=== PATIENT | female | born 1950 | race Caucasian/White ===

== ENCOUNTER 2023-05-22 13:42 | Outpatient (OUT) | payer MEDICARE, SELFPAY ==
--- NOTE | 2023-05-22 13:45 | MM_ITS ---
Patient: KERRI CHAMPAGNE Exam Date: 05/22/2023 : 1950 Gender:F Ordering : CY STORY [facility] Admission #: [id number] Family : Order #: [id number] CLICK HERE TO VIEW EXAM RADIOLOGY REPORT PROCEDURE: MM TOMOSYNTHESIS SCREENING BI COMPARISON: MG MAMM SCREEN 3D LISANDRO CAD, 03/07/2021. MG MAMM SCREEN 3D LISANDRO CAD, 03/31/2019. MG MAMM SCREEN LISANDRO W CAD, 03/12/2017. MG MAMM LISANDRO SCRN W CAD DIG, 02/23/2014. INDICATIONS: Screening Calculator Name NCI Breast Cancer Risk Assessment Tool 5 Year Breast Cancer Risk 2.00% Lifetime Breast Cancer Risk 5.60% Personal Breast Cancer No Personal Ovarian Cancer No Treatments Cryotherapy, chemotherapy cream Family Cancers Mother with colon cancer at age 65; Father with unknown cancer at age 80. LOCATION: [facility] BREAST COMPOSITION: Heterogeneously dense,which may obscure small masses. FINDINGS: DIAGNOSTIC CATEGORY 2--BENIGN FINDING: RIGHT BREAST: No significant suspicious finding. No significant change has occurred. LEFT BREAST: No significant suspicious finding. This exam includes additional mammographic views for implant evaluation and shows no visible implant abnormality. No significant change has occurred. RECOMMENDATIONS: ROUTINE MAMMOGRAM AND CLINICAL EVALUATION IN 12 MONTHS. PLEASE NOTE: A NORMAL MAMMOGRAM DOES NOT EXCLUDE THE POSSIBILITY OF BREAST CANCER. A CLINICALLY SUSPICIOUS PALPABLE LUMP SHOULD BE BIOPSIED. Dictated by: Kali Grove M.D. on 05/23/2023 at 13:45 Approved by: Kali Grove M.D. on 05/23/2023 at 13:48
== END 2023-05-22 13:43 | disposition home or self-care (01) ==
LOC: MAMMO 13:42
PROVIDERS: PCP Nurse Practitioner Family; Visit Provider Nurse Practitioner Family
DX: Z12.31 Encounter for screening mammogram for malignant neoplasm of breast (principal); Z80.0 Family history of malignant neoplasm of digestive organs; Z80.9 Family history of malignant neoplasm, unspecified
CPT/HCPCS: 77063; 77067

== ENCOUNTER 2023-12-30 08:40 | Outpatient (OUT) | payer MEDICARE, SELFPAY ==
--- NOTE | 2023-12-30 08:44 | MM_ITS ---
Patient Name: KERRI CHAMPAGNE MR#: [id number] : 1950 Exam Date: 12/30/2023 Ordering Doctor: CY STORY CNP RADIOLOGY REPORT PROCEDURE: MM TOMOSYNTHESIS DIAGNOSTIC BI, 12/30/2023, 08:46 US BREAST LT LIMITED, 12/30/2023, 10:09 COMPARISON: MM TOMOSYNTHESIS SCREENING BI, 05/22/2023. MG MAMM SCREEN 3D LISANDRO CAD, 03/07/2021. MG MAMM SCREEN 3D LISANDRO CAD, 03/31/2019. MG MAMM LISANDRO SCRN W CAD DIG, 02/23/2014. INDICATIONS: Breast Pain Calculator Name NCI Breast Cancer Risk Assessment Tool 5 Year Breast Cancer Risk 2.00% Lifetime Breast Cancer Risk 5.60% Personal Breast Cancer No Personal Ovarian Cancer No Treatments Cryotherapy, chemotherapy cream Family Cancers Mother with colon cancer at age 65; Father with unknown cancer at age 80. LOCATION: [facility] BREAST COMPOSITION: Heterogeneously dense,which may obscure small masses. FINDINGS: DIAGNOSTIC CATEGORY 1--NEGATIVE. RIGHT BREAST: No significant suspicious finding. This exam includes additional mammographic views for implant evaluation and shows no visible implant abnormality. No significant change has occurred. LEFT BREAST: No significant suspicious finding. This exam includes additional mammographic views for implant evaluation and shows no visible implant abnormality. No significant change has occurred. Ultrasound evaluation of the upper outer quadrant where patient describes pain demonstrates normal appearing fibroglandular tissue. RECOMMENDATIONS: ROUTINE MAMMOGRAM AND CLINICAL EVALUATION IN 12 MONTHS. PLEASE NOTE: A NORMAL MAMMOGRAM DOES NOT EXCLUDE THE POSSIBILITY OF BREAST CANCER. A CLINICALLY SUSPICIOUS PALPABLE LUMP SHOULD BE BIOPSIED. Dictated by: Kali Grove M.D. on 12/31/2023 at 16:09 Approved by: Kali Grove M.D. on 12/31/2023 at 16:13
--- NOTE | 2023-12-30 10:08 | US_ITS ---
Patient Name: KERRI CHAMPAGNE MR#: [id number] : 1950 Exam Date: 12/30/2023 Ordering Doctor: CY STORY CNP RADIOLOGY REPORT PROCEDURE: MM TOMOSYNTHESIS DIAGNOSTIC BI, 12/30/2023, 08:46 US BREAST LT LIMITED, 12/30/2023, 10:09 COMPARISON: MM TOMOSYNTHESIS SCREENING BI, 05/22/2023. MG MAMM SCREEN 3D LISANDRO CAD, 03/07/2021. MG MAMM SCREEN 3D LISANDRO CAD, 03/31/2019. MG MAMM LISANDRO SCRN W CAD DIG, 02/23/2014. INDICATIONS: Breast Pain Calculator Name NCI Breast Cancer Risk Assessment Tool 5 Year Breast Cancer Risk 2.00% Lifetime Breast Cancer Risk 5.60% Personal Breast Cancer No Personal Ovarian Cancer No Treatments Cryotherapy, chemotherapy cream Family Cancers Mother with colon cancer at age 65; Father with unknown cancer at age 80. LOCATION: [facility] BREAST COMPOSITION: Heterogeneously dense,which may obscure small masses. FINDINGS: DIAGNOSTIC CATEGORY 1--NEGATIVE. RIGHT BREAST: No significant suspicious finding. This exam includes additional mammographic views for implant evaluation and shows no visible implant abnormality. No significant change has occurred. LEFT BREAST: No significant suspicious finding. This exam includes additional mammographic views for implant evaluation and shows no visible implant abnormality. No significant change has occurred. Ultrasound evaluation of the upper outer quadrant where patient describes pain demonstrates normal appearing fibroglandular tissue. RECOMMENDATIONS: ROUTINE MAMMOGRAM AND CLINICAL EVALUATION IN 12 MONTHS. PLEASE NOTE: A NORMAL MAMMOGRAM DOES NOT EXCLUDE THE POSSIBILITY OF BREAST CANCER. A CLINICALLY SUSPICIOUS PALPABLE LUMP SHOULD BE BIOPSIED. Dictated by: Kali Grove M.D. on 12/31/2023 at 16:09 Approved by: Kali Grove M.D. on 12/31/2023 at 16:13
== END 2023-12-30 08:41 | disposition home or self-care (01) ==
LOC: MAMMO 08:40
PROVIDERS: PCP Nurse Practitioner Family; Visit Provider Nurse Practitioner Family
DX: N64.4 Mastodynia (principal); Z80.0 Family history of malignant neoplasm of digestive organs; Z80.8 Family history of malignant neoplasm of other organs or systems
CPT/HCPCS: 76642; 77066; G0279

== ENCOUNTER 2024-04-06 09:43 | Outpatient (OUT) | payer MEDICARE, SELFPAY ==
--- NOTE | 2024-04-06 | XR_ITS ---
The [address] [address] Patient Name: KERRI CHAMPAGNE MRN: [id number] date: 1950 Sex: F Assigned Patient Location: Current Patient Location: Accession/Order Number: [id number] Exam Date: 04/06/2024 10:00 Report Date: 04/07/2024 06:14 At the request of: ANDERS CYR Procedure: XR foot LT min 3V PROCEDURE: XR foot LT min 3V HISTORY: LEFT FOOT PAIN ; pain to second toe and base of 5th toe COMPARISON: None. FINDINGS: BONES:Nondisplaced transverse fracture through base of 5th proximal phalanx with suspected intra-articular extension. Unremarkable second toe. SOFT TISSUES:Soft tissue swelling of 5th toe. EFFUSION:None visible. OTHER: Negative. XR/XR foot LT min 3V IMPRESSION: 1. Acute versus subacute fracture involving base of 5th proximal phalanx. Electronically authenticated by: BHAVYA VELA Date: 04/07/2024 06:14
--- OUTSIDE RECORDS SUMMARY | 2024-04-06 09:49 | XMS_ITS ---
Patient Summarization (C-CDA 2.1 CCD) Created on: April 06, 2024 KERRI CHAMPAGNE : 1950 Sex: Female Author Organization Sample organization Care Team Providers Care Hand Tube Bender Name Role Phone Gregoria Hamlin Unavailable Luis Enrique Wood DO Primary Care Provider [phone] Luis Enrique Wood DO Primary Care Provider Luis Enrique Wood DO Primary Care Provider [phone] None, No PCP Unavailable Unavailable Unavailable Unavailable WISDOM, AMOS Attending Unavailable WISDOM, AMOS Referring Unavailable LUIS ENRIQUE WOOD G Primary Care Unavailable WISDOM, AMOS Attending Unavailable LUIS ENRIQUE WOOD G Primary Care Unavailable YONATHAN CAZARES Referring Unavailable LUIS ENRIQUE WOOD G Primary Care Unavailable Visci, DO Deleon Attending Provider [phone] MD Albino Reilly Primary Care Provider Pancho Estrada Admitting Unavailable Albino Reilly Primary Care Unavailable Adryan, Pancho Attending Unavailable Albino Reilly Primary Care Unavailable ViscPancho baugh Attending Unavailable Pancho Estrada Admitting Unavailable HANNA WOODONY G Primary Care Unavailable KERRI MORENO Attending Unavailable HANNA WOODONY G Primary Care Unavailable AVANI RODRÍGUEZ Attending Unavailable WISDOM, AMOS Referring Unavailable LUIS ENRIQUE WOOD G Primary Care Unavailable YONATHAN CAZARES Attending Unavailable YONATHAN CAZARES Referring Unavailable ISRAEL, LUIS ENRIQUE G Primary Care Unavailable YONATHAN CAZARES Referring Unavailable DONTA DO A Referring Unavailable ISRAEL, LUIS ENRIQUE G Primary Care Unavailable DONTA DO Referring Unavailable HANNA WOODONY G Primary Care Unavailable EILEEN DOHOSH A Referring Unavailable HANNA WOODONY G Primary Care Unavailable ISRAEL, LUIS ENRIQUE G Primary Care Unavailable EILEEN DOHOSH A Referring Unavailable TESMOND, LUIS ENRIQUE G Primary Care Unavailable YONATHAN CAZARES Attending Unavailable JEZ, CY Primary Care Unavailable JEZ, CY Consulting Unavailable JEZ, CY Attending Unavailable JEZ, CY Admitting Unavailable JEZ, CY Primary Care Unavailable JEZ, CY Consulting Unavailable JEZ, CY Attending Unavailable JEZ, CY Admitting Unavailable JEZ, CY Primary Care Unavailable DR ANGEL WOODS V Consulting Unavailable JEZ, CY Attending Unavailable JEZ, CY Admitting Unavailable JEZ, CY Consulting Unavailable Unavailable Primary Care Provider Unavailabl e EISSTEVE TU A Referring Unavailable TU JOHNS Primary Care Unavailable Generic Provider MD, No Assigned Pcp Primary Car e Provider Unavailable CARLOTA COTTON E Admitting Unavailable LULACARLOTA AGUDELO Attending Unavailable LULACARLOTA AGUDELO E Referring Unavailable SALLY WYNNE Attending Unavailable Generic Provider MD, No Assigned Pcp Primary Car e Provider Unavailable LAURA OWENS Attending Unavailab LAURA Spencer Referring Unavailab LAURA Spencer Attending Unavailab le LAURA OWENS Attending Unavailab ARGENTINA Costello Attending Unavailabl e LULACARLOTA AGUDELO E Attending Unavailable LULACARLOTA AGUDELO E Attending Unavailable GENERIC PROVIDER, NO ASSIGNED PCP Primary Care Unavailable CARLOTA COTTON Attending Unavailable GENERIC PROVIDER, NO ASSIGNED PCP Primary Care Unavailable Allergies Allergy Classification Reported Allergen(s) Allergy Type Date of Onset Reaction(s) Facility (20 sources) Prochlorperazine; Translations: [Compazine] Drug Allergy 5 Other: See Comments, Unknown, Seizure [facility] (1 source) Prochlorperazine Drug Allergy 3 [facility] Repository (7 sources) atorvastatin; Translations: [ATORVASTATIN] Drug Allergy 4 [facility] Encounters Encounter Date Encounter Type Care Provider Facility Start: 03-09-2024 End: 03-09-2024 ambulatory CARLOTA COTTON [facility] Ambulatory Start: 03-09-2024 End: 03-09-2024 Postop follow up visit related to original px Carlota Cotton MD Work Phone: [facility] Comment on above: Postoperative visit (Primary Dx); Multiple perforations of left tympanic membrane; Mixed conductive and sensorineural hearing loss of left ear with restricted hearing of right ear; Bilateral chronic serous otitis media; Mixed conductive and sensorineural hearing loss, bilateral Start: 02-24-2024 End: 02-24-2024 ambulatory LAURA OWENS Not Available Start: 02-17-2024 End: 02-17-2024 ambulatory LAURA OWENS Not Available Start: 02-10-2024 End: 02-10-2024 ambulatory [facility] Amb[facility] Start: 02-10-2024 End: 02-10-2024 Postop follow up visit related to original px Carlota Cotton MD Work Phone: [facility] Comment on above: Postoperative visit (Primary Dx); Multiple perforations of left tympanic membrane; Mixed conductive and sensorineural hearing loss of left ear with restricted hearing of right ear Start: 01-19-2024 End: 01-19-2024 Subsequent hospital visit by physician Carlota Cotton MD Work Phone: [facility] [place] Comment on above: Perforation of left tympanic membrane (Primary Dx); 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 Start: 01-12-2024 End: 01-13-2024 ambulatory [facility] Start: 01-12-2024 End: 01-13-2024 Encounter for other preprocedural examination [facility] Start: 01-05-2024 End: 01-06-2024 ambulatory [facility] Start: 11-18-2023 End: 11-18-2023 ambulatory LAURA OWENS Not Available Start: 11-12-2023 ambulatory [facility] Start: 11-11-2023 End: 11-11-2023 ambulatory [facility] Start: 11-11-2023 End: 11-11-2023 Office outpatient new 45 minutes Carlota Cotton MD Work Phone: [facility] Comment on above: Mixed conductive and sensorineural hearing loss of left ear with restricted hearing of right ear (Primary Dx); Perforation of left tympanic membrane Start: 10-07-2023 End: 10-07-2023 ambulatory TU JOHNS [facility] Start: 09-09-2023 End: 09-09-2023 ambulatory ARGENTINA LORD [facility] Ambulatory Start: 09-09-2023 End: 09-09-2023 Office outpatient visit 25 minutes [place] Sree [facility] PROFESSOR/NURSE ANESTHETIST-FREIGHT REPRESENTATIVE Work Phone: [facility] Comment on above: Perforation of left tympanic membrane (Primary Dx); Left chronic serous otitis media; Bilateral impacted cerumen; Sensation of plugged ear, bilateral; Hearing difficulty of left ear; Otalgia of left ear Start: 01-08-2023 End: 01-09-2023 ambulatory CY STORY Facility: Start: 12-24-2022 End: 12-24-2022 ambulatory Pancho Estrada Facility:[facility] Start: 12-24-2022 End: 12-24-2022 Admission to same day surgery center MD Albino Reilly Work Phone: [facility] [place] Start: 12-24-2022 End: 12-24-2022 ambulatory MD Albino Reilly Work Phone: [facility] Work Phone: Start: 12-19-2022 End: 12-19-2022 ambulatory Albino Reilly Facility:[facility] Start: 12-19-2022 End: 12-19-2022 ambulatory MD Albino Reilly Work Phone: [facility] Work Phone: Start: 12-19-2022 End: 12-19-2022 Patient encounter procedure MD Albino Reilly Work Phone: [facility] [employer] Work Phone: Start: 11-25-2022 End: 11-25-2022 ambulatory AMOS VELAZQUEZQUI Facility:[facility] Start: 11-25-2022 End: 11-25-2022 Patient encounter procedure Amos Wisdom MD Work Phone: Neurology Comment on above: Cervical dystonia (P rimary Dx) Start: 11-18-2022 Office outpatient ne w 30 minutes No PCP None [facility] Work Phone: Start: 11-14-2022 End: 11-14-2022 ambulatory CY STORY Facility: Start: 11-13-2022 End: 11-13-2022 ambulatory LUIS ENRIQUE WOOD Facility:[facility] Start: 11-13-2022 End: 11-13-2022 Patient encounter procedure Kerri Moreno PA-C Work Phone: Pain Management Comment on above: Cervical dystonia (P rimary Dx); Cervicalgia Start: 10-14-2022 End: 10-14-2022 ambulatory LUIS ENRIQUE WOOD Facility:[facility] Start: 10-08-2022 Refill Yonathan crawford PA-C Work Phone: Spine Medicine Comment on above: Refill Request Start: 09-18-2022 End: 09-18-2022 ambulatory AMOS WISDOM Facility:[facility] Start: 08-14-2022 End: 08-14-2022 ambulatory Remi Escamilla PT [facility] Comment on above: Neck pain (Primary D x) Start: 08-07-2022 End: 08-07-2022 ambulatory DONTA DO Facility:[facility] Start: 08-07-2022 End: 08-07-2022 ambulatory Meredith Hollis [employer] SOFTWARE ENGINEER Work Phone: [facility] Comment on above: Spasmodic torticolli s (Primary Dx); Neck pain Start: 08-05-2022 ambulatory YONATHAN Reza ity:[facility] Start: 07-31-2022 End: 07-31-2022 ambulatory DONTA OD Facility:[facility] Start: 07-31-2022 End: 07-31-2022 ambulatory Meredith Hollis ORACLE SOFTWARE ENGINEER Work Phone: [facility] Comment on above: Spasmodic torticolli s (Primary Dx); Neck pain Start: 07-17-2022 End: 07-17-2022 ambulatory LUIS ENRIQUE WOOD Facility:[facility] Start: 07-17-2022 End: 07-17-2022 ambulatory Remi [facility]illa [facility] Comment on above: Neck pain (Primary D x); Spasmodic torticollis; Bilateral carotid artery stenosis; Low back pain, non-specific; History of tremor; Myalgia; Pain of left sacroiliac joint; Spinal stenosis of cervical region; Chronic tension-type headache, not intractable; Imbalance Start: 07-09-2022 End: 07-09-2022 ambulatory LUIS ENRIQUE WOOD Facility:[facility] Start: 07-09-2022 End: 07-09-2022 ambulatory Yonathan Cazares PA-C Work Phone: Spine Medicine Comment on above: Radiculopathy, cervi car region (Primary Dx); Spasmodic torticollis; Bilateral carotid artery stenosis; History of tremor; Myalgia; Spinal stenosis of cervical region; Chronic tension-type headache, not intractable; Imbalance; Cervical spondylosis without myelopathy; Lumbar facet arthropathy; Degeneration of lumbar intervertebral disc; Lumbar spondylosis Start: 07-09-2022 End: 07-09-2022 Telemedicine consultation with patient Yonathan Cazares PA-C Work Phone: [facility] Start: 07-03-2022 End: 07-03-2022 ambulatory LUIS ENRIQUE WOOD Facility:[facility] Start: 07-03-2022 End: 07-03-2022 ambulatory LUIS ENRIQUE WOOD Facility:[facility] Start: 07-03-2022 End: 07-03-2022 Patient encounter procedure Yonathan Cazares PA-C Work Phone: Spine Medicine Comment on above: Spasmodic torticolli s (Primary Dx); Bilateral carotid artery stenosis; Neck pain; Low back pain, non-specific; History of tremor; Myalgia; Pain of left sacroiliac joint; Spinal stenosis of cervical region; Chronic tension-type headache, not intractable; Imbalance Start: 05-06-2022 End: 05-07-2022 ambulatory CY STORY Facility:[facility] Start: 11-05-2021 End: 11-05-2021 ambulatory Gregoria Hamlin Other [facility] Other Start: 11-05-2021 Office outpatient vi sit 15 minutes Gregoria Hamlin [facility] Goals Date Patient Goal Desired Activity /State Immunizations Immunization Date Immunization Notes Care Provider [place] 06-18-2022 COVID-19 mRNA-1273 (Moderna) MD Albino Reilly Work Phone: [facility] 10-25-2021 COVID-19 mRNA-1273 (Moderna) MD Albino Reilly Work Phone: [facility] 02-03-2021 COVID-19 mRNA-1273 (Moderna) MD Albino Reilly Work Phone: [facility] 01-06-2021 COVID-19 mRNA-1273 (Moderna) MD Albino Reilly Work Phone: [facility] 10-15-2019 pneumococcal conjuga te vaccine, 13 valent Argentina Lord PROFESSOR/NURSE ANESTHETIST-FREIGHT REPRESENTATIVE Work Phone: [facility] Work Phone: 09-21-2016 zoster vaccine, live Bakari Lord PROFESSOR/NURSE ANESTHETIST-FREIGHT REPRESENTATIVE Work Phone: [facility] Work Phone: 10-06-2001 pneumococcal polysaccharide vaccine, 23 valent [place] Lord PROFESSOR/NURSE ANESTHETIST-FREIGHT REPRESENTATIVE Work Phone: [facility] Work Phone: Medications Current Medications Medication Drug Class(es) Dates Sig (Normalized) Sig (Original) acetaminophen 325 mg oral tablet (4 sources) Start: 01-19-2024 take 2 tablets by mouth every six hours for pain acetaminophen (Tylenol) 325 mg tablet Indications: Perforation of left tympanic membrane , 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 20 tablet 01/19/2024 Active Start: 01-19-2024 End: 01-19-2024 acetaminophen (Tylenol) tabl et 975 mg acetaminophen 325 mg / HYDROcodone bitartrate 5 mg oral tablet (5 sources) Opioid Agonist Start: 12-24-2022 take 1 tablet by mouth every six hours Hydrocodone-Acetaminophen Active 1 TAB PO Q6H 12 3 December 24, 2022 Start: 10-22-2017 End: 12-19-2022 take 1 tablet by mouth every four to six hours Hydrocodone-Acetaminophen (Henderson) 5-325 mg tablet Discontinued 1 TAB PO EVERY 4-6 HOURS January 15, 2018 December 19, 2022 4:39pm albuterol 0.83 mg/ml inhalation solution (1 source) beta2-Adrenergic Agonist Start: 01-19-2024 albuterol 2.5 mg /3 mL (0.083 %) nebulizer solution 2.5 mg onabotulinumtoxina 100 unt injection (12 sources) Acetylcholine Release Inhibitor Start: 12-19-2022 inject 100 [IU] by subcutaneous injection every three months Onabotulinumtoxina (Botox) 100 unit Recon Soln Active 1 UNIT SUBCUT Q3M December 19, 2022 12:00am botox treatments q 3 months Start: 11-25-2022 End: 12-25-2022 onabotulinum toxin type A 10 0 Units injection (BOTOX) Start: 04-29-2018 onabotulinum t oxin type A 200 Units injection (BOTOX) calcium carbonate 750 mg chewable tablet (3 sources) calcium carbonat e EX (Tums Extra Strength) 300 mg (750 mg) chewable tablet Chew 300 mg once daily. Active calcium carbonate 1250 mg / cholecalciferol 200 unt oral tablet (2 sources) Vitamin D take 1 tablet by mouth once daily calcium carbonate-vitamin D3 500 mg-5 mcg (200 unit) tablet Take 1 tablet by mouth once daily. 0 Active calcium chloride 0.0014 meq/ml / potassium chloride 0.004 meq/ml / sodium chloride 0.103 meq/ml / sodium lactate 0.028 meq/ml injectable solution (2 sources) Start: 01-19-20 24 lactated Ringer's infusion cephalexin 500 mg oral capsule (3 sources) Cephalosporin Antibacterial Start: 12-24-19 take 500 mg by mouth twice daily Cephalexin Active 500 MG PO Twice daily 23 05December 24, 2022 12:00am Start: 01-15-2018 End: 01-22-2018 take 500 mg by mouth twice daily Cephalexin Discontinued 500 MG PO Twice daily 23 05January 15, 2018 12:00am January 21, 2018 11:03pm cetirizine hydrochloride 10 mg oral tablet (3 sources) Histamine-1 Receptor Antagonist take 1 tablet by mouth once daily cetirizine (ZyrTEC) 10 mg tablet Take 1 tablet (10 mg) by mouth once daily. Active cholecalciferol 0.05 mg oral tablet (3 sources) Vitamin D take 1 tablet by mouth once daily cholecalciferol (Vitamin D3) 50 MCG (2000 UT) tablet Take 1 tablet (50 mcg) by mouth once daily. Active ciprofloxacin 3 mg/ml / dexamethasone 1 mg/ml otic suspension (1 source) Corticosteroid, Quinolone Antimicrobial Start: End: ciprofloxacin-dexameth asone (CiproDEX) otic suspension Indications: Perforation of left tympanic membrane , Left chronic serous otitis media Administer 4 drops into the left ear 2 times a day for 7 days. 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 Take while using narcotics for pain control 01/19/2024 Active Finasteride (5 sources) 5-alpha Reductase Inhibitor End: FINASTERIDE ORAL Finasteride TABS Quantity: 0 Refills: 0 Ordered: 18-Nov-2022 DO Active 1 ml hydrALAZINE hydrochloride 20 mg/ml injection (1 source) Arteriolar Vasodilator Start: 01-19-2024 hydrALAZINE (Apresoline) injection 5 mg 0.5 ml HYDROmorphone hydrochloride 1 mg/ml prefilled syringe (2 sources) Opioid Agonist Start: 01-19-2024 HYDROmorphone (Dilaudid) injection 0.5 mg Start: 01-19-2024 HYDROmorphone (Dilaudid) injection 0.2 mg ibuprofen 600 mg oral tablet (4 sources) Nonsteroidal Anti-inflammatory Drug Start: 01-19-2024 take 1 tablet by mouth every six hours for pain ibuprofen 600 mg tablet Indications: Perforation of left tympanic membrane , 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 20 tablet 01/19/2024 Active Start: 12-24-2022 Ibuprofen Acti ve 600 MG PO Every 6 hours December 24, 2022 12:00am do not exceed 4 doses in a 24 hour period methocarbamol 500 mg oral tablet (8 sources) Muscle Relaxant Start: 11-13-2022 End: 05-12-2023 take 1 tablet by mouth three times daily methocarbamol (ROBAXIN) 500 mg tablet Take 1 tablet by mouth three times daily. 270 tablet 1 11/13/2022 05/12/2023 Active Start: 10-14-2022 End: 11-13-2022 take 1-2 tablets by mouth twice daily methocarbamol (ROBAXIN) 500 mg tablet Take 1-2 tablets by mouth twice daily. 60 tablet 1 10/14/2022 11/13/2022 Discontinued End: 09-09-2023 METHOCARBAMOL ORAL Methocarbamol TA BS Quantity: 0 Refills: 0 Ordered: 18-Nov-2022 DO Active Comment on above: Take 1 tablet by ana three times daily. Take 1-2 tablets by mouth twice daily. 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 Do not start before February 09, 2024. 0.9 mL 02/09/2024 03/10/2024 Active Start: 10-21-2017 End: 01-14-2018 Ofloxacin Discontinued 1 ANNAMARIA PS EAR-BOTH Twice daily October 21, 2017 12:00am January 14, 2018 3:13pm End: 07-03-2022 ofloxacin (FLOXIN) 0.3 % charles c solution Use 5 Drops in both ears once daily. 0 07/03/2022 Discontinued Comment on above: Use 5 Drops in both ears once daily. 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 20 tablet 01/19/2024 Active Start: 01-19-2024 ondansetron (Z ofran) injection 4 mg oxyCODONE hydrochloride 5 mg oral tablet (1 source) Opioid Agonist Start: 01-19-2024 take 1 tablet by mouth every four hours as needed oxyCODONE (Roxicodone) immediate release tablet 5 mg oxygen (O2) therapy (1 source) Start: 01-19-2024 oxygen (O2) th erapy promethazine (Phenergan) 6.25 mg in sodium chloride 0.9% 50 mL IV (1 source) Start: 01-19-2024 promethazine (Phenergan) 6.25 mg in sodium chloride 0.9% 50 mL IV propranolol hydrochloride 10 mg oral tablet (1 source) beta-Adrenergic Zuleima take 1 tablet by mouth three times daily propranolol (Inderal) 10 mg tablet Take 1 tablet (10 mg) by mouth 3 times a day. 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 12 tablet 01/19/2024 Active Completed/Discontinued Medications Medication Drug Class(es) Dates Sig (Normalized) Sig (Original) Amoxicillin (4 sources) Penicillin-class Antibacterial Amoxicillin CAPS Quantity: 0 Refills: 0 Ordered: 18-Nov-2022 DO Active amoxicillin 875 mg / clavulanate 125 mg oral tablet (4 sources) Penicillin-class Antibacterial Start: 11-14-2022 Amoxicillin-Pot Clavulanate 875-125 MG Oral Tablet Quantity: 20 Refills: 0 Ordered: 14-Nov-2022 DO Start : 14-Nov-2022 Active ciprofloxacin 3 mg/ml ophthalmic solution (4 sources) Quinolone Antimicrobial Start: 11-18-2022 take 2-3 drop(s) into the eye(s) twice daily Ciprofloxacin HCl - 0.3 % Ophthalmic Solution Instill 2-3 drops in left ear twice daily for 5 days. Quantity: 1 Refills: 0 Ordered: 18-Nov-2022 Lauren Sharma Start : 18-Nov-2022 Active clobetasol propionate 0.0005 mg/mg topical ointment (5 sources) Corticosteroid Start: 07-08-2022 Clobetasol Propionate 0.05 % External Ointment Quantity: 30 Refills: 0 Ordered: 08-Jul-2022 DO Start : 08-Jul-2022 Active End: 09-09-2023 clobetasol (Temovate) 0.05 % ointment cyclobenzaprine hydrochloride 10 mg oral tablet (10 sources) Muscle Relaxant Start: 05-14-2022 End: 09-09-2023 take 1 tablet by mouth three times daily as needed for muscle spasms cyclobenzaprine (FLEXERIL) 10 mg tablet Take 1 (ONE) tablet by mouth three times a day as needed for muscle spasm 0 05/14/2022 08/13/2022 Discontinued Start: 05-14-2022 Cyclobenzaprin e HCl - 10 MG Oral Tablet Quantity: 30 Refills: 0 Ordered: 14-May-2022 DO Start : 14-May-2022 Active Comment on above: Take 1 (ONE) tablet by mouth three times a day as needed for muscle spasm dexamethasone phosphate 1 mg/ml ophthalmic solution (4 sources) Corticosteroid Start: 11-18-19 take 2-3 drop(s) into the eye(s) twice daily Dexamethasone Sodium Phosphate 0.1 % Ophthalmic Solution Instill 2-3 drops in left ear twice daily for 5 days. Quantity: 1 Refills: 0 Ordered: 18-Nov-2022 Lauren Sharma Start : 18-Nov-2022 Active diazePAM 5 mg oral tablet (10 sources) Benzodiazepine Start: 07-03-20 End: 09-09-20 diazePAM (VALIUM) 5 mg tablet Indications: Spasmodic torticollis take one tablet 30 min prior to MRI, may take additional tablet 5 min prior to procedure (MRI) 2 tablet 0 07/03/2022 08/13/2022 Discontinued Start: 07-03-2022 diazePAM 5 MG Oral Tablet Quantity: 2 Refills: 0 Ordered: 03-Jul-2022 DO Start : 03-Jul-2022 Active Comment on above: take one tablet 30 m in prior to MRI, may take additional tablet 5 min prior to procedure (MRI) fenofibrate 160 mg oral tablet (20 sources) Peroxisome Proliferator Receptor alpha Agonist Start: 10-15-2022 Fenofibrate 160 MG Oral Tablet Quantity: 30 Refills: 0 Ordered: 15-Oct-2022 DO Start : 15-Oct-2022 Active Start: 10-21-2017 take 160 mg by mouth once daily at bedtime Fenofibrate Active 160 MG PO Daily at bedtime October 21, 2017 12:00am Comment on above: Take 160 mg by mouth once daily. fluconazole 150 mg oral tablet (5 sources) Azole Antifungal Start: 02-01-2022 Fluconazole 150 MG Oral Tablet Quantity: 2 Refills: 0 Ordered: 01-Feb-2022 DO Start : 01-Feb-2022 Active End: 09-09-2023 fluconazole (Diflucan) 150 m g tablet FLUoxetine 10 mg oral capsule (20 sources) Serotonin Reuptake Inhibitor Start: 10-21-2017 End: 12-19-2022 take 1 capsule by mouth once daily Fluoxetine (Prozac) 10 mg Capsule Discontinued 10 MG PO Daily October 21, 2017 12:00am December 19, 2022 4:39pm PROzac 10 MG Ora l Capsule Quantity: 0 Refills: 0 Ordered: 18-Nov-2022 DO Active Comment on above: Take 10 mg by mouth once daily. fluticasone propionate 0.05 mg/actuat metered dose nasal spray (3 sources) Corticosteroid Start: 10-21-2017 End: 12-19-2022 Fluticasone Propionate Discontinued 1 PUFF INTRANASAL Twice daily October 21, 2017 12:00am December 19, 2022 4:39pm End: 07-03-2022 take 1 spray(s) nasal route once daily fluticasone (FLONASE) 50 mcg/actuation nasal spray Use 1 [place] in each nostril once daily. 0 07/03/2022 Discontinued Comment on above: Use 1 [place] in each nostril once daily. gabapentin 300 mg oral capsule (12 sources) Anti-epileptic Agent Start: 10-09-2022 Gabapentin 300 MG Oral Capsule Quantity: 90 Refills: 0 Ordered: 09-Oct-2022 DO Start : 09-Oct-2022 Active Start: 10-09-2022 End: 12-09-2022 gabapentin (NEURONTIN) 300 m g capsule Indications: neuropathic pain 3 CAPSULES EVERY NIGHT 90 capsule 1 10/09/2022 11/13/2022 Discontinued Start: 07-09-2022 End: 09-09-2023 gabapentin (NEURONTIN) 300 m g capsule Indications: Radiculopathy, cervical region 1 Capsule FOR 3 NIGHTS, THEN 2 CAPSULES FOR 3 NIGHTS THEN 3 CAPSULES EVERY NIGHT 90 capsule 1 07/09/2022 09/07/2022 Active Comment on above: 1 Capsule FOR 3 NIGH TS, THEN 2 CAPSULES FOR 3 NIGHTS THEN 3 CAPSULES EVERY NIGHT 3 CAPSULES EVERY NIG HT hydrocortisone 10 mg/ml / neomycin 3.5 mg/ml / polymyxin b 42896 unt/ml otic solution (4 sources) Aminoglycoside Antibacterial, Polymyxin-class Antibacterial, Corticosteroid Start: 11-22-19 22 Neomycin-Polymyxin -HC 1 % Otic Solution Quantity: 10 Refills: 0 Ordered: 22-Nov-2021 DO Start : 22-Nov-2021 Active 24 hr metoprolol succinate 25 mg extended release oral tablet (6 sources) beta-Adrenergic Zuleima Start: 08-07-20 21 End: 09-09-20 23 take 1 tablet by mouth once daily in the morning Metoprolol Succinate ER 25 MG Oral Tablet Extended Release 24 Hour TAKE 1 TABLET BY MOUTH ONCE DAILY IN THE MORNING Quantity: 90 Refills: 0 Ordered: 06-Dec-2021 DO Start : 07-Aug-2021 Active bxqbybkv-ksnl-kjdw-FA-K-hb#2 44 18-400-80 mg-mcg-mcg tab (1 source) End: 07-03-2022 enutoxul-iasr-rhah-FA-K-hb#2 44 18-400-80 mg-mcg-mcg tab Take by mouth once daily. 0 07/03/2022 Discontinued Comment on above: Take by mouth once d aily. progesterone 200 mg oral capsule (10 sources) Progesteron e Start: 06-03-2022 End: 09-09-2023 Progesterone 200 MG Oral Capsule Quantity: 30 Refills: 0 Ordered: 06-Aug-2022 DO Start : 06-Aug-2022 Active Comment on above: TAKE 1 CAPSULE BY [facility] EVERY EVENING rosuvastatin calcium 20 mg o ral tablet (2 sources) HMG-CoA Reductase Inhibitor Start: 10-21-2017 End: 10-22-2017 Rosuvastatin (Crestor) 20 mg Tablet Discontinued TABLET October 21, 2017 12:00am October 22, 2017 6:30pm Payers Date Payer Category Payer Private Health Insurance [employer] SUPPLEMENTAL AETNA SENIOR SUPPLEMENT [id number] 2023-Present [id number] [place] [address] [id number] 2023 Private Health Insurance [id number] 2022 Self-pay [id number] 2022 Unknown [id number] 2022 Unknown 2021 Unknown [id number] 2017 Medicare [id number] 1959 Medicare [id number] 1959 Unknown [id number] 2.16.840.1.745695.19 1952 Unknown [id number] 2.16.840.1.620580.3.579.2 .593 1952 Unknown [id number] 2.16.840.1.774199.3.579.2 .593 1952 Unknown [id number] 2.16.840.1.109431.3.579.2 .593 1952 Unknown [id number] 2.16.840.1.791957.3.579.2 .1245 1952 Unknown [id number] 2.16.840.1.619617.3.579.2 .1245 1952 Unknown [id number] 2.16.840.1.523636.3.579.2 .1242 1952 Unknown [id number] 2.16.840.1.163579.3.579.2 .1242 1952 Unknown [id number] 2.16.840.1.736457.3.579.2 .1242 1952 Unknown [id number] 2.16.840.1.678099.3.579.2 .1259 1952 Unknown [id number] 2.16.840.1.676376.3.579.2 .1259 1952 Unknown [id number] 2.16.840.1.319570.3.579.2 .1259 1952 Unknown [id number] 2.16.840.1.752651.3.579.2 .1244 1952 Unknown [id number] 2.16.840.1.782817.3.579.2 .1244 1952 Unknown [id number] 2.16.840.1.326174.3.579.2 .1244 1952 Unknown [id number] 2.16.840.1.271097.3.579.2 .1244 Unknown [id number] 2.16.840.1.840047.3.579.2 .531 Unknown [id number] 2.16.840.1.662914.3.579.2 .531 Plan of Treatment Date Care Activity Detail Author Start: 01-22-2026 Screening for malign ant neoplasm of colon [facility] Start: 10-15-2024 Pneumococcal Vaccine : 65+ Years (3 of 3 - PPSV23 or PCV20) Pneumococcal Vaccine: 65+ Years (3 of 3 - PPSV23 or PCV20) [facility] Start: 07-11-2024 Influenza vaccination Influenz a Vaccine (Season Ended) [facility] Start: 03-09-2024 End: 03-09-2025 Hearing examination Comprehensive hearing test Audiology Routine 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, bilateral Expected: 03/09/2024 (Approximate), Expires: 03/09/2025 [facility] Service Area Work Phone: Comment on above: Expected: 03/09/2024 (Approximate), Expires: 03/09/2025 Start: 03-09-2024 End: 03-09-2024 Patient encounter procedure 03/09/2024 8:30 AM EDT Office Visit [facility] [address] [place] [address] [place] [address] [place], [place] [id number] [facility] Start: 02-10-2024 End: 02-10-2024 Patient encounter procedure 02/10/2024 11:00 AM EDT Office Visit [facility] [address] [place] [id number] [place] [address] [place] [id number] [facility] Start: 01-15-2024 COVID-19 Vaccine ( season) COVID-19 Vaccine ( season) [facility] Start: 11-11-2023 COVID-19 Vaccine (5 - Moderna series) COVID-19 Vaccine (5 - Moderna series) [facility] Start: 11-11-2023 End: 11-11-2024 Request for Pre-Admission Testing Visit Request for Pre-Admission Testing Visit Procedures Routine Perforation of left tympanic membrane Expected: 11/11/2023 (Approximate), Expires: 11/11/2024 [facility] Service Area Work Phone: Comment on above: Expected: 11/11/2023 (Approximate), Expires: 11/11/2024 Start: 11-11-2023 Zoster Vaccines (3 of 3) Zoster Vacc francoise (3 of 3) [facility] Start: 07-11-2023 Influenza vaccination Influenza Vacc ine (#1) [facility] Start: 07-02-2023 Adult depression screening assessment DEPRESSION SCREENING [facility] Start: 02-15-2023 Screening for malign ant neoplasm of breast Mammogram [facility] Start: 12-24-2022 Radiography of sacrococcygeal spine XR sacrum coccyx min 2V [facility] Start: 12-24-2022 XR Sacrum and Coccyx GE 2 Views [facility] Start: 12-24-2022 End: 12-24-2022 [facility] Start: 11-10-2022 ADVANCE DIRECTIVE DISCUSSION ADVANCE DIRECTIVE DISCUSSION [facility] Start: 11-10-2022 DEPRESSION ASSESSMENT DEPRESSION ASS ESSMENT [facility] Start: 08-13-2022 COVID-19 VACCINE (5 - Booster for Moderna series) COVID-19 VACCINE (5 - Booster for Moderna series) [facility] Start: 08-13-2022 COVID-19 Vaccine (5 - Moderna series) COVID-19 Vaccine (5 - Moderna series) [facility] Start: 07-11-2022 Influenza vaccination INFLUENZA (#1) [facility] Start: 11-10-2021 ADVANCE DIRECTIVE DISCUSSION ADVANCE DIRECTIVE DISCUSSION [facility] Start: 11-10-2021 DEPRESSION ASSESSMENT DEPRESSION ASS ESSMENT [facility] Start: 10-15-2020 Pneumococcal Vaccine : 65+ Years (3 - PPSV23 or PCV20) Pneumococcal Vaccine: 65+ Years (3 - PPSV23 or PCV20) [facility] Start: 02-07-2017 BONE DENSITY BONE DENSITY [facility] Start: 02-07-2017 PNEUMOCOCCAL: 65+ (1 - PCV) PNEUMOCOCCAL: 65+ (1 - PCV) [facility] Start: 11-16-2016 Zoster Vaccines (2 of 3) Zoster Vacc francoise (2 of 3) [facility] Start: 02-07-2002 Screening for malign ant neoplasm of lung Lung Cancer Screening [facility] Start: 02-07-2002 SHINGRIX VACCINE (1 of 2) SHINGRIX VACCINE (1 of 2) [facility] Start: 02-07-1997 COLOGUARD (FIT-DNA) COLOGUARD (FIT-D NA) [facility] Start: 02-07-1997 Colonoscopy COLONOSCOPY [facility] Start: 02-07-1997 COLORECTAL CANCER SCREENING COLORECTAL CANCER SCREENING [facility] Start: 02-07-[address] COLONOGRAPHY [facility] Start: 02-07-1997 DIABETES SCREEN DIABETES SCREEN [facility] Start: 02-07-1997 FECAL OCCULT BLOOD FECAL OCCULT BLOO D [facility] Start: 02-07-1997 LIPID SCREEN LIPID SCREEN [facility] Start: 02-07-1997 SIGMOIDOSCOPY SIGMOIDOSCOPY [facility] Start: 1992 Mammography MAMMOGRAM [facility] Start: 02-07-1974 DTaP/Tdap/Td Vaccine s (1 - Tdap) DTaP/Tdap/Td Vaccines (1 - Tdap) [facility] Start: 02-07-1971 Urine microalbumin profile DTAP,TDAP,TD (1 - Tdap) [facility] Start: 02-07-1970 Diabetes mellitus screening Diabetes Screening [facility] Start: 02-07-1970 HEPATITIS C SCREENING HEPATITIS C [facility] Start: 02-07-1970 Hepatitis C screening Hepatitis C [facility] Start: 1952 Lipid panel Lipid Panel [facility] Start: 1950 Medicare Annual Well ness Visit Medicare Annual Wellness Visit (AWV) [facility] Start: 1950 Screening for malign ant neoplasm of colon [facility] End: 08-02-2023 Mri brain brain stem w/o contrast material MRI BRAIN WO IVCON Radiology Routine Spasmodic torticollis Bilateral carotid artery stenosis Neck pain Low back pain, non-specific History of tremor Myalgia Pain of left sacroiliac joint Spinal stenosis of cervical region Chronic tension-type headache, not intractable Imbalance 1 Occurrences starting 07/03/2022 until 08/02/2023 [facility] Work Phone: Comment on above: 1 Occurrences starti ng 07/03/2022 until 08/02/2023 End: 08-02-2023 Mri spinal canal cervical w/o contrast matrl MRI CERVICAL SPINE WO IVCON Radiology Routine Spasmodic torticollis Bilateral carotid artery stenosis Neck pain Low back pain, non-specific History of tremor Myalgia Pain of left sacroiliac joint Spinal stenosis of cervical region Chronic tension-type headache, not intractable Imbalance 1 Occurrences starting 07/03/2022 until 08/02/2023 [facility] Work Phone: Comment on above: 1 Occurrences starti ng 07/03/2022 until 08/02/2023 Patient Education Surgical Wound (DC) [facility] Work Phone: Patient referral [facility] Work Phone: PT PLAN OF CARE CERTIFICATION PT PLAN OF CARE CERTIFICATION Procedures Routine Neck pain Ordered: 07/17/2022 [facility] Comment on above: Ordered: 07/17/2022 End: 08-02-2023 Radex spine cervical 6 or more views XR CERV OTHER 7V AP/LAT/FLX/EXT/ODON/OBL Radiology Routine Spasmodic torticollis Bilateral carotid artery stenosis Neck pain Low back pain, non-specific History of tremor Myalgia Pain of left sacroiliac joint Spinal stenosis of cervical region Chronic tension-type headache, not intractable Imbalance 1 Occurrences starting 07/03/2022 until 08/02/2023 [facility] Work Phone: Comment on above: 1 Occurrences starti ng 07/03/2022 until 08/02/2023 Radex spine cervical 6 or more views XR CERV OTHER 7V AP/LAT/FLX/EXT/ODON/OBL Radiology Routine Spasmodic torticollis Bilateral carotid artery stenosis Neck pain Low back pain, non-specific History of tremor Myalgia Pain of left sacroiliac joint Spinal stenosis of cervical region Chronic tension-type headache, not intractable Imbalance 07/03/2022 12:05 PM EDT [facility] Work Phone: Tympanoplasty w/o mastoidec 1st/revj prosth torp Ossiculoplasty Perforation of left tympanic membrane [facility] Work Phone: Tympanoplasty w/o mastoidect w/o ossicle recnstj Tympanoplasty Perforation of left tympanic membrane [facility] Work Phone: [facility] Problems Active Problems Problem Classification Problem Date Documented Date Episodic/Chronic Complications of surgical procedures or medical care (2 sources) Postoperative hemorrhage; Translations: [Postoperative hemorrhage] 01-15-2018 Episodic Deficiency and other anemia (1 source) Anemia, unspecified; Translations: [ANEMIA UNSPECIFIED] Onset: 01-12-2023 Episodic Diabetes mellitus without complication (1 source) Other abnormal glucose; Translations: [OTHER ABNORMAL GLUCOSE] Onset: 01-12-2023 Episodic Disorders of lipid metabolism (4 sources) Hyperlipidemia, unspecified; Translations: [HYPERLIPIDEMIA UNSPECIFIED] Onset: 01-08-2023 Chronic Esophageal disorders (4 sources) Gastroesophageal reflux disease; Translations: [Gastro-esophageal reflux disease without esophagitis] Onset: 01-19-2024 01-19-2024 Chronic Headache; including migraine (5 sources) Chronic tension-type headache; Translations: [Chronic tension-type headache, not intractable] Onset: 07-09-2022 Chronic Menopausal disorders (1 source) Postmenopausal bleeding; Translations: [Postmenopausal bleeding] Onset: 12-24-2022 Chronic Nutritional deficiencies (1 source) Vitamin D deficiency, unspecified; Translations: [VITAMIN D DEFICIENCY UNSPECIFIED] Onset: 01-12-2023 Chronic Occlusion or stenosis of precerebral arteries (9 sources) Bilateral stenosis of carotid arteries; Translations: [Occlusion and stenosis of bilateral carotid arteries] Onset: 05-06-2022 Chronic Other aftercare (4 sources) Postoperative visit; Translations: [Encounter for other specified surgical aftercare] Onset: 02-10-2024 02-10-2024 Episodic Other aftercare (2 sources) Encounter for other specified surgical aftercare; Translations: [Encounter for other specified surgical aftercare] Onset: 02-10-2024 Episodic Other connective tissue disease (3 sources) Muscle pain; Translations: [Myalgia, unspecified site] Episodic Other ear and sense organ disorders (1 source) Hearing difficulty; Translations: [Unspecified hearing loss, left ear] 09-09-2023 Chronic Other ear and sense organ disorders (7 sources) Mixed conductive AND sensorineural hearing loss; Translations: [Mixed conductive and sensorineural hearing loss, unilateral, left ear with restricted hearing on the contralateral side] Onset: 11-11-2023 11-11-2023 Chronic Other ear and sense organ disorders (2 sources) Conductive hearing loss, unilateral, left ear with restricted hearing on the contralateral side; Translations: [Conductive hearing loss, unilateral, left ear with restricted hearing on the contralateral side] Onset: 10-07-2023 Chronic Other ear and sense organ disorders (2 sources) Sensorineural hearing loss, unilateral, right ear, with restricted hearing on the contralateral side; Translations: [Sensorineural hearing loss, unilateral, right ear, with restricted hearing on the contralateral side] Onset: 10-07-2023 Chronic Other ear and sense organ disorders (2 sources) Mixed conductive and sensorineural hearing loss, bilateral; Translations: [Mixed conductive and sensorineural hearing loss, bilateral] Onset: 03-09-2024 03-09-2024 Chronic Other ear and sense organ disorders (1 source) Mixed conductive and sensorineural hearing loss, bilateral; Translations: [Mixed conductive and sensorineural hearing loss, bilateral] Onset: 03-09-2024 Chronic Other ear and sense organ disorders (2 sources) Mixed conductive and sensorineural hearing loss, unilateral, left ear with restricted hearing on the contralateral side; Translations: [Mixed conductive and sensorineural hearing loss, unilateral, left ear with restricted hearing on the contralateral side] Onset: 11-11-2023 Chronic Other ear and sense organ disorders (2 sources) Unspecified hearing loss, left ear; Translations: [Unspecified hearing loss, left ear] Onset: 09-09-2023 Chronic Other ear and sense organ disorders (4 sources) Impacted cerumen; Translations: [Impacted cerumen] Episodic Other ear and sense organ disorders (1 source) Impacted cerumen of bilateral ears; Translations: [Impacted cerumen, bilateral] 09-09-2023 Episodic Other ear and sense organ disorders (1 source) Bilateral sensation of blocked ears; Translations: [Other specified disorders of ear, bilateral] 09-09-2023 Episodic Other hereditary and degenerative nervous system conditions (15 sources) Spasmodic torticollis; Translations: [Spasmodic torticollis] Onset: 06-08-2015 Chronic Other hereditary and degenerative nervous system conditions (2 sources) Isolated cervical dystonia; Translations: [Spasmodic torticollis] Chronic Other hereditary and degenerative nervous system conditions (4 sources) Spasmodic torticollis; 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] Onset: 06-08-2015 Chronic Other nervous system disorders (3 sources) History of clinical finding in subject; Translations: [Personal history of other diseases of the nervous system and sense organs] Episodic Other nervous system disorders (4 sources) Impairment of balance; Translations: [Other abnormalities of gait and mobility] Episodic Other nervous system disorders (1 source) Acute postoperative pain; Translations: [Other acute postprocedural pain] 12-24-2022 Episodic Other nutritional; endocrine; and metabolic disorders (4 sources) Body mass index 30+ - obesity; Translations: [Body Mass Index 30.0-30.9, adult] Chronic Other upper respiratory disease (2 sources) Paralysis of vocal cords and larynx, unspecified; Translations: [Paralysis of vocal cords and larynx, unspecified] Onset: 11-11-2023 Chronic Other upper respiratory infections (1 source) Acute sinusitis, unspecified; Translations: [ACUTE SINUSITIS UNSPECIFIED] Onset: 11-17-2022 Episodic Otitis media and related conditions (7 sources) Chronic serous otitis media of left ear; Translations: [Chronic serous otitis media, left ear] Onset: 08-29-2023 09-09-2023 Chronic Otitis media and related conditions (20 sources) Multiple perforations of tympanic membrane; Translations: [Multiple perforations of tympanic membrane] Onset: 08-29-2023 09-09-2023 Episodic Spondylosis; intervertebral disc disorders; other back problems (9 sources) Cervical spondylosis without myelopathy; Translations: [Spondylosis without myelopathy or radiculopathy, cervical region] Onset: 07-09-2022 Chronic Spondylosis; intervertebral disc disorders; other back problems (20 sources) Neck pain; Translations: [Cervicalgia] Onset: 07-03-2022 Episodic Unclassified (2 sources) Low back pain, non-specific; Translations: [Low back pain, non-specific] Onset: 07-03-2022 Unclassified (1 source) Encounter for adjustment and management of neurostimulator; Translations: [Encounter for adjustment and management of neurostimulator] Onset: 12-24-2022 Unclassified (1 source) Encounter for preprocedural laboratory examination; Translations: [Encounter for preprocedural laboratory examination] Onset: 12-19-2022 Unclassified (3 sources) CONTACT W/AND (SUSP) EXPOS COVID-19; Translations: [CONTACT W/AND (SUSP) EXPOS COVID-19] Onset: 11-17-2022 Past or Other Problems Problem Classification Problem Date Documented Date Episodic/Chronic Immunizations and screening for infectious disease (1 source) Contact with and (suspected) exposure to other viral communicable diseases Onset: 11-05-2021 Resolved: 11-05-2021 Episodic Other connective tissue disease (2 sources) Myalgia, unspecified site; Translations: [Myalgia] Onset: 07-09-2022 Episodic Other ear and sense organ disorders (3 sources) Otalgia, left ear; Translations: [Otalgia, unspecified] Onset: 09-09-2023 09-09-2023 Episodic Other ear and sense organ disorders (2 sources) Impacted cerumen, bilateral; Translations: [Impacted cerumen, bilateral] Onset: 09-09-2023 Episodic Other ear and sense organ disorders (2 sources) Other specified disorders of ear, bilateral; Translations: [Other specified disorders of ear, bilateral] Onset: 09-09-2023 Episodic Other nervous system disorders (2 sources) Personal history of other diseases of the nervous system and sense organs; Translations: [History of tremor] Onset: 07-09-2022 Episodic Other nervous system disorders (2 sources) Other abnormalities of gait and mobility; Translations: [Imbalance] Onset: 07-09-2022 Episodic Other upper respiratory disease (4 sources) Weakness of vocal cord ; Translations: [Paralysis of vocal cords and larynx, unspecified] Onset: 11-11-2023 Resolved: 11-11-2023 11-11-2023 Chronic Other upper respiratory disease (4 sources) Change in voice; Translations: [Unspecified voice and resonance disorder] Onset: 11-11-2023 11-11-2023 Episodic Unclassified (1 source) CONTACT W/AND (SUSP) EXPOS COVID-19; Translations: [CONTACT W/AND (SUSP) EXPOS COVID-19] Onset: 11-14-2022 Unclassified (5 sources) Onset: 09-09-2023 Resolved: 03-09-2024 09-09-2023 Procedures Date Procedure Procedure Detail Performing Clinician Start: 01-19-2024 PULSE OXIMETRY, CONTINUOUS Angel abbasi MD Work Phone: Start: 01-12-2024 Basic metabolic 2000 panel - Serum or Plasma [facility]U [facility]OHNS Start: 01-12-2024 CBC W Auto Differential panel - Blood [facility] Start: 01-05-2024 REQUEST FOR PRE-ADMISSION TESTING VISIT CARLOTA LULA Start: 10-07-2023 COMPREHENSIVE HEARING TEST [facility] JOHNS Start: 12-24-2022 Hysteroscopy MD Albino Reilly Work Phone: Start: 12-24-2022 Implantation of sacral nerve stimulator MD Albino Reilly Work Phone: Start: 11-18-2022 Follow-up visit Start: 07-02-2022 Adult depression screening assessment Yonathan AZARC Work Phone: Start: 02-15-2022 Mammography [place] Lord PROFESSOR/NURSE ANESTHETIST-FREIGHT REPRESENTATIVE Work Phone: H/O: surgery S/P tympanoplasty MD Albino Reilly Work Phone: Tympanomastoidectomy No PCP None Results Test Name Value Interpretation Reference Range Facility Basic metabolic 2000 panelon 01-12-2024 Anion gap [Moles/Vol] 13 mmol/L Normal 10-20 [facility] Comment on above: Performed By: #### 2 4321-2 #### OMAR JAKE ([id number]) [facility] ([facility]) [address] [place] [address] Calcium [Mass/Vol] 9.8 mg/dL Normal 8.6-10.3 [facility] Comment on above: Performed By: #### 2 4321-2 #### OMAR JOSEPH ([id number]) [facility] ([facility]) [address] [place] [address] Chloride [Moles/Vol] 104 mmol/L Normal 98-107 [facility] Comment on above: Performed By: #### 2 4321-2 #### OMAR JOSEPH ([id number]) [facility] ([facility]) [address] [place] [address] CO2 [Moles/Vol] 27 mmol/L Normal 21-[address] [facility] Comment on above: Performed By: #### 2 4321-2 #### OMAR JOSEPH ([id number]) [facility] ([facility]) [address] [place] [address] Creatinine [Mass/Vol] 0.81 mg/dL Normal 0.50-1.05 [facility] Comment on above: Performed By: #### 2 4321-2 #### OMAR JOSEPH ([id number]) [facility] ([facility]) [address] [place] [address] Glomerular filtration rate/1.73 sq M.predicted 78 mL/min/1.73m*2 Normal >60 [facility] Comment on above: Result Comment: Calc ulations of estimated GFR are performed using the 2020 CKD-EPI Study Refit equation without the race variable for the IDMS-Traceable creatinine methods. https://jasn.asnjournals.org/content/early/ASN.13354 36221 Performed By: #### 2 4321-2 #### OMAR JOSEPH ([id number]) [facility] ([facility]) [address] [place] [address] Glucose [Mass/Vol] 95 mg/dL Normal 74-99 [facility] Comment on above: Performed By: #### 2 4321-2 #### OMAR JOSEPH ([id number]) [facility] ([facility]) [address] [place] [address] Potassium [Moles/Vol] 5.0 mmol/L Normal 3.5-5.3 [facility] Comment on above: Performed By: #### 2 4321-2 #### OMAR JOSEPH ([id number]) [facility] ([facility]) [address] [place] [address] Sodium [Moles/Vol] 139 mmol/L Normal 136-145 [facility] Comment on above: Performed By: #### 2 4321-2 #### OMAR JOSEPH ([id number]) [facility] ([facility]) [address] [place] [address] Urea nitrogen [Mass/Vol] 14 mg/dL Normal 6-23 [facility] Comment on above: Performed By: #### 2 4321-2 #### OMAR JOSEPH ([id number]) [facility] ([facility]) [address] [place] [address] CBC W Auto Differential pane l (Bld)on 01-12-2024 Basophils (Bld) [#/Vol] 0.05 x10*3/uL Normal 0.00-0.10 [facility] Comment on above: Performed By: #### 5 7021-8 #### OMAR JOSEPH ([id number]) [facility] ([facility]) [address] [place] [address] Basophils/100 WBC (Bld) 0.9 % Normal 0.0-2.0 [facility] Comment on above: Performed By: #### 5 7021-8 #### OMAR JOSEPH ([id number]) [facility] ([facility]) [address] [place] [address] Eosinophils (Bld) [#/Vol] 0.33 x10*3/uL Normal 0.00-0.40 [facility] Comment on above: Performed By: #### 5 7021-8 #### OMAR JOSEPH ([id number]) [facility] ([facility]) [address] [place] [address] Eosinophils/100 WBC (Bld) 6.1 % Normal 0.0-6.0 [facility] Comment on above: Performed By: #### 5 7021-8 #### OMAR JOSEPH ([id number]) [facility] ([facility]) [address] [place] [address] Erythrocyte distribution width (RBC) [Ratio] 13.6 % Normal 11.5-14.5 [facility] Comment on above: Performed By: #### 5 7021-8 #### OMAR JOSEPH ([id number]) [facility] ([facility]) [address] [place] [address] Hematocrit (Bld) [Volume fraction] 40.4 % Normal 36.0-46.0 [facility] Comment on above: Performed By: #### 5 7021-8 #### OMAR JOSEPH ([id number]) [facility] ([facility]) [address] [place] [address] Hemoglobin (Bld) [Mass/Vol] 13.0 g/dL Normal 12.0-16.0 [facility] Comment on above: Performed By: #### 5 7021-8 #### OMAR JOSEPH ([id number]) [facility] ([facility]) [address] [place] [address] Immature granulocytes (Bld) [#/Vol] 0.02 x10*3/uL Normal 0.00-0.50 [facility] Comment on above: Performed By: #### 5 7021-8 #### OMAR JOSEPH ([id number]) [facility] ([facility]) [address] [place] [id number] Immature granulocytes/100 WBC (Bld) 0.4 % Normal 0.0-0.9 [facility] Comment on above: Result Comment: Lolis ture Granulocyte Count (IG) includes promyelocytes, myelocytes and metamyelocytes but does not include bands. Percent differential counts (%) should be interpreted in the context of the absolute cell counts (cells/UL). Performed By: #### 5 7021-8 #### OMAR JOSEPH ([id number]) [facility] ([facility]) [address] [place] [address] Lymphocytes (Bld) [#/Vol] 1.39 x10*3/uL Normal 0.80-3.00 [facility] Comment on above: Performed By: #### 5 7021-8 #### OMAR JOSEPH ([id number]) [facility] ([facility]) [address] [place] [address] Lymphocytes/100 WBC (Bld) 25.9 % Normal 13.0-44.0 [facility] Comment on above: Performed By: #### 5 7021-8 #### OMAR JOSEPH ([id number]) [facility] ([facility]) [address] [place] [address] MCH (RBC) [Entitic mass] 27.7 pg Normal 26.0-34.0 [facility] Comment on above: Performed By: #### 5 7021-8 #### OMAR JOSEPH ([id number]) [facility] ([facility]) [address] [place] [address] MCHC (RBC) [Mass/Vol] 32.2 g/dL Normal 32.0-36.0 [facility] Comment on above: Performed By: #### 5 7021-8 #### OMAR JOSEPH ([id number]) [facility] ([facility]) [address] [place] [id number] MCV (RBC) [Entitic vol] 86 fL Normal 80-100 [facility] Comment on above: Performed By: #### 5 7021-8 #### OMAR JOSEPH ([id number]) [facility] ([facility]) [address] [place] [address] Monocytes (Bld) [#/Vol] 0.42 x10*3/uL Normal 0.05-0.80 [facility] Comment on above: Performed By: #### 5 7021-8 #### OMAR JOSEPH ([id number]) [facility] ([facility]) [address] [place] [address] Monocytes/100 WBC (Bld) 7.8 % Normal 2.0-10.0 [facility] Comment on above: Performed By: #### 5 7021-8 #### OMAR JOSEPH ([id number]) [facility] ([facility]) [address] [place] [address] Neutrophils (Bld) [#/Vol] 3.16 x10*3/uL Normal 1.60-5.50 [facility] Comment on above: Result Comment: Perc ent differential counts (%) should be interpreted in the context of the absolute cell counts (cells/uL). Performed By: #### 5 7021-8 #### OMAR JOSEPH ([id number]) [facility] ([facility]) [address] [place] [address] Neutrophils/100 WBC (Bld) 58.9 % Normal 40.0-80.0 [facility] Comment on above: Performed By: #### 5 7021-8 #### OMAR JOSEPH ([id number]) [facility] ([facility]) [address] [place] [id number] Nucleated RBC/100 WBC (Bld) [Ratio] 0.0 /100 WBCs Normal 0.0-0.0 [facility] Comment on above: Performed By: #### 5 7021-8 #### OMAR JOSEPH ([id number]) [facility] ([facility]) [address] [place] [address] Platelets (Bld) [#/Vol] 294 x10*3/uL Normal 150-450 [facility] Comment on above: Performed By: #### 5 7021-8 #### OMAR JOSEPH ([id number]) [facility] ([facility]) [address] [place] [address] RBC (Bld) [#/Vol] 4.70 x10*6/uL Normal 4.00-5.20 [facility] Comment on above: Performed By: #### 5 7021-8 #### OMAR JOSEPH ([id number]) [facility] ([facility]) [address] [place] [address] WBC (Bld) [#/Vol] 5.4 x10*3/uL Normal 4.4-11.3 [facility] Comment on above: Performed By: #### 5 7021-8 #### OMAR JOSEPH ([id number]) [facility] ([facility]) [address] [place] [address] Alen 01-09-2023 CNPN Telephone (NREUS2) IHSANKERRI S ([id number]) 1950 F Date Time Provider Department 01/09/23 AMOS WISDOM NREUS2 During your visit today, we recorded the following information about you: [place] [facility] [place]09[place]2023 10:09 AM Signed Kerri phoned - she is interested in having Cool Sculpting done through [facility]. 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 Please email to: [email or web address] Rosaura Galicia 01/09/2023 2:13 PM Addendum Discussed with provider and letter made. Would you be able to help draft this< She has cervical dystonia and has not contraindications from getting this procedure done. Thanks Amos [facility] [place] [place] for patient to call back. Email address did not work. Received a message from [employer] that user was not found. Will request fax number. Amos Wisdom MD 01/09/2023 2:42 PM Signed This looks perfect, can we send it to her please? Thanks [facility] [place] [facility] [place]/09/2023 2:50 PM Signed Their fax does not work - try [email or web address] I think the s was left off of lesa in my message - I had a hard time hearing her. Rosaura Galicia 01/09/2023 3:56 PM Signed Thank you. Just resent it. Seems to have gone through. Allergies As of Date: 01/09/2023 Noted Allergy Reaction COMPAZINE (PROCHLORPERAZINE) 04/11/2015 14 - Other: See Comments Comments: Eyes rolled back into her head, and her head rolled back Date Reviewed: 11/25/2022 Reviewed by: Keysha Thuma Mucurio - Fully Assessed Reason for Visit: Letter [264] Cmt: Jessie Image Prescriptions as of 01/09/2023 - methocarbamol (ROBAXIN) 500 mg tablet Take 1 tablet by mouth three times daily. - Fenofibrate (LOFIBRA) 160 mg tablet Take 160 mg by mouth once daily. - FLUoxetine (PROZAC) 10 mg capsule Take 10 mg by mouth once daily. 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 Jalyn Tomlinson CBC AUTO DIFFon 01-08-2023 BASO # 0.0 103/ul Normal 0.0-0.1 [facility] Comment on above: Performed By: #### C BC #### [facility] [address] [place] [address] Dr. Jalyn Tomlinson Basophils/100 WBC (Bld) 0.4 % Normal 0.2-2.0 [facility] Comment on above: Performed By: #### C BC #### [facility] [address] [place] [address] Dr. Jalyn Tomlinson EO # 0.3 103/ul Normal 0.0-0.7 [facility] Comment on above: Performed By: #### C BC #### [facility] [address] [place] [address] Dr. Jalyn Tomlinson Eosinophils/100 WBC (Bld) 7.2 % Critically high 0.9-7.0 [facility] Comment on above: Performed By: #### C BC #### [facility] [address] [place] [address] Dr. Jalyn Tomlinson Erythrocyte distribution width (RBC) [Ratio] 13.4 % Normal 11.0-15.0 [facility] Comment on above: Performed By: #### C BC #### [facility] [address] [place] [address] Dr. Jalyn Tomlinson Hematocrit (Bld) [Volume fraction] 40.3 % Normal 36.0-48.0 [facility] Comment on above: Performed By: #### C BC #### [facility] [address] [place] [address] Dr. Jalyn Tomlinson Hemoglobin (Bld) [Mass/Vol] 13.0 g/dL Normal 12.0-16.0 [facility] Comment on above: Performed By: #### C BC #### [facility] [address] [place] [address] Dr. Jalyn Tomlinson IG # 0.02 10e3/ul Normal 0.00-0.03 [facility] Comment on above: Performed By: #### C BC #### [facility] [address] [place] [address] Dr. Jalyn Tomlinson IG % 0.4 % Normal 0.0-0.5 [facility] Comment on above: Performed By: #### C BC #### [facility] [address] [place] [address] Dr. Jalyn Tomlinson LYMPH # 1.2 103/ul Normal 1.2-3.8 [facility] Comment on above: Performed By: #### C BC #### [facility] [address] [place] [address] Dr. Jalyn Tomlinson Lymphocytes/100 WBC (Bld) 25.7 % Normal 20.5-60.0 [facility] Comment on above: Performed By: #### C BC #### [facility] [address] [place] [address] Dr. Jalyn Tomlinson MANUAL DIFF REQ NO Normal [facility] Comment on above: Performed By: #### C BC #### [facility] [address] [place] [address] Dr. Jalyn Tomlinson MCH (RBC) [Entitic mass] 27.3 pg Normal 26.7-34.0 [facility] Comment on above: Performed By: #### C BC #### [facility] [address] [place] [address] Dr. Jalyn Tomlinson MCHC (RBC) [Mass/Vol] 32.3 g/dL Normal 29.9-35.2 [facility] Comment on above: Performed By: #### C BC #### [facility] [address] [place] [address] Dr. Jalyn Tomlinson MCV (RBC) [Entitic vol] 84.7 fL Normal 81.0-99.0 [facility] Comment on above: Performed By: #### C BC #### [facility] [address] [place] [address] Dr. Jalyn Tomlinson MONO # 0.4 103/ul Normal 0.3-0.8 [facility] Comment on above: Performed By: #### C BC #### [facility] [address] [place] [address] Dr. aJlyn Tomlinson Monocytes/100 WBC (Bld) 7.8 % Normal 1.7-12.0 [facility] Comment on above: Performed By: #### C BC #### [facility] [address] [place] [address] Dr. Jalyn Tomlinson NEUT # 2.7 103/ul Normal 1.4-6.5 [facility] Comment on above: Performed By: #### C BC #### [facility] [address] [place] [address] Dr. Jalyn Tomlinson Neutrophils/100 WBC (Bld) 58.5 % Normal 43.0-75.0 [facility] Comment on above: Performed By: #### C BC #### [facility] [address] [place] [address] Dr. Jalyn Tomlinson Platelet mean volume (Bld) [Entitic vol] 10.0 fL Normal 9.5-13.5 [facility] Comment on above: Performed By: #### C BC #### [facility] [address] [place] [address] Dr. Jalyn Tomlinson PLT 306 103/ul Normal 150-450 [facility] Comment on above: Performed By: #### C BC #### [facility] [address] [place] [address] Dr. Jalyn Tomlinson RBC 4.76 106/ul Normal 4.20-5.40 [facility] Comment on above: Performed By: #### C BC #### [facility] [address] [place] [address] Dr. Jalyn Tomlinson WBC 4.6 103/ul Normal 4.0-11.0 [facility] Comment on above: Performed By: #### C BC #### [facility] [address] [place] [address] Dr. Jalyn Tomlinson FREE THYROXINE INDEX T7on FTI 2.24 Normal 1.30-4.50 [facility] Comment on above: Performed By: #### L IPID, T7, TSH, CMP #### [facility] [address] [place] [address] Dr. Jalyn Tomlinson T3U 34.0 % Normal 30.0-39.0 [facility] Comment on above: Performed By: #### L IPID, T7, TSH, CMP #### [facility] [address] [place] [address] Dr. Jalyn Tomlinson T4 [Mass/Vol] 6.60 ug/dL Normal 4.80-13.90 [facility] Comment on above: Performed By: #### L IPID, T7, TSH, CMP #### [facility] [address] [place] [address] Dr. Jalyn Tomlinson GLYCOHEMOGLOBIN A1Con 2022 ADA RECOMMENDATION SEE BELOW Normal [facility] Comment on above: Result Comment: ADA RECOMMENDED LIMIT 4.0 - 6.0 ADA THERAPEUTIC TARGET < 7.0 ACTION SUGGESTED > 7.0 Performed By: #### A 1C #### [facility] [address] [place] [address] Dr. Jalyn Tomlinson Glucose [Mass/Vol] 108 mg/dL Normal [facility] Comment on above: Performed By: #### A 1C #### [facility] [address] [place] [address] Dr. Jalyn Tomlinson HbA1c (Bld) [Mass fraction] 5.4 % Normal 4.5-6.2 [facility] Comment on above: Performed By: #### A 1C #### [facility] [address] [place] [address] [address] Jalyn Tomlinson IRONon 01-08-2023 Iron [Mass/Vol] 57.0 ug/dL Normal 50.0-170.0 [facility] Comment on above: Performed By: #### V ITAD, IRON ####[facility] [id number] [place] [address]Dr. Jalyn Tomlinson LIPID PROFILEon 01-08-2023 CHOL-HDL RATIO NORM SEE BELOW Normal [facility] Comment on above: Result Comment: 3.3 - 4.4 LOW RISK 4.4 - 7.1 AVERAGE RISK 7.1 - 11.0 MODERATE RISK >11.0 HIGH RISK Performed By: #### L IPID, T7, TSH, CMP #### [facility] [address] [address] [address] Jalyn Tomlinson Cholesterol [Mass/Vol] 215 mg/dL Critically high <=200 [facility] Comment on above: Performed By: #### L IPID, T7, TSH, CMP #### [facility] [address] [address] [address] Jalyn Tomlinson Cholesterol in HDL [Mass/Vol] 74 mg/dL Critically high 40-60 [facility] Comment on above: Performed By: #### L IPID, T7, TSH, CMP #### [facility] [address] [address] [address] Jalyn oTmlinson Cholesterol in LDL [Mass/Vol] 127.4 mg/dL Normal [facility] Comment on above: Performed By: #### L IPID, T7, TSH, CMP #### [facility] [address] [address] [address] Jalyn Tomlinson Cholesterol.total/Chol esterol in HDL [Mass ratio] 2.9 {ratio} Normal [facility] Comment on above: Performed By: #### L IPID, T7, TSH, CMP #### [facility] [address] [address] [address] Jalyn Tomlinson HDL NORMAL > or = 60 mg/dl - LO W CARDIOVASCULAR RISK <40 mg/dl - HIGH CARDIOVASCULAR RISK Normal [facility] Comment on above: Performed By: #### L IPID, T7, TSH, CMP #### [facility] [address] [address] [address] Jalyn Tomlinson LDL CALC NORMAL SEE BELOW Normal [facility] Comment on above: Result Comment: <100 mg/dl OPTIMAL 100 - 129 mg/dl NEAR OR ABOVE OPTIMAL 130 - 159 mg/dl BORDERLINE HIGH 160 - 189 mg/dl HIGH >190 mg/dl VERY HIGH Performed By: #### L IPID, T7, TSH, CMP #### [facility] [address] [address] [address] Jalyn Tomlinson Triglyceride [Mass/Vol] 68 mg/dL Normal <=150 [facility] Comment on above: Performed By: #### L IPID, T7, TSH, CMP #### [facility] [address] [address] [address] Jalyn Tomlinson VLDL CALC 13.6 mg/dL Normal [facility] Comment on above: Performed By: #### L IPID, T7, TSH, CMP #### [facility] [address] [address] [address] Jalyn Tomlinson PROF 14(COMP METB)on 023 Albumin [Mass/Vol] 4.3 g/dL Normal 3.4-5.0 [facility] Comment on above: Performed By: #### L IPID, T7, TSH, CMP #### [facility] [address] [place] [address] Dr. Jalyn Tomlinson Albumin/Globulin [Mass ratio] 1.4 {ratio} Normal [facility] Comment on above: Performed By: #### L IPID, T7, TSH, CMP #### [facility] [address] [place] [address] Dr. Jalyn Tomlinson ALP [Catalytic activity/Vol] 64 U/L Normal 46-116 [facility] Comment on above: Performed By: #### L IPID, T7, TSH, CMP #### [facility] [address] [place] [address] Dr. Jalyn Tomlinson ALT [Catalytic activity/Vol] 24 U/L Normal 14-59 [facility] Comment on above: Performed By: #### L IPID, T7, TSH, CMP #### [facility] [address] [place] [address] Dr. Jalyn Tomlinson Anion gap [Moles/Vol] 11.1 mmol/L Normal [facility] Comment on above: Performed By: #### L IPID, T7, TSH, CMP #### [facility] [address] [place] [address] Dr. Jalyn Tomlinson AST [Catalytic activity/Vol] 20 U/L Normal 15-37 [facility] Comment on above: Performed By: #### L IPID, T7, TSH, CMP #### [facility] [address] [place] [address] Dr. Jalyn Tomlinson Bilirubin [Mass/Vol] 0.3 mg/dL Normal 0.2-1.0 [facility] Comment on above: Performed By: #### L IPID, T7, TSH, CMP #### [facility] [address] [address] [address] Jalyn Tomlinson Calcium [Mass/Vol] 9.6 mg/dL Normal 8.5-10.1 [facility] Comment on above: Performed By: #### L IPID, T7, TSH, CMP #### [facility] [address] [place] [address] Dr. Jalyn Tomlinson Chloride [Moles/Vol] 107 mmol/L Normal 98-107 [facility] Comment on above: Performed By: #### L IPID, T7, TSH, CMP #### [facility] [address] [place] [address] Dr. Jalyn Tomlinson CO2 [Moles/Vol] 27.8 mmol/L Normal 21.0-32.0 [facility] Comment on above: Performed By: #### L IPID, T7, TSH, CMP #### [facility] [address] [place] [address] Dr. Jalyn Tomlinson Creatinine [Mass/Vol] 0.82 mg/dL Normal 0.55-1.02 [facility] Comment on above: Performed By: #### L IPID, T7, TSH, CMP #### [facility] [address] [address] [address] Jalyn Tomlinson EGFR-AF MONTENEGRIN >60 Normal >=60 [facility] Comment on above: Performed By: #### L IPID, T7, TSH, CMP #### [facility] [address] [address] [address] Jalyn Tomlinson EGFR-NON AF MONTENEGRIN >60 Normal >=60 [facility] Comment on above: Performed By: #### L IPID, T7, TSH, CMP #### [facility] [address] [place] [address] Dr. Jalyn Tomlinson Globulin (S) [Mass/Vol] 3.1 g/dL Normal [facility] Comment on above: Performed By: #### L IPID, T7, TSH, CMP #### [facility] [address] [place] [address] Dr. Jalyn Tomlinson Glucose [Mass/Vol] 105 mg/dL Normal 74-106 [facility] Comment on above: Performed By: #### L IPID, T7, TSH, CMP #### [facility] [address] [place] [address] Dr. Jalyn Tomlinson Potassium [Moles/Vol] 4.9 mmol/L Normal 3.5-5.1 [facility] Comment on above: Performed By: #### L IPID, T7, TSH, CMP #### [facility] [address] [place] [address] Dr. Jalyn Tomlinson Protein [Mass/Vol] 7.4 g/dL Normal 6.4-8.2 [facility] Comment on above: Performed By: #### L IPID, T7, TSH, CMP #### [facility] [address] [place] [address] Dr. Jalyn Tomlinson Sodium [Moles/Vol] 141 mmol/L Normal 136-145 [facility] Comment on above: Performed By: #### L IPID, T7, TSH, CMP #### [facility] [address] [address] [address] Jalyn Tomlinson Urea nitrogen [Mass/Vol] 18.0 mg/dL Normal 7.0-18.0 [facility] Comment on above: Performed By: #### L IPID, T7, TSH, CMP #### [facility] [address] [address] [address] Jalyn Tomlinson Urea nitrogen/Creatinine [Mass ratio] 22.0 mg/mg Normal [facility] Comment on above: Performed By: #### L IPID, T7, TSH, CMP #### [facility] [address] [address] [address] Jalyn Tomlinson TSHon 01-08-2023 TSH 2.471 uIU/mL Normal 0.358-3.740 [facility] Comment on above: Performed By: #### L IPID, T7, TSH, CMP #### [facility] [address] [address] [address] Jalyn Tomlinson VITAMIN D 25 OHon 01-08-2023 VIT D 25-OH 25.7 ng/mL Normal [facility] Comment on above: Performed By: #### DELL GUILLAUME ####[facility] [id number] [place] [address]Dr. Jalyn Tomlinson VIT D RANGES SEE BELOW Normal [facility] Comment on above: Result Comment: <20 ng/mL Vit D deficient 20 - <30 ng/mL Vit D insufficient 30 - 100 ng/mL Vit D sufficient >100 ng/mL Potential Toxicity Performed By: #### Sonya ARTIS IRON ####[facility] [id number] [address]Dr. Jalyn Elias 12-24-2022 L -- ---- Specimen: [id number] Received: 12/24/22 Status: MAN [place] Num: [id number] Spec Type: Surgical Subm Dr: Pancho Estrada DO Tissues: A Endometrium - Curettings (ENDOM CURETTINGS) B Gross Only (GENERATOR) Procedures: HE/2, Gross/Micro L4, Level 1 Gross ---- Age/ Patient Sex Location Account Attending Physician ---- Kerri Champagne 72/F [place] [id number] Pancho Estrada DO ---- SPEC NUM: [id number] RECD: 12/24/22 STATUS: MAN XOCHITL NUM: [id number] TIAN: 12/24/22 [facility] DR: Pancho Estrada DO ENTERED: 12/24/22 [facility] : MARIANO TYPE: Surgical DEPT: S ENTERED BY: [id number] RECV BY: [id number] ORDERED: HE/2, Gross/Micro L4, Level 1 Gross ORDERED: HE/2, Gross/Micro L4, Level 1 Gross Pathological Diagnosis A. Endometrium, dilatation and curettage: - FRAGMENTED ENDOMETRIUM WITH PSEUDOSTRATIFIED GLANDS WITH APOPTOTIC CELLS AND INFILTRATING NEUTROPHILS. - BALLS OF CONDENSED ENDOMETRIAL STROMA. - NEGATIVE FOR HYPERPLASIA. B. Explanted generator and lead: - SEE GROSS DESCRIPTION. Clinical Information Postmenopausal bleeding, need for change of generator, no exam needed Gross Description A. Received in formalin labeled with the patient's name, number and endometrial curettings is a 3.5 x 2.8 x 0.4 cm aggregate of red brown tissue. Entirely submitted in one cassette labeled A1. B. Received fresh labeled with the patient's name, number and lead and generator interstim is a 5.0 x 4.4 x 0.6 cm silver metal and clear plastic device with a serial number [id number] . Additionally received is a 21.0 x 0.2 cm silver metal and clear plastic device consistent with lead. A gross photo is taken. Gross examination only. ---- Specimen: [id number] Received: 12/24/22 Status: MAN [place] Num: [id number] Spec Type: Surgical Subm Dr: Pancho Estrada DO Tissues: A Endometrium - Curettings (ENDOM CURETTINGS) B Gross Only (GENERATOR) Procedures: HE/2, Gross/Micro L4, Level 1 Gross ---- Patient: IhsanKerri Savannah [id number] (Continued) ---- Specimen: Received: 12/24/22 (Continued) Signed (signature on file) Fadumo Wisdom MD 12/25/22 1400 ---- Specimen: Received: 12/24/22 Status: MAN [place] Num: [id number] Spec Type: Surgical Subm Dr: Pancho Estrada DO Tissues: A Endometrium - Curettings (ENDOM CURETTINGS) B Gross Only (GENERATOR) Procedures: HE/2, Gross/Micro L4, Level 1 Gross ---- Patient: Kerri Champagne [id number] (Continued) ---- Specimen: Received: 12/24/22 (Continued) Microscopic Description Two glass slides with H E stained material have been examined. The microscopic findings support the above pathologic diagnosis. CPT Codes 97891, 37703 Gross Photo B ---- ---- Specimen: [id number] Received: 12/24/22 Status: MAN [place] Num: [id number] Spec Type: Surgical Subm Dr: Pancho Estrada, Tissues: A Endometrium - Curettings (ENDOM CURETTINGS) B Gross Only (GENERATOR) Procedures: HE/2, Gross/Micro L4, Level 1 Gross ---- Patient: Kerri Champagne [id number] (Continued) ---- Signed (signature on file) Fadumo Wisdom MD 12/25/22 1400 Normal [facility] XR sacrum coccyx min 2Von XR sacrum coccyx min 2V [facility] Main [place] [address] [place] [address] XRay Report Signed Patient: Kerri Champagne MR#: [id number] [id number] : 1950 Acct:[id number] Age/Sex: 72 / F ADM Date: 12/24/22 Loc: [place] Room: Type: [facility] Attending Dr: Pancho Estrada DO Copies to: Pancho Estrada DO Ordering Provider: Pancho Estrada DO Date of Service: 12/24/22 XR/XR sacrum coccyx min 2V: INTERSTIM REPLACEMENT Intraoperative study. Reason for exam: InterStim replacement. Findings: 2 images were obtained intraoperatively. Cumulative Air Kerma in mGy: 18.7 mGy XR/XR sacrum coccyx min 2V Impression: Intraoperative study. Impression dictated by: Agapito Holder Jr., ChanelleOUmesh12/24/2022 3:12 PM Dictation Location: [place] [address] Transcribed By: [facility] 12/24/221511 Dictated By: Agapito Holder Jr, DO 12/24/22 151 Signed By: 12/24/[address] [facility] Automated basophil %Ordered By: Pancho Estrada on 12-19-2022 Basophils/100 WBC (Bld) 0.4 % Normal . [facility] Comment on above: Performed By: #### C BC, [facility] #### [address] Automated basophil countOrde red By: Pancho Estrada on 12-19-2022 Basophils (Bld) [#/Vol] 0.0 10*3/uL Normal 0.0-0.2 [facility] Comment on above: Result Comment: PERF ORMED BY: [place] [address] PATHOLOGIST SHIRT LINE OPERATOR DEANDRE ARZOLA M.D. Performed By: #### C BC, BMP #### [address] Automated blood monocyte cou ntOrdered By: Pancho Estrada on 12-19-2022 Monocytes (Bld) [#/Vol] 0.5 10*3/uL Normal 0.0-0.8 [facility] Comment on above: Performed By: #### C BC, BMP #### [address] Automated eosinophil %Ordere d By: Pancho Estrada on 12-19-2022 Eosinophils/100 WBC (Bld) 3.9 % Normal . [facility] Comment on above: Performed By: #### C BC, BMP #### [address] Automated eosinophil countOr dered By: Pancho Etsrada on 12-19-2022 Eosinophils (Bld) [#/Vol] 0.3 10*3/uL Normal 0.0-0.45 [facility] Comment on above: Performed By: #### C BC, BMP #### [address] Automated monocyte %Ordered By: Pancho Estrada on 12-19-2022 Monocytes/100 WBC (Bld) 7.8 % Normal . [facility] Comment on above: Performed By: #### C BC, BMP #### [address] Automated neutrophil %Ordere d By: Pancho Estrada on 12-19-2022 Neutrophils/100 WBC (Bld) 64.1 % Normal . [facility] Comment on above: Performed By: #### C BC, BMP #### [address] Basic Metabolic Panelon Estimated GFR ( Emma > 60 Normal [facility] Comment on above: Result Comment: GFR estimated reference range: According to KDOQI guidelines, <60 ml/min/1.73m2 is sufficient to diagnose a patient with chronic kidney disease. Performed By: #### C BC, BMP #### [address] Estimated GFR (Non- Am > 60 Normal [facility] Comment on above: Performed By: #### C BC, BMP #### [facility] [address] Complete Blood Count Auto Di ffon 12-19-2022 Mean Corpuscular HGB Conc 33.4 g/dL Normal 32.0-35.0 [facility] Comment on above: Performed By: #### C BC, BMP #### [address] NRBC% 0.1 /100{WBC} Normal 0-0.5 [facility] Comment on above: Performed By: #### C BC, BMP #### [address] ECG 12 lead ECGon 12-19-2022 ECG 12 lead ECG [facility] Main [place] [address] [place] [address] Electrocardiograph Report Signed Patient: Kerri Champagne MR#: [id number] [id number] : 1950 Acct:[id number] Age/Sex: 72 / F ADM Date: 12/19/22 Loc: Room: Type: [facility] Attending Dr: Pancho Estrada DO Ordering Provider: Pancho Estrada DO Date of Service: 12/19/2208/02/1559 ECG/ECG 12 lead ECG: pst Copies to: Test Reason : Blood Pressure : / mmHG Vent. Rate : 063 BPM Atrial Rate : 063 BPM P-R Int : 156 ms QRS Dur : 086 ms QT Int : 420 ms P-R-T Axes : 038 -24 027 degrees QTc Int : 429 ms Normal sinus rhythm Minimal voltage criteria for LVH, may be normal variant Anterior infarct , age undetermined Abnormal ECG When compared with ECG of 22-FEB-2016 08:47, No significant change was found Confirmed by VONDA ADAN [facility] ([id number] on 12/20/2022 11:26:09 AM Referred By: ADRYAN Electronically Signed By:MATEUSZ ARAIZA MD [facility] Transcribed By: MUS Signed By Charles Araiza MD 12/20/22 1126 Normal [facility] Erythrocyte distribution wid th [Ratio] by Automated countOrdered By: Pancho Estrada on 12-19-2022 Erythrocyte distribution width (RBC) [Ratio] 13.9 % Normal 11.9-15.3 [facility] Comment on above: Performed By: #### C SHIRIN, BMP #### [address] Erythrocytes [#/volume] in B lood by Automated countOrdered By: Pancho Estrada on 12-19-2022 RBC (Bld) [#/Vol] 4.56 10*6/uL Normal 3.60-5.00 [facility] Comment on above: Performed By: #### C SHIRIN, BMP #### [address] Estimated glomerular filtrat ion rate (GFR) non- AmericanOrdered By: Pancho Estrada on 12-19-2022 GFR/1.73 sq M.predicted among non-blacks MDRD (S/P/Bld) [Vol rate/Area] > 60 mL/Min [facility] Hematocrit [Volume Fraction] of Blood by Automated countOrdered By: Pancho Estrada on 12-19-2022 Hematocrit (Bld) [Volume fraction] 37.7 % Normal 34.0-46.4 [facility] Comment on above: Performed By: #### C SHIRIN, BMP #### [address] Hemoglobin [Mass/volume] in BloodOrdered By: Pancho Estrada on 12-19-2022 Hemoglobin (Bld) [Mass/Vol] 12.6 g/dL Normal 11.8-15.4 [facility] Comment on above: Performed By: #### C SHIRIN, BMP #### [address] Leukocytes [#/volume] correc mitzy for nucleated erythrocytes in Blood by Automated counOrdered By: Pancho Estrada on 12-19-2022 WBC corrected for nucl RBC Auto (Bld) [#/Vol] 6.5 10*3/uL 3.8-11.6 [facility] Leukocytes [#/volume] in Blo od by Automated countOrdered By: Pancho Estrada on 12-19-2022 WBC (Bld) [#/Vol] 6.5 10*3/uL Normal 3.8-11.6 [facility] Comment on above: Performed By: #### C BC, BMP #### [address] Lymphocytes [#/volume] in Bl ood by Automated countOrdered By: Pancho Estrada on 12-19-2022 Lymphocytes (Bld) [#/Vol] 1.5 10*3/uL Normal 1.00-4.8 [facility] Comment on above: Performed By: #### C BC, BMP #### [address] Lymphocytes/100 leukocytes i n Blood by Automated countOrdered By: Pancho Estrada on 12-19-2022 Lymphocytes/100 WBC (Bld) 23.8 % Normal . [facility] Comment on above: Performed By: #### C BC, BMP #### [address] MCH [Entitic mass] by Automa mitzy countOrdered By: Pancho Estrada on 12-19-2022 MCH (RBC) [Entitic mass] 27.6 pg Normal 24.7-34.3 [facility] Comment on above: Performed By: #### C BC, BMP #### [address] MCHC Auto (RBC) [Mass/Vol]Or dered By: Pancho Estrada on 12-19-2022 MCHC (RBC) [Mass/Vol] 33.4 g/dL 32.0-35.0 [facility] MCV [Entitic volume] by Auto mated countOrdered By: Pancho Estrada on 12-19-2022 MCV (RBC) [Entitic vol] 82.7 fL Normal 80-100 [facility] Comment on above: Performed By: #### C BC, BMP #### [facility] [address] [place] [address] Neutrophils [#/volume] in Bl ood by Automated countOrdered By: Pancho Estrada on 12-19-2022 Neutrophils (Bld) [#/Vol] 4.1 10*3/uL Normal 1.8-7.7 [facility] Comment on above: Performed By: #### C BC, BMP #### [address] No Panel InformationOrdered By: Pancho Estrada on 12-19-2022 Estimated GFR () > 60 mL/Min [facility] Comment on above: GFR estimated refere nce range: According to KDOQI guidelines, <60 ml/min/1.73m2 is sufficient to diagnose a patient with chronic kidney disease. Pharmacy Creatinine Clearance (Chem N/A [facility] Nucleated erythrocytes [Pres ence] in Blood by Automated countOrdered By: Pancho Estrada on 12-19-2022 Nucleated RBC Auto Ql (Bld) 0.1 /100{WBC} 0-0.5 [facility] Platelet mean volume [Entiti c volume] in Blood by Automated countOrdered By: Pancho Estrada on 12-19-2022 Platelet mean volume (Bld) [Entitic vol] 8.5 fL Normal 6.3-10.7 [facility] Comment on above: Performed By: #### C BC, BMP #### [address] Platelets [#/volume] in Bloo d by Automated countOrdered By: Pancho Estrada on 12-19-2022 Platelets (Bld) [#/Vol] 284 10*3/uL Normal 150-450 [facility] Comment on above: Performed By: #### C BC, BMP #### [address] Serum or plasma anion gap de terminationOrdered By: Pancho Estrada on 12-19-2022 Anion gap [Moles/Vol] 11.9 mmol/L Normal 6.0-15.0 [place] Comment on above: Performed By: #### C BC, BMP #### [facility] [address] Serum or plasma calcium wilfrido urement (mass/volume)Ordered By: Pancho Estrada on 12-19-2022 Calcium [Mass/Vol] 9.5 mg/dL Normal 8.2-10.2 [facility] Comment on above: Result Comment: PERF ORMED BY: [place] [address] PATHOLOGIST SHIRT LINE OPERATOR DEANDRE ARZOLA M.D. Performed By: #### C BC, BMP #### [address] Serum or plasma chloride ally surement (moles/volume)Ordered By: Pancho Estrada on 12-19-2022 Chloride [Moles/Vol] 106 mmol/L Normal 95-114 [facility] Comment on above: Performed By: #### C BC, BMP #### [address] Serum or plasma creatinine m easurement with calculation of estimated glomerular filtrOrdered By: Pancho Estrada on 12-19-2022 Creatinine [Mass/Vol] 0.83 mg/dL Normal 0.44-1.03 [facility] Comment on above: Performed By: #### C BC, BMP #### [address] Serum or plasma glucose wilfrido urement (mass/volume)Ordered By: Pancho Estrada on 12-19-2022 Glucose [Mass/Vol] 88 mg/dL Normal 70-100 [facility] Comment on above: ADA recommended refe rence rangeRandom Glucose Reference Range is dependent on time and content of last meal. Glucose of more than 200 mg/dL in a nonstressed, ambulatory subject supports the diagnosis of Diabetes Mellitus. Result Comment: [place] om Glucose Reference Range is dependent on time and content of last meal. Glucose of more than 200 mg/dL in a nonstressed, ambulatory subject supports the diagnosis of Diabetes Mellitus. ADA recommended reference range Performed By: #### C BC, BMP #### [address] Serum or plasma potassium me asurement (moles/volume)Ordered By: Pancho Adryan on 12-19-2022 Potassium [Moles/Vol] 4.5 mmol/L Normal 3.5-5.1 [facility] Comment on above: Performed By: #### C BC, BMP #### [address] Serum or plasma sodium measu rement (moles/volume)Ordered By: Pancho Adryan on 12-19-2022 Sodium [Moles/Vol] 137 mmol/L Normal 136-146 [facility] Comment on above: Performed By: #### C SHIRIN, BMP #### [address] Serum or plasma total carbon dioxide measurement (moles/volume)Ordered By: Pancho Estrada on 12-19-2022 CO2 [Moles/Vol] 23.6 mmol/L Normal 22.0-30.0 [facility] Comment on above: Performed By: #### C SHIRIN, BMP #### [address] Serum or plasma urea nitroge n measurement (mass/volume)Ordered By: Pancho Estrada on 12-19-2022 Urea nitrogen [Mass/Vol] 12 mg/dL Normal 9-23 [facility] Comment on above: Performed By: #### C SHIRIN, BMP #### [address] CNOVon 11-25-2022 CNOV Office Visit (NRESFV ) KERRI CHAMPAGNE ([id number]) 1950 F Date Time Provider Department 11/25/22 1:30 PM AMOS WISDOM NRESFV During your visit today, we recorded the following information about you: Temperature Pulse Blood pressure Weight 96.4 degrees 78/minute 158/88 78 kg Height 1.6 m Amos Wisdom MD 11/25/2022 3:23 PM Signed [facility] Neurotoxin Visit Date: November 25, 2022 Name: Kerri Champagne SUBJECTIVE: Historical/ Initial Dose Diagnosis: Cervical dystonia (G24.3) Date of diagnosis:04/11/2015 Other treatments hthat ave been tried and failed: Physical Therapy Date of first neurotoxin treatment: 06/08/2015 Type of neurotoxin given: Botox: J0585 Frequency of current neurotoxin treatment: 90days Estimated frequency and duration of treatment: continue with current injection interval; will reassess after 1 year Last Injection Notes Date of last Injection:02/19/2016 Type of neurotoxin: Botox: J0585 Total amount injected: 190 units Dilution: NS 1:1 Administered with EMG guidance: Yes Degree of effectiveness of last injection:70% Latency period of last injection: unclear Wearing off period of last injection: 8 week(s) Side effects related to last injection: None Current pain symptoms: Yes (location)neck Current functional limitations: 1(mild) In addition, the following symptoms were reported by the patient during today's visit: In addition, the following areas that may be affected by cervical dystonia were evaluated: Work: Affected (mildly) Activities of daily living: Affected (mildly) Driving: Not affected Reading: Not affected Watching TV: Affected (slightly) Recreational activities: Affected (slightly) The following table shows the patient's overall global physical and mental health using the PROMIS scale: PROMIS-10 Flowsheet Row Office Visit from 10/14/2022 in [facility] OT/PT/Speech Visit from 07/31/2022 in [place] [facility] Physical Therapy Global Physical Health T Score 47.7 42.3 Global Mental Health T Score 62.5 56 0-10 Standard Pain Scale 3 3 *PROMIS-10 scoring scale: mean = 50, over 50 is above average, under 50 is below average Allergies: ALLERGIES Allergen Reactions Compazine [Prochlor* Other: See Comments Eyes rolled back into her head, and her head rolled back Current Medications: Current Outpatient Medications Medication Sig methocarbamol (ROBAXIN) 500 mg tablet Take 1 tablet by mouth three times daily. Fenofibrate (LOFIBRA) 160 mg tablet Take 160 mg by mouth once daily. FLUoxetine (PROZAC) 10 mg capsule Take 10 mg by mouth once daily. Current Facility-Administered Medications Medication Dose Route Frequency onabotulinum toxin type A 200 Units injection (BOTOX) 200 Units INTRAMUSCULAR q 3 MONTHS OBJECTIVE: BP 158/88 Pulse 78 Temp (!) 35.8 ?C (96.4 ?F) Ht 160 cm (5' 3 ) Wt 78 kg (172 lb) SpO2 98% BMI 30.47 kg/m? Special features on today's visit: Head Tilt to the right, chin pull to the left and Clonic head shaking in a 'no-no' direction. ASSESSMENT AND PLAN: Ms. Champagne is a right-handed 72 year old female with Cervical dystonia (G24.3). After obtaining informed consent, neurotoxin injections were carried out as outlined below. Current Injection Note Type of neurotoxin: Botox: J0585 Total amount drawn: 100 units Total amount injected: 100 units Total amount wasted: 0 units Dilution: NS 1:1 Administered with EMG guidance: Yes Injection Site: Cervical dystonia: CPT 30075 Left Right Sternocleidomastoid 25 Splenius capitus 25 50 Scalene Levator Scapulae Trapezius Semispinalis (Other) Lot#: [id number] Exp Date Future plan of care: Follow up: 3 months Neurotoxin change: No Dose change: Yes New Dose: 200 Reason(s) for changing neurotoxin type of dose: if this does not work Sent staff message to nursing related to any changes: Yes Amos Wisdom MD November 25, 2022 3:13 PM Dept of NEUROLOGY TIME OUT/ PROCEDURE NOTE: Informed consent Kerri Champagne Medical Record: [id number] Procedure: neurotoxin intramuscular injection The risks, benefits and anticipated outcomes of the procedure, the risks and benefits of the alternatives to the procedure and the roles and tasks of the personnel to be involved were discussed with the patient and the patient consents to the procedure and agrees to proceed. I verify that I personally obtained Kerri Champagne's consent. Amos Wisdom MD November 25, 2022 3:13 PM [place] protocol/ safety checklist Sign in communication: Completed Time out:Team confirms the correct Patient, correct procedure, correct site and site marking, correct neurotoxin type, correct dose and correct dilution. Affirmation of time out: N/A Sign out discussion: Completed J (more content not included)... 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 Surgery was at [facility] 5 years ago per patient. Status: Hold For - Scheduling,Retrospecti ve Authorization Requested for: 18Nov2022 Provider Impressions ASSESSMENT: KERRI CHAMPAGNE is a 72 year-old female presents for evaluation of cerumen impaction. Wax was removed from [bilateral] EAC(s) today. The patients clinical exam today showed no evidence of acute infection or inflammation or obstruction of bilateral ears. Middle ear is normal on the right, postsurgical ear on the left with obscured landmarks. I recommend 5-day course of Ciprodex twice daily to the left EAC. I recommend that the patient follows up with ENT closer to home for repeat wax removal she may also return to this office if it is convenient for her. Patient also provided with referral to otology for further evaluation and management of left ear which is status post otologic surgery x2. I discussed with the patient the complexity of my medical decision making including the treatment plan and testing rational. All questions were answered to the patient?s satisfaction and she verbalized understanding and agreement with the plan of care. The patient was encouraged to call my office should any additional ENT related questions or concerns arise. This electronic medical record note was created with the use of voice recognition software. Despite proofreading, typographical or grammatical errors may be present that could affect the meaning of content. Please call with any questions. Chief Complaint Patient here today for wax removal. History of Present IllnessKERRI CHAMPAGNE is a 72 year-old female presents to clinic today referred by Dr. 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 Surgery was done initially by Dr. Lopez years ago and ended up with postop complications for initial tympanoplasty and subsequent presumptive mastoidectomy was completed several years ago. She is here today for cleaning of bilateral EACs. She denies pain, drainage, autophony, dizziness or vertigo, previous ear surgeries, family history of hearing loss or other ENT disorders, exposure to ototoxic drugs or agents, or exposure to loud noise. The patient does not wear a hearing aid. She endorses the use of q-tips or other foreign objects in the EAC. The patient's family and social history was reviewed in detail along with a complete review of systems was performed. Please see the scanned patient intake form that I personally reviewed with the patient. Review of Systems A comprehensive 10-point review of systems including constitutional, neurological, HEENT, pulmonary, cardiovascular, genito-urinary, and other pertinent systems was negative except as noted in the HPI and PMHx. This was obtained via patient-completed intake form reviewed by me at today?s visit and scanned into the patients EMR. 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 Over the last 2 weeks have you felt down, depressed or hopeless? (If yes, answer PHQ-9 below)No PHQ-2 #2. Over the last 2 weeks have you felt little interest or pleasure in doing things? (If yes, answer PHQ-9 below)No Pain Scale0 Physical Exam General Appearance: Normal appearance and development with age appropriate communication. Cooperative and oriented to place, time and location. Eyes: Symmetric, sclera white, pupils are equal, round and reactive. Head and Face: Skin over the face is normal with no scars, lesions, or rashes. Neck: Symmetrical, trachea midline, no lymphadenopathy, Thyroid is symmetrical. Airway: No stridor, no stutter. Voice (more content not included)... Normal [employer] Tobacco Screening.on 023 Adult depression screening assessment No MP-Otolaryn gol ogy-Ubaldo [facility] [address] Work Phone: Tobacco use status [facility] b) No MP-Otolaryngol ogy-Cossayuna [facility] [address] Work Phone: Covid-19 PCR ([facility])on SARS-CoV-2 (COVID-19) RNA ELSA+probe Ql (Unsp spec) Not detected Normal NOT DETECTED [facility] Comment on above: Result Comment: When diagnostic testing is negative, the possibility of a false negative should be considered in the context of a patient's recent exposures and the presence of clinical signs and symptoms consistent with SARS-CoV-2. This test is not yet approved or cleared by the [place] FDA. When there are no FDA-approved or cleared tests available, and other criteria are met, FDA can make tests available under an emergency access mechanism called an Emergency Use Authorization (EUA). The EUA for this test is supported by the [employer] Chair of Health and Human Service's declaration that circumstances exist to justify the emergency use of in vitro diagnostics for the detection and/or diagnosis of the virus that causes COVID-19. This EUA will remain in effect for the duration of the COVID-19 declaration justifying emergency of IVDs, unless it is terminated or revoked by the FDA (after which the test may no longer be used). Performed By: #### [facility] #### [facility] [address] [place] [address] Dr. Jalyn Tomlinson INFLUENZA A AND B AGon 11-14 [facility] SEE BELOW Normal [facility] Comment on above: Result Comment: Nega tive for Flu A protein angiten. Infection due to Flu A cannot be ruled out. Flu A angiten in the sample may be below the detection limit of the test. Performed By: #### I NFLUAB #### [facility] [address] [place] [address] Dr. Jalyn Tomlinson [facility] SEE BELOW Normal [facility] Comment on above: Result Comment: Nega tive for Flu B protein antigen. Infection due to Flu B cannot be ruled out. Flu B antigen in the sample may be below the detection limit of the test. Performed By: #### I NFLUAB #### [facility] [address] [place] [address] Dr. Jalyn Tomlinson INFLUENZA A AG Negative Normal NEGATIVE SEE COMMENT [facility] Comment on above: Performed By: #### I NFLUAB #### [facility] [address] [place] [address] Dr. Jalyn Tomlinson INFLUENZA B AG Negative Normal NEGATIVE SEE COMMENT [facility] Comment on above: Performed By: #### I NFLUAB #### [facility] [address] [place] [address] Dr. Jalyn Tomlinson CNOVon 11-13-2022 CNOV Office Visit (CLINT ) KERRI CHAMPAGNE ([id number]) 1950 F Date Time Provider Department 11/13/22 10:00 AM KERRI MORENO During your visit today, we recorded the following information about you: Pulse Blood pressure Weight Height 54/minute 134/82 76.7 kg 1.6 m Kerri Moreno PA-C 11/13/2022 11:24 AM Signed Pain Management Follow Up Visit Date: November 13, 2022 Kerri Champagne is a 72 year old female returns today for follow up of neck, she states that symptoms have improved. Current pain intensity is 0 on a scale of 0 -10. Location of pain: neck Duration: 5 years ago, was not directly related to trauma, and symptoms have been improving. Description of pain: unable to describe pain Pain scores - current: 0/10 - worst: 7/10 - best: 0/10 Aggravating factors: standing, forward flexion, lifting, and walking. Alleviating Factors: sitting, lying down, medications, and ice . Review of Symptoms: GENERAL:No weight loss, malaise or fevers., SEE HPI GASTROINTESTINAL: Negative for abdominal discomfort, blood in stools or black stools or change in bowel habits GENITOURINARY: No history of dysuria, frequency or incontinence MUSCULOSKELETAL: see HPI NEUROLOGIC:Negative for focal numbness or weakness, headaches and dizziness or syncope. PREVIOUS TREATMENTS LASTING SIX WEEKS IN THE LAST SIX MONTHS Active conservative therapy lasting 6 weeks in the last six months (see below) 1. Physical therapy: Yes: Where: [facility] , Date Started: 07/17/22, Date Ended: 08/14/22 2. Home exercise program after PT: yes 3. Occupational therapy: No 4. A physician supervised home exercise program (HEP): No 5. Director Post: No Passive conservative therapy lasting 6 weeks in the last six months (see below) 1. Medical devises: No 2. Acupuncture: No 3. Tens unit: No 4. Prescription pain medication: No 5. NSAIDS: Rena Lara: Gregoria Villalta MA Date: November 13, 2022 The subjective information: including chief complaint, and past medical history, was explored in detail with the patient and edited as needed and is complete. Kerri Moreno PA-C November 13, 2022 Initial Office Visit: 10/14/22 - Dr. Avani Rodríguez PLAN: - Start methocarbamol 500 mg QHS PRN and can increase to 500-1000 mg BID PRN. The patient was counseled on maximum daily dose of 1500 mg TID PRN. She was also counseled on side effects - Red flag symptoms and signs (e.g. new bowel and bladder dysfunction, saddle anesthesia, weakness, sensory loss, fevers/chills, unintentional weight loss) were reviewed with the patient. - Return to clinic in: 4 weeks to assess response to medications Current Pain Medication Regimen: - Muscle relaxants: methocarbamol 500 mg three times a day Physical Examination: BP 134/82 Pulse 54 Ht 5' 3 (1.60m) Wt 169 lb (76.7kg) BMI 29.94 kg/(m2). General:well appearing, alert, and in no acute distress Skin: skin color, texture, turgor normal, no rashes or lesions HEENT: normocephalic, atraumatic, sclera non-icteric Cardiovascular:Regular rate and rhythm Lungs: Respirations even and non-labored. Musculoskeletal: Neck: No cervical spine tenderness with palpation. Mild tenderness over the cervical paraspinal muscles. Mild restriction in cervical extension and right lateral rotation. Neurological: Mental Status: alert and oriented x 3 Cranial Nerves: Not examined Reflexes: Deep tendon reflexes are 2+ all throughout the Bilateral upper extremities. Motor Strength: Motor strength and tone are 5/5 all throughout the Bilateral upper extremities. Sensory: Sensation was intact to light touch all throughout the Bilateral upper extremities. Gait: Normal. OARRS: PDMP website checked and validated. All prescriptions have been APPROPRIATELY filled. No suspicious activity was identified. - on November 13, 2022 by Kerri Moreno PA-C - Medical marijuana. Current Anticoagulant Therapy: No DM: No Imagin08/05/2022 - MRI CERVICAL SPINE WO IVCON RESULT: MRI CERVICAL SPINE: Acute abnormality: None. Inferior most cervical spine is not clearly evaluated related to suppression artifact. Decreased disc signal indicating disc desiccation. Facet and uncovertebral joint degeneration indicating cervical spondylosis. Normal alignment, vertebral height, marrow signal, central canal, thecal sac and spinal cord signal/caliber. No fracture/dislocation. Normal tissues. C2 -- 3: Joint degeneration. Patent central canal. Patent bilateral neural foramina. C3 -- 4: Joint degeneration with mild/moderate left foramina narrowing. Patent canal AND right foramina. C4 -- 5: Joint degeneration with moderate bilateral foramina narrowing. Patent canal. C5 -- 6: Joint degeneration with severe left and moderate right foramina narrowing. Patent canal. C6 -- 7: Joint degeneration. Patent central canal. Patent (more content not included)... Normal [facility] CNOVon 10-14-2022 CNOV Office Visit (PAMAVN ) KERRI CHAMPAGNE ([id number]) 1950 F Date Time Provider Department 10/14/22 9:30 AM AVANI RODRÍGUEZ During your visit today, we recorded the following information about you: Pulse Blood pressure Weight Height 56/minute 133/72 77.2 kg 1.575 m Avani Rodríguez MD 10/17/2022 11:10 AM Signed [facility] Pain Management Department Office Visit Date: October 14, 2022 Kerri Champagne is seen in consultation requested by Dr. Amos Wisdom for an opinion regarding chronic neck pain. My final recommendations will be communicated back to the requesting physician by way of shared medical record or via US mail. Chief Complaint: Patient presents with: Pain Neck pain NURSING ASSESSMENT: AMB ROOMING INTAKE FLOWSHEET DATA Risk Screening Do you have concerns about personal safety or safety in the home?: No Pain Pain Level: 4 Pain Location: Neck Description: Spasm, Aching Duration Amount of Time: 7 Duration Units: Years Frequency: Continuous Intervention/Comfort measure: Medication Previous/Current Treatment Pain medications (efficacy, side effects): Gabapentin 600 mg QHS - no benefit, sedating Prior: Flexeril 10 mg QHS - sedating, helpful Metoprolol - helpful Injections: 02/19/2016 Botox (Dr. Nish Palacios) Surgeries: None Active conservative therapy: Physical therapy: ongoing Passive conservative therapy: Massage therapy - 2x per month Current anticoagulation: None Occupation: Retired [employer], [place] October 14, 2022 Attestation: The above information was explored in detail with the patient and edited as needed and is complete. Avani Rodríguez MD October 14, 2022 HISTORY OF PRESENT ILLNESS Kerri Champagne presents to [facility] for the evaluation of neck pain. She presents to discuss alternatives to gabapentin. She would like to discontinue her gabapentin because she has not found any improvement in her tremors or pain. It only helps her fall asleep at night. Previously she was on a combination of metoprolol in the AM and flexeril in the PM - she self-discontinued metoprolol because she does not have hypertension. She did have botox injections in the past but it lasted only for 2 months and insurance would only pay for every 3 months. If returning to medications is not helpful, she will go back to botox injections. Onset: 7 years Precipitating event: with no precipitating event. Location: neck Radiation: radiates to the right upper extremity , left upper extremity to the level of the shoulders right and left Quality: aching, mild, severe, and spasm Progression: worsening Severity: 4 on a scale of 0-10. Frequency: constant Alleviating factors: medications Exacerbating factors: forward flexion, lifting, and looking up or down Symptoms interfere with: daily activity. At nighttime, she can feel muscle spasms. She does feel that it is generally muscles that tighten and affect mobility. She describes one instance when she was shopping and had a moment when she could not turn her head side to side. This lasted for a few minutes. Red flags: Denies numbness/tingling/weak ness in her arms/legs.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 For the purposes of this report, L4-5 is considered the level of the iliac crest and assume there are 5 lumbar-type vertebrae. Anatomic variant: None. Preserved lumbar lordosis with mild lumbar levocurvature. No spondylolisthesis. Maintained vertebral body heights. Apparent increased sclerosis of the L4 vertebral body on the lateral view is less apparent on the L5-S1 view and is likely due to overlapping tissues. Disc space narrowing that is severe at L5-S1, small osteophytes, and lower lumbar facet arthropathy. Preserved pedicles. No acute fracture. Unremarkable sacroiliac joints. Preserved hip joint spaces. Right pelvic stimulator with a generator in the right buttock. IMPRESSION: Lumbar spondylosis No acute osseous abnormality in the pelvis. Crown Perforator Operator: DAHLIA Transcribe Date/Time: Jul 03 2022 12:47P Dictated by : FABIAN PRADHAN MD This examination was interpreted and the report reviewed and electronically signed by: ZAK MARSH MD on Jul 03 2022 1:47PM EST [id number] Normal [facility] XR PELVIS 1V APon 07-03-2022 XR PELVIS 1V AP * * *Final Report* * * DATE OF EXAM: Jul 03 2022 12:05PM [id number] - XR PELVIS 1V AP / PROCEDURE REASON: multiple diagnoses * * * * Physician Interpretation * * * * EXAMINATION: XR PELVIS 1V AP, XR LUMBAR 3V AP/LAT/L5-S1 HISTORY: LEFT LOW BACK PAIN Spasmodic torticollis Bilateral carotid artery stenosis Neck pain Low back pain, non-specific. TECHNIQUE: XR PELVIS 1V AP, XR LUMBAR 3V AP/LAT/L5-S1 Number of different views (projections): 1 (accession [id number]), 3 (accession [id number]) M: XB_1 COMPARISON: None RESULT: Counting reference: Lumbosacral junction. For the purposes of this report, L4-5 is considered the level of the iliac crest and assume there are 5 lumbar-type vertebrae. Anatomic variant: None. Preserved lumbar lordosis with mild lumbar levocurvature. No spondylolisthesis. Maintained vertebral body heights. Apparent increased sclerosis of the L4 vertebral body on the lateral view is less apparent on the L5-S1 view and is likely due to overlapping tissues. Disc space narrowing that is severe at L5-S1, small osteophytes, and lower lumbar facet arthropathy. Preserved pedicles. No acute fracture. Unremarkable sacroiliac joints. Preserved hip joint spaces. Right pelvic stimulator with a generator in the right buttock. IMPRESSION: Lumbar spondylosis No acute osseous abnormality in the pelvis. Crown Perforator Operator: PSCB Transcribe Date/Time: Jul 03 2022 12:47P Dictated by : FABIAN PRADHAN MD This examination was interpreted and the report reviewed and electronically signed by: ZAK MARSH MD on Jul 03 2022 1:47PM EST [id number] Normal [facility] CAROTID ART BILon 06-27-2 022 US CAROTID ART LISANDRO EXAMINATION: US CAROTID ART LISANDRO HISTORY: Bilateral carotid artery occlusion COMPARISON: No relevant comparison available. TECHNIQUE: Duplex Doppler ultrasound analysis of carotid and vertebral arteries. . Bilateral carotid arterial duplex examination was performed using B-mode, color flow and spectral analysis. Carotid stenosis is reported according to validated velocity parameters, similar to NASCET criteria. FINDINGS: RIGHT CAROTID ARTERY Mild atherosclerotic plaque. Subclavian: PSV: 160.9 cm/s cm/s EDV: 15.0 cm/s cm/s CCA: Prox: PSV: 57.5 cm/s cm/s EDV: 16.5 cm/s cm/s Mid: PSV: 74.7 cm/s cm/s EDV: 16.2 cm/s cm/s Distal: PSV: 59.8 cm/s cm/s EDV: 19.7 cm/s cm/s BULB: PSV: 60.7 cm/s cm/s EDV: 18.8 cm/s cm/s ICA: Prox: PSV: 76.8 cm/s cm/s EDV: 14.2 cm/s cm/s Mid: PSV: 68.8 cm/s cm/s EDV: 18.2 cm/s cm/s Distal: PSV: 64.4 cm/s cm/s EDV: 17.1 cm/s cm/s ECA: PSV: 73.8 cm/s cm/s EDV: 12.7 cm/s cm/s VERTEBRAL: PSV: 34.3 cm/s cm/s EDV: 7.5 cm/s cm/s ICA/CCA ratio: PSV: 1.0 EDV: 0.9 LEFT CAROTID ARTERY Mild atherosclerotic plaque Subclavian: PSV: 122.1 cm/s cm/s EDV: 0.0 cm/s CCA: Prox: PSV: 99.5 cm/s cm/s EDV: 18.7 cm/s Mid: PSV: 83.6 cm/s cm/s EDV: 18.9 cm/s Distal: PSV: 66.6 cm/s cm/s EDV: 19.3 cm/s BULB: PSV: 46.7 cm/s cm/s EDV: 13.2 cm/s ICA: Prox: PSV: 54.6 cm/s cm/s EDV: 20.6 cm/s Mid: PSV: 64.4 cm/s cm/s EDV: 22.6 cm/s Distal: PSV: 67.7 cm/s cm/s EDV: 22.6 cm/s ECA: PSV: 78.7 cm/s cm/s EDV: 10.5 cm/s VERTEBRAL: PSV: 43.1 cm/s cm/s EDV: 14.7 cm/s ICA/CCA ratio: PSV: 0.8 EDV: 1.2 IMPRESSION: 0-49% flow stenosis in the internal carotid arteries Spectral Doppler US Thresholds (Reference: Jimmy EG, et al. Radiology 2000; 214:247-252) Stenosis (%) PSV (cm/sec) VICA/VCCA 0-49 <150 <2.5 50-69 150-225 2.5-4.0 >70 >225 >4.0 Electronically authenticated by: ANGEL WOODS Date: 2022-05-06 16:19 Normal [facility] [employer] Quick Testingon 2020 Result Negative [employer] Other Social History Date Type Detail Facility Start: 11-11-2023 Tobacco smoking status NHIS Occasional tobacco smoker [facility] Work Phone: Start: 11-11-2023 Tobacco Comment [facility] Start: 09-09-2023 Tobacco smoking status NHIS Never smoked tobacco [facility] Start: 09-09-2023 End: 02-10-2024 History of Social function [facility] Work Phone: Start: 09-09-2023 End: 02-10-2024 Tobacco use panel [facility] Work Phone: Start: 07-03-2022 End: 03-09-2024 Tobacco smoking status NHIS Ex-smoker [facility] Start: 07-03-2022 Tobacco use and exposure Smokeless tobacco non-user [facility] Start: 07-03-2022 End: 03-09-2024 Alcohol intake Current drinker of alcohol (finding) [facility] Start: 06-04-2022 End: 03-09-2024 Exposure to SARS-CoV-2 (event) Not sure [facility] Start: 11-10-1993 End: 11-10-2013 History of tobacco use Current smoker [facility] Start: 11-10-1993 End: 11-10-2013 History of tobacco use Cigarette Smoker [facility] Work Phone: Start: 1950 Sex Assigned At Not on file C [facility] Start: 1950 Sex Assigned At Female F [facility] Sex Assigned At [facility] [employer] [place] Other Vital Signs Date Time Vital Sign Value Performing Clinician Facility 02-10-2024 10:37-0400 Body height 162.6 cm Carlota Cotton MD Work Phone: [facility] 02-10-2024 10:37-0400 Body mass index (BMI) [Ratio] 28.67 kg/m2 Carlota Cotton MD Work Phone: [facility] 02-10-2024 10:37-0400 Body weight 75.75 kg Carlota Cotton MD Work Phone: [facility] 01-19-2024 11:45-0400 Diastolic blood pressure 79 mm[Hg] Carlota Cotton MD Work Phone: 0(316)[phone] [place] [address] 01-19-2024 11:45-0400 Heart rate 95 /min Carlota Cotton MD Work Phone: [facility] 01-19-2024 11:45-0400 Respiratory rate 13 /min Carlota Cotton MD Work Phone: [facility] 01-19-2024 11:45-0400 SaO2% (BldA) [Mass fraction] 92 % Carlota Cotton MD Work Phone: 1(350)415-816698 [place] [address] 01-19-2024 11:45-0400 Systolic blood pressure 143 mm[Hg] Carlota Cotton MD Work Phone: 3(645)[phone] [place] [address] 01-19-2024 11:30-0400 Body temperature 98.1 [degF] Carlota Cotton MD Work Phone: 3(008)878-635398 [place] [address] 01-19-2024 06:23-0400 Body height 162.6 cm Carlota Cotton MD Work Phone: 8(262)[phone] [place] [address] 01-19-2024 06:23-0400 Body mass index (BMI) [Ratio] 29.93 kg/m2 Carlota Cotton MD Work Phone: 1(494)489-146498 [place] [address] 01-19-2024 06:23-0400 Body weight 79.1 kg Carlota Cotton MD Work Phone: 7(363)[phone] [place] [address] 11-11-2023 10:56-0500 Body height 160 cm Carlota Cotton MD Work Phone: [facility] 11-11-2023 10:56-0500 Body mass index (BMI) [Ratio] 30.65 kg/m2 Carlota Cotton MD Work Phone: 0(621)[phone] [place] [address] 11-11-2023 10:56-0500 Body weight 78.47 kg Carlota Cotton MD Work Phone: 1(112)[phone] [place] [address] 09-09-2023 11:12-0400 Body height 160 cm Argentina QUIJANO Work Phone: [facility] 09-09-2023 11:12-0400 Body mass index (BMI) [Ratio] 30.29 kg/m2 Argentina Lord APRN-FREIGHT REPRESENTATIVE Work Phone: [facility] 09-09-2023 11:12-0400 Body temperature 97.39 [degF] Argentina Lord PROFESSOR/NURSE ANESTHETIST-FREIGHT REPRESENTATIVE Work Phone: [facility] 09-09-2023 11:12-0400 Body weight 77.56 kg Argentina Lord PROFESSOR/NURSE ANESTHETIST-FREIGHT REPRESENTATIVE Work Phone: [facility] 09-09-2023 11:12-0400 Diastolic blood pressure 84 mm[Hg] Argentina Lord PROFESSOR/NURSE ANESTHETIST-FREIGHT REPRESENTATIVE Work Phone: [facility] 09-09-2023 11:12-0400 Heart rate 54 /min Argentina Lord APRN-FREIGHT REPRESENTATIVE Work Phone: [facility] 09-09-2023 11:12-0400 Systolic blood pressure 156 mm[Hg] Argentina Lord PROFESSOR/NURSE ANESTHETIST-FREIGHT REPRESENTATIVE Work Phone: [facility] 12-24-2022 11:20-0500 Diastolic blood pressure 71 mm[Hg] MD Albino Reilly Work Phone: [facility] 12-24-2022 11:20-0500 Heart rate 55 /min MD Albino Rielly Work Phone: [facility] 12-24-2022 11:20-0500 Respiratory rate 16 /min MD Albino Reilly Work Phone: [facility] 12-24-2022 11:20-0500 SaO2% (BldA) [Mass fraction] 99 % MD Albino Reilly Work Phone: [facility] 12-24-2022 11:20-0500 Systolic blood pressure 123 mm[Hg] MD Albino Reilly Work Phone: [facility] 12-24-2022 10:19-0500 Body temperature 98.1 [degF] MD Albino Reilly Work Phone: [facility] 12-24-2022 10:19-0500 Inhaled oxygen flow rate 6 L/min MD Albino Reilly Work Phone: [facility] 12-24-2022 08:00-0500 Body height 160.02 cm MD Albino Reilly Work Phone: [facility] 12-24-2022 08:00-0500 Body mass index (BMI) [Ratio] 30.3 kg/m2 MD Albino Reilly Work Phone: [facility] 12-24-2022 08:00-0500 Body weight 77.7 kg MD Albino Reilly Work Phone: [facility] 11-25-2022 13:09-0500 Body height 160 cm Amos Wisdom MD Work Phone: [facility] 11-25-2022 13:09-0500 Body temperature 96.4 [degF] Amos Wisdom MD Work Phone: [facility] 11-25-2022 13:09-0500 Body weight 78.02 kg Amos Wisdom MD Work Phone: [facility] 11-25-2022 13:09-0500 Diastolic blood pressure 88 mm[Hg] Amos Wisdom MD Work Phone: [facility] 11-25-2022 13:09-0500 Heart rate 78 /min Amos Wisdom MD Work Phone: [facility] 11-25-2022 13:09-0500 SaO2% (BldA) [Mass fraction] 98 % Amos Wisdom MD Work Phone: [facility] 11-25-2022 13:09-0500 Systolic blood pressure 158 mm[Hg] Amos Wisdom MD Work Phone: [facility] 11-18-2022 11:57-0500 Body height 160.02 cm No PCP None MP-Otolaryngolog y-We [facility] Work Phone: 11-18-2022 11:57-0500 Body mass index (BMI) [Ratio] 30.47 kg/m2 No PCP None OR-Ssyplhlffdivtv-Dz [facility] Work Phone: 11-18-2022 11:57-0500 Body surface area Derived from formula 1.81 m2 No PCP None KH-Swpirddhuvavkg-Hb [facility] Work Phone: 11-18-2022 11:57-0500 Body temperature 97.8 [degF] No PCP None MP-Otolaryngolo gy-We [facility] Work Phone: 11-18-2022 11:57-0500 Body weight 78.02 kg No PCP None MP-Otolaryngolog y-We [facility] Work Phone: 11-18-2022 11:57-0500 Diastolic blood pressure 82 mm[Hg] No PCP None XL-Wjxdltoskjolrr-Qs [facility] Work Phone: 11-18-2022 11:57-0500 Systolic blood pressure 144 mm[Hg] No PCP None IO-Fbesblybklzxfm-Tl [facility] [facility] Work Phone: 11-18-2022 11:57-0500 0 1 No PCP None MP-Otolaryngolog y-We [facility] Work Phone: Comment on above: [employer] 11-13-2022 10:00-0500 Body height 160 cm Kerri Moreno PA-C Work Phone: [facility] 11-13-2022 10:00-0500 Body weight 76.66 kg Kerri Moreno PA-C Work Phone: [facility] 11-13-2022 10:00-0500 Diastolic blood pressure 82 mm[Hg] Kerri Moreno PA-C Work Phone: [facility] 11-13-2022 10:00-0500 Heart rate 54 /min Kerri Maline PA-C Work Phone: [facility] 11-13-2022 10:00-0500 Systolic blood pressure 134 mm[Hg] Kerri Duranine PA-C Work Phone: [facility] 07-03-2022 10:29-0400 Diastolic blood pressure 99 mm[Hg] Yonathan Evanchick PA-C Work Phone: [facility] 07-03-2022 10:29-0400 Heart rate 60 /min Yonathan Evanchick PA-C Work Phone: [facility] 07-03-2022 10:29-0400 SaO2% (BldA) [Mass fraction] 97 % Yonathan Evanchick PA-C Work Phone: [facility] 07-03-2022 10:29-0400 Systolic blood pressure 165 mm[Hg] Yonathan Evanchick PA-C Work Phone: [facility] 11-05-2021 15:45-0500 Body height 160.02 cm Gregoria Ginty Other [employer] Other 11-05-2021 15:45-0500 Body mass index (BMI) [Ratio] 29.58 kg/m2 Gregoria Ginty Other [employer] Other 11-05-2021 15:45-0500 Body temperature 96.7 [degF] Gregoria Ginty Other [employer] Other 11-05-2021 15:45-0500 Body weight 75.75 kg Gregoria Ginty Other [employer] Other 11-05-2021 15:45-0500 SaO2% (BldA) [Mass fraction] 97 % Gregoria Ginty Other [facility] [employer] Other Clinical Notes 07-03-2022 to 03-09-2024 Carlota Cotton MD - 03/09/2024 8:30 AM EDTPatient InstructionsCarlota Cotton MD - 02/10/2024 11:00 AM EDTPatient Renzo Welch RN - 01/19/2024 11:45 AM EDTDischarge Instructions Note Date & Type Note Facility 03-09-2024 History of Present illness Narrative History Of Present Illness: Kerri Champagne is a 74 y.o. 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 She's doing well from an ear perspective, her hearing has mildly improved. She's completed her ear drops. She has noticed her nose is frequently running and she's sneezing more regularly, attributes this to allergies. Recall 02/10/24: Kerri Champagne is a 74 y.o. 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 She has noticed a swooshing in her ear that affiliated with her heart beat since surgery. She has known dystonic tremors, having an almost snare drum like noise in her ear with these. She is having ear itching since the procedure. She did start ear drops. Surgical History: She has a past surgical history that includes pr breast augmentation with implant; Inner ear surgery; and Bladder suspension. Allergies: Compazine [prochlorperazine] and Atorvastatin Medications: Current Outpatient Medications Medication Instructions acetaminophen (TYLENOL) 650 mg, oral, Every 6 hours PRN calcium carbonate EX (TUMS EXTRA STRENGTH) 300 mg, oral, Daily cetirizine (ZYRTEC) 10 mg, oral, Daily cholecalciferol (VITAMIN D3) 50 mcg, oral, Daily docusate sodium (COLACE) 100 mg, oral, 2 times daily, Take while using narcotics for pain control fenofibrate (TRIGLIDE) 160 mg, oral, Daily FLUoxetine (PROZAC) 10 mg, oral, Daily ibuprofen 600 mg, oral, Every 6 hours PRN ofloxacin (Floxin) 0.3 % otic solution 3 drops, otic (ear), 2 times daily ondansetron (ZOFRAN) 4 mg, oral, Every 8 hours PRN traMADol (ULTRAM) 50 mg, oral, Every 4 hours PRN Review of Systems: A comprehensive 10-point review of systems was obtained including constitutional, neurological, HEENT, pulmonary, cardiovascular, genito-urinary, and other pertinent systems and was negative except as noted in the HPI. Physical Exam: Constitutional General appearance: Healthy-appearing, well-nourished, well groomed, in no acute distress. Ability to communicate: Normal communication without aids, normal voice quality. Head and face: Atraumatic with no masses, lesions, or scarring. Facial strength: Normal strength and symmetry, no synkinesis or facial tic. Ears Otoscopic examination: Left: Some wet debris in ear canal that was suctioned out, 100% take of graft, no retraction or effusion, landmarks are difficult to appreciate Nose: Dorsum symmetric with no visible or palpable deformities. Oral Cavity/Mouth Lips, teeth, and gums: Normal lips, gums, and dentition. Oropharynx: Mucosa moist, no lesions. Neck: Symmetrical, trachea midline. No masses visible. Neurological/Psychiatric Cranial Nerve Examination: II - XII grossly intact. Orientation to person, place, and time: Normal. Mood and affect: Normal. Skin: Normal without rashes or lesions. Pulmonary Respiratory effort: Chest expands symmetrically. Cardiovascular: Good peripheral pulses Peripheral vascular system: No varicosities, carotid pulse normal, no edema. No jugular venous distension. Extremities: Appearance of extremities: Normal. Gait normal. Last Recorded Vitals: There were no vitals taken for this visit. Assessment/Plan 74 y.o. 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 She's doing well from an ear perspective, her hearing has mildly improved. Advised her that her hearing should continue to improve over the next 6 months as the tympanic membrane thins out postoperatively. - Audiogram in 2-3 months in [place], advised to have results faxed over to us - RTC in 1 year Scribe Attestation: By signing my name below, I, Uzma Dionte , Denice attest that this documentation has been prepared under the direction and in the presence of Carlota Cotton MD. I have reviewed the documentation as scribed by Uzma Rapp and agree with the notes. Carlota Cotton MD documented in this encounter [facility] Work Phone: 03-09-2024 Instructions Uzma Elaine Dionte - 03/09/2024 8:30 AM EDT Welcome to Dr. Cotton's clinic. We are here to assist you through your ENT care at [facility]. Dr. Cotton is an Ear surgeon. This means that she specializes in taking care of patients with complex ear problems. Dr. Cotton's office number is [phone]. While you may see her at a satellite office, she has a team committed to help meet your healthcare needs at [facility]. This number is the most direct way to communicate with the office. Gianna is Dr. Cotton's sales secretary and she answers the office phone from 8am-4pm Fri-Fri. She can help you with many general questions and information. Questions that she cannot answer will be directed to the appropriate staff. You may need to leave a message. In this case, someone from the team will call you back. Nirav Neal RN, is Dr. Cotton's primary nurse and can be reached by calling the office. Nirav is in clinic with Dr. Cotton's on Mondays and Tuesdays. Non-urgent calls will be returned on non-clinic days typically . Sometimes, other team members will also be involved in your care. These people may include dieticians, social workers, speech therapists, acoustical logging engineer, neurologist, and physical therapist. Dr. Cotton will provide these referrals as needed. Please let her know if you would like to request a specific referral. For your convenience, Dr. Cotton sees patients at several [facility] locations including [facility] and [facility] at the main [facility]. While we try to make your appointments as convenient as possible, occasionally a visit to another location may be necessary to provide the best care for you. We look forward to working with you to meet your healthcare goals. Dr. Cotton makes every effort to run on time for your appointments. Therefore, if you are more than 30 minutes late unrelated to a scan or another appointment such therapy or audio you will have to reschedule. documented in this encounter [facility] Work Phone: 02-10-2024 History of Present illness Narrative History Of Present Illness: Kerri Champagne is a 74 y.o. 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 She has noticed a swooshing in her ear that affiliated with her heart beat since surgery. She has known dystonic tremors, having an almost snare drum like noise in her ear with these. She is having ear itching since the procedure. She did start ear drops. Recall 11/11/23: Kerri Champagne is a 73 y.o. female whom presents to me as a new patient for left-sided TM perforation and COM, referred here today by Argentina Lord CNP. She's had a left-sided TM perforation for many years. She had 2 procedures in 2014 through an ENT in [place], one operation through her ear canal the other behind her ear. After her first procedure, she had significant bleeding from her ear canal, she presented to the ED and they pulled out her packing, she feels this may have damaged her graft. She feels her hearing has been consistently bad since the perforation. She does have some left-sided ear pain but denies drainage. She was given ear drops through [place], she's unsure if the infection resolved. She does have some vocal weakness. She has a history of chronic sinusitis, she had a sinus surgery in the past without benefit. She did try voice therapy in the past but discontinued after a few appointments. She's noticed when trying to talk loudly, she has pain in her throat. Surgical History: She has a past surgical history that includes pr breast augmentation with implant; Inner ear surgery; and Bladder suspension. Allergies: Compazine [prochlorperazine] and Atorvastatin Medications: Current Outpatient Medications Medication Instructions acetaminophen (TYLENOL) 650 mg, oral, Every 6 hours PRN calcium carbonate EX (TUMS EXTRA STRENGTH) 300 mg, oral, Daily cetirizine (ZYRTEC) 10 mg, oral, Daily cholecalciferol (VITAMIN D3) 50 mcg, oral, Daily docusate sodium (COLACE) 100 mg, oral, 2 times daily, Take while using narcotics for pain control fenofibrate (TRIGLIDE) 160 mg, oral, Daily FLUoxetine (PROZAC) 10 mg, oral, Daily ibuprofen 600 mg, oral, Every 6 hours PRN ofloxacin (Floxin) 0.3 % otic solution 3 drops, otic (ear), 2 times daily ondansetron (ZOFRAN) 4 mg, oral, Every 8 hours PRN traMADol (ULTRAM) 50 mg, oral, Every 4 hours PRN Review of Systems: A comprehensive 10-point review of systems was obtained including constitutional, neurological, HEENT, pulmonary, cardiovascular, genito-urinary, and other pertinent systems and was negative except as noted in the HPI. Physical Exam: Constitutional General appearance: Healthy-appearing, well-nourished, well groomed, in no acute distress. Ability to communicate: Normal communication without aids, normal voice quality. Head and face: Atraumatic with no masses, lesions, or scarring. Facial strength: Normal strength and symmetry, no synkinesis or facial tic. Facial nerve 1/6. Ears Otoscopic examination: Left: Postauricular incision hearing well, no drainage or erythema, moist gelfoam in ear canal removed, lateral part of canal well epithelialized Nose: Dorsum symmetric with no visible or palpable deformities. Oral Cavity/Mouth Lips, teeth, and gums: Normal lips, gums, and dentition. Oropharynx: Mucosa moist, no lesions. Neck: Symmetrical, trachea midline. No masses visible. Neurological/Psychiatric Cranial Nerve Examination: II - XII grossly intact. Orientation to person, place, and time: Normal. Mood and affect: Normal. Skin: Normal without rashes or lesions. Pulmonary Respiratory effort: Chest expands symmetrically. Cardiovascular: Good peripheral pulses Peripheral vascular system: No varicosities, carotid pulse normal, no edema. No jugular venous distension. Extremities: Appearance of extremities: Normal. Gait normal. Last Recorded Vitals: Height 1.626 m (5' 4 ), weight 75.8 kg (167 lb). Assessment/Plan 74 y.o. 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 She has noticed a swooshing in her left ear affiliated with her heart beat. She has had some ear itching since the procedure. She did start ear drops. - Continue ear drops - RTC in 3 weeks Scribe Attestation: By signing my name below, I, Uzma Rapp , Scribe attest that this documentation has been prepared under the direction and in the presence of Carlota Cotton MD. I have reviewed the documentation as scribed by Uzma Rapp and agree with the notes. Carlota Cotton MD documented in this encounter [facility] Work Phone: 02-10-2024 Instructions Uzma Rapp - 02/10/2024 11:00 AM EDT Welcome to Dr. Cotton's clinic. We are here to assist you through your ENT care at [facility]. Dr. Cotton is an Ear surgeon. This means that she specializes in taking care of patients with complex ear problems. Dr. Cotton's office number is [phone]. While you may see her at a satellite office, she has a team committed to help meet your healthcare needs at [facility]'s main campus. This number is the most direct way to communicate with the office. Gianna is Dr. Cotton's sales secretary and she answers the office phone from 8am-4pm Mon-Fri. She can help you with many general questions and information. Questions that she cannot answer will be directed to the appropriate staff. You may need to leave a message. In this case, someone from the team will call you back. Nirav is Dr. Cotton's primary nurse and can be reached by calling the office. Nirav is in clinic with Dr. Cotton's on Mondays and Tuesdays. Non-urgent calls will be returned on non-clinic days typically . Sometimes, other team members will also be involved in your care. These people may include dieticians, social workers, speech therapists, acoustical logging engineer, neurologist, and physical therapist. Dr. Cotton will provide these referrals as needed. Please let her know if you would like to request a specific referral. For your convenience, Dr. Cotton sees patients at several [facility] locations including [facility] and [facility] at the main [facility]. While we try to make your appointments as convenient as possible, occasionally a visit to another location may be necessary to provide the best care for you. We look forward to working with you to meet your healthcare goals. Dr. Cotton makes every effort to run on time for your appointments. Therefore, if you are more than 30 minutes late unrelated to a scan or another appointment such therapy or audio you will have to reschedule. documented in this encounter [facility] Work Phone: 01-19-2024 Nurse Note 1145: Handoff received from Rosemarie POWERS, assumed care for patient at this time 1200: Family at bedside 1205: Discharge instructions reviewed with patient and family, no further questions at this time. 1215: Patient dressed with family assistance. 1225: Peripheral IV removed with no complications. 1248: Patient to main lobby via transport with all belongings in stable condition. Phase 2 complete. [facility] 01-19-2024 Nurse Note 1145: Handoff received from Rosemarie POWERS, assumed care for patient at this time 1200: Family at bedside 1205: Discharge instructions reviewed with patient and family, no further questions at this time. 1215: Patient dressed with family assistance. 1225: Peripheral IV removed with no complications. 1248: Patient to main lobby via transport with all belongings in stable condition. Phase 2 complete. documented in this encounter [facility] Work Phone: 01-19-2024 Hospital Discharge instructions Carlota Cotton MD - 01/19/2024 10:30 AM EDT Images from the original note were not included. Most ear surgeries should have a 2-4 week postoperative appointment. Please be sure to call the doctor's office and make a follow-up appointment, if you don't already have it. Do not start drops for 3 weeks after surgery. You should start them on February 09, 2024 Dressing or Band-Aid can be removed the day after surgery. Once removed, replace the cotton ball in the ear as needed. Once the dressing is off, and if you have an incision behind your ear with stitches, clean the incision twice daily with soap and water and apply Vaseline or antibiotic ointment after cleaning. If you have paper strips or surgical glue over the incision, Do not apply anything behind the ear. Bloody drainage from the ear is common. Call the office if discharge from the ear last longer than 21 days or develops an odor or color. Water should be kept out of the ear until it is healed. You may shower the day after surgery, if you keep your head dry. The hair may be shampooed 2 days following surgery, providing water is not allowed into the ear canal. A cotton ball covered with Vaseline should be used in the ear whenever you are around water. Bloody discharge from incision area may occur during the first 10 days following surgery. If this persists or increases, please call the office. A full sensation with popping sounds may be noticed during the healing process. DO NOT BLOW YOUR NOSE FOR THREE WEEKS FOLLOWING SURGERY. If you sneeze, do so with your mouth open for three weeks following surgery. Do not use a straw to drink beverages for 3 weeks following surgery. Do not use Q-Tips or put anything in the canal, until approved by your doctor. Do not be concerned regarding your hearing for a period of six to eight weeks following surgery. Your hearing will be evaluated at this time; until then, your hearing may sound muffled and your voice may echo in your ear during speech. Minor swelling of the face on the same side of the surgery is not uncommon. Small bruising near the eye or mouth is not uncommon from the facial nerve monitor. Dizziness, ringing in the ear, and taste disturbance after surgery are common. Call if severe. You might notice pain when chewing, please use soft diet for 2 weeks if you experience this. No lifting (more than 10 lbs) or straining until follow up. You will be discharged on pain medications and usually antibiotics. You may resume your routine medications as directed, unless you have been instructed otherwise by the prescribing healthcare provider. Should you experience any difficulty upon returning home, or if you simply have questions, please contact us. As your surgeons, we are most familiar with your operation and postoperative procedures. We are accessible by telephone 24 hours a day, 7 days a week. Once we have assessed your situation, we will be prepared to make specific suggestions for your care. 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] Procedures Left Sided Lateral Graft Tympanoplasty; Ossiculoplasty 62786 - NE TYMPANOPLASTY W/O MASTOIDECT W/O OSSICLE RECNSTJ Left Sided Lateral Graft Tympanoplasty; Ossiculoplasty 56544 - NE TYMPANOPLASTY W/O MASTOIDEC 1ST/REVJ PROSTH TORP NE SPLIT AGRFT F/S/N/H/F/G/M/D GT 1ST 100 CM/</1 % [69209] Surgeons * Carlota Cotton - Primary Resident/Fellow/Other Office Machines Sales Representative: Surgeon(s) and Role: Procedure Summary Anesthesia: General ASA: II Anesthesia Staff: Anesthesiologist: Angel Larios MD C-AA: CHEYENNE Mattson; CHEYENNE Strickland CHUCK: Argentina Trujillo Estimated Blood Loss: 5mL Intra-op Medications: Administrations occurring from 0730 to 1030 on 01/19/24: Medication Name Total Dose ciprofloxacin-dexamethasone (CiproDEX) otic suspension 4 drop balanced salts (BSS) intraocular solution 15 mL bacitracin ointment 1 Application gelatin absorbable (Gelfoam) 100 sponge 1 each sodium chloride 0.9 % irrigation solution 1,000 mL EPINEPHrine HCl (PF) (Adrenalin) injection 1 mg sodium chloride bacteriostatic 0.9 % injection 19 mL lactated Ringer's infusion 293.33 mL Anesthesia Record Intraprocedure I/O Totals Intake Remifentanil Drip 0.00 mL The total shown is the total volume documented since Anesthesia Start was filed. Total Intake 0 mL Specimen: No specimens collected Staff: Flower Cutter: Elaina Marie RN Relief Flower Cutter: Lin Stroud RN Relief Scrub: Kisha Jauregui Scrub Person: Jer Mathews RN Drains and/or Catheters: * None in log * Tourniquet Times: Implants: Findings: Mobile ossicular chain after release of the malleus from the promontory. Indications: Kerri Champagne is an 73 y.o. 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 She had a failed post auricular approach in the past with conductive hearing loss, otorrhea and bleeding intermittantly. The patient was seen in the preoperative area. The risks, benefits, complications, treatment options, non-operative alternatives, expected recovery and outcomes were discussed with the patient. The possibilities of reaction to medication, pulmonary aspiration, injury to surrounding structures, bleeding, recurrent infection, the need for additional procedures, failure to diagnose a condition, and creating a complication requiring transfusion or operation were discussed with the patient. The patient concurred with the proposed plan, giving informed consent. The site of surgery was properly noted/marked if necessary per policy. The patient has been actively warmed in preoperative area. Preoperative antibiotics have been ordered and given within 1 hours of incision. Venous thrombosis prophylaxis have been ordered including bilateral sequential compression devices Procedure Details: : Patient was seen and evaluated in the pre-operative area. Informed consent was obtained as described above. The patient was taken back to the operating room by the anesthesia team. Pre-operative huddle was performed by Dr. Cotton. General anesthesia was induced and patient was orotracheally intubated without issue. Patient was turned 180 degrees towards the ENT team. Patient was then secured to the table at 3 points. Test roll was performed. Facial nerve electrodes were placed over the orbicularis marimar and orbicularis oculi muscles, and we confirmed appropriate functioning of the monitor. This was used throughout the case to ensure protection of the facial nerve. The ear was then prepped and draped in the usual sterile fashion. Pre-incision timeout was performed by Dr. Cotton. The surgical microscope was then brought in. The ear canal was cleared of Betadine. A four-quadrant injection of 1:20,000 epinephrine was performed. A vascular strip incision was made. The medial portion was just lateral to the annulus with the radial incisions being along the superior and inferior suture lines. Once the radial incisions were made we turned attention to the postauricular area. This area had been injected with 1% lidocaine with 1:100,000 epinephrine. The skin was incised and carried down to the periosteum. Periosteum was incised in a C shape fashion. The ear canal was exposed. The ear was then placed into retraction with the self-retaining retractor. The ear canal skin was elevated off the posterior wall to identify the ear canal incisions. Once this was done, the vascular strip was placed into a Crooks retractor. Next the anterior ear canal skin was incised lateral to the glenoid hump. This was then dissected down to the annulus and the short process of the malleus was exposed. The skin of the tympanic membrane was then decorticated. The ear canal skin was passed off and set aside for later use in a moist towel. The ear canal was examined to make sure the skin was completely removed. The glenoid hump was drilled down with a high-speed drill under continuous irrigation. Once the ear canal was widened the anterior sulcus was examined. This was widened further to create a more obtuse angle and prevent blunting. A large piece of temporalis fascia was harvested, pressed and set aside to dry. The middle ear was examined. The ossicular chain was intact and mobile. A slit was cut in the superior aspect of the graft to slide underneath the malleus handle. The middle ear was filled with Gelfoam impregnated with Ciprodex. The graft was brought in and placed underneath the malleus handle and slit slid up to cover the the pars flaccida. The graft was positioned just to the edge of the tympanic annulus. Once the graft was in good position the previously harvested anterior ear canal skin was replaced with care being taken to make sure that the epithelial surface faced the ear canal and was appropriately positioned. The tympanic membrane graft in the medial portion of the ear canal was packed with Gelfoam impregnated with Ciprodex. The vascular strip was taken out of retraction and repositioned in its anatomic position. Once vascular strip was repositioned the ear canal was packed laterally with Gelfoam as well. The periosteum was then closed with interrupted 3-0 Vicryl. The skin was closed with interrupted 3-0 Vicryl and a 5-0fast gut in the skin. The facial nerve electrodes were removed and a standard mastoid dressing was applied. The patient was returned to the care of anesthesia extubated without incident and transferred to the recovery room in stable condition. Dr. Cotton was presented and participated in all critical portions of the procedure. Complications: None; patient tolerated the procedure well. Disposition: PACU - hemodynamically stable. Condition: stable Additional Details: Attending Attestation: I was present and scrubbed for the entire procedure. Carlota Cotton documented in this encounter [facility] Work Phone: 01-19-2024 Note Formatting of this n ote is different from the original. 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] Procedures Left Sided Lateral Graft Tympanoplasty; Ossiculoplasty 63546 - NE TYMPANOPLASTY W/O MASTOIDECT W/O OSSICLE RECNSTJ Left Sided Lateral Graft Tympanoplasty; Ossiculoplasty 58614 - NE TYMPANOPLASTY W/O MASTOIDEC /REVJ PROSTH TORP NE SPLIT AGRFT F/S/N/H/F/G/M/D GT 1ST 100 CM/Surgeons * Carlota Cotton - Primary Resident/Fellow/Other Office Machines Sales Representative: Surgeon(s) and Role: Procedure Summary Anesthesia: General ASA: II Anesthesia Staff: Anesthesiologist: Angel Larios MD C-AA: CHEYENNE Mattson; CHEYENNE Strickland CHUCK: [place] Estimated Blood Loss: 5mL Intra-op Medications: Administrations occurring from 0730 to 1030 on 01/19/24: Medication Name Total Dose ciprofloxacin-dexamethasone (CiproDEX) otic suspension 4 drop balanced salts (BSS) intraocular solution 15 mL bacitracin ointment 1 Application gelatin absorbable (Gelfoam) 100 sponge 1 each sodium chloride 0.9 % irrigation solution 1,000 mL EPINEPHrine HCl (PF) (Adrenalin) injection 1 mg sodium chloride bacteriostatic 0.9 % injection 19 mL lactated Ringer's infusion 293.33 mL Anesthesia Record Intraprocedure I/O Totals Intake Remifentanil Drip 0.00 mL The total shown is the total volume documented since Anesthesia Start was filed. Total Intake 0 mL Specimen: No specimens collected Staff: Flower Cutter: Elaina Marie RN Relief Flower Cutter: Lin Stroud RN Relief Scrub: Kisha Jauregui Scrub Person: Jer Mathews RN Drains and/or Catheters: * None in log * Tourniquet Times: Implants: Findings: Mobile ossicular chain after release of the malleus from the promontory. Indications: Kerri Champagne is an 73 y.o. 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 She had a failed post auricular approach in the past with conductive hearing loss, otorrhea and bleeding intermittantly. The patient was seen in the preoperative area. The risks, benefits, complications, treatment options, non-operative alternatives, expected recovery and outcomes were discussed with the patient. The possibilities of reaction to medication, pulmonary aspiration, injury to surrounding structures, bleeding, recurrent infection, the need for additional procedures, failure to diagnose a condition, and creating a complication requiring transfusion or operation were discussed with the patient. The patient concurred with the proposed plan, giving informed consent. The site of surgery was properly noted/marked if necessary per policy. The patient has been actively warmed in preoperative area. Preoperative antibiotics have been ordered and given within 1 hours of incision. Venous thrombosis prophylaxis have been ordered including bilateral sequential compression devices Procedure Details: : Patient was seen and evaluated in the pre-operative area. Informed consent was obtained as described above. The patient was taken back to the operating room by the anesthesia team. Pre-operative huddle was performed by Dr. Cotton. General anesthesia was induced and patient was orotracheally intubated without issue. Patient was turned 180 degrees towards the ENT team. Patient was then secured to the table at 3 points. Test roll was performed. Facial nerve electrodes were placed over the orbicularis marimar and orbicularis oculi muscles, and we confirmed appropriate functioning of the monitor. This was used throughout the case to ensure protection of the facial nerve. The ear was then prepped and draped in the usual sterile fashion. Pre-incision timeout was performed by Dr. Cotton. The surgical microscope was then brought in. The ear canal was cleared of Betadine. A four-quadrant injection of 1:20,000 epinephrine was performed. A vascular strip incision was made. The medial portion was just lateral to the annulus with the radial incisions being along the superior and inferior suture lines. Once the radial incisions were made we turned attention to the postauricular area. This area had been injected with 1% lidocaine with 1:100,000 epinephrine. The skin was incised and carried down to the periosteum. Periosteum was incised in a C shape fashion. The ear canal was exposed. The ear was then placed into retraction with the self-retaining retractor. The ear canal skin was elevated off the posterior wall to identify the ear canal incisions. Once this was done, the vascular strip was placed into a Crooks retractor. Next the anterior ear canal skin was incised lateral to the glenoid hump. This was then dissected down to the annulus and the short process of the malleus was exposed. The skin of the tympanic membrane was then decorticated. The ear canal skin was passed off and set aside for later use in a moist towel. The ear canal was examined to make sure the skin was completely removed. The glenoid hump was drilled down with a high-speed drill under continuous irrigation. Once the ear canal was widened the anterior sulcus was examined. This was widened further to create a more obtuse angle and prevent blunting. A large piece of temporalis fascia was harvested, pressed and set aside to dry. The middle ear was examined. The ossicular chain was intact and mobile. A slit was cut in the superior aspect of the graft to slide underneath the malleus handle. The middle ear was filled with Gelfoam impregnated with Ciprodex. The graft was brought in and placed underneath the malleus handle and slit slid up to cover the the pars flaccida. The graft was positioned just to the edge of the tympanic annulus. Once the graft was in good position the previously harvested anterior ear canal skin was replaced with care being taken to make sure that the epithelial surface faced the ear canal and was appropriately positioned. The tympanic membrane graft in the medial portion of the ear canal was packed with Gelfoam impregnated with Ciprodex. The vascular strip was taken out of retraction and repositioned in its anatomic position. Once vascular strip was repositioned the ear canal was packed laterally with Gelfoam as well. The periosteum was then closed with interrupted 3-0 Vicryl. The skin was closed with interrupted 3-0 Vicryl and a 5-0fast gut in the skin. The facial nerve electrodes were removed and a standard mastoid dressing was applied. The patient was returned to the care of anesthesia extubated without incident and transferred to the recovery room in stable condition. Dr. Cotton was presented and participated in all critical portions of the procedure. Complications: None; patient tolerated the procedure well. Disposition: PACU - hemodynamically stable. Condition: stable Additional Details: Attending Attestation: I was present and scrubbed for the entire procedure. Carlota Cotton [facility] Work Phone: 01-19-2024 Attending History and physical note H&P reviewed. The patient was examined and there are no changes to the H&P. Source Note - Sally Wynne PA-C - 01/12/2024 10:30 AM EST [facility] Evaluation Name: Kerri Champagne (Kerri Champagne) /Age: 302/08/1950/73 y.o. Date of Consult: 01/12/24 Referring Provider: Dr. Cotton Surgery, Date, and Length: Left Sided Lateral Graft Tympanoplasty; Possible Ossiculoplasty; Postauricualr Skin Graft - Left Ossiculoplasty(psb) - Right , 01/19/24, 180MIN Kerri Champagne is a 73 year-old female who presents to the [facility] for perioperative risk assessment prior to surgery. Patient presents with a primary diagnosis of left TM perforation for many years. She had 2 procedures in 2014 through an ENT in [place], one operation through her ear canal the other behind her ear. After her first procedure, she had significant bleeding from her ear canal, she presented to the ED and they pulled out her packing, she feels this may have damaged her graft. She feels her hearing has been consistently bad since the perforation. She does have some left-sided ear pain but denies drainage. This note was created in part upon personal review of patient's medical records. Patient is scheduled to have Left Sided Lateral Graft Tympanoplasty; Possible Ossiculoplasty; Postauricualr Skin Graft - Left Ossiculoplasty(psb) - Right Pt denies any past history of anesthetic complications such as PONV, awareness, prolonged sedation, dental damage, aspiration, cardiac arrest, difficult intubation, difficult I.V. access or unexpected hospital admissions. NO malignant hyperthermia and or pseudocholinesterase deficiency. No history of blood transfusions The patient is not a Voodoo and will accept blood and blood products if medically indicated. Type and screen NOT sent. 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 Family History Problem Relation Name Age of Onset Colon cancer Mother 65 Skin cancer Father Diabetes Sister No Known Problems Maternal Grandmother lived to [facility] Social History Socioeconomic History Marital status: Single Spouse name: Not on file Number of children: Not on file Years of education: Not on file Highest education level: Not on file Occupational History Not on file Tobacco Use Smoking status: Former Packs/day: 1.00 Years: 20.00 Additional pack years: 0.00 Total pack years: 20.00 Types: Cigarettes Quit date: 2013 Years since quittin.1 Smokeless tobacco: Not on file Tobacco comments: Medical Cannabis. Vaping Use Vaping Use: Never used Substance and Sexual Activity Alcohol use: Yes Alcohol/week: 3.0 standard drinks of alcohol Types: 3 Glasses of wine per week Drug use: Yes Types: Marijuana Comment: PRN for pain and sleep- gummy Sexual activity: Defer Other Topics Concern Not on file Social History Narrative Not on file Social Determinants of Health Financial Resource Strain: Not on file Food Insecurity: Not on file Transportation Needs: Not on file Physical Activity: Not on file Stress: Not on file Social Connections: Not on file Intimate Partner Violence: Not on file Housing Stability: Not on file Allergies Allergen Reactions Compazine [Prochlorperazine] Seizure Atorvastatin GI Upset Prior to Admission medications Medication Sig Start Date End Date Taking? Authorizing Provider calcium carbonate EX (Tums Extra Strength) 300 mg (750 mg) chewable tablet Chew 300 mg once daily. Historical Provider, cetirizine (ZyrTEC) 10 mg tablet Take 1 tablet (10 mg) by mouth once daily. Historical Provider, cholecalciferol (Vitamin D3) 50 MCG (2000 UT) tablet Take 1 tablet (50 mcg) by mouth once daily. Historical Provider, fenofibrate (Triglide) 160 mg tablet Take 1 tablet (160 mg) by mouth once daily. Historical Provider, FLUoxetine (PROzac) 10 mg capsule Take 1 capsule (10 mg) by mouth once daily. Historical Provider, PAT ROS: Constitutional: no fever no chills no unexpected weight change Neuro/Psych: no numbness no weakness no light-headedness no confusion Eyes: no discharge no pain no vision loss no diplopia no visual disturbance use of corrective lenses Ears: no ear pain hearing loss no tinnitus Nose: no nasal discharge no sinus congestion no epistaxis Mouth: no dental issues no mouth pain no oral bleeding no mouth lesions Throat: no throat pain no dysphagia Neck: no neck pain no neck stiffness Cardio: Functional 4 Mets. Patient denies SOB walking up 1 flights of stairs Shopping is no issue; cooking, cleaning no chest pain no palpitations no peripheral edema no dyspnea no CORNEJO Respiratory: no cough no wheezing no hemoptysis no shortness of breath Endocrine: no cold intolerance no heat intolerance GI: no abdominal distention no abdominal pain no constipation no diarrhea no nausea no vomiting no blood in stool : Urgency; bladder stimulator in place no difficulty urinating no dysuria no oliguria polyuria Musculoskeletal: no arthralgias no myalgias no decreased ROM Hematologic: does not bruise/bleed easily no excessive bleeding no history of blood transfusion no blood clots Skin: no skin changes no sores/wound no rash Physical Exam Constitutional: General: She is not in acute distress. Appearance: Normal appearance. She is not ill-appearing, toxic-appearing or diaphoretic. HENT: Head: Normocephalic and atraumatic. Ears: Comments: Perforated L TM Nose: Nose normal. No rhinorrhea. Mouth/Throat: Pharynx: No oropharyngeal exudate. Eyes: Extraocular Movements: Extraocular movements intact. Conjunctiva/sclera: Conjunctivae normal. Cardiovascular: Rate and Rhythm: Normal rate and regular rhythm. Heart sounds: No murmur heard. No friction rub. No gallop. Comments: Functional 4 Mets. Patient denies SOB walking up 2 flights of stairs Pulmonary: Effort: Pulmonary effort is normal. No respiratory distress. Breath sounds: Normal breath sounds. No stridor. No wheezing or rhonchi. Abdominal: General: Bowel sounds are normal. There is no distension. Palpations: Abdomen is soft. There is no mass. Tenderness: There is no abdominal tenderness. There is no guarding or rebound. Hernia: No hernia is present. Genitourinary: Comments: Bladder stimulator battery in place right buttock; no s/sx of infection Musculoskeletal: General: No swelling, tenderness, deformity or signs of injury. Normal range of motion. Cervical back: Normal range of motion and neck supple. No rigidity or tenderness. Skin: General: Skin is warm and dry. Coloration: Skin is not jaundiced or pale. Findings: No bruising, erythema, lesion or rash. Neurological: General: No focal deficit present. Mental Status: She is alert and oriented to person, place, and time. Cranial Nerves: No cranial nerve deficit. Sensory: No sensory deficit. Motor: No weakness. Coordination: Coordination normal. Psychiatric: Mood and Affect: Mood normal. Behavior: Behavior normal. PAT AIRWAY: Airway: Mallampati:: I Neck ROM:: Full No broken teeth, no dentures and no missing teeth Visit Vitals BP 120/82 Pulse 63 Temp 36.4 C (97.5 F) Resp 18 Ht 1.625 m (5' 3.98 ) Wt 77 kg (169 lb 12.1 oz) SpO2 98% BMI 29.16 kg/m Smoking Status Former BSA 1.86 m DASI Risk Score No data to display Caprini DVT Assessment No data to display Modified Frailty Index No data to display CHADS2 Stroke Risk N/A 3 - 100%: High Risk 2 - 3%: Medium Risk 0 - 2%: Low Risk Last Change: N/A This score determines the patient's risk of having a stroke if the patient has atrial fibrillation. This score is not applicable to this patient. Components are not calculated. Revised Cardiac Risk Index No data to display Apfel Simplified Score No data to display Risk Analysis Index Results This Encounter No data found in the last 1 encounters. LABS: Lab Results Component Value Date WBC 5.4 01/12/2024 HGB 13.0 01/12/2024 HCT 40.4 01/12/2024 MCV 86 01/12/2024 PLT 294 01/12/2024 Lab Results Component Value Date GLUCOSE 95 01/12/2024 CALCIUM 9.8 01/12/2024 NA 139 01/12/2024 K 5.0 01/12/2024 CO2 27 01/12/2024 CL 104 01/12/2024 BUN 14 01/12/2024 CREATININE 0.81 01/12/2024 Assessment and Plan: Patient is a 73-year-old female scheduled for a Left Sided Lateral Graft Tympanoplasty; Possible Ossiculoplasty; Postauricualr Skin Graft - Left Ossiculoplasty(psb) - Right with Dr. Cotton on 01/19/24. Patient has no active cardiac symptoms. Patient denies any chest pain, tightness, heaviness, pressure, radiating pain, palpitations, irregular heartbeats, lightheadedness, cough, congestion, shortness of breath, CORNEJO, PND, near syncope, weight loss or gain. RCRI 0 , 3.9 % Risk of MACE Cardiac: HLD - hold fenofibrate dos : Bladder stimulator (Medtronix) - pt aware to bring device remote on dos Hematology: Patient instructed to ambulate as soon as possible postoperatively to decrease thromboembolic risk. Initiate mechanical DVT prophylaxis as soon as possible and initiate chemical prophylaxis when deemed safe from a bleeding standpoint post surgery. LABS: CBC, BMP ordered Lab results reviewed and unremarkable. No additional testing required. STOP BANG: obese, >50 = 2 Caprini: 5 Risk assessment complete. Patient is scheduled for a low surgical risk procedure. Preoperative medication instructions were provided and reviewed with the patient. Any additional testing or evaluation was explained to the patient. Nothing by mouth instructions were discussed and patient's questions were answered prior to conclusion to this encounter. Patient verbalized understanding of preoperative instructions given in preadmission testing; discharge instructions available in EMR. This note was dictated by a speech recognition. Minor errors may have been detected in a speech recognition. [facility] Work Phone: 01-19-2024 History and physical note H&P reviewed. The patient was examined and there are no changes to the H&P. Source Note - Sally Wynne PA-C - 01/12/2024 10:30 AM EST CPM/PAT Evaluation Name: Kerri Champagne (Kerri Champagne) /Age: 302/08/1950/73 y.o. Date of Consult: 01/12/24 Referring Provider: Dr. Cotton Surgery, Date, and Length: Left Sided Lateral Graft Tympanoplasty; Possible Ossiculoplasty; Postauricualr Skin Graft - Left Ossiculoplasty(psb) - Right , 01/19/24, 180MIN Kerri Champagne is a 73 year-old female who presents to the [facility] for perioperative risk assessment prior to surgery. Patient presents with a primary diagnosis of left TM perforation for many years. She had 2 procedures in 2014 through an ENT in [place], one operation through her ear canal the other behind her ear. After her first procedure, she had significant bleeding from her ear canal, she presented to the ED and they pulled out her packing, she feels this may have damaged her graft. She feels her hearing has been consistently bad since the perforation. She does have some left-sided ear pain but denies drainage. This note was created in part upon personal review of patient's medical records. Patient is scheduled to have Left Sided Lateral Graft Tympanoplasty; Possible Ossiculoplasty; Postauricualr Skin Graft - Left Ossiculoplasty(psb) - Right Pt denies any past history of anesthetic complications such as PONV, awareness, prolonged sedation, dental damage, aspiration, cardiac arrest, difficult intubation, difficult I.V. access or unexpected hospital admissions. NO malignant hyperthermia and or pseudocholinesterase deficiency. No history of blood transfusions The patient is not a Voodoo and will accept blood and blood products if medically indicated. Type and screen NOT sent. 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 Family History Problem Relation Name Age of Onset Colon cancer Mother 65 Skin cancer Father Diabetes Sister No Known Problems Maternal Grandmother lived to [facility] Social History Socioeconomic History Marital status: Single Spouse name: Not on file Number of children: Not on file Years of education: Not on file Highest education level: Not on file Occupational History Not on file Tobacco Use Smoking status: Former Packs/day: 1.00 Years: 20.00 Additional pack years: 0.00 Total pack years: 20.00 Types: Cigarettes Quit date: 2013 Years since quittin.1 Smokeless tobacco: Not on file Tobacco comments: Medical Cannabis. Vaping Use Vaping Use: Never used Substance and Sexual Activity Alcohol use: Yes Alcohol/week: 3.0 standard drinks of alcohol Types: 3 Glasses of wine per week Drug use: Yes Types: Marijuana Comment: PRN for pain and sleep- gummy Sexual activity: Defer Other Topics Concern Not on file Social History Narrative Not on file Social Determinants of Health Financial Resource Strain: Not on file Food Insecurity: Not on file Transportation Needs: Not on file Physical Activity: Not on file Stress: Not on file Social Connections: Not on file Intimate Partner Violence: Not on file Housing Stability: Not on file Allergies Allergen Reactions Compazine [Prochlorperazine] Seizure Atorvastatin GI Upset Prior to Admission medications Medication Sig Start Date End Date Taking? Authorizing Provider calcium carbonate EX (Tums Extra Strength) 300 mg (750 mg) chewable tablet Chew 300 mg once daily. Historical Provider, cetirizine (ZyrTEC) 10 mg tablet Take 1 tablet (10 mg) by mouth once daily. Historical Provider, cholecalciferol (Vitamin D3) 50 MCG (2000 UT) tablet Take 1 tablet (50 mcg) by mouth once daily. Historical Provider, fenofibrate (Triglide) 160 mg tablet Take 1 tablet (160 mg) by mouth once daily. Historical Provider, FLUoxetine (PROzac) 10 mg capsule Take 1 capsule (10 mg) by mouth once daily. Historical Provider, PAT ROS: Constitutional: no fever no chills no unexpected weight change Neuro/Psych: no numbness no weakness no light-headedness no confusion Eyes: no discharge no pain no vision loss no diplopia no visual disturbance use of corrective lenses Ears: no ear pain hearing loss no tinnitus Nose: no nasal discharge no sinus congestion no epistaxis Mouth: no dental issues no mouth pain no oral bleeding no mouth lesions Throat: no throat pain no dysphagia Neck: no neck pain no neck stiffness Cardio: Functional 4 Mets. Patient denies SOB walking up 1 flights of stairs Shopping is no issue; cooking, cleaning no chest pain no palpitations no peripheral edema no dyspnea no CORNEJO Respiratory: no cough no wheezing no hemoptysis no shortness of breath Endocrine: no cold intolerance no heat intolerance GI: no abdominal distention no abdominal pain no constipation no diarrhea no nausea no vomiting no blood in stool : Urgency; bladder stimulator in place no difficulty urinating no dysuria no oliguria polyuria Musculoskeletal: no arthralgias no myalgias no decreased ROM Hematologic: does not bruise/bleed easily no excessive bleeding no history of blood transfusion no blood clots Skin: no skin changes no sores/wound no rash Physical Exam Constitutional: General: She is not in acute distress. Appearance: Normal appearance. She is not ill-appearing, toxic-appearing or diaphoretic. HENT: Head: Normocephalic and atraumatic. Ears: Comments: Perforated L TM Nose: Nose normal. No rhinorrhea. Mouth/Throat: Pharynx: No oropharyngeal exudate. Eyes: Extraocular Movements: Extraocular movements intact. Conjunctiva/sclera: Conjunctivae normal. Cardiovascular: Rate and Rhythm: Normal rate and regular rhythm. Heart sounds: No murmur heard. No friction rub. No gallop. Comments: Functional 4 Mets. Patient denies SOB walking up 2 flights of stairs Pulmonary: Effort: Pulmonary effort is normal. No respiratory distress. Breath sounds: Normal breath sounds. No stridor. No wheezing or rhonchi. Abdominal: General: Bowel sounds are normal. There is no distension. Palpations: Abdomen is soft. There is no mass. Tenderness: There is no abdominal tenderness. There is no guarding or rebound. Hernia: No hernia is present. Genitourinary: Comments: Bladder stimulator battery in place right buttock; no s/sx of infection Musculoskeletal: General: No swelling, tenderness, deformity or signs of injury. Normal range of motion. Cervical back: Normal range of motion and neck supple. No rigidity or tenderness. Skin: General: Skin is warm and dry. Coloration: Skin is not jaundiced or pale. Findings: No bruising, erythema, lesion or rash. Neurological: General: No focal deficit present. Mental Status: She is alert and oriented to person, place, and time. Cranial Nerves: No cranial nerve deficit. Sensory: No sensory deficit. Motor: No weakness. Coordination: Coordination normal. Psychiatric: Mood and Affect: Mood normal. Behavior: Behavior normal. PAT AIRWAY: Airway: Mallampati:: I Neck ROM:: Full No broken teeth, no dentures and no missing teeth Visit Vitals BP 120/82 Pulse 63 Temp 36.4 C (97.5 F) Resp 18 Ht 1.625 m (5' 3.98 ) Wt 77 kg (169 lb 12.1 oz) SpO2 98% BMI 29.16 kg/m Smoking Status Former BSA 1.86 m DASI Risk Score No data to display Caprini DVT Assessment No data to display Modified Frailty Index No data to display CHADS2 Stroke Risk N/A 3 - 100%: High Risk 2 - 3%: Medium Risk 0 - 2%: Low Risk Last Change: N/A This score determines the patient's risk of having a stroke if the patient has atrial fibrillation. This score is not applicable to this patient. Components are not calculated. Revised Cardiac Risk Index No data to display Apfel Simplified Score No data to display Risk Analysis Index Results This Encounter No data found in the last 1 encounters. LABS: Lab Results Component Value Date WBC 5.4 01/12/2024 HGB 13.0 01/12/2024 HCT 40.4 01/12/2024 MCV 86 01/12/2024 PLT 294 01/12/2024 Lab Results Component Value Date GLUCOSE 95 01/12/2024 CALCIUM 9.8 01/12/2024 NA 139 01/12/2024 K 5.0 01/12/2024 CO2 27 01/12/2024 CL 104 01/12/2024 BUN 14 01/12/2024 CREATININE 0.81 01/12/2024 Assessment and Plan: Patient is a 73-year-old female scheduled for a Left Sided Lateral Graft Tympanoplasty; Possible Ossiculoplasty; Postauricualr Skin Graft - Left Ossiculoplasty(psb) - Right with Dr. Cotton on 01/19/24. Patient has no active cardiac symptoms. Patient denies any chest pain, tightness, heaviness, pressure, radiating pain, palpitations, irregular heartbeats, lightheadedness, cough, congestion, shortness of breath, CORNEJO, PND, near syncope, weight loss or gain. RCRI 0 , 3.9 % Risk of MACE Cardiac: HLD - hold fenofibrate dos : Bladder stimulator (Medtron[employer]) - pt aware to bring device remote on dos Hematology: Patient instructed to ambulate as soon as possible postoperatively to decrease thromboembolic risk. Initiate mechanical DVT prophylaxis as soon as possible and initiate chemical prophylaxis when deemed safe from a bleeding standpoint post surgery. LABS: CBC, BMP ordered Lab results reviewed and unremarkable. No additional testing required. STOP BANG: obese, >50 = 2 Caprini: 5 Risk assessment complete. Patient is scheduled for a low surgical risk procedure. Preoperative medication instructions were provided and reviewed with the patient. Any additional testing or evaluation was explained to the patient. Nothing by mouth instructions were discussed and patient's questions were answered prior to conclusion to this encounter. Patient verbalized understanding of preoperative instructions given in preadmission testing; discharge instructions available in EMR. This note was dictated by a speech recognition. Minor errors may have been detected in a speech recognition. documented in this encounter [facility] Work Phone: 11-11-2023 History of Present illness Narrative History Of Present Illness: Kerri Champagne is a 73 y.o. female whom presents to me as a new patient for left-sided TM perforation and COM, referred here today by Argentina Lord CNP. She's had a left-sided TM perforation for many years. She had 2 procedures in 2015 through an ENT in [place], one operation through her ear canal the other behind her ear. After her first procedure, she had significant bleeding from her ear canal, she presented to the ED and they pulled out her packing, she feels this may have damaged her graft. She feels her hearing has been consistently bad since the perforation. She does have some left-sided ear pain but denies drainage. She was given ear drops through [facility], she's unsure if the infection resolved. She does have some vocal weakness. She has a history of chronic sinusitis, she had a sinus surgery in the past without benefit. She did try voice therapy in the past but discontinued after a few appointments. She's noticed when trying to talk loudly, she has pain in her throat. PMHx: dystonic tremors Past Medical History: She has no past medical history on file. Surgical History: She has no past surgical history on file. Social History: She reports that she has never smoked. She does not have any smokeless tobacco history on file. No history on file for alcohol use and drug use. Family History: No family history on file. Medications: Current Outpatient Medications Medication Instructions calcium carbonate-vitamin D3 500 mg-5 mcg (200 unit) tablet 1 tablet, oral, Daily fenofibrate (Triglide) 160 mg tablet No dose, route, or frequency recorded. FLUoxetine (PROzac) 10 mg capsule No dose, route, or frequency recorded. Allergies: Compazine [prochlorperazine] Review of Systems: A comprehensive 10-point review of systems was obtained including constitutional, neurological, HEENT, pulmonary, cardiovascular, genito-urinary, and other pertinent systems and was negative except as noted in the HPI. Physical Exam: Constitutional General appearance: Healthy-appearing, well-nourished, well groomed, in no acute distress. Ability to communicate: Normal communication without aids, normal voice quality. Head and face: Atraumatic with no masses, lesions, or scarring. Facial strength: Normal strength and symmetry, no synkinesis or facial tic. Facial nerve 1/6. Ears Otoscopic examination: Right: TM intact, ear canal clear Left: Postauricular incision well healed, TM lateralized with anterior sulcus to be relatively blunted, 40% perforation involving central portion of TM, cannot visualize ossicular chain, cannot appreciate malleus handle, middle ear mucosa healthy, no evidence of inflammation or edema Nose: Dorsum symmetric with no visible or palpable deformities. Oral Cavity/Mouth Lips, teeth, and gums: Normal lips, gums, and dentition. Oropharynx: Mucosa moist, no lesions. Neck: Symmetrical, trachea midline. No masses visible. Neurological/Psychiatric Cranial Nerve Examination: II - XII grossly intact. Orientation to person, place, and time: Normal. Mood and affect: Normal. Skin: Normal without rashes or lesions. Pulmonary Respiratory effort: Chest expands symmetrically. Cardiovascular: Good peripheral pulses Peripheral vascular system: No varicosities, carotid pulse normal, no edema. No jugular venous distension. Extremities: Appearance of extremities: Normal. Gait normal. Last Recorded Vitals: There were no vitals taken for this visit. Results: I personally reviewed her audiogram from 10/07/23 which demonstrated right-sided mild low frequency sensorineural hearing loss rising to normal in the mid frequencies dropping to severe in the high frequencies with a type A tympanogram, left-sided severe rising to mild dropping to severe mixed loss with type B tympanogram with large volume, and good word understanding bilaterally. Assessment/Plan 73 y.o. female whom presents to me as a new patient for left-sided TM perforation and COM, referred here today by Argentina Lord CNP. She's had a left-sided TM perforation for many years, she's had 2 surgical procedures to repair this, one through her ear canal, the other behind her ear. After her first procedure, she has significant ear canal bleeding, she presented to the ED and they pulled out her packing, she feels this may have damaged her graft. Her hearing has been consistently down since the perforation. She does have some vocal weakness, she tried vocal therapy in the past but discontinued. We discussed her vocal weakness, it could be that her vocal cords don't come together properly, she'd like to wait on this work-up. 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 We discussed the risks and benefits of left-sided lateral graft tympanoplasty, possible ossiculoplasty, and postauricular skin graft. These risks include damage to the ear bone, damage to the inner ear, hearing loss, dizziness, facial nerve injury, and taste disturbance. The patient opted to undergo this procedure and will be scheduled at their earliest convenience. Scribe Attestation: By signing my name below, I, Denice Rader attest that this documentation has been prepared under the direction and in the presence of Carlota Cotton MD. I have reviewed the documentation as scribed by Uzma Rapp and agree with the notes. Carlota Cotton MD documented in this encounter [facility] Work Phone: 11-11-2023 Instructions Uzma Rapp - 11/11/2023 11:30 AM EST Welcome to Dr. Cotton's clinic. We are here to assist you through your ENT care at [facility]. Dr. Cotton is an Ear surgeon. This means that she specializes in taking care of patients with complex ear problems. Dr. Cotton's office number is [phone]. While you may see her at a satellite office, she has a team committed to help meet your healthcare needs at [facility]'s main campus. This number is the most direct way to communicate with the office. Gianna is Dr. Cotton's sales secretary and she answers the office phone from 8am-4pm Mon-Fri. She can help you with many general questions and information. Questions that she cannot answer will be directed to the appropriate staff. You may need to leave a message. In this case, someone from the team will call you back. Nirav is Dr. Cotton's primary nurse and can be reached by calling the office. Nirav is in clinic with Dr. Cotton's on Mondays and Tuesdays. Non-urgent calls will be returned on non-clinic days typically . Sometimes, other team members will also be involved in your care. These people may include dieticians, social workers, speech therapists, acoustical logging engineer, neurologist, and physical therapist. Dr. Cotton will provide these referrals as needed. Please let her know if you would like to request a specific referral. For your convenience, Dr. Cotton sees patients at several [facility] locations including [facility] and [facility] at the main campus of [facility]. While we try to make your appointments as convenient as possible, occasionally a visit to another location may be necessary to provide the best care for you. We look forward to working with you to meet your healthcare goals. Dr. Cotton makes every effort to run on time for your appointments. Therefore, if you are more than 30 minutes late unrelated to a scan or another appointment such therapy or audio you will have to reschedule. documented in this encounter [facility] Work Phone: 09-09-2023 History of Present illness Narrative Images from the original note were not included. Subjective Patient ID: Kerri Champagne is a 73 y.o. female who presents for left ear pain and clogged sensation in both ears. HPI Kerri Champagne is a 73 y.o. female here for complaints of clogged sensation in both ears and left ear pain. She is here today for cleaning of bilateral EACs. She describes the left ear pain as an aching sensation. When asked about ear itching, ear drainage, aural fullness, hearing loss, autophony, tinnitus, dizziness or vertigo, she admits to bilateral ear itching. When asked about previous family history of hearing loss, or exposure to loud noise, the patient admits to hearing difficulty in the left ear. Patient states she has no eardrum on the left side and tries to keep the ear canal dry but has difficulty keeping shower water out of the ears and has intermittently experiences left ear infections over the last few years. Surgery was done initially by Dr. Lopez in [place], [place] approximately 7-8 years ago and ended up with postop complications for initial tympanoplasty and subsequent presumptive mastoidectomy was completed several years ago. She has been hesitant to consider surgical repair of the left eardrum ever since, due to fear of future complications and transportation barriers to receiving care. When asked about past or current use of hearing aids, the patient admits to none. When asked about past or current use of Q-tips or foreign objects in the ear canal, the patient admits to none. Review of Systems All other systems reviewed and are negative. Objective Right Ear: External inspection of ear with no deformity, scars, or masses. EAC is impacted with cerumen. Unable to visualize tympanic membrane. Left Ear: External inspection of ear with postauricular scan but no deformity or masses. EAC is impacted with cerumen. Unable to visualize tympanic membrane. Neurologic: Cranial nerves II-XII grossly intact and symmetric bilaterally. Head and Face: Head: Atraumatic with no masses, lesions or scarring. Face: Normal symmetry. No scars or deformities. Eyes: Conjunctiva not edematous or erythematous. Nose: External inspection of nose: No nasal lesions, lacerations or scars. Neck: Normal appearing, symmetric, trachea midline. Cardiovascular: Examination of peripheral vascular system shows no clubbing or cyanosis. Respiratory: No respiratory distress increased work of breathing. Inspection of the chest with symmetric chest expansion and normal respiratory effort. Skin: No head and neck rashes. Lymph nodes: No adenopathy. EAR CLEANING PROCEDURE NOTE: Indication: Cerumen impaction Location: bilateral ear canals Procedure Note: The procedure was performed by the provider. Visualization Instrument: A microscope with a #5 speculum was placed in the ear canals to visualize the ear canal debris. Ear Cleaning Instrument and Outcome: Using the 7 suction and alligator forceps, a moderate amount of soft, yellow cerumen was removed from the impacted EAC(s). Patient Status: The patient experienced transient dizziness with suctioning in the left EAC, which resolved in 10-15 seconds. Patient wished to continue procedure to completion and otherwise tolerated the procedure well. Complications: There were no complications. Ears: Comments: Post-Procedure/Microscopic Otologic Exam: Right Ear-TM is intact with no sign of infection, effusion, bleeding, or retraction. No perforation seen. EAC is clear. Left Ear- Non-intact TM with 40% perforation on the anterior aspect of the canal (red outline). Serous drainage and erythematous appearance of middle ear structures and EAC. No effusion, retraction, bleeding or masses evident. Assessment/Plan ASSESSMENT: -Cerumen impaction, bilateral -Perforation of the left tympanic membrane -Left chronic serous otitis media Kerri is a pleasant 73 year old female who presents for clogged sensation in both ears, left otalgia and hearing difficulty in the left ear. Using appropriate instrumentation, cerumen successfully removed from bilateral EACs. Post-procedure otologic exam revealed left TM perforation with evidence of serous otitis media. After extensive discussion with the patient regarding her quality of life with hearing difficulty, recurrent infections in the left ear and difficulty with effective dry ear precautions, she was agreeable to discussion with my surgical colleagues in otology regarding repair of the left TM to further evaluate her treatment options. PLAN: -I prescribed Ciprodex otic drops: 4 drops into left EAC twice daily for 7 days for left serous OM. I recommended that the patient warms the bottle to her body temperature to avoid adverse dizziness effects. -Referral to otology was placed. I recommend audiogram prior to appointment with otology to evaluate hearing function. Patient preference with Dr. Carlota Cotton due to driving/transportation accommodations but is willing to drive to rn ante partum that is available. -Follow-up: Patient will follow-up with otology physician. She may follow up with me as needed. All questions answered to patient's satisfaction. documented in this encounter [facility] Work Phone: 09-09-2023 Instructions SAMM Cho - 09/09/2023 11:30 AM EDT PATIENT EDUCATION: Dry Ear Precautions Avoid swimming or hot tubs until ear infection is resolved. If you must swim, please use silicone ear plugs or rubber swim caps and make sure no water gets in the ears. Use cotton ball covered with Vaseline before showering. Apply Vaseline on cotton ball and place it just at the opening of ear canal to create a water seal. Do not push the cotton ball all the way in the canal. After shower, remove the cotton ball and wipe off excess Vaseline using dry clean cloth. Then, use chairman and ceo on warm or cool air and hold it out 12 inches away from the affected ear and air dry ears for 30 seconds. documented in this encounter [facility] Work Phone: 11-25-2022 Note HNO ID: [id number] Author: Amos Wisdom MD Service: ? Author Type: Physician Type: Progress Notes Filed: 11/25/2022 3:23 PM Note Text: Summary: BTX for cervical dystonia [facility] Neurotoxin Visit Date: November 25, 2022 Name: Kerri Champagne SUBJECTIVE: Historical/ Initial Dose Diagnosis: Cervical dystonia (G24.3) Date of diagnosis:04/11/2015 Other treatments hthat ave been tried and failed: Physical Therapy Date of first neurotoxin treatment: 06/08/2015 Type of neurotoxin given: Botox: J0585 Frequency of current neurotoxin treatment: 90days Estimated frequency and duration of treatment: continue with current injection interval; will reassess after 1 year Last Injection Notes Date of last Injection:02/19/2016 Type of neurotoxin: Botox: J0585 Total amount injected: 190 units Dilution: NS 1:1 Administered with EMG guidance: Yes Degree of effectiveness of last injection:70% Latency period of last injection: unclear Wearing off period of last injection: 8 week(s) Side effects related to last injection: None Current pain symptoms: Yes (location)neck Current functional limitations: 1(mild) In addition, the following symptoms were reported by the patient during today's visit: In addition, the following areas that may be affected by cervical dystonia were evaluated: Work: Affected (mildly) Activities of daily living: Affected (mildly) Driving: Not affected Reading: Not affected Watching TV: Affected (slightly) Recreational activities: Affected (slightly) The following table shows the patient's overall global physical and mental health using the PROMIS scale: PROMIS-10 Flowsheet Row Office Visit from 10/14/2022 in Pain Management OT/PT/Speech Visit from 07/31/2022 in [place] [facility] Physical Therapy Global Physical Health T Score 47.7 42.3 Global Mental Health T Score 62.5 56 0-10 Standard Pain Scale 3 3 *PROMIS-10 scoring scale: mean = 50, over 50 is above average, under 50 is below average Allergies: ALLERGIES Allergen Reactions Compazine [Prochlor* Other: See Comments Eyes rolled back into her head, and her head rolled back Current Medications: Current Outpatient Medications Medication Sig methocarbamol (ROBAXIN) 500 mg tablet Take 1 tablet by mouth three times daily. Fenofibrate (LOFIBRA) 160 mg tablet Take 160 mg by mouth once daily. FLUoxetine (PROZAC) 10 mg capsule Take 10 mg by mouth once daily. Current Facility-Administered Medications Medication Dose Route Frequency onabotulinum toxin type A 200 Units injection (BOTOX) 200 Units INTRAMUSCULAR q 3 MONTHS OBJECTIVE: BP 158/88 Pulse 78 Temp (!) 35.8 ?C (96.4 ?F) Ht 160 cm (5' 3 ) Wt 78 kg (172 lb) SpO2 98% BMI 30.47 kg/m? Special features on today's visit: Head Tilt to the right, chin pull to the left and Clonic head shaking in a 'no-no' direction. ASSESSMENT AND PLAN: Ms. Champagne is a right-handed 72 year old female with Cervical dystonia (G24.3). After obtaining informed consent, neurotoxin injections were carried out as outlined below. Current Injection Note Type of neurotoxin: Botox: J0585 Total amount drawn: 100 units Total amount injected: 100 units Total amount wasted: 0 units Dilution: NS 1:1 Administered with EMG guidance: Yes Injection Site: Cervical dystonia: CPT 70390 Left Right Sternocleidomastoid 25 Splenius capitus 25 50 Scalene Levator Scapulae Trapezius Semispinalis (Other) Lot#: [id number] Exp Date Future plan of care: Follow up: 3 months Neurotoxin change: No Dose change: Yes New Dose: 200 Reason(s) for changing neurotoxin type of dose: if this does not work Sent staff message to nursing related to any changes: Yes Amos Wisdom MD November 25, 2022 3:13 PM Dept of NEUROLOGY TIME OUT/ PROCEDURE NOTE: Informed consent Kerri Champagne Medical Record: [id number] Procedure: neurotoxin intramuscular injection The risks, benefits and anticipated outcomes of the procedure, the risks and benefits of the alternatives to the procedure and the roles and tasks of the personnel to be involved were discussed with the patient and the patient consents to the procedure and agrees to proceed. I verify that I personally obtained Kerri Champagne's consent. Amos Wisdom MD November 25, 2022 3:13 PM [place] protocol/ safety checklist Sign in communication: Completed Time out:Team confirms the correct Patient, correct procedure, correct site and site marking, correct neurotoxin type, correct dose and correct dilution. Affirmation of time out: N/A Sign out discussion: Completed Amos Wisdom MD [facility] 11-25-2022 History of Present illness Narrative Summary: BTX for cervical dystonia Images from the original note were not included. [facility] Neurotoxin Visit Date: November 25, 2022 Name: Kerri Champagne SUBJECTIVE: Historical/ Initial Dose Diagnosis: Cervical dystonia (G24.3) Date of diagnosis:04/11/2015 Other treatments hthat ave been tried and failed: Physical Therapy Date of first neurotoxin treatment: 06/08/2015 Type of neurotoxin given: Botox: J0585 Frequency of current neurotoxin treatment: 90days Estimated frequency and duration of treatment: continue with current injection interval; will reassess after 1 year Last Injection Notes Date of last Injection:02/19/2016 Type of neurotoxin: Botox: J0585 Total amount injected: 190 units Dilution: NS 1:1 Administered with EMG guidance: Yes Degree of effectiveness of last injection:70% Latency period of last injection: unclear Wearing off period of last injection: 8 week(s) Side effects related to last injection: None Current pain symptoms: Yes (location)neck Current functional limitations: 1(mild) In addition, the following symptoms were reported by the patient during today's visit: In addition, the following areas that may be affected by cervical dystonia were evaluated: Work: Affected (mildly) Activities of daily living: Affected (mildly) Driving: Not affected Reading: Not affected Watching TV: Affected (slightly) Recreational activities: Affected (slightly) The following table shows the patient's overall global physical and mental health using the PROMIS scale: PROMIS-10 Flowsheet Row Office Visit from 10/14/2022 in Pain Management OT/PT/Speech Visit from 07/31/2022 in [place] [facility] Physical Therapy Global Physical Health T Score 47.7 42.3 Global Mental Health T Score 62.5 56 0-10 Standard Pain Scale 3 3 *PROMIS-10 scoring scale: mean = 50, over 50 is above average, under 50 is below average Allergies: ALLERGIES Allergen Reactions Compazine [Prochlor* Other: See Comments Eyes rolled back into her head, and her head rolled back Current Medications: Current Outpatient Medications Medication Sig methocarbamol (ROBAXIN) 500 mg tablet Take 1 tablet by mouth three times daily. Fenofibrate (LOFIBRA) 160 mg tablet Take 160 mg by mouth once daily. FLUoxetine (PROZAC) 10 mg capsule Take 10 mg by mouth once daily. Current Facility-Administered Medications Medication Dose Route Frequency onabotulinum toxin type A 200 Units injection (BOTOX) 200 Units INTRAMUSCULAR q 3 MONTHS OBJECTIVE: BP 158/88 Pulse 78 Temp (!) 35.8 C (96.4 F) Ht 160 cm (5' 3 ) Wt 78 kg (172 lb) SpO2 98% BMI 30.47 kg/m Special features on today's visit: Head Tilt to the right, chin pull to the left and Clonic head shaking in a 'no-no' direction. ASSESSMENT AND PLAN: Ms. Champagne is a right-handed 72 year old female with Cervical dystonia (G24.3). After obtaining informed consent, neurotoxin injections were carried out as outlined below. Current Injection Note Type of neurotoxin: Botox: J0585 Total amount drawn: 100 units Total amount injected: 100 units Total amount wasted: 0 units Dilution: NS 1:1 Administered with EMG guidance: Yes Injection Site: Cervical dystonia: CPT 68916 Left Right Sternocleidomastoid 25 Splenius capitus 25 50 Scalene Levator Scapulae Trapezius Semispinalis (Other) Lot#: [id number] Exp Date Future plan of care: Follow up: 3 months Neurotoxin change: No Dose change: Yes New Dose: 200 Reason(s) for changing neurotoxin type of dose: if this does not work Sent staff message to nursing related to any changes: Yes Amos Wisdom MD November 25, 2022 3:13 PM Dept of NEUROLOGY TIME OUT/ PROCEDURE NOTE: Informed consent Kerri Champagne Medical Record: [id number] Procedure: neurotoxin intramuscular injection The risks, benefits and anticipated outcomes of the procedure, the risks and benefits of the alternatives to the procedure and the roles and tasks of the personnel to be involved were discussed with the patient and the patient consents to the procedure and agrees to proceed. I verify that I personally obtained Kerri Champagne's consent. Amos Wisdom MD November 25, 2022 3:13 PM [place] protocol/ safety checklist Sign in communication: Completed Time out:Team confirms the correct Patient, correct procedure, correct site and site marking, correct neurotoxin type, correct dose and correct dilution. Affirmation of time out: N/A Sign out discussion: Completed Amos Wisdom MD documented in this encounter [facility] 11-13-2022 Note HNO ID: [id number] Author: Kerri Moreno PA-C Service: ? Author Type: Physician Office Machines Sales Representative Type: Progress Notes Filed: 11/13/2022 11:24 AM Note Text: Pain Management Follow Up Visit Date: November 13, 2022 Kerri Champagne is a 72 year old female returns today for follow up of neck, she states that symptoms have improved. Current pain intensity is 0 on a scale of 0 -10. Location of pain: neck Duration: 5 years ago, was not directly related to trauma, and symptoms have been improving. Description of pain: unable to describe pain Pain scores - current: 0/10 - worst: 7/10 - best: 0/10 Aggravating factors: standing, forward flexion, lifting, and walking. Alleviating Factors: sitting, lying down, medications, and ice . Review of Symptoms: GENERAL:No weight loss, malaise or fevers., SEE HPI GASTROINTESTINAL: Negative for abdominal discomfort, blood in stools or black stools or change in bowel habits GENITOURINARY: No history of dysuria, frequency or incontinence MUSCULOSKELETAL: see HPI NEUROLOGIC:Negative for focal numbness or weakness, headaches and dizziness or syncope. PREVIOUS TREATMENTS LASTING SIX WEEKS IN THE LAST SIX MONTHS Active conservative therapy lasting 6 weeks in the last six months (see below) 1. Physical therapy: Yes: Where: [facility] , Date Started: 07/17/22, Date Ended: 08/14/22 2. Home exercise program after PT: yes 3. Occupational therapy: No 4. A physician supervised home exercise program (HEP): No 5. Director Post: No Passive conservative therapy lasting 6 weeks in the last six months (see below) 1. Medical devises: No 2. Acupuncture: No 3. Tens unit: No 4. Prescription pain medication: No 5. NSAIDS: Rena Lara: Gregoria Villalta MA Date: November 13, 2022 The subjective information: including chief complaint, and past medical history, was explored in detail with the patient and edited as needed and is complete. Kerri Moreno PA-C November 13, 2022 Initial Office Visit: 10/14/22 - Dr. Avani Rodríguez PLAN: - Start methocarbamol 500 mg QHS PRN and can increase to 500-1000 mg BID PRN. The patient was counseled on maximum daily dose of 1500 mg TID PRN. She was also counseled on side effects - Red flag symptoms and signs (e.g. new bowel and bladder dysfunction, saddle anesthesia, weakness, sensory loss, fevers/chills, unintentional weight loss) were reviewed with the patient. - Return to clinic in: 4 weeks to assess response to medications Current Pain Medication Regimen: - Muscle relaxants: methocarbamol 500 mg three times a day Physical Examination: BP 134/82 Pulse 54 Ht 5' 3 (1.60m) Wt 169 lb (76.7kg) BMI 29.94 kg/(m2). General:well appearing, alert, and in no acute distress Skin: skin color, texture, turgor normal, no rashes or lesions HEENT: normocephalic, atraumatic, sclera non-icteric Cardiovascular:Regular rate and rhythm Lungs: Respirations even and non-labored. Musculoskeletal: Neck: No cervical spine tenderness with palpation. Mild tenderness over the cervical paraspinal muscles. Mild restriction in cervical extension and right lateral rotation. Neurological: Mental Status: alert and oriented x 3 Cranial Nerves: Not examined Reflexes: Deep tendon reflexes are 2+ all throughout the Bilateral upper extremities. Motor Strength: Motor strength and tone are 5/5 all throughout the Bilateral upper extremities. Sensory: Sensation was intact to light touch all throughout the Bilateral upper extremities. Gait: Normal. OARRS: PDMP website checked and validated. All prescriptions have been APPROPRIATELY filled. No suspicious activity was identified. - on November 13, 2022 by Kerri Moreno PA-C - Medical marijuana. Current Anticoagulant Therapy: No DM: No Imagin08/05/2022 - MRI CERVICAL SPINE WO IVCON RESULT: MRI CERVICAL SPINE: Acute abnormality: None. Inferior most cervical spine is not clearly evaluated related to suppression artifact. Decreased disc signal indicating disc desiccation. Facet and uncovertebral joint degeneration indicating cervical spondylosis. Normal alignment, vertebral height, marrow signal, central canal, thecal sac and spinal cord signal/caliber. No fracture/dislocation. Normal tissues. C2 -- 3: Joint degeneration. Patent central canal. Patent bilateral neural foramina. C3 -- 4: Joint degeneration with mild/moderate left foramina narrowing. Patent canal AND right foramina. C4 -- 5: Joint degeneration with moderate bilateral foramina narrowing. Patent canal. C5 -- 6: Joint degeneration with severe left and moderate right foramina narrowing. Patent canal. C6 -- 7: Joint degeneration. Patent central canal. Patent bilateral neural foramina. C7 -- T1: Patent central canal. Patent bilateral neural foramina. HPI AND ASSESSMENT: Parts of this note were copied from Dr. Avani Rodríguez's office visit note dated 10/14/22, changes were made as appropriate. Monserrat (more content not included)... [facility] 11-13-2022 Instructions Kerri Moreno PA-C - 11/13/2022 10:16 AM EST PLAN: 1) Continue Methocarbamol 500 mg three times a day #90 - refill x 5 2) RTC 6 months or sooner if needed. documented in this encounter [facility] 11-13-2022 History of Present illness Narrative Pain Management Follow Up Visit Date: November 13, 2022 Kerri Champagne is a 72 year old female returns today for follow up of neck, she states that symptoms have improved. Current pain intensity is 0 on a scale of 0 -10. Location of pain: neck Duration: 5 years ago, was not directly related to trauma, and symptoms have been improving. Description of pain: unable to describe pain Pain scores - current: 0/10 - worst: 7/10 - best: 0/10 Aggravating factors: standing, forward flexion, lifting, and walking. Alleviating Factors: sitting, lying down, medications, and ice . Review of Symptoms: GENERAL:No weight loss, malaise or fevers., SEE HPI GASTROINTESTINAL: Negative for abdominal discomfort, blood in stools or black stools or change in bowel habits GENITOURINARY: No history of dysuria, frequency or incontinence MUSCULOSKELETAL: see HPI NEUROLOGIC:Negative for focal numbness or weakness, headaches and dizziness or syncope. PREVIOUS TREATMENTS LASTING SIX WEEKS IN THE LAST SIX MONTHS Active conservative therapy lasting 6 weeks in the last six months (see below) 1. Physical therapy: Yes: Where: [facility] , Date Started: 07/17/22, Date Ended: 08/14/22 2. Home exercise program after PT: yes 3. Occupational therapy: No 4. A physician supervised home exercise program (HEP): No 5. Director Post: No Passive conservative therapy lasting 6 weeks in the last six months (see below) 1. Medical devises: No 2. Acupuncture: No 3. Tens unit: No 4. Prescription pain medication: No 5. NSAIDS: Rena Lara: Gregoria Villalta MA Date: November 13, 2022 The subjective information: including chief complaint, and past medical history, was explored in detail with the patient and edited as needed and is complete. Kerri Moreno PA-C November 13, 2022 Initial Office Visit: 10/14/22 - Dr. Avani Rodríguez PLAN: - Start methocarbamol 500 mg QHS PRN and can increase to 500-1000 mg BID PRN. The patient was counseled on maximum daily dose of 1500 mg TID PRN. She was also counseled on side effects - Red flag symptoms and signs (e.g. new bowel and bladder dysfunction, saddle anesthesia, weakness, sensory loss, fevers/chills, unintentional weight loss) were reviewed with the patient. - Return to clinic in: 4 weeks to assess response to medications Current Pain Medication Regimen: - Muscle relaxants: methocarbamol 500 mg three times a day Physical Examination: BP 134/82 Pulse 54 Ht 5' 3 (1.60m) Wt 169 lb (76.7kg) BMI 29.94 kg/(m^2). General:well appearing, alert, and in no acute distress Skin: skin color, texture, turgor normal, no rashes or lesions HEENT: normocephalic, atraumatic, sclera non-icteric Cardiovascular:Regular rate and rhythm Lungs: Respirations even and non-labored. Musculoskeletal: Neck: No cervical spine tenderness with palpation. Mild tenderness over the cervical paraspinal muscles. Mild restriction in cervical extension and right lateral rotation. Neurological: Mental Status: alert and oriented x 3 Cranial Nerves: Not examined Reflexes: Deep tendon reflexes are 2+ all throughout the Bilateral upper extremities. Motor Strength: Motor strength and tone are 5/5 all throughout the Bilateral upper extremities. Sensory: Sensation was intact to light touch all throughout the Bilateral upper extremities. Gait: Normal. OARRS: PDMP website checked and validated. All prescriptions have been APPROPRIATELY filled. No suspicious activity was identified. - on November 13, 2022 by Kerri Moreno PA-C - Medical marijuana. Current Anticoagulant Therapy: No DM: No Imagin08/05/2022 - MRI CERVICAL SPINE WO IVCON RESULT: MRI CERVICAL SPINE: Acute abnormality: None. Inferior most cervical spine is not clearly evaluated related to suppression artifact. Decreased disc signal indicating disc desiccation. Facet and uncovertebral joint degeneration indicating cervical spondylosis. Normal alignment, vertebral height, marrow signal, central canal, thecal sac and spinal cord signal/caliber. No fracture/dislocation. Normal tissues. C2 -- 3: Joint degeneration. Patent central canal. Patent bilateral neural foramina. C3 -- 4: Joint degeneration with mild/moderate left foramina narrowing. Patent canal & right foramina. C4 -- 5: Joint degeneration with moderate bilateral foramina narrowing. Patent canal. C5 -- 6: Joint degeneration with severe left and moderate right foramina narrowing. Patent canal. C6 -- 7: Joint degeneration. Patent central canal. Patent bilateral neural foramina. C7 -- T1: Patent central canal. Patent bilateral neural foramina. HPI & ASSESSMENT: Parts of this note were copied from Dr. Avani Rodríguez's office visit note dated 10/14/22, changes were made as appropriate. Kerri Champagne is a 72 year old female with a past medical history of hyperlipidemia, cervical dystonia, depression, bladder simulator; presents to the pain management clinic for follow-up visit. Kerri saw Dr. Avani Rodríguez on 10/14/22 for an initial consultation for chronic neck pain - in the setting of cervical dystonia. At that visit Dr. Avani Rodríguez recommend starting methocarbamol 500 mg titrated to effective dose at max - 1,500 mg three times a day. Today, Kerri Champagne reports significant improvement in her neck pain and and spasms since starting methocarbamol 500 mg three times a day. She reports she continues to have tremors in the neck for which she reports she will seek Botox injections again as this improved the tremors in the past. She reports no pain at this time. She states since staring methocarbamol her pain at the worst was a 4/10, as compared to a 7/10 prior to starting this medication. She denies any side effects from methocarbamol. She reports she continues to use medical marijuana at bedtime which she reports helps her sleep. She states she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 TherapyTreatment Minutes: 15 Total Treatment Time Minutes (timed/untimed): 40 Meredith Hollis PTA documented in this encounter [facility] 07-31-2022 Note HNO ID: [id number] Author: Meredith Hollis PTA Service: ? Author Type: Customer Account Manager Type: Progress Notes Filed: 07/31/2022 10:24 AM Note Text: Episode Visit Count: 2 Therapist That Will Accept/Oversee The Plan Of Care: Remi Escamilla Start of Care Date: 07/17/22 Onset Date: 07/25/21 Plan of Care Certification Date: 07/17/22 Next Certification Due Date: 10/15/22 REHABILITATION AND SPORTS THERAPY PHYSICAL THERAPY TREATMENT NOTE ASSESSMENT: Kerri Champagne tolerated the session with expected muscle soreness. She demonstrated good tolerance for treatment today. She has bilateral neck musculature tightness that could be contributing to her pain. The patient will continue to benefit from ongoing skilled physical therapy to progress toward set goals. PLAN FOR NEXT VISIT: cervical isometrics SUBJECTIVE: Pt states that her neck is not too bad. She had one horrible day that started in her neck and went into back. She has not been good at doing her HEP at home. She does thing they help when she has been able to do them. Pain: Pain Pain Level: 3 Pain Location: Neck Description: Aching Frequency: Continuous Post Treatment Pain Post Treatment Pain Level: No Change OBJECTIVE MEASURES WITH LEVEL OF FUNCTION: Spine Observations R Cervical Spine Palpation Tenderness: Upper trapezius;Levator scapulae L Cervical Spine Palpation Tenderness: Upper trapezius;Levator scapulae UE Flexibility Flexibility: Upper Trapezius R Upper Trapezius Flexibilty Comments: moderate tightness L Upper Trapezius Flexibility Comments: moderate tightness Functional Strength Functional Strength: improving, limited at times by pain TREATMENT: Therapeutic Exercise: 1: seated cervical retractions x10 2: seated upper trap stretch [id number] 3: seated levator stretch [id number] (no overpressure) 4: *scapular retraction x20 5: *side lying thoracic rotation open books 2 x 10 each Skilled Intervention: Patient was educated in proper exercise technique and purpose for exercises. Reviewed and educated patient on additions/changes for home exercise program as above (*). Skilled judgment was provided in selection of appropriate interventions. Correct performance of therapeutic exercises was facilitated with verbal and visual cuing. Manual Therapy: 1: STM to B upper trap, levator, scalenes 2: upper trap stretch 3: manual traction Skilled Intervention: Manual skills to improve joint mobility, ROM, and decrease pain. Utilized anatomy knowledge of the therapist, and assessment of patient's response to intervention. Billing Therapeutic Exercise Treatment Minutes: 26 Manual TherapyTreatment Minutes: 15 Total Treatment Time Minutes (timed/untimed): 41 Meredith Hollis PTA [facility] 07-31-2022 History of Present illness Narrative Episode Visit Count: 2 Therapist That Will Accept/Oversee The Plan Of Care: Remi Escamilla Start of Care Date: 07/17/22 Onset Date: 07/25/21 Plan of Care Certification Date: 07/17/22 Next Certification Due Date: 10/15/22 REHABILITATION AND SPORTS THERAPY PHYSICAL THERAPY TREATMENT NOTE ASSESSMENT: Kerri Champagne tolerated the session with expected muscle soreness. She demonstrated good tolerance for treatment today. She has bilateral neck musculature tightness that could be contributing to her pain. The patient will continue to benefit from ongoing skilled physical therapy to progress toward set goals. PLAN FOR NEXT VISIT: cervical isometrics SUBJECTIVE: Pt states that her neck is not too bad. She had one horrible day that started in her neck and went into back. She has not been good at doing her HEP at home. She does thing they help when she has been able to do them. Pain: Pain Pain Level: 3 Pain Location: Neck Description: Aching Frequency: Continuous Post Treatment Pain Post Treatment Pain Level: No Change OBJECTIVE MEASURES WITH LEVEL OF FUNCTION: Spine Observations R Cervical Spine Palpation Tenderness: Upper trapezius;Levator scapulae L Cervical Spine Palpation Tenderness: Upper trapezius;Levator scapulae UE Flexibility Flexibility: Upper Trapezius R Upper Trapezius Flexibilty Comments: moderate tightness L Upper Trapezius Flexibility Comments: moderate tightness Functional Strength Functional Strength: improving, limited at times by pain TREATMENT: Therapeutic Exercise: 1: seated cervical retractions x10 2: seated upper trap stretch [id number] 3: seated levator stretch [id number] (no overpressure) 4: *scapular retraction x20 5: *side lying thoracic rotation open books 2 x 10 each Skilled Intervention: Patient was educated in proper exercise technique and purpose for exercises. Reviewed and educated patient on additions/changes for home exercise program as above (*). Skilled judgment was provided in selection of appropriate interventions. Correct performance of therapeutic exercises was facilitated with verbal and visual cuing. Manual Therapy: 1: STM to B upper trap, levator, scalenes 2: upper trap stretch 3: manual traction Skilled Intervention: Manual skills to improve joint mobility, ROM, and decrease pain. Utilized anatomy knowledge of the therapist, and assessment of patient's response to intervention. Billing Therapeutic Exercise Treatment Minutes: 26 Manual TherapyTreatment Minutes: 15 Total Treatment Time Minutes (timed/untimed): 41 Meredith Hollis PTA documented in this encounter [facility] 07-17-2022 Note HNO ID: [id number] Author: Remi Escamilla PT Service: ? Author Type: Physical Therapist Type: Progress Notes Filed: 07/17/2022 11:55 AM Note Text: Episode Visit Count: 1 Therapist That Will Oversee The Plan Of Care: Remi Escamilla Start of Care Date: 07/17/22 Onset Date: 07/25/21 Plan of Care Certification Date: 07/17/22 Next Certification Due Date: 10/15/22 Patient Identified by Name and Date of : Yes REHABILITATION AND SPORTS THERAPY PHYSICAL THERAPY EVALUATION PLAN OF CARE: Assessment: Kerri Champagne presents with chief complaint of chronic neck pain that interferes with driving;sleeping (moving neck) . She presents with impairments in ADL's, flexibility, independence in exercise, joint mobility, overall function, posture, range of motion, and tissue tenderness. PROMIS? (Patient-Reported Outcomes Measurement Information System) scores were reviewed and physical function domain, social roles domain , and fatigue domain identified as a rehabilitation concern. Prognosis for therapy is Good due to: current objective clinical presentation;good overall health status . Patient's signs and symptoms seem muscular in nature. The root of the muscle tightness and pain may be trying to control her tremors by tensing up. She will benefit from skilled therapy services to meet the goals established for this plan of care as noted below. Goals for Episode of Care: created on 07/17/22 through 09/11/22 [place] in home exercise program. Patient will decrease pain rating by 2 points to meet minimal clinical important difference for numeric pain rating scale. Restore pain-free range of motion of cervical extension to normal in order to improve performance of ADLs. Restore pain-free range of motion of cervical side-bending to minimal limitation in order to improve performance of ADLs. Perform ADLs throughout day without pain. Improve postural awareness. Patient Goals: learn neck exercises Planned Interventions, Frequency, and Duration: Current Frequency: 1x/week Duration: 8 weeks Total Number of Visits Planned: 48 Planned Treatment Interventions: Therapeutic exercise (15681);Neuromuscular re-education (65414);Manual therapy (40313);Therapeutic activities (27256);Self-long term management (97997);Patient/Family/Caregiver Education;Body Mechanics Training PLAN FOR NEXT VISIT: cervical isometrics, postural exercises Patient demonstrates good understanding of plan of care and treatment. The above goals and plan of care were discussed and agreed upon by patient/family. SUBJECTIVE: Kerri Champagne is a 72 year old female seen today for Neck pain. Patient reports that she started to notice about a year ago there neck starting to lock on her and muscle spasms occurring. States that she hasnt had locking in about a week and a half. States that turning her head and looking up are both painful. States that she will get occassional numbness and tingling in hands if she is driving for a prolonged period of time or on the phone. States that she went to PT about 2 years ago and they gave her supine chin tucks and light cervical AROM exercises Patient Goals: learn neck exercises Functional Limitations: driving;sleeping (moving neck) Prior Level of Function: Independent without limitations Relevant History Past Relevant Medical Conditions: (cervical dystonia, tremors) Right or Left Handed: Right Employment: Retired Recreation / Current Exercise: none Intake Information: Prescription present Previous Treatment: Physical Therapy ;Ice ;Chiropractor Falls Interview: No positive findings with falls interview Red Flags Vertebral Fracture Red Flags: Female;Age >70 Vertebral Fracture Clinical Reasoning: Proceed with caution due to the above (1-2) risk factors Cancer Red Flags: History of Cancer;Age >50 or <20 Cancer Clinical Reasoning: Proceed with caution Infection Clinical Reasoning: No identified risk factors. Cervical Arterial Dysfunction Clinical Reasoning: No identified risk factors Cervical Myelopathy Diagnostic Rule: No identified risk factors. Red Flags - Cervical Cancer Red Flags: History of Cancer;Age >50 or <20 Cancer Clinical Reasoning: Proceed with caution Infection Clinical Reasoning: No identified risk factors. Cervical Arterial Dysfunction Clinical Reasoning: No identified risk factors Cervical Myelopathy Diagnostic Rule: No identified risk factors. Spine History Pain is Worse Always: Turning (looking up) Pain is Better Always: Lying (lying flat) Sleeping Position: Supine;Side lying right;Side lying left Sleep Affected by Pain: Pain awakens;Pain keeps from falling asleep Pain: Pain Pain Level: 4 Pain Location: Neck Description: Aching;Dull Frequency: Intermittent Post Treatment Pain Post Treatment Pain Level: No Change Post Treatment Pain Location: Neck PROMIS Scales Higher is Better 06/26/2017 07/02/2022 07/16/2022 Phys (more content not included)... [facility] 07-17-2022 History of Present illness Narrative Episode Visit Count: 1 Therapist That Will Oversee The Plan Of Care: Remi Escamilla Start of Care Date: 07/17/22 Onset Date: 07/25/21 Plan of Care Certification Date: 07/17/22 Next Certification Due Date: 10/15/22 Patient Identified by Name and Date of : Yes REHABILITATION AND SPORTS THERAPY PHYSICAL THERAPY EVALUATION PLAN OF CARE: Assessment: Kerri Champagne presents with chief complaint of chronic neck pain that interferes with driving;sleeping (moving neck) . She presents with impairments in ADL's, flexibility, independence in exercise, joint mobility, overall function, posture, range of motion, and tissue tenderness. PROMIS (Patient-Reported Outcomes Measurement Information System) scores were reviewed and physical function domain, social roles domain , and fatigue domain identified as a rehabilitation concern. Prognosis for therapy is Good due to: current objective clinical presentation;good overall health status . Patient's signs and symptoms seem muscular in nature. The root of the muscle tightness and pain may be trying to control her tremors by tensing up. She will benefit from skilled therapy services to meet the goals established for this plan of care as noted below. Goals for Episode of Care: created on 07/17/22 through 09/11/22 [place] in home exercise program. Patient will decrease pain rating by 2 points to meet minimal clinical important difference for numeric pain rating scale. Restore pain-free range of motion of cervical extension to normal in order to improve performance of ADLs. Restore pain-free range of motion of cervical side-bending to minimal limitation in order to improve performance of ADLs. Perform ADLs throughout day without pain. Improve postural awareness. Patient Goals: learn neck exercises Planned Interventions, Frequency, and Duration: Current Frequency: 1x/week Duration: 8 weeks Total Number of Visits Planned: 48 Planned Treatment Interventions: Therapeutic exercise (33261);Neuromuscular re-education (79651);Manual therapy (88521);Therapeutic activities (44213);Self-long term management (17984);Patient/Family/Caregiver Education;Body Mechanics Training PLAN FOR NEXT VISIT: cervical isometrics, postural exercises Patient demonstrates good understanding of plan of care and treatment. The above goals and plan of care were discussed and agreed upon by patient/family. SUBJECTIVE: Kerri Champagne is a 72 year old female seen today for Neck pain. Patient reports that she started to notice about a year ago there neck starting to lock on her and muscle spasms occurring. States that she hasnt had locking in about a week and a half. States that turning her head and looking up are both painful. States that she will get occassional numbness and tingling in hands if she is driving for a prolonged period of time or on the phone. States that she went to PT about 2 years ago and they gave her supine chin tucks and light cervical AROM exercises Patient Goals: learn neck exercises Functional Limitations: driving;sleeping (moving neck) Prior Level of Function: Independent without limitations Relevant History Past Relevant Medical Conditions: (cervical dystonia, tremors) Right or Left Handed: Right Employment: Retired Recreation / Current Exercise: none Intake Information: Prescription present Previous Treatment: Physical Therapy ;Ice ;Chiropractor Falls Interview: No positive findings with falls interview Red Flags Vertebral Fracture Red Flags: Female;Age >70 Vertebral Fracture Clinical Reasoning: Proceed with caution due to the above (1-2) risk factors Cancer Red Flags: History of Cancer;Age >50 or <20 Cancer Clinical Reasoning: Proceed with caution Infection Clinical Reasoning: No identified risk factors. Cervical Arterial Dysfunction Clinical Reasoning: No identified risk factors Cervical Myelopathy Diagnostic Rule: No identified risk factors. Red Flags - Cervical Cancer Red Flags: History of Cancer;Age >50 or <20 Cancer Clinical Reasoning: Proceed with caution Infection Clinical Reasoning: No identified risk factors. Cervical Arterial Dysfunction Clinical Reasoning: No identified risk factors Cervical Myelopathy Diagnostic Rule: No identified risk factors. Spine History Pain is Worse Always: Turning (looking up) Pain is Better Always: Lying (lying flat) Sleeping Position: Supine;Side lying right;Side lying left Sleep Affected by Pain: Pain awakens;Pain keeps from falling asleep Pain: Pain Pain Level: 4 Pain Location: Neck Description: Aching;Dull Frequency: Intermittent Post Treatment Pain Post Treatment Pain Level: No Change Post Treatment Pain Location: Neck PROMIS Scales Higher is Better 06/26/2017 07/02/2022 07/16/2022 Phys Func - Score - 39 (moderate dysfunction) - Phys Func - Percentile - 14 % - Social Roles - Score - 40 (mild dysfunction) - Social Role - Percentile - 16 % - GH Physical - Score - 47.7 (Good) - GH Physical - Percentile 31 % 41 % - GH Mental - Score - 50.8 (Very Good) - GH Mental - Percentile 43 % 53 % - Self-Eff Symptom - Score - - 45 (Average) Self-Eff Symptom - Percentile - - 31 % T-scores: mean of general population = 50. 5 points is clinically meaningfully difference Percentiles provide an indication of how the patient's score ranks in relation to the general population. Higher percentile rankings indicate better function/quality of life. 50th percentile is the average of the general population and indicates half of respondents had a worse score. Lower is Better 07/02/2022 Fatigue - Score 60 (mild) Fatigue - Percentile 16 % T-scores: mean of general population = 50. 5 points is clinically meaningfully difference Percentiles provide an indication of how the patient's score ranks in relation to the general population. Higher percentile rankings indicate better function/quality of life. 50th percentile is the average of the general population and indicates half of respondents had a worse score. OBJECTIVE MEASURES WITH LEVEL OF FUNCTION: Posture / Alignment Posture: Forward head;Rounded shoulders Spine Observations R Cervical Spine Palpation Tenderness: Upper trapezius;Levator scapulae L Cervical Spine Palpation Tenderness: Upper trapezius;Levator scapulae Sensation - Cervical Spine Cervical Spine Sensation: Grossly Intact Cervical Spine ROM Cervical ROM : Limitation AROM Cervical Flexion AROM: Normal Cervical Extension AROM: Minimal limitation;Increased pain Cervical Side-Bend Right AROM: Minimal limitation Cervical Side-Bend Left AROM: Moderate limitation;Increased pain Cervical Rotation Right AROM: Normal Cervical Rotation Left AROM: Moderate limitation;Increased pain Thoracic Spine AROM Thoracic Rotation Right: Minimal limitation Thoracic Rotation Left: Minimal limitation Spine Joint Mobility Spine Joint Mobility : Cervical/Thoracic Joint Mobility - T4: Hypomobile Joint Mobility - T5: Hypomobile Joint Mobility - T6: Hypomobile Joint Mobility - T7: Hypomobile UE and Cervical Strength Strength Tested: Shoulder All;Distal UE R Shoulder Shrug (C4): 5/5 R Shoulder Flexion: 5/5 R Shoulder Abduction (C5): 5/5 R Shoulder Internal Rotation: 5/5 R Shoulder External Rotation: 5/5 R Elbow Extension (C7): 5/5 R Elbow Flexion (C6): 5/5 R Wrist Extension: 5/5 R Thumb Extension (C8): 5/5 R Finger Adduction/Interossei (T1): 5/5 L Shoulder Shrug (C4): 5/5 L Shoulder Flexion: 5/5 L Shoulder Abduction (C5): 5/5 L Shoulder Internal Rotation: 5/5 L Shoulder External Rotation: 5/5 L Elbow Extension (C7): 5/5 L Elbow Flexion (C6): 5/5 L Wrist Extension: 5/5 L Thumb Extension (C8): 5/5 Hand Strength R Check Writing Machine Operator Position 2 (lbs): 49 lbs L Check Writing Machine Operator Position 2 (lbs): 45 lbs Special Tests - Cervical Cervical Special Tests: Median Nerve;Ulnar Nerve;Radial Nerve Median Nerve: Right Negative;Left Negative Ulnar Nerve: Right Negative;Left Negative Radial Nerve: Right Negative;Left Negative Education: Education Learning Preferences: Demonstration;Performance;Printed Materials Barriers: None Learning/educational needs: Home exercise program;Plan of Care Education Provided: Yes, see treatment interventions for education provided Education Provided To: Patient Education Mode/Type: Demonstration;Literature/Printed Materials;Performance Response to Education/Teach Back: States/Identifies;Return Demonstration TREATMENT: PT Treatment Interventions: Therapeutic Exercise;Self-Chcf Management Evaluation Therapeutic Exercise: 1: seated cervical retractions 2x10 2: seated upper trap stretch [id number] 3: seated levator stretch [id number] 4: seated thoracic extension 2x10 Skilled Intervention: Patient was educated in proper exercise technique and purpose for exercises. Skilled judgment was provided in selection of appropriate interventions. Self-Chcf Management: 1: education on POC and HEP Skilled Intervention: Skilled judgment in the selection of proper modification for activity of daily living/home management based on clinical presentation, deficits, and needs. Billing * Evaluation Low Complexity: 1 Unit Therapeutic Exercise Treatment Minutes: 14 Self-Care/Home Management Treatment Minutes: 1 Total Treatment Time Minutes (timed/untimed): 41 Remi Escamilla PT documented in this encounter [facility] 07-09-2022 Note HNO ID: [id number] Author: Yonathan Cazares PA-C Service: ? Author Type: Physician Office Machines Sales Representative Type: Progress Notes Filed: 08/13/2022 1:58 PM Note Text: VIRTUAL VISIT PROGRESS NOTE This is a virtual visit using [employer] video visit. It required patient-provider interaction for the medical decision making as documented below. Kerri Champagne is a 72 year old female seen for follow up. Pt is scheduled for PT early July and her MRI's mid July. stopped Flexeril takes 1/2 gummy Med Marijuana. Chronic neck and lower back pain, radicular UE pain an dystonia. Pt has a bladder stimulator, but may be able to do MRI/CT if compatible. Chronic LBP, imbalance with generalized weakness. Will do PT. Denies other consittuitonal sx. HISTORY REVIEWED (electronic chart updated): PAST MEDICAL HISTORY Diagnosis Date Cervical dystonia HLD (hyperlipidemia) PAST SURGICAL HISTORY Procedure Laterality Date PAST SURGICAL HISTORY OF bladder stimulator History reviewed. No pertinent family history. Social History Tobacco Use Smoking status: Former Smokeless tobacco: Never Substance Use Topics Alcohol use: Yes Drug use: No Current Outpatient Medications Medication Sig cyclobenzaprine (FLEXERIL) 10 mg tablet Take 1 (ONE) tablet by mouth three times a day as needed for muscle spasm progesterone micronized (PROMETRIUM) 200 mg capsule TAKE 1 CAPSULE BY MOUTH EVERY EVENING diazePAM (VALIUM) 5 mg tablet take one tablet 30 min prior to MRI, may take additional tablet 5 min prior to procedure (MRI) Fenofibrate (LOFIBRA) 160 mg tablet Take 160 mg by mouth once daily. FLUoxetine (PROZAC) 10 mg capsule Take 10 mg by mouth once daily. Current Facility-Administered Medications Medication Dose Route Frequency onabotulinum toxin type A 200 Units injection (BOTOX) 200 Units INTRAMUSCULAR q 3 MONTHS ALLERGIES Allergen Reactions Compazine [Prochlor* Other: See Comments Eyes rolled back into her head, and her head rolled back REVIEW OF SYSTEMS: GENERAL: feeling well without fatigue, no recent change in weight, activity level is normal HEENT: denies ROSADO, change in hearing or vision, no other ENT complaints NECK: decreased ROM of neck with spasm, tenderness, and pain GI: normal appetite, tolerating PO well, and no abdominal pain MUSCULOSKELETAL: as above, no other joint pain/muscle ache, generalized muscle aches without joint pain/swelling PSYCH: symptoms under good control with current treatment NEURO: admits to paresthesia in the bilateral arm and hand All other ROS: negative As noted in HPI PHYSICAL EXAMINATION: VIDEO EXAM: (if completed, performed via video enabled technology) GENERAL: alert and appropriate, in no distress, well-hydrated, well nourished, and happy, smiling, interactive HEAD: normocephalic, no abnormality or lesion noted EYES: no injection and visual acuity is grossly normal EARS: hearing grossly normal NOSE: external nose normal without rhinorrhea OROPHARYNX: moist mucus membranes NECK: no obvious deficits NEUROLOGIC: no cerebral deficits noted 07/03/2022 cervical, lumbar and pelvis xrays Report available in computer. RESULT: Counting reference: Craniocervical junction. Anatomic Variants: None. Straightening of the cervical lordosis. No subluxation or evidence of instability. Maintained vertebral body heights. Preserved disc spaces with mild anterior disc mineralization. No facet arthropathy. Mild uncovertebral hypertrophy causing mild bilateral C5-C6 neural foraminal stenosis. Otherwise patent neural foramina. Intact dens with normal atlantodental interval. Lung apices are clear. IMPRESSION: Lumbar spondylosis No acute osseous abnormality in the pelvis. Preserved lumbar lordosis with mild lumbar levocurvature. No spondylolisthesis. Maintained vertebral body heights. Apparent increased sclerosis of the L4 vertebral body on the lateral view is less apparent on the L5-S1 view and is likely due to overlapping tissues. Disc space narrowing that is severe at L5-S1, small osteophytes, and lower lumbar facet arthropathy. Preserved pedicles. No acute fracture. Unremarkable sacroiliac joints. Preserved hip joint spaces. Right pelvic stimulator with a generator in the right buttock. ASSESSMENT: Radiculopathy, cervical region (primary encounter diagnosis) Spasmodic torticollis Bilateral carotid artery stenosis History of tremor Myalgia Spinal stenosis of cervical region Chronic tension-type headache, not intractable Imbalance Cervical spondylosis without myelopathy Lumbar facet arthropathy Degeneration of lumbar intervertebral disc Lumbar spondylosis PLAN: NEURONTIN 300MG CAPSULE 1 capsules po qhs titrate to 3 capsules qhs. Do not stop the medicine abruptly. Titrate down slowly. Call if any side effects noted and discontinue meds immediately. f/u after MRI for further rx plan I spent a total of 10+ minutes on the d (more content not included)... [facility] 07-09-2022 History of Present illness Narrative VIRTUAL VISIT PROGRESS NOTE This is a virtual visit using [employer] video visit. It required patient-provider interaction for the medical decision making as documented below. Kerri Champagne is a 72 year old female seen for follow up. Pt is scheduled for PT early July and her MRI's mid July. stopped Flexeril takes 1/2 gummy Med Marijuana. Chronic neck and lower back pain, radicular UE pain an dystonia. Pt has a bladder stimulator, but may be able to do MRI/CT if compatible. Chronic LBP, imbalance with generalized weakness. Will do PT. Denies other consittuitonal sx. HISTORY REVIEWED (electronic chart updated): PAST MEDICAL HISTORY Diagnosis Date Cervical dystonia HLD (hyperlipidemia) PAST SURGICAL HISTORY Procedure Laterality Date PAST SURGICAL HISTORY OF bladder stimulator History reviewed. No pertinent family history. Social History Tobacco Use Smoking status: Former Smokeless tobacco: Never Substance Use Topics Alcohol use: Yes Drug use: No Current Outpatient Medications Medication Sig cyclobenzaprine (FLEXERIL) 10 mg tablet Take 1 (ONE) tablet by mouth three times a day as needed for muscle spasm progesterone micronized (PROMETRIUM) 200 mg capsule TAKE 1 CAPSULE BY MOUTH EVERY EVENING diazePAM (VALIUM) 5 mg tablet take one tablet 30 min prior to MRI, may take additional tablet 5 min prior to procedure (MRI) Fenofibrate (LOFIBRA) 160 mg tablet Take 160 mg by mouth once daily. FLUoxetine (PROZAC) 10 mg capsule Take 10 mg by mouth once daily. Current Facility-Administered Medications Medication Dose Route Frequency onabotulinum toxin type A 200 Units injection (BOTOX) 200 Units INTRAMUSCULAR q 3 MONTHS ALLERGIES Allergen Reactions Compazine [Prochlor* Other: See Comments Eyes rolled back into her head, and her head rolled back REVIEW OF SYSTEMS: GENERAL: feeling well without fatigue, no recent change in weight, activity level is normal HEENT: denies ROSADO, change in hearing or vision, no other ENT complaints NECK: decreased ROM of neck with spasm, tenderness, and pain GI: normal appetite, tolerating PO well, and no abdominal pain MUSCULOSKELETAL: as above, no other joint pain/muscle ache, generalized muscle aches without joint pain/swelling PSYCH: symptoms under good control with current treatment NEURO: admits to paresthesia in the bilateral arm and hand All other ROS: negative As noted in HPI PHYSICAL EXAMINATION: VIDEO EXAM: (if completed, performed via video enabled technology) GENERAL: alert and appropriate, in no distress, well-hydrated, well nourished, and happy, smiling, interactive HEAD: normocephalic, no abnormality or lesion noted EYES: no injection and visual acuity is grossly normal EARS: hearing grossly normal NOSE: external nose normal without rhinorrhea OROPHARYNX: moist mucus membranes NECK: no obvious deficits NEUROLOGIC: no cerebral deficits noted 07/03/2022 cervical, lumbar and pelvis xrays Report available in computer. RESULT: Counting reference: Craniocervical junction. Anatomic Variants: None. Straightening of the cervical lordosis. No subluxation or evidence of instability. Maintained vertebral body heights. Preserved disc spaces with mild anterior disc mineralization. No facet arthropathy. Mild uncovertebral hypertrophy causing mild bilateral C5-C6 neural foraminal stenosis. Otherwise patent neural foramina. Intact dens with normal atlantodental interval. Lung apices are clear. IMPRESSION: Lumbar spondylosis No acute osseous abnormality in the pelvis. Preserved lumbar lordosis with mild lumbar levocurvature. No spondylolisthesis. Maintained vertebral body heights. Apparent increased sclerosis of the L4 vertebral body on the lateral view is less apparent on the L5-S1 view and is likely due to overlapping tissues. Disc space narrowing that is severe at L5-S1, small osteophytes, and lower lumbar facet arthropathy. Preserved pedicles. No acute fracture. Unremarkable sacroiliac joints. Preserved hip joint spaces. Right pelvic stimulator with a generator in the right buttock. ASSESSMENT: Radiculopathy, cervical region (primary encounter diagnosis) Spasmodic torticollis Bilateral carotid artery stenosis History of tremor Myalgia Spinal stenosis of cervical region Chronic tension-type headache, not intractable Imbalance Cervical spondylosis without myelopathy Lumbar facet arthropathy Degeneration of lumbar intervertebral disc Lumbar spondylosis PLAN: NEURONTIN 300MG CAPSULE 1 capsules po qhs titrate to 3 capsules qhs. Do not stop the medicine abruptly. Titrate down slowly. Call if any side effects noted and discontinue meds immediately. f/u after MRI for further rx plan I spent a total of 10+ minutes on the date of the service which included [id number] patient care, completing clinical documentation, obtaining and/or reviewing separately obtained history, performing a medically appropriate examination, counseling and educating the patient/family/caregiver, ordering medications, tests, or procedures, independently interpreting results (not separately reported), communicating results to the patient/family/caregiver, and care coordination (not separately reported). The current medical regimen is effective; continue present plan and medications. Consider advanced imaging and invasive options if pain persists, has new or progressive neurological issues. EMMANUEL Weiss PA-C [facility] [address] [place] [address], [address] [place] [address] Yonathan Cazares PA-C documented in this encounter [facility] 07-03-2022 Note HNO ID: [id number] Author: RT Jaleesa(R) Service: ? Author Type: Technologist Type: Progress Notes Filed: 07/03/2022 12:04 PM Note Text: Radiology Service Progress Note PATIENT NAME: Kerri Champagne DATE OF SERVICE: July 03, 2022 TIME: 12:04 PM PATIENT IDENTITY VERIFICATION COMPLETED USING TWO (2) IDENTIFIERS: Name and Date of confirmed by patient verbally. FALL SCREENING: Has the patient had 2 falls in the last year or 1 fall with injury or currently using an Ambulatory Assistive Device (Walker, Cane, Wheelchair, Crutches, etc.)? No PATIENT GENDER DATA: Female. status: : No status: NO. PATIENT RELEVANT IMPLANT DATA REVIEWED: Not Applicable RADIOLOGY DEPARTMENT: General X-ray: Exam(s) Completed: Spine X-Ray(s): Cervical AP / LAT / OBL / FLEX-EXT and Lumbar AP / LAT / L5-S1 Pelvis X-Ray: Pelvis General AP PERIPHERAL IV DATA: Not applicable SIGNED BY: RT Jaleesa(R) July 03, 2022 12:04 PM [facility] 07-03-2022 Note HNO ID: [id number] Author: Yonathan Cazares PA-C Service: ? Author Type: Physician Office Machines Sales Representative Type: Progress Notes Filed: 07/03/2022 11:43 AM Note Text: Spine Care Path Neck Pain - Chronic (> 12 weeks) Initial Exam SUBJECTIVE HISTORY OF PRESENT ILLNESS: Kerri Champagne is a 72 year old female who presents with a chief complaint of low back and neck pain and is seen in consultation requested by Self for an opinion regarding Neck and Lt sided LBP x 12 months. My final recommendations will be communicated back to the requesting physician by way of shared medical record or letter via US mail. Other Issues Addressed at the Visit Today: None. Precipitating Event: None PAIN EVALUATION 07/03/2022 1017 Pain Level: 4 Pain Location: Neck Lt sided lower back Description: Aching;Dull Duration Amount of Time: 12 Duration Units: Months Frequency: Intermittent Intervention/Comfort measure: Medication;Reposition;Relaxation; Cold Pain Radiation: Pain does not radiate Aggravating Factors: Turning neck, standing, bending Alleviating Factors: Lay flat, ice Pain Ratio: Pain in the back is greater than in the leg, N/A Prior Therapy: Physical Therapy, Acupuncture, Chirpractic Litigation: No Workers' Compensation: No YELLOW AND BLUE FLAGS YES-Neg Attitude; Back Pain is Disabling YES-Avoiding Activity (for Fear of Pain) YES-Depression or Anxiety Disorders No-Social Problems No-Substance Use Disorder No-Job Dissatisfaction No-Financial Disincentives Patient Entered Questionnaires Spine Questions 07/02/2022 Pain Location: Neck Pain Duration: 1 to 5 years Pain over last 6 months: Every day or nearly every day in the past 6 months Symptoms from neck/cervical spine: Yes Employment Status: Retired Involved in law suit/legal claim: No Spine Red Flags 07/02/2022 Any type of cancer: Yes Unexplained fever: No Bowel or bladder disfunction: No Unintentional weight loss: No Osteoporosis: No Neck Questionnaires 07/02/2022 Benzel Modified DAMIR Score 13 (A lower score indicates increased pain and issues.) PROMIS Score Percentiles Physical Health 07/02/2022 Physical Function Percentile 14 Sleep Percentile 38 Fatigue Percentile 16* Pain Interference Percentile 8 PROMIS SOCIAL ROLE SCORE 07/02/2022 Social Role Satisfaction Percentile 16* PROMIS Global Health Scale 02/19/2016 06/26/2017 07/02/2022 Physical Health Percentile 31 31 41 Mental Health Percentile 53 43 53 Percentiles provide an indication of how the patient's score ranks in relation to the general population. Higher percentile rankings indicate better function/quality of life. 50th percentile is the average of the general population and indicates half of respondents had a worse score. Depression Screening: PHQ-9 06/26/2017 10/17/2017 07/02/2022 Score 5 1 12 PHQ-9 Self Harm 07/02/2022 Question 9 Not at all PHQ-9 Self-Harm (Item 9) response options: 0 Not at all 1 Several days 2 More than half the days 3 Nearly every day PHQ-9 Levels: 0-4 No - mild depression 5-9 Mild depression 10-14 Moderate depression 15-19 Moderately severe depression 20-27 Severe depression ACTIVE PROBLEM LIST Spasmodic Torticollis PAST MEDICAL HISTORY Diagnosis Date Cervical dystonia HLD (hyperlipidemia) PAST SURGICAL HISTORY Procedure Laterality Date PAST SURGICAL HISTORY OF bladder stimulator Social History Tobacco Use Smoking status: Former Smokeless tobacco: Never Substance Use Topics Alcohol use: Yes Drug use: No No family history on file. ALLERGIES Allergen Reactions Compazine [Prochlor* Other: See Comments Eyes rolled back into her head, and her head rolled back CURRENT MEDICATIONS: Fenofibrate (LOFIBRA) 160 mg tabletTake 160 mg by mouth once daily.Disp: Rfl: fluticasone (FLONASE) 50 mcg/actuation nasal sprayUse 1 [place] in each nostril once daily.Disp: Rfl: ofloxacin (FLOXIN) 0.3 % otic solutionUse 5 Drops in both ears once daily.Disp: Rfl: FLUoxetine (PROZAC) 10 mg capsuleTake 10 mg by mouth once daily.Disp: Rfl: [id number] 18-400-80 mg-mcg-mcg tabTake by mouth once daily.Disp: Rfl: REVIEW OF SYSTEMS: PAIN ASSESSMENT: See HPI. GENERAL: Denies fever, chills malaise and weight loss. HEENT: Only has half of an eardrum in Lt ear. CARDIOVASCULAR: Denies chest pain, history of A-fib, valvular disease, or pacemaker/ICD. RESPIRATORY: Shortness of breath GI: Denies GI ulcers, inflammatory disease, or liver disease. : Denies change in frequency or urgency, kidney disease, and burning with urination. MUSCULOSKELETAL: Negative for joint pain or swelling, back pain or muscle pain. SKIN: Denies rash or itching. PSYCHOLOGICAL: Denies uncontrolled depression or anxiety. NEURO: Headaches ENDOCRINE: Denies diabetes, thyroid disease. HEMATOLOGY/LYMPHOLOGY: Skin cancer ALLERGIC/IMMUNOLOGICAL: Denies risks for infection, or recent MRSA infe (more content not included)... [facility] 07-03-2022 History of Present illness Narrative Images from the original note were not included. Spine Care Path Neck Pain - Chronic (> 12 weeks) Initial Exam SUBJECTIVE HISTORY OF PRESENT ILLNESS: Kerri Champagne is a 72 year old female who presents with a chief complaint of low back and neck pain and is seen in consultation requested by Self for an opinion regarding Neck and Lt sided LBP x 12 months. My final recommendations will be communicated back to the requesting physician by way of shared medical record or letter via US mail. Other Issues Addressed at the Visit Today: None. Precipitating Event: None PAIN EVALUATION 07/03/2022 1017 Pain Level: 4 Pain Location: Neck Lt sided lower back Description: Aching;Dull Duration Amount of Time: 12 Duration Units: Months Frequency: Intermittent Intervention/Comfort measure: Medication;Reposition;Relaxation; Cold Pain Radiation: Pain does not radiate Aggravating Factors: Turning neck, standing, bending Alleviating Factors: Lay flat, ice Pain Ratio: Pain in the back is greater than in the leg, N/A Prior Therapy: Physical Therapy, Acupuncture, Chirpractic Litigation: No Workers' Compensation: No YELLOW & BLUE FLAGS YES-Neg Attitude; Back Pain is Disabling YES-Avoiding Activity (for Fear of Pain) YES-Depression or Anxiety Disorders No-Social Problems No-Substance Use Disorder No-Job Dissatisfaction No-Financial Disincentives Patient Entered Questionnaires Spine Questions 07/02/2022 Pain Location: Neck Pain Duration: 1 to 5 years Pain over last 6 months: Every day or nearly every day in the past 6 months Symptoms from neck/cervical spine: Yes Employment Status: Retired Involved in law suit/legal claim: No Spine Red Flags 07/02/2022 Any type of cancer: Yes Unexplained fever: No Bowel or bladder disfunction: No Unintentional weight loss: No Osteoporosis: No Neck Questionnaires 07/02/2022 Benzel Modified DAMIR Score 13 (A lower score indicates increased pain and issues.) PROMIS Score Percentiles Physical Health 07/02/2022 Physical Function Percentile 14 Sleep Percentile 38 Fatigue Percentile 16* Pain Interference Percentile 8 PROMIS SOCIAL ROLE SCORE 07/02/2022 Social Role Satisfaction Percentile 16* PROMIS Global Health Scale 02/19/2016 06/26/2017 07/02/2022 Physical Health Percentile 31 31 41 Mental Health Percentile 53 43 53 Percentiles provide an indication of how the patient's score ranks in relation to the general population. Higher percentile rankings indicate better function/quality of life. 50th percentile is the average of the general population and indicates half of respondents had a worse score. Depression Screening: PHQ-9 06/26/2017 10/17/2017 07/02/2022 Score 5 1 12 PHQ-9 Self Harm 07/02/2022 Question 9 Not at all PHQ-9 Self-Harm (Item 9) response options: 0 Not at all 1 Several days 2 More than half the days 3 Nearly every day PHQ-9 Levels: 0-4 No - mild depression 5-9 Mild depression 10-14 Moderate depression 15-19 Moderately severe depression 20-27 Severe depression ACTIVE PROBLEM LIST Spasmodic Torticollis PAST MEDICAL HISTORY Diagnosis Date Cervical dystonia HLD (hyperlipidemia) PAST SURGICAL HISTORY Procedure Laterality Date PAST SURGICAL HISTORY OF bladder stimulator Social History Tobacco Use Smoking status: Former Smokeless tobacco: Never Substance Use Topics Alcohol use: Yes Drug use: No No family history on file. ALLERGIES Allergen Reactions Compazine [Prochlor* Other: See Comments Eyes rolled back into her head, and her head rolled back CURRENT MEDICATIONS: Fenofibrate (LOFIBRA) 160 mg tablet^Take 160 mg by mouth once daily.^Disp: ^Rfl: fluticasone (FLONASE) 50 mcg/actuation nasal spray^Use 1 [place] in each nostril once daily.^Disp: ^Rfl: ofloxacin (FLOXIN) 0.3 % otic solution^Use 5 Drops in both ears once daily.^Disp: ^Rfl: FLUoxetine (PROZAC) 10 mg capsule^Take 10 mg by mouth once daily.^Disp: ^Rfl: wszqpxor-aafr-zakx-FA-K-hb#244 18-400-80 mg-mcg-mcg tab^Take by mouth once daily.^Disp: ^Rfl: REVIEW OF SYSTEMS: PAIN ASSESSMENT: See HPI. GENERAL: Denies fever, chills malaise and weight loss. HEENT: Only has half of an eardrum in Lt ear. CARDIOVASCULAR: Denies chest pain, history of A-fib, valvular disease, or pacemaker/ICD. RESPIRATORY: Shortness of breath GI: Denies GI ulcers, inflammatory disease, or liver disease. : Denies change in frequency or urgency, kidney disease, and burning with urination. MUSCULOSKELETAL: Negative for joint pain or swelling, back pain or muscle pain. SKIN: Denies rash or itching. PSYCHOLOGICAL: Denies uncontrolled depression or anxiety. NEURO: Headaches ENDOCRINE: Denies diabetes, thyroid disease. HEMATOLOGY/LYMPHOLOGY: Skin cancer ALLERGIC/IMMUNOLOGICAL: Denies risks for infection, or recent MRSA infections. OBJECTIVE: see encounter Imaging Ordered: For possible Lumbar Spinal Stenosis due to interventional planning. cevical and brain MRI, xrays SIGNATURE: Yonathan Cazares PA-C PATIENT NAME: Kerri Champagne DATE: July 03, 2022 TIME: 10:20 AM HPI explored in detail with patient and edited as necessary. See notes for physical exam and treatment plan. CC - New patient. Neck and lower back pain, chronic. Hx of botox with spasmodic torticollis diagnosis (2014 start date), pt has tremor, symmetric. 4/10 pain today. Pt has had PT in [place] last year for her complaints. Pt seen in [place] at a wellness clinic with a chiropractor and had acupuncture. Pt has pain in the neck and had evaluation of her carotid arteries, had ultrasound and it was stated it's WNL. Pt stopped the botox treatment, even though it was effective, because of it's short term effectiveness. Pt had to wait 90 days between injections. Pt admits with standing in one position, back pain L>R begins, sits for relief. Unable to sit in recliner with back pain. No radicular leg pain or weakness. Neck pain in all positions, worse with lateral motion equally and with extension motion. Denies burning pain in BLE. If driving or holding phone, can develop numbness in left hand during event. R hand dominant. No new bowel/bladder incontinence, pt has often flactulence, therefore ended PT. Pt has inter stim (8+ years)for her bladder symptoms. Pt was told needs to replace this bladder device, not working, though pt not interested in another procedure. Pt states her neck motion and tremor is getting worse. Pt has known imbalance. PHYSICAL EXAM: GENERAL APPEARANCE - well nourished, well hydrated, no apparent distress SKIN - No skin breakdown noted over cervical and lumbar spine. HEAD - Normal cephalic, atraumatic EYES - Extra ocular movement intact, no conjunctivitis, no nystagmus. EARS - No drainage noted, pinna intact VASCULAR - No evidence of peripheral edema, No significant varicosity ABDOMEN - no guarding noted NEURO - Alert and oriented, cooperative, answers questions appropriately GAIT - No significant antalgic gait noted. Able to demonstrate heel and toe stand/walk SENSORY EXAM - Grossly intact to superficial light touch bilaterally to upper and lower limbs MOTOR STRENGTH DURING SEATED NEURO EXAM - No apparent weakness b/l biceps, triceps, anterior and lateral deltoids, bilaterally in Hip flexors, hip extensors, knee flexors, knee extensors, plantar flexors, dorsiflexors and extensor hallux longus. MUSCLE STRETCH REFLEXES - symmetric bilaterally in biceps, triceps, brachioradialis, patella and achilles. Negative Gabbie's b/l ROM - Cervical and lumbar flexion and extension is within functional limits. Rotation to rt and lt is within functional limits in cervical spine Lateral bending to rt and lt is within funtional limits in lumbar spine. Shoulder ROM was within functional limits in flexion, extension, abduction and adduction HIP ROM - no significant loss in internal and external rotation b/l. Elbow ROM was within functional limits in flexion and extension KNEE ROM - No significant loss in terminal extension b/l. ANKLE ROM - no significant loss in plantar flexion and dorsiflexion b/l. MUSCLE MASS - No gross muscle atrophy or asymmetry noted bilaterally in upper and lower limb. TENDERNESS - reproduction of pain with palpation of cervical paraspinous muscles, trapezius, lumbar paraspinous, sacroiliac joints and PSIS (L>R) and greater trochanter bilaterally (L>R) KRISTY SIGNS - Negative. NEURO/PHYSICAL SIGNS: No significant spurlings, babinski, seated straight leg raising test, or Patricks test B/L. OTHER NOTICEABLE FINDINGS: mild b/l tremor, slight spastic torticollis noted. closed eye tandem + RADIOGRAPHY: no imaging to review Neuro Botox inj hx: 2018 Historical/ Initial Dose Diagnosis: Cervical dystonia (G24.3) Date of Diagnosis:04/11/2015 Date of 1st Treatment: 06/08/2015 Type of Neurotoxin: Botox: J0585 Total amount injected: 200 units What other treatments have been tried and failed: Medications Klonopin Estimated Duration of treatment: Will reassess after 1year Frequency of treatment: 90days IMPRESSION: See diagnosis. Spasmodic torticollis (primary encounter diagnosis) Bilateral carotid artery stenosis Neck pain Low back pain, non-specific History of tremor Myalgia Pain of left sacroiliac joint Spinal stenosis of cervical region Chronic tension-type headache, not intractable Imbalance PLAN: Follow up with primary physician for routine care, blood pressure evaluation, labwork, physical exam as scheduled and for any medical concerns. xr cervical, pelvis, lumbar MRI - R/o HNP vs stenosis vs occult pathology f/u with me for review of study and additional recommendations. cervical and brain consult neurology - tremor, imbalance, headaches, torticollis - worsening with vision changes VV 07/09 to review studies, consider mem stab? Pt doesn't take Flexeril routinely, asking to wean off completely Interested in B[facility] again in future at [facility]. Lives in [facility] is an easier drive in future? one tablet 30 min prior to exam, make take additional tablet 5 min prior to exam Valium 5mg - #2, 0RF claustraphobia PT - Core stabilization exercises, stretching/ flexibility and strengthening exercises, soft-tissue/ joint mobilization, modalities, body mechanics, posture, and home exercise program. I spent a total of 60++ minutes on the date of the service which included [id number] patient care, completing clinical documentation, obtaining and/or reviewing separately obtained history, performing a medically appropriate examination, counseling and educating the patient/family/caregiver, ordering medications, tests, or procedures, communicating with other HCPs (not separately reported), independently interpreting results (not separately reported), communicating results to the patient/family/caregiver, and care coordination (not separately reported). I have answered all the questions regarding patients current diagnosis, care and treatment plan to patients satisfaction during today's visit. Patient verbalize understanding of current diagnosis and treatment plan. Follow up with me as scheduled Notes from todays visit will be forwarded to consulting/requesting physician. EMMANUEL Weiss PA-C [facility] [address] [place] [address], [address] [place] [address] documented in this encounter [facility] Evaluation note [facility] Other Evaluation note Diagnosis Spasmodic torticollis- Primary Bilateral carotid artery stenosis Occlusion and stenosis of carotid artery without mention of cerebral infarction Neck pain Cervicalgia Low back pain, non-specific Lumbago History of tremor Myalgia Mylagia and myositis, unspecified Pain of left sacroiliac joint Disorders of sacrum Spinal stenosis of cervical region Spinal stenosis in cervical region Chronic tension-type headache, not intractable Chronic tension type headache Imbalance Abnormality of gait [facility] Ne[facility]- Primary Cervicalgia Spasmodic torticollis Bilateral carotid artery stenosis Occlusion and stenosis of carotid artery without mention of cerebral infarction Low back pain, non-specific Lumbago History of tremor Myalgia Mylagia and myositis, unspecified Pain of left sacroiliac joint Disorders of sacrum Spinal stenosis of cervical region Spinal stenosis in cervical region Chronic tension-type headache, not intractable Chronic tension type headache Imbalance Abnormality of gait [facility] Spasmodic torticollis- Primary Neck pain Cervicalgia [facility] Diagnosis Spasmodic torticollis- Primary Neck pain Cervicalgia [facility] Diagnosis Radiculopathy, cervical region- Primary Brachial neuritis or radiculitis nos Spasmodic torticollis Bilateral carotid artery stenosis Occlusion and stenosis of carotid artery without mention of cerebral infarction History of tremor Myalgia Mylagia and myositis, unspecified Spinal stenosis of cervical region Spinal stenosis in cervical region Chronic tension-type headache, not intractable Chronic tension type headache Imbalance Abnormality of gait Cervical spondylosis without myelopathy Lumbar facet arthropathy Lumbosacral spondylosis without myelopathy Degeneration of lumbar intervertebral disc Degeneration of lumbar or lumbosacral intervertebral disc Lumbar spondylosis Lumbosacral spondylosis without myelopathy [facility] Neck [facility]- Primary [facility]ervicalgia [facility] Radiculopathy, cervical region- Primary Brachial neuritis or radiculitis nos Cervical spondylosis without myelopathy Spasmodic torticollis Imbalance Abnormality of gait Neck pain Cervicalgia Spinal stenosis of cervical region Spinal stenosis in cervical region [facility] Diagnosis Cervical dystonia- Primary Spasmodic torticollis Cervicalgia [facility] Diagnosis Cervical dystonia- Primary Spasmodic torticollis [facility] Work [facility]* Diagnosis Perforation of left tympanic membrane- Primary Left chronic serous otitis media Simple or unspecified chronic serous otitis media Bilateral impacted cerumen Impacted cerumen Sensation of plugged ear, bilateral Hearing difficulty of left ear Otalgia of left ear documented in this encounter [facility] Work Phone: Evaluation note* Diagnosis Mixed conductive and sensorineural hearing loss of left ear with restricted hearing of right ear- Primary Perforation of left tympanic membrane documented in this encounter [facility] Work Phone: Evaluation note* Diagnosis Perforation of left tympanic membrane- Primary Perforation of left tympanic membrane 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 Gastroesophageal reflux disease Esophageal reflux documented in this encounter [facility] Work Phone: Evaluation note* Diagnosis Postoperative visit- Primary 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 of left ear with restricted hearing of right ear documented in this encounter [facility] Work Phone: Evaluation note* Diagnosis Postoperative visit- Primary 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 of left ear with restricted hearing of right ear Bilateral chronic serous otitis media Simple or unspecified chronic serous otitis media Mixed conductive and sensorineural hearing loss, bilateral Mixed hearing loss, bilateral documented in this encounter [facility] Work Phone: History of Present illness Narrative* KERRI CHAMPAGNE is a 72 year-old female presents to clinic today referred by Dr. 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 Surgerywas done initially by Dr. Lopez years ago and ended up with postop complications for initial tympanoplasty and subsequent presumptive mastoidectomy was completed several years ago. She is here today for cleaning of bilateral EACs. * She denies pain, drainage, autophony, dizziness or vertigo, previous ear surgeries, family history of hearing loss or other ENT disorders, exposure to ototoxic drugs or agents, or exposure to loud noise. The patient does not wear a hearing aid. She endorses the use of q-tips or other foreign objects in the EAC. * The patient's family and social history was reviewed in detail along with a complete review of systems was performed. Please see the scanned patient intake form that I personally reviewed with the patient. [id number] Work Phone: History of Present illness Narrative* KERRI CHAMPAGNE is a 72 year-old female presents to clinic today referred by Dr. 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 Surgerywas done initially by Dr. Lopez years ago and ended up with postop complications for initial tympanoplasty and subsequent presumptive mastoidectomy was completed several years ago. She is here today for cleaning of bilateral EACs. * She denies pain, drainage, autophony, dizziness or vertigo, previous ear surgeries, family history of hearing loss or other ENT disorders, exposure to ototoxic drugs or agents, or exposure to loud noise. The patient does not wear a hearing aid. She endorses the use of q-tips or other foreign objects in the EAC. * The patient's family and social history was reviewed in detail along with a complete review of systems was performed. Please see the scanned patient intake form that I personally reviewed with the patient. [facility] Work Phone: Hospital Discharge instructions Additional Instructions DISCHARGE INSTRUCTIONS FOR DILATION & CURETTAGE (D & C) -Today, outpatient surgery has become a vital link in the health care program. Outpatient D&C is a safe and common practice and this paper is designed to help you know what to expect when you go home and under what circumstances you should give me a call. I will have all of your labs and surgery reports for you when you come in for your follow-up. -To reach me in an emergency, call the office at [[phone]]. TODAY -Take it easy the rest of the day. If you have received a general anesthetic or injections to help you relax for the local procedure you should not drive a car for at least 8 hours after surgery to make sure all of the medication has worn off. ACTIVITIES -There are no restrictions on your normal activities. Generally, you may expect to go back to work the next day unless I have given you other instructions. You should shower daily and practice good personal habits to offset the chance of infection. Avoid intercourse for one week after your surgery and you should not douche. Most women experience minimal disruption of their normal routines. BLEEDING -The amount of bleeding after a D&C varies somewhat. Some women have very little requiring onlya light pad for a few days. Other women may bleed similar to a heavy period for a week or so. [You may wear Tampax if you wish, but be sure to change often.] Do not be alarmed if you expel some clots. -If I have given you a prescription to control bleeding, get it filled on your way home, if possible, and take all the pills according to the directions on the bottle. These pills may increase the amount of your flow and give you cramping similar to first day menstrual cramps. Two Motrin every 6 hours or Anaprox every 12 hours and a heating pad should be sufficient to control any discomfort you may have. If your bleeding becomes bright red and becomes heavy enough that you have used one full pad an hour times 4 hours, I want you to give me a call. Also, if within the first week after surgery you experience chills, fever, and a change in the odor, color, or character of your drainage, you may be developing an infection and you should call me. You may expect your next period anywhere from 2 to 6 weeks after your D&C. CONTROL -Do not assume that you cannot get soon after a D&C. Practice your usual method of control beginning with the first time you have intercourse after you have surgery. If you are taking control pills, please continue them unless told otherwise. DIET -Any diet is permissible [facility] Work Phone: Reason for referral (narrative)* - Authorized Specialty Diagnoses / Procedures Referred By Don leon Referred To Contact Physical Therapy Diagnoses Spasmodic torticollis Bilateral carotid artery stenosis Neck pain Low back pain, non-specific History of tremor Myalgia Pain of left sacroiliac joint Spinal stenosis of cervical region Chronic tension-type headache, not intractable Imbalance Procedures CONS[place] [address] [place] [address] Referral ID Status Reason Start Date Expiration Date V isits Requested Visits Authorized [id number] Authorized 07/03/2022 10/01/2022 99 99 * Consult, Test, Treat (Routine) - Authorized Specialty Diagnoses / Procedures Referred By Contac t Referred To Contact Neurology Diagnoses Spasmodic torticollis Neck pain History of tremor Myalgia Pain of left sacroiliac joint Spinal stenosis of cervical region Chronic tension-type headache, not intractable Imbalance Procedures CONSULT TO [facility]OLOG[facility] OFFICE[facility] 60-74 MINUTES Yonathan Cazares PA-C [address] [facility] [address] [place] [address] Referral ID Status Reason Start Date Expiration Date Visits Requested Visits Authorized [id number] Authorized PCP Requested Referral 07/03/2022 07/03/2023 1 1 * MRI/CT (Routine) - Authorized Specialty Diagnoses / Procedures Referred By Paragac t Referred To Contact MR IMAGING Diagnoses Spasmodic torticollis Bilateral carotid artery stenosis Neck pain Low back pain, non-specific History of tremor Myalgia Pain of left sacroiliac joint Spinal stenosis of cervical region Chronic tension-type headache, not intractable Imbalance Procedures MRI BRAIN WO IVCON MRI BRAIN BRAIN STEM W/O CONTRAST MATERIAL Yonathan Cazares PA-C [address] [facility] [address] [place] [address] Mr Imaging Referral ID Status Reason Start Date Expiration Date Visits Requested Visits Authorized [id number] Authorized Auto-Generat ed Referral 07/03/2022 08/02/2023 1 1 * MRI/CT (Routine) - Authorized Specialty Diagnoses / Procedures Referred By Contac t Referred To Contact MR IMAGING Diagnoses Spasmodic torticollis Bilateral carotid artery stenosis Neck pain Low back pain, non-specific History of tremor Myalgia Pain of left sacroiliac joint Spinal stenosis of cervical region Chronic tension-type headache, not intractable Imbalance Procedures MRI CERVICAL SPINE WO IVCON MRI SPINAL CANAL CERVICAL W/O CONTRAST MATRL Yonathan Cazares PA-C [address] [address] Mr Imaging Referral ID Status Reason Start Date Expiration Date Visits Requested Visits Authorized [id number] Authorized Auto-Generat ed Referral 07/03/2022 08/02/2023 1 1 * Diagnostic Procedure Only (Routine) - Closed Specialty Diagnoses / Procedures Referred By [facility] Referred To Contact XR IMAGING Diagnoses Spasmodic torticollis Bilateral carotid artery stenosis Neck pain Low back pain, non-specific History of tremor Myalgia Pain of left sacroiliac joint Spinal stenosis of cervical region Chronic tension-type headache, not intractable Imbalance Procedures XR CERV OTHER 7V AP/LAT/FLX/EXT/ODON/OBL RADEX SPINE CERVICAL 6 OR MORE VIEWS Yonathan Cazares PA-C [address] [place] [address] Xr Imaging Referral ID Status Reason Start Date Expiration Date V isits Requested Visits Authorized [id number] Closed Auto-Generate d Referral 07/03/2022 08/02/2023 1 1 * Diagnostic Procedure Only (Routine) - Closed Specialty Diagnoses / Procedures Referred By [facility] Referred To Contact XR IMAGING Diagnoses Spasmodic torticollis Bilateral carotid artery stenosis Neck pain Low back pain, non-specific History of tremor Myalgia Pain of left sacroiliac joint Spinal stenosis of cervical region Chronic tension-type headache, not intractable Imbalance Procedures XR PELVIS 1V AP RADIOLOGIC EXAMINATION PELVIS 1/2 VIEWS Yonathan Cazares PA-C [address] [address] Xr Imaging Referral ID Status Reason Start Date Expiration Date V isits Requested Visits Authorized [id number] Closed Auto-Generate d Referral 07/03/2022 08/02/2023 1 1 * Diagnostic Procedure Only (Routine) - Closed Specialty Diagnoses / Procedures Referred By Contac t Referred To Contact XR IMAGING Diagnoses Spasmodic torticollis Bilateral carotid artery stenosis Neck pain Low back pain, non-specific History of tremor Myalgia Pain of left sacroiliac joint Spinal stenosis of cervical region Chronic tension-type headache, not intractable Imbalance Procedures XR LUMBAR GENERAL 3V AP/LAT/L5-S1 RADEX SPINE LUMBOSACRAL 2/3 VIEWS Yonathan Cazares PA-C [address] [facility] [address] [place] [address] Xr Imaging Referral ID Status Reason Start Date Expiration Date V isits Requested Visits Authorized [id number] Closed Auto-Generate d Referral 07/03/2022 08/02/2023 1 1 [facility] for referral (narrative)* Consultation (Routine) - Pending Review Specialty Diagnoses / Procedures Referred By Don t Referred To Contact Otolaryngology Diagnoses Perforation of left tympanic membrane Left chronic serous otitis media [place] Lord APRN-CNP [address] [facility] [place] [address] Carlota Cotton MD [address] [facility] [address] [place] [address] Referral ID Status Reason Start Date Expiration Date Visits Requested Visits Authorized [id number] Pending Review Specialty Services Required 09/08/2024 1 1 Scheduling Instructions Schedule audiogram prior to appointment. * Medications - Pending Review Specialty Diagnoses / Procedures [facility] To Contact Diagnoses Perforation of left tympanic membrane Left chronic serous otitis media [place] Lord, SAMM [address] [facility] [place] [address] Referral ID Status Reason Start Date Expiration Date V isits Requested Visits Authorized [id number] Pending Review 1 1 [facility] Work Phone: Summary Purpose Family History No Family History Records Found Relationship Condition Age at Onset Recorded Date/T julissa sister Type 2 diabetes mellitus Unknown Not Specified Malignant neoplasm of colon Unknown father Malignant neoplasm Unknown Advance Directives No Advanced Directives Records Found Advance Directive Response Recorded Date/ Time Advance Directives No July 10:56am Chief Complaint Patient here today for wax removal.Patient here today for wax removal. Chief Complaint and Reason for Visit Chief Complaint Postmenopausal Bleed ing, Presence of Interstim, St Chief Complaint Postmenopausal Bleed ing, Presence of Interstim, St Postmenopausal Bleeding, Presence of Interstim, St Reason for Referral Specialty Diagnoses / Procedures Referred By Contac t Referred To Contact Audiology Diagnoses 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, bilateral Procedures [place] [address] [place] [address] Referral ID Status Reason Start Date Expiration Date V isits Requested Visits Authorized [id number] Pending Review 03/09/2024 03/09/2025 1 1 Additional Source Comments Source Comments (unrecognize d section and content) In the event this informatio n is protected by the Federal Confidentiality of Alcohol and Drug Abuse Patient Records regulations: The Federal rules restrict any use of the information to criminally investigate or prosecute any alcohol or drug abuse patient.[facility] the event this information is protected by the Federal Confidentiality of Alcohol and Drug Abuse Patient Records regulations: The Federal rules restrict any use of the information to criminally investigate or prosecute any alcohol or drug abuse patient.[facility] Center[facility] the event this information is protected by the Federal Confidentiality of Alcohol and Drug Abuse Patient Records regulations: The Federal rules restrict any use of the information to criminally investigate or prosecute any alcohol or drug abuse patient.[facility] the event this information is protected by the Federal Confidentiality of Alcohol and Drug Abuse Patient Records regulations: The Federal rules restrict any use of the information to criminally investigate or prosecute any alcohol or drug abuse patient.[facility] Center[facility] the event this information is protected by the Federal Confidentiality of Alcohol and Drug Abuse Patient Records regulations: The Federal rules restrict any use of the information to criminally investigate or prosecute any alcohol or drug abuse patient.[facility] Center[facility] the event this information is protected by the Federal Confidentiality of Alcohol and Drug Abuse Patient Records regulations: The Federal rules restrict any use of the information to criminally investigate or prosecute any alcohol or drug abuse patient.[facility] Center[facility] the event this information is protected by the Federal Confidentiality of Alcohol and Drug Abuse Patient Records regulations: The Federal rules restrict any use of the information to criminally investigate or prosecute any alcohol or drug abuse patient.[facility] Center[facility] the event this information is protected by the Federal Confidentiality of Alcohol and Drug Abuse Patient Records regulations: The Federal rules restrict any use of the information to criminally investigate or prosecute any alcohol or drug abuse patient.[facility] Center[facility] the event this information is protected by the Federal Confidentiality of Alcohol and Drug Abuse Patient Records regulations: The Federal rules restrict any use of the information to criminally investigate or prosecute any alcohol or drug abuse patient.[facility] Reason for Visit (unrecogniz ed section and content) Reason Comments PT Discharge Specialty Diagnoses / Procedures Referred By Don leon Referred To Contact Physical Therapy / PHYSICAL THERAPY Diagnoses Spasmodic torticollis Bilateral carotid artery stenosis Neck pain Low back pain, non-specific History of tremor Myalgia Pain of left sacroiliac joint Spinal stenosis of cervical region Chronic tension-type headache, not intractable Imbalance Procedures [place] [address] [place] [address] [facility] [address] [place] [address] Referral ID Status Reason Start Date Expiration Date V isits Requested Visits Authorized [id number] Authorized 07/03/2022 10/01/2022 99 99 Reason Comments Physical Therapy Reason Comments New Patient Neck and Lower Back Pain x 1 year. Reason Comments PT Eval Reason Comments Follow Up Reason Comments Refill Request Reason Comments Established Patient pain Reason Comments Botox Injection Tremor Reason Comments New Patient Visit Perforated ear drum 40% of left ear drum is gone. Specialty Diagnoses / Procedures Referred By Don leon Referred To Contact Diagnoses Perforation of left tympanic membrane Perforation of left tympanic membrane [H72.92] Procedures NE TYMPANOPLASTY W/O MASTOIDECT W/O OSSICLE RECNSTJ NE TYMPANOPLASTY W/O MASTOIDEC 1ST/REVJ PROSTH TORP NE SPLIT AGRFT F/S/N/H/F/G/M/D GT 1ST 100 CM/</1 % Left Sided Lateral Graft Tympanoplasty; Possible Ossiculoplasty; Postauricualr Skin Graft Left Sided Lateral Graft Tympanoplasty; Possible Ossiculoplasty; [place]auricualr [place] [address] [place] [address] [facility] [place] [address] [place] [address] Referral ID Status Reason Start Date Expiration Date Visits Re quested Visits Authorized [id number] 1 1 Reason Comments Follow-up Packing removal and check left ear Reason Comments Follow-up Care Teams (unrecognized sec tion and content) Hand Tube Bender Relationship Specialty Start Date End Date Luis Enrique Wood, DO [address] [place] [address] PCP - General Family Practice 05/06/18 Hand Tube Bender Relationship Specialty Start Date End Date Luis Enrique Wood, DO [address] [place] [address] PCP - General Family Practice 05/06/18 Hand Tube Bender Relationship Specialty Start Date End Date Luis Enrique Wood, DO [address] [place] [address] PCP - General Family Medicine 05/06/18 Hand Tube Bender Relationship Specialty Start Date End Date Israel Luis Enrique Owens, DO [address] [place] [address] PCP - General Family Medicine 05/06/18 Hand Tube Bender Relationship Specialty Start Date End Date Luis Enrique Wood, DO [address] [place] [address] PCP - General Family Medicine 05/06/18 Hand Tube Bender Relationship Specialty Start Date End Date Nahedminoo Luis Enrique Owens, DO [address] [place] [address] PCP - General Family Medicine 05/06/18 Hand Tube Bender Relationship Specialty Start Date End Date Nahedminoo Luis Enrique Roman, DO [address] [place] [address] PCP - General Family Medicine 05/06/18 Hand Tube Bender Relationship Specialty Start Date End Date NahedLuis Enrique hennessy Roman, DO [address] [place] [address] PCP - General Family Medicine 05/06/18 Team Status: Inactive Member Role Status Dates Pancho Estrada DO Attending Provider Active Albino Reilly MD Primary Care Provider Active Team Status: Active Member Role Status Dates Albino Reilly MD Primary Care Provider Active Hand Tube Bender Relationship Specialty Start Date End Date Generic Provider, No Assigned [facility] [address] [place] [address] PCP - General 01/19/24 Hand Tube Bender Relationship Specialty Start Date End Date Generic Provider, No Assigned [place] [address] PCP - General 01/19/24 Hand Tube Bender Relationship Specialty Start Date End Date Generic Provider, No Assigned [place] [address] PCP - General 01/19/24 INFORMATION SOURCE (unrecogn ized section and content) DATE CREATED AUTHOR 11/18/2022 [facility] DATE CREATED AUTHOR AUTHOR'S ORGANIZ ATION 11/26/2022 [facility] DATE CREATED AUTHOR AUTHOR'S ORGANIZ ATION 12/30/2022 [facility] DATE CREATED AUTHOR AUTHOR'S ORGANIZ ATION 01/11/2023 [facility] DATE CREATED AUTHOR AUTHOR'S ORGANIZ ATION 01/14/2023 [facility] DATE CREATED AUTHOR AUTHOR'S ORGANIZ ATION 01/17/2024 [facility] DATE CREATED AUTHOR AUTHOR'S ORGANIZ ATION 01/19/2024 [facility] DATE CREATED AUTHOR AUTHOR'S ORGANIZ ATION 02/25/2024 [facility] DATE CREATED AUTHOR AUTHOR'S ORGANIZ ATION 03/16/[address] [facility] Ambulatory Goals (unrecognized section and content) Goals may be documented in a n alternate section Scheduled Active and Recently Administ ered Medications (unrecognized section and content) Medication Order 01/17/2024 01/18/2024 01/19/2024 acetaminophen (Tylenol) tablet 975 mg (COMPLETED) 975 mg, oral, Once, On 01/19/24 at 0715, For 1 dose, Preprocedure, Administer with small amount of water preoperatively., If ordered PRN for pain, nurse is permitted to administer this medication for higher pain scores based on patient preference? Yes 0651 (Given - Provid er: Heidy Campos RN) Continuous Medication Order 01/17/2024 01/18/2024 01/19/2024 lactated Ringer's infusion 100 mL/hr, intravenous, Continuous, Starting on Fri01/19/24 at 0715, Preprocedure 0650 (New Bag - Prov ider: Heidy Campos RN)0734 (Rate/Dose Change - Provider: CHEYENNE Strickland)0736 (Continued by Anesthesia - Provider: CHEYENNE Strickland) lactated Ringer's infusion 100 mL/hr, intravenous, Continuous, Starting on Fri01/19/24 at 1115, Recovery (only) 1115 (Due) PRN Medication Order 01/17/2024 01/18/2024 01/19/2024 albuterol 2.5 mg /3 mL (0.083 %) nebulizer solution 2.5 mg 2.5 mg, nebulization, Once as needed, wheezing, Starting on Fri01/19/24 at 1050, For 1 dose, Recovery (only) bacitracin ointment (CANCELED) As needed, Starting on Fri01/19/24 at 0836, Intraprocedure 0836 (Given - Provid er: Carlota Cotton MD) balanced salts (BSS) intraocular solution (CANCELED) As needed, Starting on Fri01/19/24 at 0836, Intraprocedure 0836 (Given - Provid er: Carlota Cotton MD) ciprofloxacin-dexamethasone (CiproDEX) otic suspension (CANCELED) As needed, Starting on Fri01/19/24 at 0844, Intraprocedure 0844 (Given - Provid er: Carlota Cotton MD - Comment: Soaked in gelfoam) diphenhydrAMINE (BENADryl) injection 12.5 mg 12.5 mg, intravenous, Once as needed, itching, allergic reaction, Starting on Fri01/19/24 at 1050, For 1 dose, Recovery (only) EPINEPHrine HCl (PF) (Adrenalin) injection (CANCELED) As needed, Starting on Fri01/19/24 at 0837, Intraprocedure 0837 (Given - Provid er: Carlota Cotton MD - Comment: Mixed w/ 19 ml NaCl: 1.5 ml injected) gelatin absorbable (Gelfoam) 100 sponge (CANCELED) As needed, Starting on Fri01/19/24 at 0845, Intraprocedure 0845 (Given - Provid er: Carlota Cotton MD) hydrALAZINE (Apresoline) injection 5 mg 5 mg, intravenous, Administer over 2 Minutes, Every 30 min PRN, high blood pressure, systolic blood pressure greater than 180 mmHg and heart rate less than 60 BPM, Starting on Fri01/19/24 at 1050, For 2 doses, Recovery (only) HYDROmorphone (Dilaudid) injection 0.2 mg 0.2 mg, intravenous, Every 5 min PRN, pain moderate (4-6), first line, Starting on Fri01/19/24 at 1050, Recovery (only), Max total of 4 mg regardless of dose. HYDROmorphone (Dilaudid) injection 0.5 mg 0.5 mg, intravenous, Every 5 min PRN, pain severe (7-10), first line, Starting on Fri01/19/24 at 1050, Recovery (only), Max total of 4 mg regardless of dose. 1055 (Given - Provid er: Marcy Capellan RN) lidocaine-epinephrine (Xylocaine W/EPI) 1 %-1:100,000 injection (CANCELED) As needed, Starting on Fri01/19/24 at 1020, Intraprocedure 1020 (Given - Provid er: Carlota Cotton MD) ondansetron (Zofran) injection 4 mg 4 mg, intravenous, Once as needed, nausea/vomiting, first line, Starting on Fri01/19/24 at 1050, For 1 dose, Recovery (only), When administering via IV Push, administer over 3-5 minutes. oxyCODONE (Roxicodone) immediate release tablet 5 mg 5 mg, oral, Every 4 hours PRN, pain mild (1-3), first line, Starting on Fri01/19/24 at 1050, Recovery (only), When able to take oral medications., If ordered PRN for pain, nurse is permitted to administer this medication for higher pain scores based on patient preference? Yes oxygen (O2) therapy inhalation, Continuous PRN - O2/gases, other, Starting on Fri01/19/24 at 1050, Recovery (only), Device: Nasal Cannula, Rate in liters per minute: Other, Custom Value: 1-6 LPM, Keep O2 Sat Above: 92% 1115 (Stopped - Prov ider: Rosemarie Deluca RN) promethazine (Phenergan) 6.25 mg in sodium chloride 0.9% 50 mL IV 6.25 mg, intravenous, Administer over 15 Minutes, Once as needed, Nausea/vomiting, second line, Starting on Fri01/19/24 at 1050, For 1 dose, Recovery (only) sodium chloride 0.9 % irrigation solution (CANCELED) As needed, Starting on Fri01/19/24 at 0846, Intraprocedure 0846 (Given - Provid er: Carlota Cotton MD - Comment: Warmed bottle) sodium chloride bacteriostatic 0.9 % injection (CANCELED) As needed, Starting on Fri01/19/24 at 0845, Intraprocedure 0845 (Given - Provid er: Carlota Cotton MD) FOR RECORDS PERTAINING TO PATIENTS WHO ARE OR HAVE BEEN ENROLLED IN A CHEMICAL DEPENDENCY/SUBSTANCEABUSE PROGRAM, SOME INFORMATION MAY BE OMITTED. This clinical summary was aggregated from multiple sources. Caution should be exercised in using it in the provision of clinical care. This summary normalizes information from multiple sources, and as a consequence, information in this document may materially change the coding, format and clinical context of patient data. In addition, data may be omitted in some cases. CLINICAL DECISIONS SHOULD BE BASED ON THE PRIMARY CLINICAL RECORDS. [employer] [facility]. provides no warranty or guarantee of the accuracy or completeness of information in this document.
== END 2024-04-06 09:44 | disposition home or self-care (01) ==
LOC: EC 09:43
PROVIDERS: PCP Nurse Practitioner Family; Visit Provider Podiatrist Foot & Ankle Surgery
DX: M79.672 Pain in left foot (principal); S92.592A Other fracture of left lesser toe(s), initial encounter for closed fracture
CPT/HCPCS: 73630

== ENCOUNTER 2024-04-29 09:44 | Outpatient (OUT) | payer MEDICARE, SELFPAY ==
--- NOTE | 2024-04-29 | XR_ITS ---
The [address] [address] Patient Name: KERRI CHAMPAGNE MRN: [id number] date: 1950 Sex: F Assigned Patient Location: Current Patient Location: Accession/Order Number: [id number] Exam Date: 04/29/2024 09:45 Report Date: 04/30/2024 06:01 At the request of: SALVADOR GODDARD Procedure: XR foot LT min 3V PROCEDURE: XR foot LT min 3V HISTORY: LEFT FOOT PAIN ; second and 5th toe pain COMPARISON: XR foot left 04/06/2024 FINDINGS: BONES:Stable nondisplaced subacute fracture involving base of 5th proximal phalanx, with suspected intra-articular extension. Tiny ossification along lateral margin of the second toe distal interphalangeal joint. SOFT TISSUES:No visible soft tissue swelling. EFFUSION:None visible. OTHER: Negative. XR/XR foot LT min 3V IMPRESSION: 1. Stable subacute 5th proximal phalanx fracture. No significant callus formation at this time. 2. Tiny ossification adjacent second toe distal interphalangeal joint, most suggestive of sequela of remote injury. Electronically authenticated by: BHAVYA VELA Date: 04/30/2024 06:01
--- OUTSIDE RECORDS SUMMARY | 2024-04-29 09:55 | XMS_ITS | CCD ---
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 Name Role Phone Gregoria Hamlin Unavailable Luis Enrique Wood DO Primary Care Provider [phone] Luis Enrique Wood DO Primary Care Provider [phone] Luis Enrique Wood DO Primary Care Provider [phone] None, No PCP Unavailable Unavailable Unavailable Unavailable WISDOM, AMOS Attending Unavailable WISDOM, AMOS Referring Unavailable LUIS ENRIQUE WOOD Primary Care Unavailable WISDOM, AMOS Attending Unavailable LUIS ENRIQUE WOOD Primary Care Unavailable YONATHAN CAZARES Referring Unavailable LUIS ENRIQUE WOOD Primary Care Unavailable Visci, DO Deleon Attending Provider [phone] MD Albino Reilly Primary Care Provider Adryan, Pancho Admitting Unavailable Albino Reilly Primary Care Unavailable Visclupis, Pancho Attending Unavailable Albino Reilly Primary Care Unavailable Adryan, Pancho Attending Unavailable Adryan, Pancho Admitting Unavailable LUIS ENRIQUE WOOD Primary Care Unavailable KERRI MORENO Attending Unavailable LUIS ENRIQUE WOOD Primary Care Unavailable AVANI RODRÍGUEZ Attending Unavailable WISDOM, AMOS Referring Unavailable LUIS ENRIQUE WOOD Primary Care Unavailable YONATHAN CAZARES Attending Unavailable YONATHAN CAZARES Referring Unavailable LUIS ENRIQUE WOOD Primary Care Unavailable YONATHAN CAZARES Referring Unavailable EILEEN DOHOSH A Referring Unavailable LUIS ENRIQUE WOOD Primary Care Unavailable EILEEN DOHOSH A Referring Unavailable LUIS ENRIQUE WOOD Primary Care Unavailable EILEEN DOHOSH A Referring Unavailable LUIS ENRIQUE WOOD Primary Care Unavailable LUIS ENRIQUE WOOD Primary Care Unavailable ERNESTINA DONTA A Referring Unavailable TESMOND, LUIS ENRIQUE G [...] CY Consulting Unavailable Unavailable Primary Care Provider UnavailTU Suarez Referring Unavailable TU JOHNS Primary Care Unavailable Generic Provider MD, No Assigned Pcp Primary Car e Provider Unavailable LULACARLOTA AGUDELO E Admitting Unavailable LULACARLOTA AGUDELO Attending Unavailable LULA, CARLOTA E Referring Unavailable SALLY WYNNE Attending Unavailable Generic Provider MD, No Assigned Pcp Primary Car e Provider Unavailable LAURA OWENS Attending Unavailab LAURA Spencer Referring Unavailab LAURA Spencer Attending Unavailab LAURA Spencer Attending Unavailab ARGENTINA Costello Attending Unavailabl e LULA, CARLOTA E Attending Unavailable LULA, CARLOTA E Attending Unavailable GENERIC PROVIDER, NO ASSIGNED PCP Primary Care Unavailable CARLOTA COTTON E Attending Unavailable GENERIC PROVIDER, NO ASSIGNED PCP Primary Care Unavailable Allergies Allergy Classification Reported Allergen(s) Allergy Type Date of Onset Reaction(s) Facility (20 sources) Prochlorperazine; Translations: [Compazine] Drug Allergy 5 Other: See Comments, Unknown, Seizure [facility] (1 source) Prochlorperazine Drug Allergy 3 [facility] Rep[facility] (7 sources) atorvastatin; Translations: [ATORVASTATIN] Drug Allergy 4 [facility] Medications Current Medications Medication Drug Class(es) Dates [...] Hydrocodone-Acetaminophen Active 1 TAB PO Q6H 12 December 24, 2022 Start: 10-22-2017 End: 12-19-2022 take 1 tablet by mouth every four to six hours Hydrocodone-Acetaminophen ([place]) 5-325 mg tablet Discontinued 1 TAB PO [...] tablets by mouth twice daily. neomycin/polymyxin B/hydrocort ([id number]-[id number]-QW OTIC) (1 source) End: 09-09-2023 neomycin/polymyxin B/hydrocort ([id number]-[id number]-MT OTIC) 1% 0 09/09/2023 Discontinued (Med List [...] days. Quantity: 1 Refills: 0 Ordered: 18-Nov-2022 Lorena SAMM Lauren Start : 18-Nov-2022 Active diazePAM 5 mg [...] (FLONASE) 50 mcg/actuation nasal spray Use 1 [place] in each nostril once daily. 0 07/03/2022 Discontinued Comment on above: Use 1 [place] in each nostril once daily. gabapentin 300 [...] / neomycin 3.5 mg/ml / polymyxin b 42132 unt/ml otic solution (4 sources) Aminoglycoside Antibacterial, Polymyxin-class Antibacterial, Corticosteroid Start: 11-22-19 Neomycin-Polymyxin -HC 1 % Otic Solution Quantity: 10 Refills: 0 Ordered: 22-Nov-2021 DO Start : 22-Nov-2021 Active 24 hr metoprolol succinate 25 mg extended release oral tablet (6 sources) beta-Adrenergic Zuleima Start: 08-07-20 End: 09-09-20 23 take 1 tablet by mouth once daily in the morning Metoprolol Succinate ER 25 MG Oral Tablet Extended Release 24 Hour TAKE 1 TABLET BY MOUTH ONCE DAILY IN THE MORNING Quantity: 90 Refills: 0 Ordered: 06-Dec-2021 DO Start : 07-Aug-2021 Active sjjqrlel-iztl-vbkm-FA-K-hb#2 44 18-400-80 mg-mcg-mcg tab (1 source) End: 07-03-2022 iedzwrny-bpyw-zaru-FA-K-hb#2 44 18-400-80 mg-mcg-mcg tab Take by mouth once daily. 0 07/03/2022 Discontinued Comment on above: Take by mouth once d aily. progesterone 200 mg oral capsule (10 sources) Progesteron e Start: 06-03-2022 End: 09-09-2023 Progesterone 200 MG Oral Capsule Quantity: 30 Refills: 0 Ordered: 06-Aug-2022 DO Start : 06-Aug-2022 Active Comment on above: TAKE 1 CAPSULE BY [facility] EVERY EVENING rosuvastatin calcium 20 mg o ral tablet (2 sources) HMG-CoA Reductase Inhibitor Start: 10-21-2017 End: 10-22-2017 Rosuvastatin (Crestor) 20 mg Tablet Discontinued TABLET October 21, 2017 12:00am October 22, 2017 6:30pm Problems Active Problems Problem Classification Problem Date [...] (5 sources) Onset: 09-09-2023 Resolved: 03-09-2024 09-09-2023 Results Test Name Value Interpretation Reference Range Facility Basic metabolic 2000 panelon 01-12-2024 Anion gap [Moles/Vol] 13 mmol/L Normal 10-20 [facility] Comment on above: Performed By: #### 2 4321-2 #### OMAR JOSEPH ([id number]) [facility] ([facility] [address] [place] [address] Calcium [Mass/Vol] 9.8 mg/dL Normal 8.6-10.3 [facility] Comment on above: Performed By: #### 2 4321-2 #### OMAR JOSEPH ([id number]) [facility] ([facility] [address] [place] [address] Chloride [Moles/Vol] 104 mmol/L Normal 98-107 [facility] Comment on above: Performed By: #### 2 4321-2 #### OMAR JOSEPH ([id number]) [facility] ([facility] [address] [place] [address] CO2 [Moles/Vol] 27 mmol/L Normal 21-32 [facility] Comment on above: Performed By: #### 2 4321-2 #### OMAR JOSEPH ([id number]) [facility] ([facility] [address] [place] [address] Creatinine [Mass/Vol] 0.81 mg/dL Normal 0.50-1.05 [facility] Comment on above: Performed By: #### 2 4321-2 #### OMAR JOSEPH ([id number]) [facility] ([facility] [address] [place] [address] Glomerular filtration rate/1.73 sq M.predicted 78 mL/min/1.73m*2 Normal >[address] [facility] Comment on above: Result Comment: Calc ulations of estimated GFR are performed using the 2020 CKD-EPI Study Refit equation without the race variable for the IDMS-Traceable creatinine methods. https://jasn.asnjournals.org/content/early//ASN.89588 06003 Performed By: #### 2 4321-2 #### OMAR JOSEPH ([id number]) [facility] ([facility] [address] [place] [address] Glucose [Mass/Vol] 95 mg/dL Normal 74-99 [facility] Comment on above: Performed By: #### 2 4321-2 #### OMAR JOSEPH ([id number]) [facility] ([facility] [address] [place] [address] Potassium [Moles/Vol] 5.0 mmol/L Normal 3.5-5.3 [facility] Comment on above: Performed By: #### 2 4321-2 #### OMAR JOSEPH ([id number]) [facility] ([facility] [address] [place] [address] Sodium [Moles/Vol] 139 mmol/L Normal 136-145 [facility] Comment on above: Performed By: #### 2 4321-2 #### OMAR JOSEPH ([id number]) [facility] ([facility] [address] [place] [address] Urea nitrogen [Mass/Vol] 14 mg/dL Normal 6-[address] [facility] Comment on above: Performed By: #### 2 4321-2 #### OMAR JOSEPH ([id number]) [facility] ([facility] [address] [place] [address] CBC W Auto Differential pane l (Bld)on 01-12-2024 Basophils (Bld) [#/Vol] 0.05 x10*3/uL Normal 0.00-0.[address] [facility] Comment on above: Performed By: #### 5 7021-8 #### OMAR JOSEPH ([id number]) [facility] ([facility] [address] [place] [id number] Basophils/100 WBC (Bld) 0.9 % Normal 0.0-2.[address] [facility] Comment on above: Performed By: #### 5 7021-8 #### OMAR JOSEPH ([id number]) [facility] ([facility]) [address] [place] [address] Eosinophils (Bld) [#/Vol] 0.33 x10*3/uL Normal 0.00-0.[address] [facility] Comment on above: Performed By: #### 7021-8 #### OMAR JOSEPH ([id number]) [facility] ([facility] [address] [place] [id number] Eosinophils/100 WBC (Bld) 6.1 % Normal 0.0-6.[address] [facility] Comment on above: Performed By: #### 5 7021-8 #### OMAR JOSEPH ([id number]) [facility] ([facility] [address] [place] [id number] Erythrocyte distribution width (RBC) [Ratio] 13.6 % Normal 11.5-14.[address] [facility] Comment on above: Performed By: #### 5 7021-8 #### OMAR JOSEPH ([id number]) [facility] ([facility] [address] [place] [id number] Hematocrit (Bld) [Volume fraction] 40.4 % Normal 36.0-46.[address] [facility] Comment on above: Performed By: #### 5 7021-8 #### OMAR JOSEPH ([id number]) [facility] ([facility] [address] [place] [address] Hemoglobin (Bld) [Mass/Vol] 13.0 g/dL Normal 12.0-16.[address] [facility] Comment on above: Performed By: #### 5 7021-8 #### OMAR JOSEPH ([id number]) [facility] ([facility] [address] [place] [address] Immature granulocytes (Bld) [#/Vol] 0.02 x10*3/uL Normal 0.00-0.[address] [facility] Comment on above: Performed By: #### 5 7021-8 #### OMAR JOSEPH ([id number]) [facility] ([facility] [address] [place] [place] [phone] Immature granulocytes/100 WBC (Bld) 0.4 % Normal 0.0-0.[address] [facility] Comment on above: Result Comment: Lolis ture Granulocyte Count (IG) includes promyelocytes, myelocytes and metamyelocytes but does not include bands. Percent differential counts (%) should be interpreted in the context of the absolute cell counts (cells/UL). Performed By: #### 5 7021-8 #### OMAR JOSEPH ([id number]) [facility] ([facility] [address] [place] [address] Lymphocytes (Bld) [#/Vol] 1.39 x10*3/uL Normal 0.80-3.[address] [facility] Comment on above: Performed By: #### 5 7021-8 #### OMAR JOSEPH ([id number]) [facility] ([facility] [address] [place] [address] Lymphocytes/100 WBC (Bld) 25.9 % Normal 13.0-44.[address] [facility] Comment on above: Performed By: #### 5 7021-8 #### OMAR JOSEPH ([id number]) [facility] ([facility] [address] [place] [address] MCH (RBC) [Entitic mass] 27.7 pg Normal 26.0-34.[address] [facility] Comment on above: Performed By: #### 5 7021-8 #### OMAR JOSEPH ([id number]) [facility] ([facility] [address] [place] [address] MCHC (RBC) [Mass/Vol] 32.2 g/dL Normal 32.0-36.0 [facility] Comment on above: Performed By: #### 5 7021-8 #### OMAR JOSEPH ([id number]) [facility] ([facility] [address] [place] [address] MCV (RBC) [Entitic vol] 86 fL Normal 80-[address] [facility] Comment on above: Performed By: #### 5 7021-8 #### OMAR JOSEPH ([id number]) [facility] ([facility] [address] [place] [address] Monocytes (Bld) [#/Vol] 0.42 x10*3/uL Normal 0.05-0.[address] [facility] Comment on above: Performed By: #### 5 7021-8 #### OMAR JOSEPH ([id number]) [facility] ([facility] [address] [place] [phone] Monocytes/100 WBC (Bld) 7.8 % Normal 2.0-10.[address] [facility] Comment on above: Performed By: #### 5 7021-8 #### OMAR JOSEPH ([id number]) [facility] ([facility] [address] [place] [phone] Neutrophils (Bld) [#/Vol] 3.16 x10*3/uL Normal 1.60-5.[address] [facility] Comment on above: Result Comment: Perc ent differential counts (%) should be interpreted in the context of the absolute cell counts (cells/uL). Performed By: #### 5 7021-8 #### OMAR JOSEPH ([id number]) [facility] ([facility] [address] [place] [address] Neutrophils/100 WBC (Bld) 58.9 % Normal 40.0-80.[address] [facility] Comment on above: Performed By: #### 5 7021-8 #### OMAR JOSEPH ([id number]) [facility] ([facility] [address] [place] [phone] Nucleated RBC/100 WBC (Bld) [Ratio] 0.0 /100 WBCs Normal 0.0-0.[address] [facility] Comment on above: Performed By: #### 5 7021-8 #### OMAR JOSEPH ([id number]) [facility] [address] [place] [address] Platelets (Bld) [#/Vol] 294 x10*3/uL Normal 150-[address] [facility] Comment on above: Performed By: #### 5 7021-8 #### OMAR JOSEPH ([id number]) [facility] [address] [place] [address] RBC (Bld) [#/Vol] 4.70 x10*6/uL Normal 4.00-5.20 [facility] Comment on above: Performed By: #### 5 7021-8 #### OMAR JOSEPH ([id number]) [facility] ([facility] [address] [place] [place] [id number] WBC (Bld) [#/Vol] 5.4 x10*3/uL Normal 4.4-11.3 [facility] Comment on above: Performed By: #### 5 7021-8 #### OMAR JOSEPH ([id number]) [facility] ([facility] [address] [place] [address] Alen 01-09-2023 CNPN Telephone (NREUS2) KERRI CHAMPAGNE ([id number]) 1950 F Date Time Provider Department 01/09/23 AMOS WISDOM NREUS2 During your visit today, we recorded the following information about you: Keiko Corado [facility] 01/09/2023 10:09 AM Signed Kerri phoned - she is interested in having Cool Sculpting done through [employer]. 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 Please email to: [email or web address] Rosaura Galicia 01/09/2023 2:13 PM Addendum Discussed with provider and letter made. Would you be able to help draft this< She has cervical dystonia and has not contraindications from getting this procedure done. Thanks Amos DARIANA for patient to call back. Email address did not work. Received a message from [employer] that user was not found. Will request fax number. Amos Wisdom MD 01/09/2023 2:42 PM Signed This looks perfect, can we send it to her please? Thanks [facility] Keiko Corado [facility] 01/09/2023 2:50 PM Signed Their fax does not work - try I think the s was left off [...] back Date Reviewed: 11/25/2022 Reviewed by: Keysha Trevizo - Fully Assessed Reason for Visit: Letter [264] Cmt: [employer] Prescriptions as of 01/09/2023 - methocarbamol [...] Status:Closed by AMOS WISDOM on 01/09/23 Normal [facility] INSULINon 01-09-2023 Insulin 6.5 uIU/mL Normal 2.6-24.9 [facility] Comment on above: Performed By: #### I NSULIN #### [facility] [address] [address] [address] Jalyn Tomlinson CBC AUTO DIFFon 01-08-2023 BASO # 0.0 103/ul Normal 0.0-0.1 [facility] Comment on above: Performed By: #### C BC #### [facility] [address] [address] [address] Jalyn Tomlinson Basophils/100 WBC (Bld) 0.4 % Normal 0.2-2.0 [facility] Comment on above: Performed By: #### C BC #### [facility] [address] [place] [address] Dr. Jalyn Tomlinson EO # 0.3 103/ul Normal 0.0-0.7 [facility] Comment on above: Performed By: #### C BC #### [facility] [address] [place] [address] Dr. Jalyn Tomlinson Eosinophils/100 WBC (Bld) 7.2 % Critically high 0.9-7.0 [facility] Comment on above: Performed By: #### C BC #### [facility] [address] [address] [address] Jalyn Tomlinson Erythrocyte distribution width (RBC) [Ratio] 13.4 % Normal 11.0-15.0 [facility] Comment on above: Performed By: #### C BC #### [facility] [address] [place] [address] Dr. Jalyn Tomlinson Hematocrit (Bld) [Volume fraction] 40.3 % Normal 36.0-48.0 [facility] Comment on above: Performed By: #### C BC #### [facility] [address] [address] [address] Jalyn Tomlinson Hemoglobin (Bld) [Mass/Vol] 13.0 g/dL Normal 12.0-16.0 [facility] Comment on above: Performed By: #### C BC #### [facility] [address] [place] [address] Dr. Jalyn Tomlinson IG # 0.02 10e3/ul Normal 0.00-0.03 [facility] Comment on above: Performed By: #### C BC #### [facility] [address] [place] [address] Dr. Jalyn Tomlinson IG % 0.4 % Normal 0.0-0.5 [facility] Comment on above: Performed By: #### C BC #### [facility] [address] [place] [address] Dr. Jalyn Tomlinson LYMPH # 1.2 103/ul Normal 1.2-3.8 [facility] Comment on above: Performed By: #### C BC #### [facility] [address] [place] [address] Dr. Jalyn Tomlinson Lymphocytes/100 WBC (Bld) 25.7 % Normal 20.5-60.0 [facility] Comment on above: Performed By: #### C BC #### [facility] [address] [place] [address] Dr. Jalyn Tomlinson MANUAL DIFF REQ NO Normal [facility] Comment on above: Performed By: #### C BC #### [facility] [address] [place] [address] Dr. Jalyn Tomlinson MCH (RBC) [Entitic mass] 27.3 pg Normal 26.7-34.0 [facility] Comment on above: Performed By: #### C BC #### [facility] [address] [place] [address] Dr. Jalyn Tomlinson MCHC (RBC) [Mass/Vol] 32.3 g/dL Normal 29.9-35.2 [facility] Comment on above: Performed By: #### C BC #### [facility] [address] [place] [address] Dr. Jalyn Tomlinson MCV (RBC) [Entitic vol] 84.7 fL Normal 81.0-99.0 [facility] Comment on above: Performed By: #### C BC #### [facility] [address] [place] [address] Dr. Jalyn Tomlinson MONO # 0.4 103/ul Normal 0.3-0.8 [facility] Comment on above: Performed By: #### C BC #### [facility] [address] [place] [address] Dr. Jalyn Tomlinson Monocytes/100 WBC (Bld) 7.8 % Normal 1.7-12.0 [facility] Comment on above: Performed By: #### C BC #### [facility] [address] [place] [address] Dr. Jalyn Tomlinson NEUT # 2.7 103/ul Normal 1.4-6.5 [facility] Comment on above: Performed By: #### C BC #### [facility] [address] [place] [address] Dr. Jalyn Tomlinson Neutrophils/100 WBC (Bld) 58.5 % Normal 43.0-75.0 [facility] Comment on above: Performed By: #### C BC #### [facility] [address] [place] [address] Dr. Jalyn Tomlinson Platelet mean volume (Bld) [Entitic vol] 10.0 fL Normal 9.5-13.5 [facility] Comment on above: Performed By: #### C BC #### [facility] [address] [place] [address] Dr. Jalyn Tomlinson PLT 306 103/ul Normal 150-450 [facility] Comment on above: Performed By: #### C BC #### [facility] [address] [place] [address] Dr. Jalyn Tomlinson RBC 4.76 106/ul Normal 4.20-5.40 [facility] Comment on above: Performed By: #### C BC #### [facility] [address] [place] [address] Dr. Jalyn Tomlinson WBC 4.6 103/ul Normal 4.0-11.0 [facility] Comment on above: Performed By: #### C BC #### [facility] [address] [place] [address] Dr. Jalyn Tomlinson FREE THYROXINE INDEX T7on FTI 2.24 Normal 1.30-4.50 [facility] Comment on above: Performed By: #### L IPID, T7, TSH, CMP #### [facility] [address] [address] [address] Jalyn Tomlinson T3U 34.0 % Normal 30.0-39.0 [facility] Comment on above: Performed By: #### L IPID, T7, TSH, CMP #### [facility] [address] [address] [address] Jalyn Tomlinson T4 [Mass/Vol] 6.60 ug/dL Normal 4.80-13.90 [facility] Comment on above: Performed By: #### L IPID, T7, TSH, CMP #### [facility] [address] [address] [address] Jalyn Tomlinson GLYCOHEMOGLOBIN A1Con 2022 ADA RECOMMENDATION SEE BELOW Normal [facility] Comment on above: Result Comment: ADA RECOMMENDED LIMIT 4.0 - 6.0 ADA THERAPEUTIC TARGET < 7.0 ACTION SUGGESTED > 7.0 Performed By: #### A 1C #### [facility] [address] [address] [address] Jalyn Tomlinson Glucose [Mass/Vol] 108 mg/dL Normal [facility] Comment on above: Performed By: #### A 1C #### [facility] [address] [address] [address] Jalyn Tomlinson HbA1c (Bld) [Mass fraction] 5.4 % Normal 4.5-6.2 [facility] Comment on above: Performed By: #### A 1C #### [facility] [address] [address] [address] Jalyn Tomlinson IRONon 01-08-2023 Iron [Mass/Vol] 57.0 ug/dL Normal 50.0-170.0 [facility] Comment on above: Performed By: #### V ITAD, IRON ####[facility] [id number] [address]Dr. Jalyn Tomlinson LIPID PROFILEon 01-08-2023 CHOL-HDL RATIO NORM SEE BELOW Normal [facility] Comment on above: Result Comment: 3.3 - 4.4 LOW RISK 4.4 - 7.1 AVERAGE RISK 7.1 - 11.0 MODERATE RISK >11.0 HIGH RISK Performed By: #### L IPID, T7, TSH, CMP #### [facility] [address] [address] [address] Jalyn Tomlinson Cholesterol [Mass/Vol] 215 mg/dL Critically high <=200 [facility] Comment on above: Performed By: #### L IPID, T7, TSH, CMP #### [facility] [address] [address] [address] Jalyn [place] Cholesterol in HDL [Mass/Vol] 74 mg/dL Critically high 40-60 [facility] Comment on above: Performed By: #### L IPID, T7, TSH, CMP #### [facility] [address] [address] [address] Jalyn [place] Cholesterol in LDL [Mass/Vol] 127.4 mg/dL Normal [facility] Comment on above: Performed By: #### L IPID, T7, TSH, CMP #### [facility] [address] [address] [address] Jalyn [place] Cholesterol.total/Chol esterol in HDL [Mass ratio] 2.9 {ratio} Normal [facility] Comment on above: Performed By: #### L IPID, T7, TSH, CMP #### [facility] [address] [address] [address] Jalyn [place] HDL NORMAL > or = 60 mg/dl - LO W CARDIOVASCULAR RISK <40 mg/dl - HIGH CARDIOVASCULAR RISK Normal [facility] Comment on above: Performed By: #### L IPID, T7, TSH, CMP #### [facility] [address] [address] [address] Jalyn [place]linson LDL CALC NORMAL SEE BELOW Normal [facility] Comment on above: Result Comment: <100 mg/dl OPTIMAL 100 - 129 mg/dl NEAR OR ABOVE OPTIMAL 130 - 159 mg/dl BORDERLINE HIGH 160 - 189 mg/dl HIGH >190 mg/dl VERY HIGH Performed By: #### L IPID, T7, TSH, CMP #### [facility] [address] [address] [address] Jalyn [place] Triglyceride [Mass/Vol] 68 mg/dL Normal <=150 [facility] Comment on above: Performed By: #### L IPID, T7, TSH, CMP #### [facility] [address] [address] [address] Jalyn Tomlinson VLDL CALC 13.6 mg/dL Normal [facility] Comment on above: Performed By: #### L IPID, T7, TSH, CMP #### [facility] [address] [place] [address] Dr. Jalyn Tomlinson PROF 14(COMP METB)on 023 Albumin [Mass/Vol] 4.3 g/dL Normal 3.4-5.0 [facility] Comment on above: Performed By: #### L IPID, T7, TSH, CMP #### [facility] [address] [place] [address] Dr. Jalyn [place] Albumin/Globulin [Mass ratio] 1.4 {ratio} Normal [facility] Comment on above: Performed By: #### L IPID, T7, TSH, CMP #### [facility] [address] [place] [address] Dr. Jalyn Tomlinson ALP [Catalytic activity/Vol] 64 U/L Normal 46-116 [facility] Comment on above: Performed By: #### L IPID, T7, TSH, CMP #### [facility] [address] [place] [address] Dr. Jalyn Tomlinson ALT [Catalytic activity/Vol] 24 U/L Normal 14-59 [facility] Comment on above: Performed By: #### L IPID, T7, TSH, CMP #### [facility] [address] [place] [address] Dr. Jalyn Tomlinson Anion gap [Moles/Vol] 11.1 mmol/L Normal [facility] Comment on above: Performed By: #### L IPID, T7, TSH, CMP #### [facility] [address] [place] [address] Dr. Jalyn Tomlinson AST [Catalytic activity/Vol] 20 U/L Normal 15-37 [facility] Comment on above: Performed By: #### L IPID, T7, TSH, CMP #### [facility] [address] [address] [address] Jalyn Tomlinson Bilirubin [Mass/Vol] 0.3 mg/dL Normal 0.2-1.0 [facility] Comment on above: Performed By: #### L IPID, T7, TSH, CMP #### [facility] [address] [place] [address] Dr. Jalyn Tomlinson Calcium [Mass/Vol] 9.6 mg/dL Normal 8.5-10.1 [facility] Comment on above: Performed By: #### L IPID, T7, TSH, CMP #### [facility] [address] [place] [address] Dr. Jalyn Tomlinson Chloride [Moles/Vol] 107 mmol/L Normal 98-107 [facility] Comment on above: Performed By: #### L IPID, T7, TSH, CMP #### [facility] [address] [place] [address] Dr. Jalyn Tomlinson CO2 [Moles/Vol] 27.8 mmol/L Normal 21.0-32.0 [facility] Comment on above: Performed By: #### L IPID, T7, TSH, CMP #### [facility] [address] [place] [address] Dr. Jalyn Tomlinson Creatinine [Mass/Vol] 0.82 mg/dL Normal 0.55-1.02 [facility] Comment on above: Performed By: #### L IPID, T7, TSH, CMP #### [facility] [address] [place] [address] Dr. Jalyn Tomlinson EGFR-AF TRISTANIAN >60 Normal >=60 [facility] Comment on above: Performed By: #### L IPID, T7, TSH, CMP #### [facility] [address] [place] [address] Dr. Jalyn Tomlinson EGFR-NON AF TRISTANIAN >60 Normal >=60 [facility] Comment on above: Performed By: #### L IPID, T7, TSH, CMP #### [facility] [address] [place] [address] Dr. Jalyn Tomlinson Globulin (S) [Mass/Vol] 3.1 g/dL Normal [facility] Comment on above: Performed By: #### L IPID, T7, TSH, CMP #### [facility] [address] [address] [address] Jalyn Tomlinson Glucose [Mass/Vol] 105 mg/dL Normal 74-106 [facility] Comment on above: Performed By: #### L IPID, T7, TSH, CMP #### [facility] [address] [address] [address] Jalyn Tomlinson Potassium [Moles/Vol] 4.9 mmol/L Normal 3.5-5.1 [facility] Comment on above: Performed By: #### L IPID, T7, TSH, CMP #### [facility] [address] [place] [address] Dr. Jalyn Tomlinson Protein [Mass/Vol] 7.4 g/dL Normal 6.4-8.2 [facility] Comment on above: Performed By: #### L IPID, T7, TSH, CMP #### [facility] [address] [place] [address] Dr. Jalyn Tomlinson Sodium [Moles/Vol] 141 mmol/L Normal 136-145 [facility] Comment on above: Performed By: #### L IPID, T7, TSH, CMP #### [facility] [address] [place] [address] Dr. Jalyn Tomlinson Urea nitrogen [Mass/Vol] 18.0 mg/dL Normal 7.0-18.0 [facility] Comment on above: Performed By: #### L IPID, T7, TSH, CMP #### [facility] [address] [place] [address] Dr. Jalyn Tomlinson Urea nitrogen/Creatinine [Mass ratio] 22.0 mg/mg Normal [facility] Comment on above: Performed By: #### L IPID, T7, TSH, CMP #### [facility] [address] [place] [address] Dr. Jalyn Tomlinson TSHon 01-08-2023 TSH 2.471 uIU/mL Normal 0.358-3.740 [facility] Comment on above: Performed By: #### L IPID, T7, TSH, CMP #### [facility] [address] [place], [place] [address] Dr. Jalyn Tomlinson VITAMIN D 25 OHon 01-08-2023 VIT D 25-OH 25.7 ng/mL Normal [facility] Comment on above: Performed By: #### DELL GUILLAUME ####[facility] [address] [place], [place] [address]BxUmesh [place] VIT D RANGES SEE BELOW Normal [facility] Comment on above: Result Comment: <20 ng/mL Vit D deficient 20 - <30 ng/mL Vit D insufficient 30 - 100 ng/mL Vit D sufficient >100 ng/mL Potential Toxicity Performed By: #### DELL GUILLAUME ####[facility] [address] [place], [place] [address]QvUmesh Elias 12-24-2022 L -- ---- Specimen: [id number] Received: 12/24/22 Status: MAN Leung Num: [id number] Spec Type: Surgical Subm Dr: Pancho Estrada DO Tissues: A Endometrium - Curettings (ENDOM CURETTINGS) B Gross Only (GENERATOR) Procedures: HE/2, Gross/Micro L4, Level 1 Gross ---- Age/ Patient Sex Location Account Attending Physician ---- Kerri Champagne 72/F [place] [id number] Pancho Estrada, DO ---- SPEC NUM: [id number] RECD: 12/24/22 STATUS: MAN LEUNG NUM: [id number] TIAN: 12/24/[address] [facility] [address]: Pancho Estrada DO ENTERED: 12/24/[address] [facility] [address]: MARIANO TYPE: Surgical DEPT: S ENTERED BY: [id number] RECV BY: [id number] ORDERED: HE/2, Gross/Micro L4, Level 1 Gross [...] clear plastic device with a serial number [id number] . Additionally received is a 21.0 x 0.2 cm silver metal and clear plastic device consistent with lead. A gross photo is taken. Gross examination only. ---- Specimen: [id number] Received: 12/24/22 Status: MAN Estradadona Num: [id number] Spec Type: Surgical Subm Dr: Pancho Estrada DO Tissues: A Endometrium - Curettings (ENDOM CURETTINGS) B Gross Only (GENERATOR) Procedures: HE/2, Gross/Micro L4, Level 1 Gross ---- Patient: CurtisKerri S [id number] (Continued) ---- Specimen: [id number] Received: 12/24/22 (Continued) Signed (signature on file) Fadumo Wisdom MD 12/25/22 1400 ---- Specimen: [id number] Received: 12/24/22 Status: MAN Leung Num: [id number] Spec Type: Surgical Subm Dr: Pancho Estrada DO Tissues: A Endometrium - Curettings (ENDOM CURETTINGS) B Gross Only (GENERATOR) Procedures: HE/2, Gross/Micro L4, Level 1 Gross ---- Patient: Kerri Champagne [id number] (Continued) ---- Specimen: [id number] Received: 12/24/22 (Continued) Microscopic Description Two glass slides with H E stained material have been examined. The microscopic findings support the above pathologic diagnosis. CPT Codes 78604, 22018 Gross Photo B ---- ---- Specimen: [id number] Received: 12/24/22 Status: MAN Leung Num: [id number] Spec Type: Surgical Subm Dr: Pancho Estrada DO Tissues: A Endometrium - Curettings (ENDOM CURETTINGS) B Gross Only (GENERATOR) Procedures: HE/2, Gross/Micro L4, Level 1 Gross ---- Patient: Kerri Champagne [id number] (Continued) ---- Signed (signature on file) Fadumo Wisdom MD 12/25/22 1400 Normal [facility] XR sacrum coccyx min 2Von XR sacrum coccyx min 2[place] [address] XRay Report Signed Patient: Kerri Champagne MR#: [id number] 634 : 1950 Acct:[id number] Age/Sex: 72 / F ADM Date: 12/24/22 Loc: [place] Room: Type: [facility] Attending Dr: Pancho Estrada DO Copies to: Pancho Estrada DO Ordering Provider: Pancho Estrada DO Date of Service: 12/24/22 XR/XR sacrum coccyx min 2V: INTERSTIM REPLACEMENT Intraoperative study. Reason for exam: InterStim replacement. Findings: 2 images were obtained intraoperatively. Cumulative Air Kerma in mGy: 18.7 mGy XR/XR sacrum coccyx min 2V Impression: Intraoperative study. Impression dictated by: Agapito Holder Jr., D.O.12/24/2022 3:12 PM Dictation Location: [address] [place] [address] Transcribed By: [facility] 12/24/22 151 Dictated By: Agapito Holder Jr, DO 12/24/22 151 Signed By: 12/24/22 151 Normal [facility] Automated basophil %Ordered By: Pancho Estrada on 12-19-2022 Basophils/100 WBC (Bld) 0.4 % Normal . [facility] Comment on above: Performed By: #### C BC, BMP #### [address] Automated basophil countOrde red By: Pancho Estrada on 12-19-2022 Basophils (Bld) [#/Vol] 0.0 10*3/uL Normal 0.0-0.2 [facility] Comment on above: Result Comment: PERF ORMED BY: [place] [address] PATHOLOGIST [employer]TRATION PLANT OPERATOR DEANDRE ARZOLA M.D. Performed By: #### C BC, BMP #### [address] Automated blood monocyte cou ntOrdered By: Pancho Estrada on 12-19-2022 Monocytes (Bld) [#/Vol] 0.5 10*3/uL Normal 0.0-0.8 [facility] Comment on above: Performed By: #### C BC, BMP #### [facility] [address] [place] [address] Automated eosinophil %Ordere d By: Pancho Estrada on 12-19-2022 Eosinophils/100 WBC (Bld) 3.9 % Normal . [facility] Comment on above: Performed By: #### C BC, BMP #### [facility] [address] [place] [address] Automated eosinophil countOr dered By: Pancho Adryan on 12-19-2022 Eosinophils (Bld) [#/Vol] 0.3 10*3/uL Normal 0.0-0.45 [facility] Comment on above: Performed By: #### C BC, BMP #### [address] Automated monocyte %Ordered By: Pancho Adryan on 12-19-2022 Monocytes/100 WBC (Bld) 7.8 % Normal . [facility] Comment on above: Performed By: #### C BC, BMP #### [address] Automated neutrophil %Ordere d By: Pancho Adryan on 12-19-2022 Neutrophils/100 WBC (Bld) 64.1 % Normal . [facility] Comment on above: Performed By: #### C BC, BMP #### [address] Basic Metabolic Panelon Estimated GFR ( Emma > 60 Normal [facility] Comment on above: Result Comment: GFR estimated reference range: According to KDOQI guidelines, <60 ml/min/1.73m2 is sufficient to diagnose a patient with chronic kidney disease. Performed By: #### C BC, BMP #### [address] Estimated GFR (Non- Am > 60 Normal [facility] Comment on above: Performed By: #### C BC, BMP #### [address] Complete Blood Count Auto Di ffon 12-19-2022 Mean Corpuscular HGB Conc 33.4 g/dL Normal 32.0-35.0 [facility] Comment on above: Performed By: #### C BC, BMP #### [address] NRBC% 0.1 /100{WBC} Normal 0-0.5 [facility] Comment on above: Performed By: #### C BC, BMP #### [place] [address] [place] ECG 12 lead ECGon 12-19-2022 ECG 12 lead ECG [facility] [place] [address] [place] [address] Electrocardiograph Report Signed Patient: Kerri Champagne MR#: [id number] 634 : 1950 Acct:[id number] Age/Sex: 72 / F ADM Date: 12/19/22 Loc: Room: Type: [facility] Attending Dr: Pancho Estrada DO Ordering [...] change was found Confirmed by VONDA ADAN [facility], MATEUSZ ([id number]) on 12/20/2022 11:26:09 AM Referred By: ADRYAN Electronically Signed By:MATEUSZ ARAIZA MD [facility] Transcribed By: NIKI Signed By Charles Araiza MD 12/20/22 1126 Normal [facility] Erythrocyte distribution wid th [Ratio] by Automated countOrdered By: Pancho Estrada on 12-19-2022 Erythrocyte distribution width (RBC) [Ratio] 13.9 % Normal 11.9-15.3 [facility] Comment on above: Performed By: #### C BC, BMP #### [facility] [address] [place] [address] [place] Erythrocytes [#/volume] in B lood by Automated countOrdered By: Pancho Estrada on 12-19-2022 RBC (Bld) [#/Vol] 4.56 10*6/uL Normal 3.60-5.00 [facility] Comment on above: Performed By: #### C BC, BMP #### [facility] [address] Estimated glomerular filtrat ion rate (GFR) non- AmericanOrdered By: Pancho Estrada on 12-19-2022 GFR/1.73 sq M.predicted among non-blacks MDRD (S/P/Bld) [Vol rate/Area] > 60 mL/Min [facility] Hematocrit [Volume Fraction] of Blood by Automated countOrdered By: Pancho Estrada on 12-19-2022 Hematocrit (Bld) [Volume fraction] 37.7 % Normal 34.0-46.4 [facility] Comment on above: Performed By: #### C BC, BMP #### [address] Hemoglobin [Mass/volume] in BloodOrdered By: Pancho Estrada on 12-19-2022 Hemoglobin (Bld) [Mass/Vol] 12.6 g/dL Normal 11.8-15.4 [facility] Comment on above: Performed By: #### C BC, BMP #### [address] Leukocytes [#/volume] correc mitzy for nucleated erythrocytes in Blood by Automated counOrdered By: Pancho Estrada on 12-19-2022 WBC corrected for nucl RBC Auto (Bld) [#/Vol] 6.5 10*3/uL 3.8-11.6 [facility] Leukocytes [#/volume] in Blo od by Automated countOrdered By: Pancho Estrada on 12-19-2022 WBC (Bld) [#/Vol] 6.5 10*3/uL Normal 3.8-11.6 [facility] Comment on above: Performed By: #### C BC, BMP #### [address] Lymphocytes [#/volume] in Bl ood by Automated countOrdered By: Pancho Estrada on 12-19-2022 Lymphocytes (Bld) [#/Vol] 1.5 10*3/uL Normal 1.00-4.8 [facility] Comment on above: Performed By: #### C BC, BMP #### [place] [address] [place] Lymphocytes/100 leukocytes i n Blood by Automated countOrdered By: Pancho Estrada on 12-19-2022 Lymphocytes/100 WBC (Bld) 23.8 % Normal . [facility] Comment on above: Performed By: #### C SHIRIN, BMP #### [facility] [address] [place] [address] MCH [Entitic mass] by Automa mitzy countOrdered By: Pancho Estrada on 12-19-2022 MCH (RBC) [Entitic mass] 27.6 pg Normal 24.7-34.3 [facility] Comment on above: Performed By: #### C SHIRIN, BMP #### [facility] [address] [place] [address] MCHC Auto (RBC) [Mass/Vol]Or dered By: Pancho Estrada on 12-19-2022 MCHC (RBC) [Mass/Vol] 33.4 g/dL 32.0-35.0 [facility] MCV [Entitic volume] by Auto mated countOrdered By: Pancho Estrada on 12-19-2022 MCV (RBC) [Entitic vol] 82.7 fL Normal 80-100 [facility] Comment on above: Performed By: #### C SHIRIN, BMP #### [address] Neutrophils [#/volume] in Bl ood by Automated countOrdered By: Pancho Estrada on 12-19-2022 Neutrophils (Bld) [#/Vol] 4.1 10*3/uL Normal 1.8-7.7 [facility] Comment on above: Performed By: #### C SHIRIN, BMP #### [facility] [address] [place] [address] No Panel InformationOrdered By: Pancho Estrada on 12-19-2022 Estimated GFR () > 60 mL/Min [facility] Comment on above: GFR estimated refere nce range: According to KDOQI guidelines, <60 ml/min/1.73m2 is sufficient to diagnose a patient with chronic kidney disease. Pharmacy Creatinine Clearance (Chem N/A [facility] Nucleated erythrocytes [Pres ence] in Blood by Automated countOrdered By: Pancho Estrada on 12-19-2022 Nucleated RBC Auto Ql (Bld) 0.1 /100{WBC} 0-0.5 [facility] Platelet mean volume [Entiti c volume] in Blood by Automated countOrdered By: Pancho Estrada on 12-19-2022 Platelet mean volume (Bld) [Entitic vol] 8.5 fL Normal 6.3-10.7 [facility] Comment on above: Performed By: #### C BC, BMP #### [address] Platelets [#/volume] in Bloo d by Automated countOrdered By: Pancho Estrada on 12-19-2022 Platelets (Bld) [#/Vol] 284 10*3/uL Normal 150-450 [facility] Comment on above: Performed By: #### C SHIRIN, BMP #### [address] Serum or plasma anion gap de terminationOrdered By: Pancho Estrada on 12-19-2022 Anion gap [Moles/Vol] 11.9 mmol/L Normal 6.0-15.0 [facility] Comment on above: Performed By: #### C BC, BMP #### [address] Serum or plasma calcium wilfrido urement (mass/volume)Ordered By: Pancho Estrada on 12-19-2022 Calcium [Mass/Vol] 9.5 mg/dL Normal 8.2-10.2 [facility] Comment on above: Result Comment: PERF ORMED BY: [place] [address] PATHOLOGIST FILTRATION PLANT OPERATOR DEANDRE ARZOLA M.D. Performed By: #### C BC, BMP #### [address] Serum or plasma chloride ally surement (moles/volume)Ordered By: Pancho Estrada on 12-19-2022 Chloride [Moles/Vol] 106 mmol/L Normal 95-114 [facility] Comment on above: Performed By: #### C BC, BMP #### [facility] [address] Serum or plasma creatinine m easurement with calculation of estimated glomerular filtrOrdered By: Pancho Adryan on 12-19-2022 Creatinine [Mass/Vol] 0.83 mg/dL Normal 0.44-1.03 [facility] Comment on above: Performed By: #### C BC, BMP #### [facility] [address] Serum or plasma glucose wilfrido urement (mass/volume)Ordered By: Pancho Estrada on 12-19-2022 Glucose [Mass/Vol] 88 mg/dL Normal 70-100 [facility] Comment on above: ADA recommended refe rence rangeRandom Glucose Reference Range is dependent on time and content of last meal. Glucose of more than 200 mg/dL in a nonstressed, ambulatory subject supports the diagnosis of Diabetes Mellitus. Result Comment: [place] om Glucose Reference Range is dependent on time and content of last meal. Glucose of more than 200 mg/dL in a nonstressed, ambulatory subject supports the diagnosis of Diabetes Mellitus. ADA recommended reference range Performed By: #### C BC, BMP #### [address] Serum or plasma potassium me asurement (moles/volume)Ordered By: Pancho Estrada on 12-19-2022 Potassium [Moles/Vol] 4.5 mmol/L Normal 3.5-5.1 [facility] Comment on above: Performed By: #### C BC, BMP #### [address] Serum or plasma sodium measu rement (moles/volume)Ordered By: Pancho Estrada on 12-19-2022 Sodium [Moles/Vol] 137 mmol/L Normal 136-146 [facility] Comment on above: Performed By: #### C BC, BMP #### [address] Serum or plasma total carbon dioxide measurement (moles/volume)Ordered By: Pancho Estrada on 12-19-2022 CO2 [Moles/Vol] 23.6 mmol/L Normal 22.0-30.0 [facility] Comment on above: Performed By: #### C SHIRIN, BMP #### [facility] [address] Serum or plasma urea nitroge n measurement (mass/volume)Ordered By: Pancho Estrada on 12-19-2022 Urea nitrogen [Mass/Vol] 12 mg/dL Normal 9-23 [facility] Comment on above: Performed By: #### C SHIRIN, BMP #### [facility] [address] [place] [id number] [facility] CNOVon 11-25-2022 CNOV Office Visit (NRESFV ) KERRI CHAMPAGNE ([id number]) 1950 F Date Time Provider Department 11/25/22 1:30 PM AMOS WISDOM NRESFV During your visit today, we recorded the following information about you: Temperature Pulse Blood pressure Weight 96.4 degrees 78/minute 158/88 78 kg Height 1.6 m Amos Wisdom MD 11/25/2022 3:23 PM Signed [facility] Neurotoxin Visit Date: November 25, 2022 Name: Kerri Savannah Champagne SUBJECTIVE: Historical/ Initial Dose Diagnosis: Cervical [...] Pain Management OT/PT/Speech Visit from 07/31/2022 in [facility] Physical Therapy [facility] T [...] guidance: Yes Injection Site: Cervical dystonia: CPT 60086 Left Right Sternocleidomastoid 25 Splenius capitus 25 50 Scalene Levator Scapulae Trapezius Semispinalis (Other) Lot#: [id number] Exp Date Future plan of care: Follow up: 3 months Neurotoxin change: No Dose change: Yes New Dose: 200 Reason(s) for changing neurotoxin type of dose: if this does not work Sent staff message to nursing related to any changes: Yes Amos Wisdom MD November 25, 2022 3:13 PM Dept of NEUROLOGY TIME OUT/ PROCEDURE NOTE: Informed consent Kerri Champagne Medical Record: [id number] Procedure: neurotoxin intramuscular injection The risks, benefits [...] Wisdom MD November 25, 2022 3:13 PM [place] protocol/ safety checklist Sign in communication: Completed Time out:Team confirms the correct Patient, correct procedure, correct site and site marking, correct neurotoxin type, correct dose and correct dilution. Affirmation of time out: N/A Sign out discussion: Completed J (more content not included)... Normal [facility] Office Visiton 11-18-2022 Follow-up visit [...] and post surgical patient. Surgery was at [facility] 5 years ago per patient. Status: Hold For - Scheduling,Retrospecti ve Authorization Requested for: [id number] Provider Impressions ASSESSMENT: KERRI CHAMPAGNE is a [...] Capsule Vitals Vital Signs Recorded: 18Nov2022 11:57AM Isnrysoocsb08.8 F Qkpxzwmp299 Rbbhvfxuy80 Height5 ft 3 in Vsbafn682 lb BMI Fikuyppsnl40.47 kg/m2 BSA Calculated1.81 Tobacco Useb) No PHQ-2 [...] stutter. Voice (more content not included)... Normal [facility]NEW[facility] Tobacco Screening.on 023 Adult depression screening assessment No MP-Otolaryn gol [employer] Work Phone: Tobacco use status CPHS b) No MP-Otolaryngol grabHalo-Dasient [address] Work Phone: Covid-19 PCR (CVDTB)on SARS-CoV-2 (COVID-19) RNA ELSA+probe Ql (Unsp spec) Not detected Normal NOT DETECTED [facility] Comment on above: Result Comment: When diagnostic [...] for this test is supported by the [place] of Health and Human Service's declaration that [...] longer be used). Performed By: #### C VDTBH #### [facility] [address] [place] [address] Dr. Jalyn Tomlinson INFLUENZA A AND B AGon 11-14 INFLUBANNER SEE BELOW Normal [facility] Comment on above: Result Comment: Nega tive for Flu A protein angiten. Infection due to Flu A cannot be ruled out. Flu A angiten in the sample may be below the detection limit of the test. Performed By: #### I NFLUAB #### [facility] [address] [place] [address] Dr. Jalyn Tomlinson INFLUBNEG SEE BELOW Normal [facility] Comment on above: Result Comment: Nega tive for Flu B protein antigen. Infection due to Flu B cannot be ruled out. Flu B antigen in the sample may be below the detection limit of the test. Performed By: #### I NFLUAB #### [facility] [address] [place] [address] Dr. Jalyn Tomlinson INFLUENZA A AG Negative Normal NEGATIVE SEE COMMENT [facility] Comment on above: Performed By: #### I NFLUAB #### [facility] [address], [place] [address] Dr. Jalyn Tomlinson INFLUENZA B AG Negative Normal NEGATIVE SEE COMMENT [facility] Comment on above: Performed By: #### I NFLUAB #### [facility] [address], [place] [address] Dr. Jalyn VAZQUEZOVon 11-13-2022 CNOV Office Visit (CLINT ) KERRI CHAMPAGNE ([id number]) 1950 F Date Time Provider Department 11/13/22 10:00 AM KERRI MORENO During your visit today, we recorded the following information about you: Pulse Blood pressure Weight Height 54/minute 134/82 76.7 kg 1.6 m eKrri Moreno PA-C 11/13/2022 11:24 AM Signed Pain [...] (see below) 1. Physical therapy: Yes: Where: [facility] , Date Started: 07/17/22, Date Ended: 08/14/22 2. Home exercise program after PT: yes 3. Occupational therapy: No 4. A physician supervised home exercise program (HEP): No 5. Tungsten Refiner: No Passive conservative therapy lasting 6 weeks in the last six months (see below) 1. Medical devises: No 2. Acupuncture: No 3. Tens unit: No 4. Prescription pain medication: No 5. NSAIDS: [place]: Gregoria Villalta MA Date: November 13, 2022 [...] canal. Patent (more content not included)... Normal [facility] CNOVon 10-14-2022 CNOV Office Visit (CLINT ) KERRI CHAMPAGNE ([id number]) 1950 F Date Time Provider Department 10/14/22 9:30 AM AVANI RODRÍGUEZ During your visit today, we recorded the following information about you: Pulse Blood pressure Weight Height 56/minute 133/72 77.2 kg 1.575 m Avani Rodríguez MD 10/17/2022 11:10 AM Signed [facility] Pain Management Department Office Visit [...] Current anticoagulation: None Occupation: Retired [employer] [place] October 14, 2022 Attestation: The above information was explored in detail with the patient and edited as needed and is complete. Avani Rodríguez MD October 14, 2022 HISTORY OF PRESENT ILLNESS Kerri Champagne presents to [facility] for the evaluation [...] bulk or (more content not included)... Normal [facility] CNOVon 09-18-2022 CNOV Office Visit (NRESFV ) KERRI CHAMPAGNE ([id number]) 1950 F Date Time Provider Department 09/18/22 10:00 AM AMOS WISDOM NRESFV During your visit today, we recorded the following information about you: Pulse Blood pressure Weight Height 57/minute 145/70 77.4 kg 1.575 m mAos Wisdom MD 09/18/2022 10:44 AM Signed [facility] - NEW PATIENT EVALUATION No referring provider defined for this encounter. Luis Enrique Wood, DO [address] [facility] [address] Dear : I had the pleasure of [...] then, she started seeing a neurologist in [place] but reports that she was rough but [...] Depression, Diabetes (HCC), Epilepsy (HCC), Hypertension, Hypothyroidism, FDC (current) use of systemic steroids, Obstructive sleep [...] Neurological Exa (more content not included)... Normal [facility] CNTHERAPYon 08-14-2022 CNTHERAPY OT/PT/Speech Visit (PTELYR) KERRI CHAMPAGNE ([id number]) 1950 F Date Time Provider Department 08/14/22 12:00 PM REMI ESCAMILLA Date Time Provider Department Center 08/14/2022 12:00 PM [id number] ESCAMILLA PTELYMery [facility] Reason for Visit: PT Discharge [752] Primary [...] type A 200 Units injection (BOTOX) Normal [facility] CNTHERAPYon 08-07-2022 CNTHERAPY OT/PT/Speech Visit (PTELYR) KERRI CHAMPAGNE ([id number]) 1950 F Date Time Provider Department 08/07/22 9:15 AM MEREDITH HOLLIS Date Time Provider Department Center 08/07/2022 9:15 AM [id number] HOLLIS [facility] Reason for Visit: Physical Therapy [503] Primary [...] type A 200 Units injection (BOTOX) Normal [facility] 08-05-2022 [facility] HNO ID: [id number] Author: Nieves Butcher debt collection specialist Service: Radiology Author Type: Requirements Engineer Type: [employer] Filed: 08/05/2022 8:06 AM Note Text: [...] DATA: Not applicable SIGNED BY: Nieves Butcher debt collection specialist August 05, 2022 8:06 AM [facility] MRI BRAIN WO IVCONon 022 MRI BRAIN WO IVCON * * *Final Report* * * DATE OF EXAM: Aug 05 2022 9:13AM [facility] 0294 - MRI BRAIN WO IVCON / [...] is taken as C2-3. Structural anomalies: None. Land Survey Technician: [facility] Transcribe Date/Time: Aug 05 2022 9:55A Dictated by : YANIRA APARICIO MD This examination was interpreted and the report reviewed and electronically signed by: YANIRA APARICIO MD on Aug 05 2022 9:55AM EST [id number] Normal [facility] MRI CERVICAL SPINE WO IVCONo n 08-05-2022 MRI CERVICAL SPINE WO IVCON * * *Final Report* * * DATE OF EXAM: Aug 05 2022 9:13AM [facility] 0297 - MRI CERVICAL SPINE WO IVCON [...] is taken as C2-3. Structural anomalies: None. Land Survey Technician: PSCB Transcribe Date/Time: Aug 05 2022 9:55A Dictated by : YANIRA APARICIO MD This examination was interpreted and the report reviewed and electronically signed by: YANIRA APARICIO MD on Aug 05 2022 9:55AM EST [id number] Normal [facility] CNTHERAPYon 07-31-2022 CNTHERAPY OT/PT/Speech Visit (PTELYR) KERRI CHAMPAGNE ([id number]) 1950 F Date Time Provider Department 07/31/22 9:15 AM MEREDITH HOLLIS PTELYR Date Time Provider Department Center 07/31/2022 9:15 AM [id number] HOLLIS TIES[facility] Reason for Visit: Physical Therapy [503] Primary [...] type A 200 Units injection (BOTOX) Normal [facility] CNTHERAPYon 07-17-2022 CNTHERAPY OT/PT/Speech Visit (PTELYR) KERRI CHAMPAGNE ([id number]) 1950 F Date Time Provider Department 07/17/22 11:15 AM REMI ESCAMILLA Date Time Provider Department Center 07/17/2022 11:15 AM [id number] ESCAMILLA PTKENDALL [facility] Reason for Visit: PT Eval [747] Primary [...] 200 Units injection (BOTOX) Letter Text Normal [facility] CNOVon 07-03-2022 CNOV Office Visit (SPMECO ) KERRI CHAMPAGNE ([id number]) 1950 F Date Time Provider Department 07/03/22 [...] fluticasone (FLONASE) 50 mcg/actuation nasal sprayUse 1 [place] [address] in each nostril once daily.Disp: Rfl: ofloxacin (FLOXIN) 0.3 % otic solutionUse 5 Drops in both ears once daily.Disp: Rfl: FLUoxetine (PROZAC) 10 mg capsuleTake 10 mg by mouth once daily.Disp: Rfl: rcyovhcn-yqja-whhz-FA- K-hb#244 18-400-80 mg-mcg-mcg tabTake by mouth once [...] itching. PSYCHOLOGICAL (more content not included)... Normal [facility] No Panel Informationon 07-03 [facility] XR CRV 7V AP/LAT/FLX/EXT/ODO /OBLon 07-03-2022 XR CRV 7V AP/LAT/FLX/EXT/ODO/OBL * * *Final [...] apices are clear. IMPRESSION: Mild cervical spondylosis. Land Survey Technician: DAHLIA Transcribe Date/Time: Jul 03 2022 12:51P Dictated by : FABIAN PRADHAN MD This examination was interpreted and the report reviewed and electronically signed by: ZAK MARSH MD on Jul 03 2022 4:52PM EST [id number] Normal [facility] XR LUMBAR 3V AP/LAT/L5-S1on 07-03-2022 XR LUMBAR [...] Number of different views (projections): 1 (accession [id number]), 3 (accession [id number]) M: XB_1 COMPARISON: None RESULT: Counting reference: [...] No acute osseous abnormality in the pelvis. Land Survey Technician: DAHLIA Transcribe Date/Time: Jul 03 2022 12:47P Dictated by : FABIAN PRADHAN MD This examination was interpreted and the report reviewed and electronically signed by: ZAK MARSH MD on Jul 03 2022 1:47PM EST [id number] Normal [facility] XR PELVIS 1V APon 07-03-2022 XR PELVIS [...] Number of different views (projections): 1 (accession [id number]), 3 (accession [id number]) M: XB_1 COMPARISON: None RESULT: Counting reference: [...] No acute osseous abnormality in the pelvis. Land Survey Technician: PSCB Transcribe Date/Time: Jul 03 2022 12:47P Dictated by : FABIAN PRADHAN MD This examination was interpreted and the report reviewed and electronically signed by: ZAK MARSH MD on Jul 03 2022 1:47PM EST [id number] Normal [facility] US CAROTID ART BILon 27-2 022 US CAROTID ART LISANDRO EXAMINATION: US [...] by: ANGEL WOODS Date: 2022-05-06 16:19 Normal [facility] BEAT [employer] Quick Testingon 2020 Result Negative [facility] [place] Other Vital Signs Date Time Vital Sign Value Performing Clinician Facility 02-10-2024 10:37-0400 Body height 162.6 cm Carlota Cotton MD Work Phone: [facility] 02-10-2024 10:37-0400 Body mass index (BMI) [Ratio] 28.67 kg/m2 Carlota Cotton MD Work Phone: [facility] 02-10-2024 10:37-0400 Body weight 75.75 kg Carlota Cotton MD Work Phone: [facility] 01-19-2024 11:45-0400 Diastolic blood pressure 79 mm[Hg] Carlota Cotton MD Work Phone: [facility] 01-19-2024 11:45-0400 Heart rate 95 /min Carlota Cotton MD Work Phone: [facility] 01-19-2024 11:45-0400 Respiratory rate 13 /min Carlota Cotton MD Work Phone: [facility] 01-19-2024 11:45-0400 SaO2% (BldA) [Mass fraction] 92 % Carlota Cotton MD Work Phone: [facility] 01-19-2024 11:45-0400 Systolic blood pressure 143 mm[Hg] Carlota Cotton MD Work Phone: [facility] 01-19-2024 11:30-0400 Body temperature 98.1 [degF] Carlota Cotton MD Work Phone: [facility] 01-19-2024 06:23-0400 Body height 162.6 cm Carlota Cotton MD Work Phone: [facility] 01-19-2024 06:23-0400 Body mass index (BMI) [Ratio] 29.93 kg/m2 Carlota Cotton MD Work Phone: [facility] 01-19-2024 06:23-0400 Body weight 79.1 kg Carlota Cotton MD Work Phone: [facility] 11-11-2023 10:56-0500 Body height 160 cm Carlota oCtton MD Work Phone: [facility] 11-11-2023 10:56-0500 Body mass index (BMI) [Ratio] 30.65 kg/m2 Carlota Cotton MD Work Phone: [facility] 11-11-2023 10:56-0500 Body weight 78.47 kg Carlota Cotton MD Work Phone: [facility] 09-09-2023 11:12-0400 Body height 160 cm Argentina Lord MEDIA LIAISON OFFICER-SAW BOSS Work Phone: [facility] 09-09-2023 11:12-0400 Body mass index (BMI) [Ratio] 30.29 kg/m2 Argentina Lord MEDIA LIAISON OFFICER-SAW BOSS Work Phone: [facility] 09-09-2023 11:12-0400 Body temperature 97.39 [degF] Argentina Lord MEDIA LIAISON OFFICER-SAW BOSS Work Phone: [facility] 09-09-2023 11:12-0400 Body weight 77.56 kg Argentina Lord MEDIA LIAISON OFFICER-SAW BOSS Work Phone: [facility] 09-09-2023 11:12-0400 Diastolic blood pressure 84 mm[Hg] Argentina Lord MEDIA LIAISON OFFICER-SAW BOSS Work Phone: [facility] 09-09-2023 11:12-0400 Heart rate 54 /min Argentina Lord MEDIA LIAISON OFFICER-SAW BOSS Work Phone: [facility] 09-09-2023 11:12-0400 Systolic blood pressure 156 mm[Hg] Argentina Lord MEDIA LIAISON OFFICER-SAW BOSS Work Phone: [facility] 12-24-2022 11:20-0500 Diastolic blood pressure 71 mm[Hg] MD Albino Reilly Work Phone: [facility] 12-24-2022 11:20-0500 Heart rate 55 /min MD Albino Reilly Work Phone: [facility] 12-24-2022 11:20-0500 Respiratory rate 16 /min MD Albino Reilly Work Phone: [facility] 12-24-2022 11:20-0500 SaO2% (BldA) [Mass fraction] 99 % MD Albino Reilly Work Phone: [facility] 12-24-2022 11:20-0500 Systolic blood pressure 123 mm[Hg] MD Albino Reilly Work Phone: [facility] 12-24-2022 10:19-0500 Body temperature 98.1 [degF] MD Albino Reilly Work Phone: [facility] 12-24-2022 10:19-0500 Inhaled oxygen flow rate 6 L/min MD Albino Reilly Work Phone: [facility] 12-24-2022 08:00-0500 Body height 160.02 cm MD Albino Reilly Work Phone: [facility] 12-24-2022 08:00-0500 Body mass index (BMI) [Ratio] 30.3 kg/m2 MD Albino Reilly Work Phone: [facility] 12-24-2022 08:00-0500 Body weight 77.7 kg MD Albino Reilly Work Phone: [facility] 11-25-2022 13:09-0500 Body height 160 cm Amos Wisdom MD Work Phone: [facility] 11-25-2022 13:09-0500 Body temperature 96.4 [degF] Amos Wisdom MD Work Phone: [facility] 11-25-2022 13:09-0500 Body weight 78.02 kg Amos Wisdom MD Work Phone: [facility] 11-25-2022 13:09-0500 Diastolic blood pressure 88 mm[Hg] Amos Wisdom MD Work Phone: [facility] 11-25-2022 13:09-0500 Heart rate 78 /min Amos Wisdom MD Work Phone: [facility] 11-25-2022 13:09-0500 SaO2% (BldA) [Mass fraction] 98 % Amos Wisdom MD Work Phone: [facility] 11-25-2022 13:09-0500 Systolic blood pressure 158 mm[Hg] Amos Wisdom MD Work Phone: [facility] 11-18-2022 11:57-0500 Body height 160.02 cm No PCP None MP-Otolaryngolog y-We [place] [facility] [address] Work Phone: 11-18-2022 11:57-0500 Body mass index (BMI) [Ratio] 30.47 kg/m2 No PCP None ZM-Zmsgbldhrikaju-Zv [place] [facility] [address] Work Phone: 11-18-2022 11:57-0500 Body surface area Derived from formula 1.81 m2 No PCP None AJ-Zleydyqkselfdr-Vs [place] [facility] [address] Work Phone: 11-18-2022 11:57-0500 Body temperature 97.8 [degF] No PCP None MP-Otolaryngolo gy-We [place] [facility] [address] Work Phone: 11-18-2022 11:57-0500 Body weight 78.02 kg No PCP None MP-Otolaryngolog y-We [place] [facility] [address] Work Phone: 11-18-2022 11:57-0500 Diastolic blood pressure 82 mm[Hg] No PCP None LQ-Olrtvbvfjlwruk-Ns [place] [facility] [address] Work Phone: 11-18-2022 11:57-0500 Systolic blood pressure 144 mm[Hg] No PCP None RT-Abltdgibzcnnyh-Tc [place] [facility] [address] Work Phone: 11-18-2022 11:57-0500 0 1 No PCP None MP-Otolaryngolog y-We [place] [facility] [address] Work Phone: Comment on above: [employer] 11-13-2022 10:00-0500 Body height 160 cm Kerri Moreno PA-C Work Phone: [facility] 11-13-2022 10:00-0500 Body weight 76.66 kg Kerri Moreno PA-C Work Phone: [facility] 11-13-2022 10:00-0500 Diastolic blood pressure 82 mm[Hg] Kerri Duranine PA-C Work Phone: [facility] 11-13-2022 10:00-0500 Heart rate 54 /min Kerri Maline PA-C Work Phone: [facility] 11-13-2022 10:00-0500 Systolic blood pressure 134 mm[Hg] Kerri Duranine PA-C Work Phone: [facility] 07-03-2022 10:29-0400 Diastolic blood pressure 99 mm[Hg] Yonathan Cazares PA-C Work Phone: [facility] 07-03-2022 10:29-0400 Heart rate 60 /min Yonathan Cazares PA-C Work Phone: [facility] 07-03-2022 10:29-0400 SaO2% (BldA) [Mass fraction] 97 % Yonathan Cazares PA-C Work Phone: [facility] 07-03-2022 10:29-0400 Systolic blood pressure 165 mm[Hg] Yonathan Cazares PA-C Work Phone: [facility] 11-05-2021 15:45-0500 Body height 160.02 cm Gregoria Ginty Other [facility] [place] Other 11-05-2021 15:45-0500 Body mass index (BMI) [Ratio] 29.58 kg/m2 Gregoria Ginty Other [facility] [place] Other 11-05-2021 15:45-0500 Body temperature 96.7 [degF] Gregoria Ginty Other [facility] [place] Other 11-05-2021 15:45-0500 Body weight 75.75 kg Gregoria Ginty Other [facility] [place] Other 11-05-2021 15:45-0500 SaO2% (BldA) [Mass fraction] 97 % Gregoria Ginty Other [facility] [place] Other Encounters Encounter Date Encounter Type Care Provider Facility Start: 03-09-2024 End: 03-09-2024 ambulatory CARLOTA COTTON [facility]ulatory Start: 03-09-2024 End: 03-09-2024 Postop follow up visit related to original px Carlota Cotton MD Work Phone: [facility] Comment on above: Postoperative visit (Primary Dx); Multiple perforations of left tympanic membrane; Mixed conductive and sensorineural hearing loss of left ear with restricted hearing of right ear; Bilateral chronic serous otitis media; Mixed conductive and sensorineural hearing loss, bilateral Start: 02-24-2024 End: 02-24-2024 ambulatory LAURA OWENS Not Available Start: 02-17-2024 End: 02-17-2024 ambulatory LAURA OWENS Not Available Start: 02-10-2024 End: 02-10-2024 ambulatory [facility] Start: 02-10-2024 End: 02-10-2024 Postop follow up visit related to original px Carlota Cotton MD Work Phone: [facility] Comment on above: Postoperative visit (Primary Dx); Multiple perforations of left tympanic membrane; Mixed conductive and sensorineural hearing loss of left ear with restricted hearing of right ear Start: 01-19-2024 End: 01-19-2024 Subsequent hospital visit by physician Carlota Cotton MD Work Phone: [facility] [place] Comment on above: Perforation of left tympanic membrane (Primary Dx); 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 Start: 01-12-2024 End: 01-13-2024 ambulatory [facility] Start: 01-12-2024 End: 01-13-2024 Encounter for other preprocedural examination [facility] Start: 01-05-2024 End: 01-06-2024 ambulatory [facility] Start: 11-18-2023 End: 11-18-2023 ambulatory LAURA OWENS Not Available Start: 11-12-2023 ambulatory [facility] Start: 11-11-2023 End: 11-11-2023 ambulatory [facility] Start: 11-11-2023 End: 11-11-2023 Office outpatient new 45 minutes Carlota Cotton MD Work Phone: [facility] Comment on above: Mixed conductive and sensorineural hearing loss of left ear with restricted hearing of right ear (Primary Dx); Perforation of left tympanic membrane Start: 10-07-2023 End: 10-07-2023 ambulatory TU JOHNS [facility] Start: 09-09-2023 End: 09-09-2023 ambulatory ARGENTINA LORD [facility] Ambulatory Start: 09-09-2023 End: 09-09-2023 Office outpatient visit 25 minutes [place] MEDIA LIAISON OFFICER-SAW BOSS Work Phone: [facility] Comment on above: Perforation of left tympanic membrane (Primary Dx); Left chronic serous otitis media; Bilateral impacted cerumen; Sensation of plugged ear, bilateral; Hearing difficulty of left ear; Otalgia of left ear Start: 01-08-2023 End: 01-09-2023 ambulatory CY STORY Facility: Start: 12-24-2022 End: 12-24-2022 ambulatory Pancho Estrada Facility:[facility] Start: 12-24-2022 End: 12-24-2022 Admission to same day surgery center MD Albino Reilly Work Phone: [facility] [place] Start: 12-24-2022 End: 12-24-2022 ambulatory MD Albino Reilly Work Phone: [facility] Work Phone: Start: 12-19-2022 End: 12-19-2022 ambulatory Albino Reilly Facility:[facility] Start: 12-19-2022 End: 12-19-2022 ambulatory MD Albino Reilly Work Phone: [facility] Work Phone: Start: 12-19-2022 End: 12-19-2022 Patient encounter procedure MD Albino Reilly Work Phone: [facility] Work Phone: Start: 11-25-2022 End: 11-25-2022 ambulatory AMOS QUIROSI Facility:[facility] Start: 11-25-2022 End: 11-25-2022 Patient encounter procedure Amos Wisdom MD Work Phone: Neurology Comment on above: Cervical dystonia (P rimary Dx) Start: 11-18-2022 Office outpatient ne w 30 minutes No PCP None DW-Ttnndxhhrzcqmf-Fpc[place] [facility] [address] Work Phone: Start: 11-14-2022 End: 11-14-2022 ambulatory CY STORY Facility: Start: 11-13-2022 End: 11-13-2022 ambulatory LUIS ENRIQUE WOOD Facility:[facility] Start: 11-13-2022 End: 11-13-2022 Patient encounter procedure Kerri Moreno PA-C Work Phone: Pain Management Comment on above: Cervical dystonia (P rimary Dx); Cervicalgia Start: 10-14-2022 End: 10-14-2022 ambulatory [facility] Facility:[facility] Start: 10-08-2022 Refill Yonathan crawford PA-C Work Phone: Spine Medicine Comment on above: Refill Request Start: 09-18-2022 End: 09-18-2022 ambulatory AMOS WISDOM Facility:[facility] Start: 08-14-2022 End: 08-14-2022 ambulatory Remi Escamilla PT [facility] Comment on above: Neck pain (Primary D x) Start: 08-07-2022 End: 08-07-2022 ambulatory DONTA DO Facility:[facility] Start: 08-07-2022 End: 08-07-2022 ambulatory Meredith Hollis VACUUM CASTER Work Phone: [facility] Physical Therapy Comment on above: Spasmodic torticolli s (Primary Dx); Neck pain Start: 08-05-2022 ambulatory YONATHAN Reza ity:[facility] Start: 07-31-2022 End: 07-31-2022 ambulatory DONTA DO Facility:[facility] Start: 07-31-2022 End: 07-31-2022 ambulatory Meredith Hollis VACUUM CASTER [facility] Comment on above: Spasmodic torticolli s (Primary Dx); Neck pain Start: 07-17-2022 End: 07-17-2022 ambulatory LUIS ENRIQUE WOOD Facility:[facility] Start: 07-17-2022 End: 07-17-2022 ambulatory [facility] Comment on above: Neck pain (Primary D x); Spasmodic torticollis; Bilateral carotid artery stenosis; Low back pain, non-specific; History of tremor; Myalgia; Pain of left sacroiliac joint; Spinal stenosis of cervical region; Chronic tension-type headache, not intractable; Imbalance Start: 07-09-2022 End: 07-09-2022 ambulatory LUIS ENRIQUE WOOD Facility:[facility] Start: 07-09-2022 End: 07-09-2022 ambulatory Yonathan Cazares [...] with patient Yonathan Cazares PA-C Work Phone: [facility] Start: 07-03-2022 End: 07-03-2022 ambulatory LUIS ENRIQUE WOOD Facility:[facility] Start: 07-03-2022 End: 07-03-2022 ambulatory LUIS ENRIQUE WOOD Facility:[facility] Start: 07-03-2022 End: 07-03-2022 Patient encounter procedure [...] 11-05-2021 End: 11-05-2021 ambulatory Gregoria Hamlin Other [employer] Other Start: 11-05-2021 Office outpatient vi sit 15 minutes Gregoria Hamlin [facility] Procedures Date Procedure Procedure Detail Performing Clinician [...] Start: 07-02-2022 Adult depression screening assessment Yonathan Cazares PA-C Work Phone: Start: 02-15-2022 Mammography Argentina Lord MEDIA LIAISON OFFICER-SAW BOSS Work Phone: H/O: surgery S/P tympanoplasty MD Albino Reilly Work Phone: Tympanomastoidectomy No PCP None Plan of Treatment Date Care Activity Detail Author Start: 01-22-2026 Screening for malign ant neoplasm of colon [facility] Start: 10-15-2024 Pneumococcal Vaccine : 65+ Years (3 of 3 - PPSV23 or PCV20) Pneumococcal Vaccine: 65+ Years (3 of 3 - PPSV23 or PCV20) [facility] Start: 07-11-2024 Influenza vaccination Influenz a Vaccine (Season Ended) [facility] Start: 03-09-2024 End: 03-09-2025 Hearing examination Comprehensive hearing test Audiology Routine 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, bilateral Expected: 03/09/2024 (Approximate), Expires: 03/09/2025 [facility] Service Area Work Phone: Comment on above: Expected: 03/09/2024 (Approximate), Expires: 03/09/2025 Start: 03-09-2024 End: 03-09-2024 Patient encounter procedure 03/09/2024 8:30 AM EDT Office Visit [facility] [address] [place] [id number] [place] [address] [place], [place] [id number] [facility] Start: 02-10-2024 End: 02-10-2024 Patient encounter procedure 02/10/2024 11:00 AM EDT Office Visit [facility] [address] [place] [address] [place] [address] [place] [address] [facility] Start: 01-15-2024 COVID-19 Vaccine (2022- season) COVID-19 Vaccine ( season) [facility] Start: 11-11-2023 COVID-19 Vaccine (5 - Moderna series) COVID-19 Vaccine (5 - Moderna series) [facility] Start: 11-11-2023 End: 11-11-2024 Request for Pre-Admission Testing Visit Request for Pre-Admission Testing Visit Procedures Routine Perforation of left tympanic membrane Expected: 11/11/2023 (Approximate), Expires: 11/11/2024 [facility] Service Area Work Phone: Comment on above: Expected: 11/11/2023 (Approximate), Expires: 11/11/2024 Start: 11-11-2023 Zoster Vaccines (3 of 3) Zoster Vacc francoise (3 of 3) [facility] Start: 07-11-2023 Influenza vaccination Influenza Vacc ine (#1) [facility] Start: 07-02-2023 Adult depression screening assessment DEPRESSION SCREENING [facility] Start: 02-15-2023 Screening for malign ant neoplasm of breast Mammogram [facility] Start: 12-24-2022 Radiography of sacrococcygeal spine XR sacrum coccyx min 2V [facility] Start: 12-24-2022 XR Sacrum and Coccyx GE 2 Views [facility] Start: 12-24-2022 End: 12-24-2022 [facility] Start: 11-10-2022 ADVANCE DIRECTIVE DISCUSSION ADVANCE DIRECTIVE DISCUSSION [facility] Start: 11-10-2022 DEPRESSION ASSESSMENT DEPRESSION ASS ESSMENT [facility] Start: 08-13-2022 COVID-19 VACCINE (5 - Booster for Moderna series) COVID-19 VACCINE (5 - Booster for Moderna series) [facility] Start: 08-13-2022 COVID-19 Vaccine (5 - Moderna series) COVID-19 Vaccine (5 - Moderna series) [facility] Start: 07-11-2022 Influenza vaccination INFLUENZA (#1) [facility] Start: 11-10-2021 ADVANCE DIRECTIVE DISCUSSION ADVANCE DIRECTIVE DISCUSSION [facility] Start: 11-10-2021 DEPRESSION ASSESSMENT DEPRESSION ASS ESSMENT [facility] Start: 10-15-2020 Pneumococcal Vaccine : 65+ Years (3 - PPSV23 or PCV20) Pneumococcal Vaccine: 65+ Years (3 - PPSV23 or PCV20) [facility] Start: 02-07-2017 BONE DENSITY BONE DENSITY [facility] Start: 02-07-2017 PNEUMOCOCCAL: 65+ (1 - PCV) PNEUMOCOCCAL: 65+ (1 - PCV) [facility] Start: 11-16-2016 Zoster Vaccines (2 of 3) Zoster Vacc francoise (2 of 3) [facility] Start: 02-07-2002 Screening for malign ant neoplasm of lung Lung Cancer Screening [facility] Start: 02-07-2002 SHINGRIX VACCINE (1 of 2) SHINGRIX VACCINE (1 of 2) [facility] Start: 02-07-1997 COLOGUARD (FIT-DNA) COLOGUARD (FIT-D NA) [facility] Start: 02-07-1997 Colonoscopy COLONOSCOPY [facility] Start: 02-07-1997 COLORECTAL CANCER SCREENING COLORECTAL CANCER SCREENING [facility] Start: 02-07-[address] COLONOGRAPHY [facility] Start: 02-07-1997 DIABETES SCREEN DIABETES SCREEN [facility] Start: 02-07-1997 FECAL OCCULT BLOOD FECAL OCCULT BLOO D [facility] Start: 02-07-1997 LIPID SCREEN LIPID SCREEN [facility] Start: 02-07-1997 SIGMOIDOSCOPY SIGMOIDOSCOPY [facility] Start: 1992 Mammography MAMMOGRAM [facility] Start: 02-07-1974 DTaP/Tdap/Td Vaccine s (1 - Tdap) DTaP/Tdap/Td Vaccines (1 - Tdap) [facility] Start: 02-07-1971 Urine microalbumin profile DTAP,TDAP,TD (1 - Tdap) [facility] Start: 02-07-1970 Diabetes mellitus screening Diabetes Screening [facility] Start: 02-07-1970 HEPATITIS C SCREENING HEPATITIS C [facility] Start: 02-07-1970 Hepatitis C screening Hepatitis C [facility] Start: 1950 Lipid panel Lipid Panel [facility] Start: 1950 Medicare Annual Well ness Visit Medicare Annual Wellness Visit (AWV) [facility] Start: 1950 Screening for malign ant neoplasm of colon [facility] End: 08-02-2023 Mri brain brain stem w/o contrast material MRI BRAIN WO IVCON Radiology Routine Spasmodic torticollis Bilateral carotid artery stenosis Neck pain Low back pain, non-specific History of tremor Myalgia Pain of left sacroiliac joint Spinal stenosis of cervical region Chronic tension-type headache, not intractable Imbalance 1 Occurrences starting 07/03/2022 until 08/02/2023 [facility] Work Phone: Comment on above: 1 [...] Imbalance 1 Occurrences starting 07/03/2022 until 08/02/2023 [facility] Work Phone: Comment on above: 1 Occurrences starti ng 07/03/2022 until 08/02/2023 Patient Education Surgical Wound (DC) [facility] Work Phone: Patient referral [facility] Work Phone: PT PLAN OF CARE CERTIFICATION PT PLAN OF CARE CERTIFICATION Procedures Routine Neck pain Ordered: 07/17/2022 [facility] Comment on above: Ordered: 07/17/2022 End: 08-02-2023 Radex spine cervical 6 or more views XR CERV OTHER 7V AP/LAT/FLX/EXT/ODON/OBL Radiology Routine Spasmodic torticollis Bilateral carotid artery stenosis Neck pain Low back pain, non-specific History of tremor Myalgia Pain of left sacroiliac joint Spinal stenosis of cervical region Chronic tension-type headache, not intractable Imbalance 1 Occurrences starting 07/03/2022 until 08/02/2023 [facility] Work Phone: Comment on above: 1 Occurrences starti ng 07/03/2022 until 08/02/2023 Radex spine cervical 6 or more views XR CERV OTHER 7V AP/LAT/FLX/EXT/ODON/OBL Radiology Routine Spasmodic torticollis Bilateral carotid artery stenosis Neck pain Low back pain, non-specific History of tremor Myalgia Pain of left sacroiliac joint Spinal stenosis of cervical region Chronic tension-type headache, not intractable Imbalance 07/03/2022 12:05 PM EDT [facility] Work Phone: Tympanoplasty w/o mastoidec 1st/revj prosth torp Ossiculoplasty Perforation of left tympanic membrane [facility] Work Phone: Tympanoplasty w/o mastoidect w/o ossicle recnstj Tympanoplasty Perforation of left tympanic membrane [facility] Work Phone: [facility] Immunizations Immunization Date Immunization Notes Care Provider Lucho boyle 06-18-2022 COVID-19 mRNA-1273 (Moderna) MD Albino Reilly Work Phone: [facility] 10-25-2021 COVID-19 mRNA-1273 (Moderna) MD Albino Reilly Work Phone: [facility] 02-03-2021 COVID-19 mRNA-1273 (Moderna) MD Albino Reilly Work Phone: [facility] 01-06-2021 COVID-19 mRNA-1273 (Moderna) MD Albino Reilly Work Phone: [facility] 10-15-2019 pneumococcal conjuga te vaccine, 13 valent Argentina Lord [employer]IA LIAISON OFF[employer]ER[employer] Work Phone: [facility] Work Phone: 09-21-2016 zoster vaccine, live Bakari Hernandezante [employer] Work Phone: [facility] Work Phone: 10-06-2001 pneumococcal polysaccharide vaccine, 23 valent Argentina Lord MEDIA LIAISON OFF[employer]ER[employer] Work Phone: [facility] Work Phone: Payers Date Payer Category Payer Private Health Insurance AETNA SUPPLEMENTAL AETNA SENIOR SUPPLEMENT [id number] 2023-Present [id number] [place] [address] [id number] 2023 Private Health Insurance [id number] 2022 Self-pay [id number] 2022 Unknown [id number] 2022 Unknown 2021 Unknown [id number] 2017 Medicare [id number] 1959 Medicare [id number] 1959 Unknown [id number] [id number] 1952 Unknown [id number] 2.16.840.1.630926.3.579.2 .593 1952 Unknown [id number] 2.16.840.1.378868.3.579.2 .593 1952 Unknown [id number] 2.16.840.1.740743.3.579.2 .593 1952 Unknown [id number] 2.16.840.1.110103.3.579.2 .1245 1952 Unknown [id number] 2.16.840.1.570094.3.579.2 .1245 1952 Unknown [id number] 2.16.840.1.425400.3.579.2 .1242 1952 Unknown [id number] 2.16.840.1.574175.3.579.2 .1242 1952 Unknown [id number] 2.16.840.1.935798.3.579.2 .1242 1952 Unknown [id number] 2.16.840.1.025056.3.579.2 .1259 1952 Unknown [id number] 2.16.840.1.954685.3.579.2 .1259 1952 Unknown [id number] 2.16.840.1.627140.3.579.2 .1259 1952 Unknown [id number] 2.16.840.1.022264.3.579.2 .1244 1952 Unknown [id number] 2.16.840.1.602303.3.579.2 .1244 1952 Unknown [id number] 2.16.840.1.824843.3.579.2 .1244 1952 Unknown [id number] 2.16.840.1.102888.3.579.2 .1244 Unknown [id number] 2.16.840.1.450934.3.579.2 .531 Unknown [id number] 2.16.840.1.872164.3.579.2 .531 Social History Date Type Detail Facility Sex Assigned At [facility] [employer] Other Start: 07-03-2022 End: 03-09-2024 Tobacco smoking status NHIS Ex-smoker [facility] Start: 11-10-1993 End: 11-10-2013 History of tobacco use Current smoker [facility] Start: 07-03-2022 Tobacco use and exposure Smokeless tobacco non-user [facility] Start: 07-03-2022 End: 03-09-2024 Alcohol intake Current drinker of alcohol (finding) [facility] Start: 1950 Sex Assigned At Not on file [facility] Start: 06-04-2022 End: 03-09-2024 Exposure to SARS-CoV-2 (event) Not sure [facility] Start: 1950 Sex Assigned At Female F [facility] Start: 09-09-2023 Tobacco smoking status VTIS Never smoked tobacco [facility] Start: 09-09-2023 End: 02-10-2024 History of Social function [facility] Work Phone: Start: 09-09-2023 End: 02-10-2024 Tobacco use panel [facility] Work Phone: Start: 11-11-2023 Tobacco smoking status NHIS Occasional tobacco smoker [facility] Work Phone: Start: 11-10-1993 End: 11-10-2013 History of tobacco use Cigarette Smoker [facility] Work Phone: Start: 11-11-2023 Tobacco Comment [facility] Work Phone: Goals Date Patient Goal Desired Activity /State Clinical Notes 07-03-2022 to 03-09-2024 Carlota Cotton [...] postoperatively. - Audiogram in 2-3 months in [place], advised to have results faxed over to us - RTC in 1 year Scribe Attestation: By signing my name below, I, Denice Rader attest that this documentation has been prepared under the direction and in the presence of Carlota Cotton MD. I have reviewed the documentation as scribed by Uzma Rapp and agree with the notes. Carlota Cotton MD documented in this encounter [facility] Work Phone: 03-09-2024 Instructions Uzma Elaine Dionte - 03/09/2024 8:30 AM EDT Welcome to Dr. Cotton's clinic. We are here to assist you through your ENT care at [facility]. Dr. Cotton is an Ear surgeon. This means that she specializes in taking care of patients with complex ear problems. Dr. Cotton's office number is [phone]. While you may see her at a satellite office, she has a team committed to help meet your healthcare needs at [facility]. This number is the most direct way to communicate with the office. Gianna is Dr. Cotton's service secretary and she answers the office phone [...] may include dieticians, social workers, speech therapists, commercial painter, neurologist, and physical therapist. Dr. Cotton will provide these referrals as needed. Please let her know if you would like to request a specific referral. For your convenience, Dr. Cotton sees patients at several [facility] locations including [facility] and [facility] at the main campus of [facility]. While we try to make your appointments [...] have to reschedule. documented in this encounter [facility] Work Phone: 02-10-2024 History of Present [...] procedures in 2014 through an ENT in [place], one operation through her ear canal the [...] drainage. She was given ear drops through [facility], she's unsure if the infection resolved. She [...] Carlota Cotton MD documented in this encounter [facility] Work Phone: 02-10-2024 Instructions Uzma Rapp - 02/10/2024 11:00 AM EDT Welcome to Dr. Cotton's clinic. We are here to assist you through your ENT care at [facility]. Dr. Cotton is an Ear surgeon. This means that she specializes in taking care of patients with complex ear problems. Dr. Cotton's office number is [phone]. While you may see her at a satellite office, she has a team committed to help meet your healthcare needs at [facility]'s main campus. This number is the most direct way to communicate with the office. Gianna is Dr. Cotton's service secretary and she answers the office phone [...] may include dieticians, social workers, speech therapists, commercial painter, neurologist, and physical therapist. Dr. Cotton will provide these referrals as needed. Please let her know if you would like to request a specific referral. For your convenience, Dr. Cotton sees patients at several [facility] locations including [facility] and [facility] at the [facility]. While we try to make your appointments [...] have to reschedule. documented in this encounter [facility] Work Phone: 01-19-2024 Nurse Note 1145: [...] belongings in stable condition. Phase 2 complete. [facility] 01-19-2024 Nurse Note 1145: Handoff received [...] Phase 2 complete. documented in this encounter [facility] Work Phone: 01-19-2024 Hospital Discharge instructions [...] for your care. documented in this encounter [facility] Work Phone: 01-19-2024 Miscellaneous Notes Left Sided Lateral Graft Tympanoplasty; Ossiculoplasty (L) Operative Note Date: 01/19/2024 OR Location: [facility] OR Name: Kerri Champagne, : 1950, Age: 73 y.o., , Sex: female Diagnosis Pre-op Diagnosis * Perforation of left tympanic membrane [H72.92] Post-op Diagnosis * Perforation of left tympanic membrane [H72.92] Procedures Left Sided Lateral Graft Tympanoplasty; Ossiculoplasty 87228 - VT TYMPANOPLASTY W/O MASTOIDECT W/O OSSICLE RECNSTJ Left Sided Lateral Graft Tympanoplasty; Ossiculoplasty 95231 - VT TYMPANOPLASTY W/O MASTOIDEC 1ST/REVJ PROSTH TORP VT SPLIT AGRFT F/S/N/H/F/G/M/D GT 1ST 100 CM/</1 % [76511] Surgeons * Carlota Cotton - Primary Resident/Fellow/Other Jeeper Operator: Surgeon(s) and Role: Procedure Summary Anesthesia: General [...] 0 mL Specimen: No specimens collected Staff: Cloth Spreader: Elaina Marie RN Relief Cloth Spreader: Lin Stroud RN Relief Scrub: Kisha Jauregui [...] procedure. Carlota Cotton documented in this encounter [facility] Work Phone: 01-19-2024 Note Formatting of this n ote is different from the original. Left Sided Lateral Graft Tympanoplasty; Ossiculoplasty (L) Operative Note Date: 01/19/2024 OR Location: [facility] OR Name: Kerri Champagne, : 1950, Age: 73 y.o., , Sex: female Diagnosis Pre-op Diagnosis * Perforation of left tympanic membrane [H72.92] Post-op Diagnosis * Perforation of left tympanic membrane [H72.92] Procedures Left Sided Lateral Graft Tympanoplasty; Ossiculoplasty 71824 - VT TYMPANOPLASTY W/O MASTOIDECT W/O OSSICLE RECNSTJ Left Sided Lateral Graft Tympanoplasty; Ossiculoplasty 50665 - VT TYMPANOPLASTY W/O MASTOIDEC /REVJ PROSTH TORP VT SPLIT AGRFT F/S/N/H/F/G/M/D GT 1ST 100 CM/Surgeons * Carlota Cotton - Primary Resident/Fellow/Other Jeeper Operator: Surgeon(s) and Role: Procedure Summary Anesthesia: General [...] 0 mL Specimen: No specimens collected Staff: Cloth Spreader: Elaina Marie RN Relief Cloth Spreader: Lin Stroud RN Relief Scrub: Kisha Jauregui [...] scrubbed for the entire procedure. Carlota Cotton [facility] Work Phone: 01-19-2024 Attending History and physical note H&P reviewed. The patient was examined and there are no changes to the H&P. Source Note - Sally Wynne PA-C - 01/12/2024 10:30 AM EST [facility] Evaluation Name: Kerri Champagne (Kerri Champagne) /Age: 302/08/1950/73 y.o. Date of Consult: 01/12/24 Referring Provider: Dr. Cotton Surgery, Date, and Length: Left Sided Lateral Graft Tympanoplasty; Possible Ossiculoplasty; Postauricualr Skin Graft - Left Ossiculoplasty(psb) - Right , 01/19/24, 180MIN Kerri Champagne is a 73 year-old female who presents to the [facility] for perioperative risk assessment prior to surgery. Patient presents with a primary diagnosis of left TM perforation for many years. She had 2 procedures in 2014 through an ENT in [place], one operation through her ear canal the [...] blood transfusions The patient is not a Gnosticist and will accept blood and blood products if medically indicated. Type and screen NOT sent. 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 Family History Problem Relation Name Age of Onset Colon cancer Mother 65 Skin cancer Father Diabetes Sister No Known Problems Maternal Grandmother lived to 103 Social History Socioeconomic History Marital status: Single [...] have been detected in a speech recognition. [facility] Work Phone: 01-19-2024 History and physical [...] 73 year-old female who presents to the [facility] for perioperative risk assessment prior to surgery. Patient presents with a primary diagnosis of left TM perforation for many years. She had 2 procedures in 2014 through an ENT in [place], one operation through her ear canal the [...] blood transfusions The patient is not a Gnosticist and will accept blood and blood products if medically indicated. Type and screen NOT sent. 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 Family History Problem Relation Name Age of Onset Colon cancer Mother 65 Skin cancer Father Diabetes Sister No Known Problems Maternal Grandmother lived to [facility] Social History Socioeconomic History Marital status: Single [...] Historical Provider, cholecalciferol (Vitamin D3) 50 MCG (1999 [place]) tablet Take 1 tablet (50 mcg) [...] a speech recognition. documented in this encounter [facility] Work Phone: 11-11-2023 History of Present illness Narrative History Of Present Illness: Kerri Champagne is a 73 y.o. female whom presents to me as a new patient for left-sided TM perforation and COM, referred here today by Argentina Lord CNP. She's had a left-sided TM perforation for many years. She had 2 procedures in 2015 through an ENT in [place], one operation through her ear canal the [...] drainage. She was given ear drops through [facility], she's unsure if the infection resolved. She [...] Carlota Cotton MD documented in this encounter [facility] Work Phone: 11-11-2023 Instructions Uzma Rapp - 11/11/2023 11:30 AM EST Welcome to Dr. Cotton's clinic. We are here to assist you through your ENT care at [facility]. Dr. Cotton is an Ear surgeon. This means that she specializes in taking care of patients with complex ear problems. Dr. Cotton's office number is [phone]. While you may see her at a satellite office, she has a team committed to help meet your healthcare needs at [facility]'s main campus. This number is the most direct way to communicate with the office. Gianna is Dr. Cotton's service secretary and she answers the office phone [...] may include dieticians, social workers, speech therapists, commercial painter, neurologist, and physical therapist. Dr. Cotton will provide these referrals as needed. Please let her know if you would like to request a specific referral. For your convenience, Dr. Cotton sees patients at several [facility] locations including [facility] and [facility] at the main campus [facility]. While we try to make your appointments [...] have to reschedule. documented in this encounter [facility] Work Phone: 09-09-2023 History of Present [...] was done initially by Dr. Lopez in [place], [place] approximately 7-8 years ago and ended [...] accommodations but is willing to drive to cream dumper that is available. -Follow-up: Patient will follow-up with otology physician. She may follow up with me as needed. All questions answered to patient's satisfaction. documented in this encounter [facility] Work Phone: 09-09-2023 Instructions [facility] Cho [...] Vaseline using dry clean cloth. Then, use occupational therapy department chair on warm or cool air and hold it out 12 inches away from the affected ear and air dry ears for 30 seconds. documented in this encounter [facility] Work Phone: 11-25-2022 Note HNO ID: [id number] Author: Amos Wisdom MD Service: ? Author Type: Physician Type: Progress Notes Filed: 11/25/2022 3:23 PM Note Text: Summary: BTX for cervical dystonia [facility] for Neurological Cheondoism Movement Disorders Neurotoxin Visit Date: November 25, [...] Pain Management OT/PT/Speech Visit from 07/31/2022 in [facility] Physical Therapy [facility] T [...] guidance: Yes Injection Site: Cervical dystonia: CPT 92230 Left Right Sternocleidomastoid 25 Splenius capitus 25 50 Scalene Levator Scapulae Trapezius Semispinalis (Other) Lot#: [id number] Exp Date Future plan of care: Follow up: 3 months Neurotoxin change: No Dose change: Yes New Dose: 200 Reason(s) for changing neurotoxin type of dose: if this does not work Sent staff message to nursing related to any changes: Yes Amos Wisdom MD November 25, 2022 3:13 PM Dept of NEUROLOGY TIME OUT/ PROCEDURE NOTE: Informed consent Kerri Champagne Medical Record: [id number] Procedure: neurotoxin intramuscular injection The risks, benefits [...] Wisdom MD November 25, 2022 3:13 PM [place] protocol/ safety checklist Sign in communication: Completed Time out:Team confirms the correct Patient, correct procedure, correct site and site marking, correct neurotoxin type, correct dose and correct dilution. Affirmation of time out: N/A Sign out discussion: Completed Amos Wisdom MD [facility] 11-25-2022 History of Present illness Narrative Summary: BTX for cervical dystonia Images from the original note were not included. [facility] for Neurological Cheondoism Movement Disorders Neurotoxin Visit Date: November 25, [...] Pain Management OT/PT/Speech Visit from 07/31/2022 in [facility] Physical Therapy [facility] T [...] guidance: Yes Injection Site: Cervical dystonia: CPT 33580 Left Right Sternocleidomastoid 25 Splenius capitus 25 50 Scalene Levator Scapulae Trapezius Semispinalis (Other) Lot#: [id number] Exp Date Future plan of care: Follow up: 3 months Neurotoxin change: No Dose change: Yes New Dose: 200 Reason(s) for changing neurotoxin type of dose: if this does not work Sent staff message to nursing related to any changes: Yes Amos Wisdom MD November 25, 2022 3:13 PM Dept of NEUROLOGY TIME OUT/ PROCEDURE NOTE: Informed consent Kerri Champagne Medical Record: [id number] Procedure: neurotoxin intramuscular injection The risks, benefits [...] Wisdom MD November 25, 2022 3:13 PM [place] protocol/ safety checklist Sign in communication: Completed Time out:Team confirms the correct Patient, correct procedure, correct site and site marking, correct neurotoxin type, correct dose and correct dilution. Affirmation of time out: N/A Sign out discussion: Completed Amos Wisdom MD documented in this encounter [facility] 11-13-2022 Note HNO ID: [id number] Author: Kerri Moreno PA-C Service: ? Author Type: Physician Jeeper Operator Type: Progress Notes Filed: 11/13/2022 11:24 AM [...] supervised home exercise program (HEP): No 5. Tungsten Refiner: No Passive conservative therapy lasting 6 weeks in the last six months (see below) 1. Medical devises: No 2. Acupuncture: No 3. Tens unit: No 4. Prescription pain medication: No 5. NSAIDS: [place]: Gregoria HillaryTIFFANY anand Date: November 13, 2022 The subjective information: [...] as appropriate. Monserrat (more content not included)... [facility] 11-13-2022 Instructions Kerri Moreno PA-C - 11/13/2022 10:16 AM EST PLAN: 1) Continue Methocarbamol 500 mg three times a day #90 - refill x 5 2) RTC 6 months or sooner if needed. documented in this encounter [facility] 11-13-2022 History of Present illness [...] (see below) 1. Physical therapy: Yes: Where: [facility] , Date Started: 07/17/22, Date Ended: 08/14/22 2. Home exercise program after PT: yes 3. Occupational therapy: No 4. A physician supervised home exercise program (HEP): No 5. Tungsten Refiner: No Passive conservative therapy lasting 6 weeks in the last six months (see below) 1. Medical devises: No 2. Acupuncture: No 3. Tens unit: No 4. Prescription pain medication: No 5. NSAIDS: [place]: Gregoria Villalta MA Date: November 13, 2022 [...] November 13, 2022 documented in this encounter [facility] 10-14-2022 Note HNO ID: [id number] Author: Avani Rodríguez MD Service: ? Author Type: Physician Type: Progress Notes Filed: 10/17/2022 11:10 AM Note Text: [facility] Pain Management Department Office Visit [...] Current anticoagulation: None Occupation: Retired [employer] M [employer], [place] October 14, 2022 Attestation: The above information was explored in detail with the patient and edited as needed and is complete. Avani Rodríguez MD October 14, 2022 HISTORY OF PRESENT ILLNESS Kerri Champagne presents to [facility] for the evaluation [...] clearly evaluated relat (more content not included)... [facility] 09-18-2022 Note HNO ID: [id number] Author: Amos Wisdom MD Service: ? Author Type: Physician Type: Progress Notes Filed: 09/18/2022 10:44 AM Note Text: Summary: cervical dystonia and neck pain [facility] - NEW PATIENT EVALUATION No referring provider defined for this encounter. 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 [facility] 08-14-2022 Note HNO ID: [id number] Author: Remi Escamilla, PT Service: ? Author [...] treatment included: Therapeutic exercise, Manual therapy, and Self-skilled nursing management. Patient was given updated Home Exercise Program and will continue to complete them at home. Patient was educated that they are able to contact the office with any questions they may have. Goals for Episode of Care: created on 07/17/22 through 09/11/22; updated: 08/14/22 [place] in home exercise program. (MET) Patient will [...] cervical retractions 2x10 3: seated UT stretch [id number] 4: seated levator stretch 9w24rigx 5: scapular retractions 2x10 6: SNAG 2x10 [...] Time Minutes (timed/untimed): 42 Remi Escamilla PT [facility] 08-14-2022 History of Present illness Narrative Episode [...] treatment included: Therapeutic exercise, Manual therapy, and Self-skilled nursing management. Patient was given updated Home Exercise Program and will continue to complete them at home. Patient was educated that they are able to contact the office with any questions they may have. Goals for Episode of Care: created on 07/17/22 through 09/11/22; updated: 08/14/22 [place] in home exercise program. (MET) Patient will [...] cervical retractions 2x10 3: seated UT stretch [id number] 4: seated levator stretch [id number] 5: scapular retractions 2x10 6: SNAG 2x10 [...] Remi Escamilla PT documented in this encounter [facility] 08-07-2022 Note HNO ID: [id number] Author: Meredith Hollis PTA Service: ? Author Type: Manufacturing Technologist Type: Progress Notes Filed: 08/07/2022 10:28 AM [...] retractions x15 2: seated upper trap stretch [id number] 3: seated levator stretch 4v31rldq 4: scapular retraction x20 5: *cervical isometrics [...] Time Minutes (timed/untimed): 40 Meredith Hollis PTA [facility] 08-07-2022 History of Present illness Narrative Episode [...] retractions x15 2: seated upper trap stretch 2r48xvlb 3: seated levator stretch 3l31cmwm 4: scapular retraction x20 5: *cervical isometrics [...] Meredith Hollis PTA documented in this encounter [facility] 07-31-2022 Note HNO ID: [id number] Author: Meredith Hollis PTA Service: ? Author Type: Manufacturing Technologist Type: Progress Notes Filed: 07/31/2022 10:24 AM [...] retractions x10 2: seated upper trap stretch 7x22zxgd 3: seated levator stretch 4l90mklf (no overpressure) 4: *scapular retraction x20 5: [...] Time Minutes (timed/untimed): 41 Meredith Hollis PTA [facility] 07-31-2022 History of Present illness Narrative Episode Visit Count: 2 Therapist That Will Accept/Oversee The Plan Of Care: Remi Escamilla Start of Care Date: 07/17/22 Onset Date: 07/25/21 Plan of Care Certification Date: 07/17/22 Next Certification Due Date: 10/15/22 [facility] PHYSICAL THERAPY TREATMENT NOTE ASSESSMENT: Kerri Champange tolerated the session with expected muscle soreness. [...] retractions x10 2: seated upper trap stretch 9h73enmy 3: seated levator stretch 4y69jxcd (no overpressure) 4: *scapular retraction x20 5: [...] Meredith Hollis PTA documented in this encounter [facility] 07-17-2022 Note HNO ID: [id number] Author: Remi Escamilla, PT Service: ? Author Type: Physical Therapist Type: Progress Notes Filed: 07/17/2022 11:55 AM Note Text: Episode Visit Count: 1 Therapist That Will Oversee The Plan Of Care: Rmei Escamilla Start of Care Date: 07/17/22 Onset [...] of Care: created on 07/17/22 through 09/11/22 [place] in home exercise program. Patient will decrease [...] Planned: 48 Planned Treatment Interventions: Therapeutic exercise (10227);Neuromuscular re-education (39980);Manual therapy (99016);Therapeutic activities (22296);Self-skilled nursing management (97515);Patient/Family/Caregiver Education;Body Mechanics Training PLAN FOR NEXT VISIT: [...] 07/02/2022 07/16/2022 Phys (more content not included)... [facility] 07-17-2022 History of Present illness Narrative Episode [...] of Care: created on 07/17/22 through 09/11/22 [place] in home exercise program. Patient will decrease [...] Planned: 48 Planned Treatment Interventions: Therapeutic exercise (93693);Neuromuscular re-education (54854);Manual therapy (90680);Therapeutic activities (82242);Self-skilled nursing management (23215);Patient/Family/Caregiver Education;Body Mechanics Training PLAN FOR NEXT VISIT: [...] Thumb Extension (C8): 5/5 Hand Strength R Photovoltaic Solar Cell Designer Position 2 (lbs): 49 lbs L Photovoltaic Solar Cell Designer Position 2 (lbs): 45 lbs Special Tests [...] States/Identifies;Return Demonstration TREATMENT: PT Treatment Interventions: Therapeutic Exercise;Self-Correction Management Evaluation Therapeutic Exercise: 1: seated cervical retractions 2x10 2: seated upper trap stretch 0f81mnkr 3: seated levator stretch 3d94wwjm 4: seated thoracic extension 2x10 Skilled Intervention: Patient was educated in proper exercise technique and purpose for exercises. Skilled judgment was provided in selection of appropriate interventions. Self-Correction Management: 1: education on POC and HEP Skilled Intervention: Skilled judgment in the selection of proper modification for activity of daily living/home management based on clinical presentation, deficits, and needs. Billing * Evaluation Low Complexity: 1 Unit Therapeutic Exercise Treatment Minutes: 14 Self-Care/Home Management Treatment Minutes: 1 Total Treatment Time Minutes (timed/untimed): 41 Remi Escamilla PT documented in this encounter [facility] 07-09-2022 Note HNO ID: [id number] Author: Yonathan Cazares PA-C Service: ? Author Type: Physician Jeeper Operator Type: Progress Notes Filed: 08/13/2022 1:58 PM Note Text: VIRTUAL VISIT PROGRESS NOTE This is a virtual visit using Hiphunters video visit. It required patient-provider interaction for [...] on the d (more content not included)... [facility] 07-09-2022 History of Present illness Narrative VIRTUAL VISIT PROGRESS NOTE This is a virtual visit using Hiphunters video visit. It required patient-provider interaction for [...] the date of the service which included qdds-gw-nglh patient care, completing clinical documentation, obtaining and/or [...] persists, has new or progressive neurological issues. Yonathan Cazares MPAS, PA-C [facility] [address] [place] [address], [address] [place] [address] Yonathan Cazares PA-C documented in this encounter [facility] 07-03-2022 Note HNO ID: [id number] Author: RT Jaleesa(R) Service: ? Author Type: [...] RT Jaleesa(R) July 03, 2022 12:04 PM [facility] 07-03-2022 Note HNO ID: [id number] Author: Yonathan Cazares PA-C Service: ? Author Type: Physician Jeeper Operator Type: Progress Notes Filed: 07/03/2022 11:43 AM [...] fluticasone (FLONASE) 50 mcg/actuation nasal sprayUse 1 [place]illar in each nostril once daily.Disp: Rfl: ofloxacin (FLOXIN) 0.3 % otic solutionUse 5 Drops in both ears once daily.Disp: Rfl: FLUoxetine (PROZAC) 10 mg capsuleTake 10 mg by mouth once daily.Disp: Rfl: axfkaabv-wfhb-lzeh-FA-K-hb#244 18-400-80 mg-mcg-mcg tabTake by mouth once daily.Disp: [...] recent MRSA infe (more content not included)... [facility] 07-03-2022 History of Present illness Narrative Images [...] fluticasone (FLONASE) 50 mcg/actuation nasal spray^Use 1 [place] Pillar in each nostril once daily.^Disp: ^Rfl: ofloxacin (FLOXIN) 0.3 % otic solution^Use 5 Drops in both ears once daily.^Disp: ^Rfl: FLUoxetine (PROZAC) 10 mg capsule^Take 10 mg by mouth once daily.^Disp: ^Rfl: aaijulkm-xqib-eoea-FA-K-hb#244 18-400-80 mg-mcg-mcg tab^Take by mouth once daily.^Disp: [...] pain today. Pt has had PT in [place] last year for her complaints. Pt seen in [place] at a wellness clinic with a chiropractor [...] Interested in B[facility] again in future at [facility]. Lives in [facility] is an easier drive in future? [...] the date of the service which included xumz-ad-zqpb patient care, completing clinical documentation, obtaining and/or [...] will be forwarded to consulting/requesting physician. EMMANUEL Weiss, DALE [facility] [address] [place] [address], [address] [place] [address] documented in this encounter [facility] Evaluation note [facility] Other Evaluation note Diagnosis Spasmodic torticollis- Primary [...] Abnormality of gait documented [facility] Diagnosis Neck pain- Primary Cervicalgia Spasmodic [...] Abnormality of gait [facility] Diagnosis Spasmodic torticollis- Primary Neck pain Cervicalgia [facility] Diagnosis Spasmodic torticollis- Primary Neck pain [...] spondylosis without myelopathy [facility] Diagnosis Neck pain- Primary Cervicalgia [facility] Diagnosis Radiculopathy, cervical region- Primary Brachial neuritis or radiculitis nos Cervical spondylosis without myelopathy Spasmodic torticollis Imbalance Abnormality of gait Neck pain Cervicalgia Spinal stenosis of cervical region Spinal stenosis in cervical region [facility] Diagnosis Cervical dystonia- Primary Spasmodic torticollis Cervicalgia [facility] Diagnosis Cervical dystonia- Primary Spasmodic torticollis documented [facility] noteNo assessment information availableDayton Osteopathic [facility] Work Phone: Evaluation note* Diagnosis Perforation of left tympanic membrane- Primary Left chronic serous otitis media Simple or unspecified chronic serous otitis media Bilateral impacted cerumen Impacted cerumen Sensation of plugged ear, bilateral Hearing difficulty of left ear Otalgia of left ear documented in this encounter [facility] Work Phone: Evaluation note* Diagnosis Mixed conductive and sensorineural hearing loss of left ear with restricted hearing of right ear- Primary Perforation of left tympanic membrane documented in this encounter [facility] Work Phone: Evaluation note* Diagnosis Perforation of left tympanic membrane- Primary Perforation of left tympanic membrane 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 Gastroesophageal reflux disease Esophageal reflux documented in this encounter [facility] Work Phone: Evaluation note* Diagnosis Postoperative visit- Primary 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 [facility] [address] Work Phone: History of Present illness [...] that I personally reviewed with the patient. [facility] Work Phone: Hospital Discharge instructions Additional [...] in an emergency, call the office at [[phone]]. TODAY -Take it easy the rest of [...] told otherwise. DIET -Any diet is permissible [facility] Work Phone: Reason for referral (narrative)* - Authorized Specialty Diagnoses / Procedures Referred By Don leon Referred To Contact Physical Therapy Diagnoses Spasmodic torticollis Bilateral carotid artery stenosis Neck pain Low back pain, non-specific History of tremor Myalgia Pain of left sacroiliac joint Spinal stenosis of cervical region Chronic tension-type headache, not intractable Imbalance Procedures CONSULT [place] [address] [place] [address] Referral ID Status Reason Start Date Expiration Date V isits Requested Visits Authorized [id number] Authorized 07/03/2022 10/01/2022 99 99 * Consult, Test, Treat (Routine) - Authorized Specialty Diagnoses / Procedures Referred By Contac t Referred To Contact Neurology Diagnoses Spasmodic torticollis Neck pain History of tremor Myalgia Pain of left sacroiliac joint Spinal stenosis of cervical region Chronic tension-type headache, not intractable Imbalance Procedures CONSULT TO NEUROLOGY OFFICE/OUTPATIENT [facility] 60-74 MINUTES Yonathan Cazares PA-C [address] [facility] [address] [place] [address] Referral ID Status Reason Start Date Expiration Date Visits Requested Visits Authorized [id number] Authorized PCP Requested Referral 07/03/2022 07/03/2023 1 1 * MRI/CT (Routine) - Authorized Specialty Diagnoses / Procedures Referred By Don t Referred To Contact MR IMAGING Diagnoses Spasmodic torticollis Bilateral carotid artery stenosis Neck pain Low back pain, non-specific History of tremor Myalgia Pain of left sacroiliac joint Spinal stenosis of cervical region Chronic tension-type headache, not intractable Imbalance Procedures MRI BRAIN WO IVCON MRI BRAIN BRAIN STEM W/O CONTRAST MATERIAL Yonathan Cazares PA-C [address] [facility] [address] [place] [address] Mr Imaging Referral ID Status Reason Start Date Expiration Date Visits Requested Visits Authorized [id number] Authorized Auto-Generat ed Referral 07/03/2022 08/02/2023 1 1 * MRI/CT (Routine) - Authorized Specialty Diagnoses / Procedures [facility] Referred To Contact MR IMAGING Diagnoses Spasmodic torticollis Bilateral carotid artery stenosis Neck pain Low back pain, non-specific History of tremor Myalgia Pain of left sacroiliac joint Spinal stenosis of cervical region Chronic tension-type headache, not intractable Imbalance Procedures MRI CERVICAL SPINE WO IVCON MRI SPINAL CANAL CERVICAL W/O CONTRAST MATRL Yonathan Cazares PA-C [address] [facility] [address] [place] [address] Mr Imaging Referral ID Status Reason Start Date Expiration Date Visits Requested Visits Authorized [id number] Authorized Auto-Generat ed Referral 07/03/2022 08/02/2023 1 [...] 6 OR MORE VIEWS Yonathan Cazares PA-C [address] [address] Xr Imaging Referral ID Status Reason Start Date Expiration Date V isits Requested Visits Authorized [id number] Closed Auto-Generate d Referral 07/03/2022 08/02/2023 1 [...] PELVIS 1/2 VIEWS Yonathan Cazares PA-C [address] [address] Xr Imaging Referral ID Status Reason Start Date Expiration Date V isits Requested Visits Authorized [id number] Closed Auto-Generate d Referral 07/03/2022 08/02/2023 1 1 * Diagnostic Procedure Only (Routine) - Closed Specialty Diagnoses / Procedures Referred By Paragac t Referred To Contact XR IMAGING Diagnoses Spasmodic torticollis Bilateral carotid artery stenosis Neck pain Low back pain, non-specific History of tremor Myalgia Pain of left sacroiliac joint Spinal stenosis of cervical region Chronic tension-type headache, not intractable Imbalance Procedures XR LUMBAR GENERAL 3V AP/LAT/L5-S1 RADEX SPINE LUMBOSACRAL 2/3 VIEWS Yonathan Cazares PA-C [address] [place] [address] Xr Imaging Referral ID Status Reason Start Date Expiration Date V isits Requested Visits Authorized [id number] Closed Auto-Generate d Referral 07/03/2022 08/02/2023 1 1 [facility] for referral (narrative)* Consultation (Routine) - Pending Review Specialty Diagnoses / Procedures Referred By Don leon Referred To Contact Otolaryngology Diagnoses Perforation of left tympanic membrane Left chronic serous otitis media [place] Lord APRN-LIDYA [address] [facility] [place] [address] Carlota Cotton MD [address] [facility] [address] [place] [address] Referral ID Status Reason Start Date Expiration Date Visits Requested Visits Authorized [id number] Pending Review Specialty Services Required 09/08/2024 1 1 Scheduling Instructions Schedule audiogram prior to appointment. * Medications - Pending Review Specialty Diagnoses / Procedures Referred By Don t Referred To Contact Diagnoses Perforation of left tympanic membrane Left chronic serous otitis media [place] Lord, SAMM [address] 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, bilateral Procedures [place] [address] [place] [address] Referral ID Status Reason Start Date Expiration Date V isits Requested Visits Authorized [id number] Pending Review 03/09/2024 03/09/2025 1 1 Additional Source Comments Source Comments (unrecognize d section and content) In the event this informatio n is protected by the Federal Confidentiality of Alcohol and Drug Abuse Patient Records regulations: The Federal rules restrict any use of the information to criminally investigate or prosecute any alcohol or drug abuse patient.[facility] the event this information is protected by the Federal Confidentiality of Alcohol and Drug Abuse Patient Records regulations: The Federal rules restrict any use of the information to criminally investigate or prosecute any alcohol or drug abuse patient.[facility] Center[facility] the event this information is protected by the Federal Confidentiality of Alcohol and Drug Abuse Patient Records regulations: The Federal rules restrict any use of the information to criminally investigate or prosecute any alcohol or drug abuse patient.[facility] Center[facility] the event this information is protected by the Federal Confidentiality of Alcohol and Drug Abuse Patient Records regulations: The Federal rules restrict any use of the information to criminally investigate or prosecute any alcohol or drug abuse patient.[facility] Center[facility] the event this information is protected by the Federal Confidentiality of Alcohol and Drug Abuse Patient Records regulations: The Federal rules restrict any use of the information to criminally investigate or prosecute any alcohol or drug abuse patient.[facility] Center[facility] the event this information is protected by the Federal Confidentiality of Alcohol and Drug Abuse Patient Records regulations: The Federal rules restrict any use of the information to criminally investigate or prosecute any alcohol or drug abuse patient.[facility] Center[facility] the event this information is protected by the Federal Confidentiality of Alcohol and Drug Abuse Patient Records regulations: The Federal rules restrict any use of the information to criminally investigate or prosecute any alcohol or drug abuse patient.[facility] Center[facility] the event this information is protected by the Federal Confidentiality of Alcohol and Drug Abuse Patient Records regulations: The Federal rules restrict any use of the information to criminally investigate or prosecute any alcohol or drug abuse patient.[facility] Center[facility] the event this information is protected by the Federal Confidentiality of Alcohol and Drug Abuse Patient Records regulations: The Federal rules restrict any use of the information to criminally investigate or prosecute any alcohol or drug abuse patient.[facility] Reason for Visit (unrecogniz ed [...] CONS[place] [address] [place] [address] Pt [facility] [address] [address] Referral ID Status Reason Start Date Expiration Date V isits Requested Visits Authorized [id number] Authorized 07/03/2022 10/01/2022 99 99 Reason Comments [...] Perforation of left tympanic membrane [H72.92] Procedures VT TYMPANOPLASTY W/O MASTOIDECT W/O OSSICLE RECNSTJ VT TYMPANOPLASTY W/O MASTOIDEC 1ST/REVJ PROSTH TORP VT SPLIT AGRFT F/S/N/H/F/G/M/D GT 1ST 100 CM/</1 % Left Sided Lateral Graft Tympanoplasty; Possible Ossiculoplasty; Postauricualr Skin Graft Left Sided Lateral Graft Tympanoplasty; Possible Ossiculoplasty; [place] [address] [place] [address] [facility] [address] [place] [address] Referral ID Status Reason Start Date Expiration Date Visits Re quested Visits Authorized [id number] 1 Reason Comments Follow-up Packing removal and check left ear Reason Comments Follow-up Care Teams (unrecognized sec tion and content) Electrical Transmission Engineer Relationship Specialty Start Date End Date Luis Enrique Wood, DO [address] [place] [address] PCP - General Family Practice 05/06/18 Electrical Transmission Engineer Relationship Specialty Start Date End Date Nahedashkan Luis Enrique Owens, DO [address] [place] [address] PCP - General Family Practice 05/06/18 Electrical Transmission Engineer Relationship Specialty Start Date End Date Nahedashkan Luis Enrique Owens, DO [address] [place] [address] PCP - General Family Medicine 05/06/18 Electrical Transmission Engineer Relationship Specialty Start Date End Date Nahedashkan Luis Enrique Owens, DO [address] [place] [address] PCP - General Family Medicine 05/06/18 Electrical Transmission Engineer Relationship Specialty Start Date End Date [place] Luis Enrique Owens, DO [address] [place] [address] PCP - General Family Medicine 05/06/18 Electrical Transmission Engineer Relationship Specialty Start Date End Date Luis Enrique Wood, DO [address] [place] [address] PCP - General Family Medicine 05/06/18 Electrical Transmission Engineer Relationship Specialty Start Date End Date Luis Enrique Wood, DO [address] [place] [address] PCP - General Family Medicine 05/06/18 Electrical Transmission Engineer Relationship Specialty Start Date End Date Luis Enrique Wood, DO [address] [place] [address] PCP - General Family Medicine 05/06/18 Team Status: Inactive Member Role Status Dates Pancho Estrada DO Attending Provider Active Albino Reilly MD Primary Care Provider Active Team Status: Active Member Role Status Dates Albino Reilly MD Primary Care Provider Active Electrical Transmission Engineer Relationship Specialty Start Date End Date Generic Provider, No Assigned [facility] [address] [place] [address] PCP - General 01/19/24 Electrical Transmission Engineer Relationship Specialty Start Date End Date Generic Provider, [place] [address] PCP - General 01/19/24 Electrical Transmission Engineer Relationship Specialty Start Date End Date Generic Provider, No [place] [address] PCP - General 01/19/24 INFORMATION SOURCE (unrecogn ized section and content) DATE CREATED AUTHOR 11/18/2022 [email or web address] DATE CREATED AUTHOR AUTHOR'S ORGANIZ ATION 11/26/2022 [facility] DATE CREATED AUTHOR AUTHOR'S ORGANIZ ATION 12/30/2022 [facility] DATE CREATED AUTHOR AUTHOR'S ORGANIZ ATION 01/11/2023 [facility] DATE CREATED AUTHOR AUTHOR'S ORGANIZ ATION 01/14/2023 [facility] DATE CREATED AUTHOR AUTHOR'S ORGANIZ ATION 01/17/2024 [facility] DATE CREATED AUTHOR AUTHOR'S ORGANIZ ATION 01/19/2024 [facility] DATE CREATED AUTHOR AUTHOR'S ORGANIZ ATION 02/25/2024 [facility] DATE CREATED AUTHOR AUTHOR'S ORGANIZ ATION 03/16/2024 [facility] (unrecognized section and content) [...] BE BASED ON THE PRIMARY CLINICAL RECORDS. [employer] [facility]. provides no warranty or guarantee of the accuracy or completeness of information in this document.
== END 2024-04-29 09:45 | disposition home or self-care (01) ==
LOC: EC 09:44
PROVIDERS: PCP Nurse Practitioner Family; Visit Provider Physician Assistant
DX: M79.672 Pain in left foot (principal); S92.515D Nondisplaced fracture of proximal phalanx of left lesser toe(s), subsequent encounter for fracture with routine healing
CPT/HCPCS: 73630

== ENCOUNTER 2024-09-29 07:32 | Outpatient (OUT) | payer MEDICARE, SELFPAY ==
--- OUTSIDE RECORDS SUMMARY | 2024-09-29 07:39 | XMS_ITS | CCD ---
Author Organization [facility] Care Team Providers Care Ice Seller Name Role Phone Gregoria Hamlin Unavailable Luis Enrique Wood DO Primary Care Provider [phone] Luis Enrique Wood DO Primary Care Provider [phone] Luis Enrique Wood DO Primary Care Provider [phone] None, No PCP Unavailable Unavailable Unavailable Unavailable WISDOM, AMOS Attending Unavailable ARTIS, AMOS Referring Unavailable LUIS ENRIQUE WOOD Primary Care Unavailable ARTIS, AMOS Attending Unavailable LUIS ENRIQUE WOOD Primary Care Unavailable YONATHAN CAZARES Referring Unavailable LUIS ENRIQUE WOOD Primary Care Unavailable ViscDO Will baugh Attending Provider [phone] MD Albino Reilly Primary Care Provider Will Cornelius Admitting Unavailable Albino Reilly Primary Care Unavailable Adryan, Will Attending Unavailable Albino Reilly Primary Care Unavailable Will Cornelius Attending Unavailable Will Cornelius Admitting Unavailable LUIS ENRIQUE WOOD Primary Care Unavailable KERRI MORENO Attending Unavailable LUIS ENRIQUE WOOD Primary Care Unavailable AVANI RODRÍGUEZ Attending Unavailable WISDOM, AMOS Referring Unavailable LUIS ENRIQUE WOOD Primary Care Unavailable YONATHAN CAZARES Attending Unavailable YONATHAN CAZARES Referring Unavailable LUIS ENRIQUE WOOD G Primary Care Unavailable YONATHAN CAZARES Referring Unavailable EILEEN DOHOSH A Referring Unavailable LUIS ENRIQUE WOOD Primary Care Unavailable DONTA DO Referring Unavailable LUIS ENRIQUE WOOD Primary Care Unavailable ERNESTINA DONTA A Referring Unavailable LUIS ENRIQUE WOOD Primary Care Unavailable LUIS ENRIQUE WOOD G Primary Care Unavailable ERNESTINA, DONTA A Referring Unavailable LUIS ENRIQUE WOOD Primary [...] Unavailable Unavailable Primary Care Provider Unavailabl e EISEMAN, TU A Referring Unavailable EISEMAN, TU A Primary Care Unavailable Generic Provider MD, No Assigned Pcp Primary Car e Provider Unavailable LULA, CARLOTA E Admitting Unavailable LULA, CARLOTA E Attending Unavailable LULA, CARLOTA E Referring Unavailable SALLY WYNNE Attending Unavailable Generic Provider MD, No Assigned Pcp Primary Car e Provider Unavailable ARGENTINA LORD Attending Unavailabl e LULA, CARLOTA E Attending Unavailable LULA, CARLOTA E Attending Unavailable GENERIC PROVIDER, NO ASSIGNED PCP Primary Care Unavailable LULA, CARLOTA E Attending Unavailable GENERIC PROVIDER, NO ASSIGNED PCP Primary Care Unavailable Luis Enrique Wood DO Primary Care Provider [phone] Jez ADAN, David Flores Primary Care Provider INES OWENS Attending Unavailab INES Spencer Referring Unavailab INES Spencer Attending Unavailab INES Spencer Attending Unavailab ANASTASIIA García Attending Unavailable INES OWENS Attending Unavailab WILL Avalos Attending Unavailable INES OWENS Attending Unavailab le Allergies Allergy Classification Reported Allergen(s) Allergy Type Date of Onset Reaction(s) Facility (20 sources) Prochlorperazine; Translations: [Compazine] Drug Allergy 5 Other: See Comments, Unknown, Seizure, Other [facility] (1 source) Prochlorperazine Drug Allergy 3 [facility] (7 sources) atorvastatin; Translations: [ATORVASTATIN] Drug Allergy 4 [facility] (2 sources) atorvastatin Drug Allergy 4 GI intolerance, Unknown [facility] (2 sources) HMG-CoA reductase inhibitor Drug Allergy 3 Other [facility] Medications Current Medications Medication Drug Class(es) Dates [...] mouth every four to six hours Hydrocodone-Acetaminophen (Ursa) 5-325 mg tablet Discontinued 1 TAB PO EVERY 4-6 HOURS January 15, 2018 December 19, 2022 4:39pm albuterol 0.83 mg/ml inhalation solution (1 source) beta2-Adrenergic Agonist Start: 01-19-2024 albuterol 2.5 mg /3 mL (0.083 %) nebulizer solution 2.5 mg onabotulinumtoxina 200 unt injection (17 sources) Acetylcholine Release Inhibitor Start: 09-16-2024 End: 09-16-2024 onabotulinumtoxinA (Botox) injection 50 Units Start: 09-16-2024 End: 09-16-2024 inject 50 [IU] by intramuscular injection once 50 Units, Intramuscular, Once, On Jenni 09/16/24 at 1230, For 1 dose, Charging context for this clinic-administered medication: Medically Necessary/Insurance Start: 09-16-2024 End: 09-16-2024 onabotulinumtoxinA (Botox) i njection 200 Units Start: 09-16-2024 End: 09-16-2024 inject 200 [IU] by intramuscular injection once 200 Units, Intramuscular, Once, On Jenni 09/16/24 at 1230, For 1 dose, Charging context for this clinic-administered medication: Medically Necessary/Insurance Start: 12-19-2022 inject 100 [IU] by s ubcutaneous injection every three months Onabotulinumtoxina (Botox) 100 unit Recon Soln Active 1 UNIT SUBCUT Q3M December 19, 2022 12:00am botox treatments q 3 months Start: 11-25-2022 End: 12-25-2022 onabotulinum toxin type A 10 0 Units injection (BOTOX) Start: 04-29-2018 End: 04-10-2023 onabotulinum toxin type A 20 0 Units injection (BOTOX) calcium carbonate 750 mg [...] 11:03pm cetirizine hydrochloride 10 mg oral tablet (5 sources) Histamine-1 Receptor Antagonist End: 09-16-2024 take 1 tablet by mouth in the morning cetirizine (ZyrTEC) 10 MG tablet Take 10 mg by mouth in the morning. 09/16/2024 Discontinued (Therapy completed) cholecalciferol 0.05 mg oral capsule (5 sources) Vitamin D take 1 capsule by mouth in the morning cholecalciferol (Vitamin D-3) 50 MCG (1999 UT) capsule Take 1 capsule by mouth in the morning. Active take 1 tablet by mouth once wyatt y cholecalciferol (Vitamin D3) 50 MCG (1999 UT) tablet Take 1 tablet (50 mcg) by mouth once daily. Active ciprofloxacin 3 mg/ml / dexamethasone 1 mg/ml otic suspension (1 source) Corticosteroid, Quinolone Antimicrobial Start: 09-09-2023 End: 09-16-2023 ciprofloxacin-dexamethasone (CiproDEX) otic suspension Indications: Perforation of left tympanic membrane , Left chronic serous otitis media Administer 4 drops into the left ear 2 times a day for 7 days. 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 Take while using narcotics for pain control 01/19/2024 Active estradiol 0.1 mg/ml vaginal cream (2 sources) Estrogen Start: 07-08-2024 End: 07-08-2025 estradiol (Estrace) 0.1 MG/G M vaginal cream Indications: Vaginal atrophy Insert 1 g into the vagina 2 (two) times a week 42.5 g 2 07/08/2024 07/08/2025 Active Finasteride (5 sources) 5-alpha Reductase Inhibitor End: 09-09-2023 FINASTERIDE ORAL Finasteride TABS Quantity: 0 Refills: [...] tablets by mouth twice daily. neomycin/polymyxin B/hydrocort (EWSJXOSR-[id number]-YU OTIC) (1 source) End: 09-09-2023 neomycin/polymyxin B/hydrocort ([id number]-[id number]-DO OTIC) 1% 0 09/09/2023 Discontinued (Med List [...] once daily. ondansetron 4 mg oral tablet (5 sources) Serotonin-3 Receptor Antagonist Start: End: take 1 tablet by mouth once daily as needed ondansetron (Zofran) 4 MG tablet TAKE 1 TABLET BY MOUTH ONCE A DAY NEEDED FOR 14 DAYS 07/28/2024 09/16/2024 Discontinued (Therapy completed) Start: 01-19-2024 take 1 tablet by ana th every eight hours for nausea ondansetron (Zofran) [...] therapy (1 source) Start: 01-19-2024 oxygen (O2) therapy promethazine (Phenergan) 6.25 mg in sodium chloride [...] to 12 doses. 12 tablet 01/19/2024 Active 24 hr venlafaxine 37.5 mg extended release oral capsule (4 sources) Serotonin and Norepinephrine Reuptake Inhibitor Start: 07-06-2024 End: 09-16-2024 venlafaxine XR (Effexor XR) 37.5 MG 24 hr capsule Indications: Hot flashes Do not crush or chew. Then increase to the 75 mg dose. 7 capsule 07/06/2024 09/16/2024 Discontinued (Therapy completed) Start: 07-06-2024 venlafaxine XR (Effexor XR) 75 MG 24 hr capsule Indications: Hot flashes Do not crush or chew. 30 capsule 11 07/06/2024 Active Completed/Discontinued Medications Medication Drug Class(es) Dates [...] ointment cyclobenzaprine hydrochloride 10 mg oral tablet (11 sources) Muscle Relaxant Start: 05-14-2022 End: 09-09-2023 take 1 tablet by mouth three times daily as needed for muscle spasms cyclobenzaprine (FLEXERIL) 10 mg tablet Take 1 (ONE) tablet by mouth three times a day as needed for muscle spasm 05/14/2022 08/13/2022 Discontinued Start: 05-14-2022 Cyclobenzaprin e [...] 18-Nov-2022 Active diazePAM 5 mg oral tablet (11 sources) Benzodiazepine Start: 07-03-20 End: 09-09-20 23 diazePAM (VALIUM) 5 mg tablet Indications: Spasmodic torticollis take one tablet 30 min prior to MRI, may take additional tablet 5 min prior to procedure (MRI) 2 tablet 07/03/2022 08/13/2022 Discontinued Start: 07-03-2022 diazePAM 5 [...] (FLONASE) 50 mcg/actuation nasal spray Use 1 [place] in each nostril once daily. 0 07/03/2022 Discontinued Comment on above: Use 1 [place] in each nostril once daily. gabapentin 300 [...] / neomycin 3.5 mg/ml / polymyxin b 08158 unt/ml otic solution (4 sources) Aminoglycoside Antibacterial, [...] Ordered: 06-Dec-2021 DO Start : 07-Aug-2021 Active noozbcxu-muwj-cmkr-FA-K-hb#2 44 18-400-80 mg-mcg-mcg tab (1 source) End: 07-03-2022 xwpbdnxm-xsfi-rlvp-FA-K-hb#2 44 18-400-80 mg-mcg-mcg tab Take by mouth once daily. 0 07/03/2022 Discontinued Comment on above: Take by mouth once d aily. progesterone 200 mg oral capsule (11 sources) Proges terone Start: 06-03-2022 End: 09-09-2023 take 1 capsul e by mouth once daily in the evenin g progesterone micronized (PROMETRIUM) 200 mg capsule TAKE 1 CAPSULE BY MOUTH EVERY EVENING 06/03/2022 08/13/2022 Discontinued Comment on above: TAKE 1 CAPSULE BY [facility] EVERY EVENING rosuvastatin calcium 20 mg o ral tablet (2 sources) HMG-Co A Reduct ase Inhibi tor Start: 10-21-2017 End: 10-22-2017 Rosuvastatin (Crestor) 20 [...] Onset: 01-19-2024 01-19-2024 Chronic Headache; including migraine (6 sources) Chronic tension-type headache; Translations: [Chronic tension-type headache, not intractable] Onset: 07-09-2022 Chronic Menopausal disorders (1 source) Postmenopausal bleeding; Translations: [Postmenopausal bleeding] Onset: 12-24-2022 Chronic Nutritional deficiencies (1 source) Vitamin D deficiency, unspecified; Translations: [VITAMIN D DEFICIENCY UNSPECIFIED] Onset: 01-12-2023 Chronic Occlusion or stenosis of precerebral arteries (10 sources) Bilateral stenosis of carotid arteries; Translations: [Occlusion and stenosis of bilateral carotid arteries] Onset: 05-06-2022 Chronic Other aftercare (4 sources) Postoperative visit; Translations: [Encounter for other specified surgical aftercare] Onset: 02-10-2024 02-10-2024 Episodic Other aftercare (2 sources) Encounter for other specified surgical aftercare; Translations: [Encounter for other specified surgical aftercare] Onset: 02-10-2024 Episodic Other connective tissue disease (4 sources) Muscle pain; Translations: [Myalgia, unspecified site] [...] Other hereditary and degenerative nervous system conditions (17 sources) Spasmodic torticollis; Translations: [Spasmodic torticollis] Onset: 06-08-2015 Chronic Other hereditary and degenerative nervous system conditions (5 sources) Isolated cervical dystonia; Translations: [Spasmodic torticollis] Onset: 07-21-2023 Chronic Other hereditary and degenerative nervous system conditions (4 sources) Spasmodic torticollis; 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] Onset: 06-08-2015 Chronic Other hereditary and degenerative nervous system conditions (2 sources) Dystonic tremor; Translations: [Other specified forms of tremor] Onset: 02-17-2024 02-17-2024 Chronic Other nervous system disorders (4 sources) History of clinical finding in subject; Translations: [Personal history of other diseases of the nervous system and sense organs] Episodic Other nervous system disorders (5 sources) Impairment of balance; Translations: [Other abnormalities [...] Problem Classification Problem Date Documented Date Episodic/Chronic Administrative/social admission (2 sources) Patient encounter status; Translations: [Dietary counseling and surveillance] Onset: 05-27-2024 05-27-2024 Episodic Immunizations and screening for infectious disease (1 source) Contact with and (suspected) exposure to other viral communicable diseases Onset: 11-05-2021 Resolved: 11-05-2021 Episodic Other connective tissue disease (2 sources) Myalgia, unspecified site; Translations: [Myalgia] Onset: 07-09-2022 Episodic Other connective tissue disease (2 sources) Spasm of cervical paraspinous muscle; Translations: [Other muscle spasm] Onset: 07-21-2023 07-21-2023 Episodic Other ear and sense organ disorders [...] [Moles/Vol] 13 mmol/L Normal 10-20 [facility] Comment on above: Performed By: #### 2 4321-2 #### OMAR JOSEPH ([id number]) [facility] ([facility] [place] [facility]) [address] [place] [address] Calcium [Mass/Vol] 9.8 mg/dL Normal 8.6-10.3 [facility] Comment on above: Performed By: #### 2 4321-2 #### OMAR JOSEPH ([id number]) [facility] ([facility] [place]) [address] [place] [address] Chloride [Moles/Vol] 104 mmol/L Normal 98-107 [facility] Comment on above: Performed By: #### 2 4321-2 #### OMAR JOSEPH ([id number]) [facility] ([facility] [place]) [address] [place] [address] CO2 [Moles/Vol] 27 mmol/L Normal 21-32 [facility] Comment on above: Performed By: #### 2 4321-2 #### OMAR JOSEPH ([id number]) [facility] ([facility]) [address] [place] [address] Creatinine [Mass/Vol] 0.81 mg/dL Normal 0.50-1.05 [facility] Comment on above: Performed By: #### 2 4321-2 #### OMAR JOSEPH ([id number]) [facility] ([facility]) [address] [place] [address] Glomerular filtration rate/1.73 sq M.predicted 78 mL/min/1.73m*2 Normal >60 [facility] Comment on above: Result Comment: Calc ulations of estimated GFR are performed using the 2020 CKD-EPI Study Refit equation without the race variable for the IDMS-Traceable creatinine methods. https://jasn.asnjournals.org/content//ASN. 77142 Performed By: #### 2 4321-2 #### OMAR JOSEPH ([id number]) [facility] ([facility]) [address] [place] [id number] Glucose [Mass/Vol] 95 mg/dL Normal 74-99 [facility] Comment on above: Performed By: #### 2 4321-2 #### OMAR JOSEPH ([id number]) [facility] ([facility] [place]) [address] [place], [place] [address] Potassium [Moles/Vol] 5.0 mmol/L Normal 3.5-5.3 [facility] Comment on above: Performed By: #### 2 4321-2 #### OMAR JOSEPH ([id number]) [facility] ([facility] [place]) [address] [place], [place] [address] Sodium [Moles/Vol] 139 mmol/L Normal 136-145 [facility] Comment on above: Performed By: #### 2 4321-2 #### OMAR JOSEPH ([id number]) [facility] ([facility]) [address] [place], [place] [address] Urea nitrogen [Mass/Vol] 14 mg/dL Normal 6-23 [facility] Comment on above: Performed By: #### 2 4321-2 #### OMAR JOSEPH ([id number]) [facility] ([facility]) [address] [place] [id number] CBC W Auto Differential pane l (Bld)on 01-12-2024 Basophils (Bld) [#/Vol] 0.05 x10*3/uL Normal 0.00-0.10 [facility] Comment on above: Performed By: #### 5 7021-8 #### OMAR JOSEPH ([id number]) [facility] ([facility] [place]) [address] [place] [address] Basophils/100 WBC (Bld) 0.9 % Normal 0.0-2.0 [facility] Comment on above: Performed By: #### 5 7021-8 #### OMAR JOSEPH ([id number]) [facility] ([facility]) [address] [place], [place] [address] Eosinophils (Bld) [#/Vol] 0.33 x10*3/uL Normal 0.00-0.40 [facility] Comment on above: Performed By: #### 5 7021-8 #### OMAR JOSEPH ([id number]) [facility] ([facility] [place]) [address] [place] [address] Eosinophils/100 WBC (Bld) 6.1 % Normal 0.0-6.0 [facility] Comment on above: Performed By: #### 5 7021-8 #### OMAR JOSEPH ([id number]) [facility] ([facility] [place] [place]) [address] [place] [address] Erythrocyte distribution width (RBC) [Ratio] 13.6 % Normal 11.5-14.5 [facility] Comment on above: Performed By: #### 5 7021-8 #### OMAR JOSEPH ([id number]) [facility] ([facility]) [address] [place] [address] Hematocrit (Bld) [Volume fraction] 40.4 % Normal 36.0-46.0 [facility] Comment on above: Performed By: #### 5 7021-8 #### OMAR JOSEPH ([id number]) [facility] ([facility] [place]) [address] [place] [address] Hemoglobin (Bld) [Mass/Vol] 13.0 g/dL Normal 12.0-16.0 [facility] Comment on above: Performed By: #### 5 7021-8 #### OMAR JOSEPH ([id number]) [facility] ([facility] [place]) [address] [place] [address] Immature granulocytes (Bld) [#/Vol] 0.02 x10*3/uL Normal 0.00-0.50 [facility] Comment on above: Performed By: #### 5 7021-8 #### OMAR JOSEPH ([id number]) [facility] ([facility] [place]) [address] [address] Immature granulocytes/100 WBC (Bld) 0.4 % Normal 0.0-0.9 [facility] Comment on above: Result Comment: Lolis ture Granulocyte Count (IG) includes promyelocytes, myelocytes and metamyelocytes but does not include bands. Percent differential counts (%) should be interpreted in the context of the absolute cell counts (cells/UL). Performed By: #### 5 7021-8 #### OMAR JOSEPH ([id number]) [facility] ([facility] [place] [place]) [address] [place] [address] Lymphocytes (Bld) [#/Vol] 1.39 x10*3/uL Normal 0.80-3.00 [facility] Comment on above: Performed By: #### 5 7021-8 #### OMAR JOSEPH ([id number]) [facility] ([facility] [place]) [address] [place] [address] Lymphocytes/100 WBC (Bld) 25.9 % Normal 13.0-44.0 [facility] Comment on above: Performed By: #### 5 7021-8 #### OMAR JOSEPH ([id number]) [facility] ([facility]) [address] [place], [place] [address] MCH (RBC) [Entitic mass] 27.7 pg Normal 26.0-34.0 [facility] Comment on above: Performed By: #### 5 7021-8 #### OMAR JOSEPH ([id number]) [facility] ([facility] [place]) [address] [place] [address] MCHC (RBC) [Mass/Vol] 32.2 g/dL Normal 32.0-36.0 [facility] Comment on above: Performed By: #### 5 7021-8 #### OMAR JOSEPH ([id number]) [facility] ([facility] [place]) [address] [place] [address] MCV (RBC) [Entitic vol] 86 fL Normal 80-100 [facility] Comment on above: Performed By: #### 5 7021-8 #### OMAR JOSEPH ([id number]) [facility] ([facility]) [address] [address] Monocytes (Bld) [#/Vol] 0.42 x10*3/uL Normal 0.05-0.80 [facility] Comment on above: Performed By: #### 5 7021-8 #### OMAR JOSEPH ([id number]) [facility] ([facility]) [address] [place] [address] Monocytes/100 WBC (Bld) 7.8 % Normal 2.0-10.0 [facility] Comment on above: Performed By: #### 5 7021-8 #### OMAR JOSEPH ([id number]) [facility] ([facility]) [address] [place] [address] Neutrophils (Bld) [#/Vol] 3.16 x10*3/uL Normal 1.60-5.50 [facility] Comment on above: Result Comment: Perc ent differential counts (%) should be interpreted in the context of the absolute cell counts (cells/uL). Performed By: #### 5 7021-8 #### OMAR JOSEPH ([id number]) [facility] ([facility]) [address] [place] [address] Neutrophils/100 WBC (Bld) 58.9 % Normal 40.0-80.0 [facility] Comment on above: Performed By: #### 5 7021-8 #### OMAR JOSEPH ([id number]) [facility] ([facility] [place]) [address] [place] [address] Nucleated RBC/100 WBC (Bld) [Ratio] 0.0 /100 WBCs Normal 0.0-0.0 [facility] Comment on above: Performed By: #### 5 7021-8 #### OMAR JOSEPH ([id number]) [facility] ([facility] [place]) [address] [place] [address] Platelets (Bld) [#/Vol] 294 x10*3/uL Normal 150-450 [facility] Comment on above: Performed By: #### 5 7021-8 #### OMAR JOSEPH ([id number]) [facility] ([facility] [place]) [address] [place] [address] RBC (Bld) [#/Vol] 4.70 x10*6/uL Normal 4.00-5.20 [facility] Comment on above: Performed By: #### 5 7021-8 #### OMAR JOSEPH ([id number]) [facility] ([facility] [place]) [address] [place] [address] WBC (Bld) [#/Vol] 5.4 x10*3/uL Normal 4.4-11.3 [facility] Comment on above: Performed By: #### 5 7021-8 #### OMAR JAKE ([id number]) [facility] ([facility] [place] [place]) [address] [place] [address] CNPNon 01-09-2023 CNPN Telephone (NREUS2) KERRI CHAMPAGNE ([id number]) 1950 F Date Time Provider Department 01/09/23 AMOS WISDOM NREUS2 During your visit today, we recorded the following information about you: Keiko Corado [facility] [place] [facility] 01/09/2023 10:09 AM Signed Kerri phoned - she is interested in having Cool Sculpting done through [email or web address]. 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 Please email to: [email or web address] Rosaura Grayson 01/09/2023 2:13 PM Addendum Discussed with provider and letter made. Would you be able to help draft this< She has cervical dystonia and has not contraindications from getting this procedure done. Thanks [facility] [place] to call back. Email address did not work. Received a message from [employer] that user was not found. Will request fax number. Amos Wisdom MD 01/09/2023 2:42 PM Signed This looks perfect, can we send it to her please? Thanks [facility] Keiko Corado [facility] 01/09/2023 2:50 PM Signed Their fax does not work - try [email or web address] I think the s was left off [...] Assessed Reason for Visit: Letter [264] Cmt: [place] [facility] Prescriptions as of 01/09/2023 - methocarbamol [...] Status:Closed by AMOS WISDOM on 01/09/23 Normal [facility] INSULINon 01-09-2023 Insulin 6.5 uIU/mL Normal 2.6-24.9 [facility] Comment on above: Performed By: #### I NSULIN #### [facility] [address] [place] [address] Dr. Jalyn Tomlinson CBC AUTO DIFFon 01-08-2023 BASO # 0.0 103/ul Normal 0.0-0.1 [facility] Comment on above: Performed By: #### C BC #### [facility] [address] [place] [address] Dr. Jalyn Tomlinson Basophils/100 WBC (Bld) 0.4 % Normal 0.2-2.0 [facility] Comment on above: Performed By: #### C BC #### [facility] [address] [place] [address] Dr. Jalyn Tomlinson EO # 0.3 103/ul Normal 0.0-0.7 [facility] Comment on above: Performed By: #### C BC #### [facility] [address] [place] [address] Dr. Jalyn Tomlinson Eosinophils/100 WBC (Bld) 7.2 % Critically high 0.9-7.0 [facility] Comment on above: Performed By: #### C BC #### [facility] [address] [place] [address] Dr. Jalyn Tomlinson Erythrocyte distribution width (RBC) [Ratio] 13.4 % Normal 11.0-15.0 [facility] Comment on above: Performed By: #### C BC #### [facility] [address] [place] [address] Dr. Jalyn Tomlinson Hematocrit (Bld) [Volume fraction] 40.3 % Normal 36.0-48.0 [facility] Comment on above: Performed By: #### C BC #### [facility] [address] [place] [address] Dr. Jalyn Tomlinson Hemoglobin (Bld) [Mass/Vol] 13.0 g/dL Normal 12.0-16.0 [facility] Comment on above: Performed By: #### C BC #### [facility] [address] [place] [address] Dr. Jalyn Tomlinson IG # 0.02 10e3/ul Normal 0.00-0.03 [facility] Comment on above: Performed By: #### C BC #### [facility] [address] [place] [address] Dr. Jalyn Tomlinosn IG % 0.4 % Normal 0.0-0.5 [facility] Comment on above: Performed By: #### C BC #### [facility] [address] [place] [address] Dr. Jalyn Tomlinson LYMPH # 1.2 103/ul Normal 1.2-3.8 [facility] Comment on above: Performed By: #### C BC #### [facility] [address] [place] [address] Dr. Jalyn Tomlinson Lymphocytes/100 WBC (Bld) 25.7 % Normal 20.5-60.0 [facility] Comment on above: Performed By: #### C BC #### [facility] [address] [place] [address] Dr. Jalyn Tomlinson MANUAL DIFF REQ NO Normal [facility] Comment on above: Performed By: #### C BC #### [facility] [address] [place] [address] Dr. Jalyn Tomlinson MCH (RBC) [Entitic mass] 27.3 pg Normal 26.7-34.0 [facility] Comment on above: Performed By: #### C BC #### [facility] [address] [place] [address] Dr. Jalyn Tomlinson MCHC (RBC) [Mass/Vol] 32.3 g/dL Normal 29.9-35.2 [facility] Comment on above: Performed By: #### C BC #### [facility] [address] [place] [address] Dr. Jalyn Tomlinson MCV (RBC) [Entitic vol] 84.7 fL Normal 81.0-99.0 [facility] Comment on above: Performed By: #### C BC #### [facility] [address] [place] [address] Dr. Jalyn Tomlinson MONO # 0.4 103/ul Normal 0.3-0.8 [facility] Comment on above: Performed By: #### C BC #### [facility] [address] [place] [address] Dr. Jalyn Tomlinson Monocytes/100 WBC (Bld) 7.8 % Normal 1.7-12.0 [facility] Comment on above: Performed By: #### C BC #### [facility] [address] [place] [address] Dr. Jalyn Tomlinson NEUT # 2.7 103/ul Normal 1.4-6.5 [facility] Comment on above: Performed By: #### C BC #### [facility] [address] [place] [address] Dr. Jalyn Tomlinson Neutrophils/100 WBC (Bld) 58.5 % Normal 43.0-75.0 [facility] Comment on above: Performed By: #### C BC #### [facility] [address] [address] [address] Jalyn Tomlinson Platelet mean volume (Bld) [Entitic vol] 10.0 fL Normal 9.5-13.5 [facility] Comment on above: Performed By: #### C BC #### [facility] [address] [place] [address] Dr. Jalyn Tomlinson PLT 306 103/ul Normal 150-450 [facility] Comment on above: Performed By: #### C BC #### [facility] [address] [address] [address] Jalyn Tomlinson RBC 4.76 106/ul Normal 4.20-5.40 [facility] Comment on above: Performed By: #### C BC #### [facility] [address] [place] [address] Dr. Jalyn Tomlinson WBC 4.6 103/ul Normal 4.0-11.0 [facility] Comment on above: Performed By: #### C BC #### [facility] [address] [place] [address] Dr. Jalyn Tomlinson FREE THYROXINE INDEX T7on FTI 2.24 Normal 1.30-4.50 [facility] Comment on above: Performed By: #### L IPID, T7, TSH, CMP #### [facility] [address] [place] [address] Dr. Jalyn Tomlinson T3U 34.0 % Normal 30.0-39.0 [facility] Comment on above: Performed By: #### L IPID, T7, TSH, CMP #### [facility] [address] [place] [address] Dr. Jalyn Tomlinson T4 [Mass/Vol] 6.60 ug/dL Normal 4.80-13.90 [facility] Comment on above: Performed By: #### L IPID, T7, TSH, CMP #### [facility] [address] [place] [address] Dr. Jalyn Tomlinson GLYCOHEMOGLOBIN A1Con 2022 ADA RECOMMENDATION SEE BELOW Normal [facility] Comment on above: Result Comment: ADA RECOMMENDED LIMIT 4.0 - 6.0 ADA THERAPEUTIC TARGET < 7.0 ACTION SUGGESTED > 7.0 Performed By: #### A 1C #### [facility] [address] [place], [place] [address] Dr. Jalyn Tomlinson Glucose [Mass/Vol] 108 mg/dL Normal [facility] Comment on above: Performed By: #### A 1C #### [facility] [address] [place], [place] [address] Dr. Jalyn Tomlinson HbA1c (Bld) [Mass fraction] 5.4 % Normal 4.5-6.2 [facility] Comment on above: Performed By: #### A 1C #### [facility] [address] [address] [address] Jalyn Tomlinson IRONon 01-08-2023 Iron [Mass/Vol] 57.0 ug/dL Normal 50.0-170.0 [facility] Comment on above: Performed By: #### V ITAD, IRON ####[facility] [address] [place], [place] [address]ZdDr. Jalyn Tomlinson LIPID PROFILEon 01-08-2023 CHOL-HDL RATIO NORM SEE BELOW Normal [facility] Comment on above: Result Comment: 3.3 - 4.4 LOW RISK 4.4 - 7.1 AVERAGE RISK 7.1 - 11.0 MODERATE RISK >11.0 HIGH RISK Performed By: #### L IPID, T7, TSH, CMP #### [facility] [address] [address] [address] Jalyn Tomlinson Cholesterol [Mass/Vol] 215 mg/dL Critically high <=200 [facility] Comment on above: Performed By: #### L IPID, T7, TSH, CMP #### [facility] [address] [place], [place] [address] Dr. Jalyn Tomlinson Cholesterol in HDL [Mass/Vol] 74 mg/dL Critically high 40-60 [facility] Comment on above: Performed By: #### L IPID, T7, TSH, CMP #### [facility] [address] [place], [place] [address] Dr. Jalyn Tomlinson Cholesterol in LDL [Mass/Vol] 127.4 mg/dL Normal [facility] Comment on above: Performed By: #### L IPID, T7, TSH, CMP #### [facility] [address] [address] [address] Jalyn Tomlinson Cholesterol.total/Chol esterol in HDL [Mass ratio] 2.9 {ratio} Normal [facility] Comment on above: Performed By: #### L IPID, T7, TSH, CMP #### [facility] [address] [address] [address] Jalyn Tomlinson HDL NORMAL > or = 60 mg/dl - LO W CARDIOVASCULAR RISK <40 mg/dl - HIGH CARDIOVASCULAR RISK Normal [facility] Comment on above: Performed By: #### L IPID, T7, TSH, CMP #### [facility] [address] [address] [address] Jalyn Tomlinson LDL CALC NORMAL SEE BELOW Normal [facility] Comment on above: Result Comment: <100 mg/dl OPTIMAL 100 - 129 mg/dl NEAR OR ABOVE OPTIMAL 130 - 159 mg/dl BORDERLINE HIGH 160 - 189 mg/dl HIGH >190 mg/dl VERY HIGH Performed By: #### L IPID, T7, TSH, CMP #### [facility] [address] [address] [address] Jalyn Tomlinson Triglyceride [Mass/Vol] 68 mg/dL Normal <=150 [facility] Comment on above: Performed By: #### L IPID, T7, TSH, CMP #### [facility] [address] [address] [address] Jalyn Tomlinson VLDL CALC 13.6 mg/dL Normal [facility] Comment on above: Performed By: #### L IPID, T7, TSH, CMP #### [facility] [address] [address] [address] Jalyn Tomlinson PROF 14(COMP METB)on 023 Albumin [Mass/Vol] 4.3 g/dL Normal 3.4-5.0 [facility] Comment on above: Performed By: #### L IPID, T7, TSH, CMP #### [facility] [address] [address] [address] Jalyn Tomlinson Albumin/Globulin [Mass ratio] 1.4 {ratio} Normal [facility] Comment on above: Performed By: #### L IPID, T7, TSH, CMP #### [facility] [address] [place] [address] Dr. Jalyn Tomlinson ALP [Catalytic activity/Vol] 64 U/L Normal 46-116 [facility] Comment on above: Performed By: #### L IPID, T7, TSH, CMP #### [facility] [address] [place] [address] Dr. Jalyn Tomlinson ALT [Catalytic activity/Vol] 24 U/L Normal 14-59 [facility] Comment on above: Performed By: #### L IPID, T7, TSH, CMP #### [facility] [address] [place] [address] Dr. Jalyn Tomlinson Anion gap [Moles/Vol] 11.1 mmol/L Normal [facility] Comment on above: Performed By: #### L IPID, T7, TSH, CMP #### [facility] [address] [place] [address] Dr. Jalyn Tomlinson AST [Catalytic activity/Vol] 20 U/L Normal 15-37 [facility] Comment on above: Performed By: #### L IPID, T7, TSH, CMP #### [facility] [address] [place] [address] Dr. Jalyn Tomlinson Bilirubin [Mass/Vol] 0.3 mg/dL Normal 0.2-1.0 [facility] Comment on above: Performed By: #### L IPID, T7, TSH, CMP #### [facility] [address] [place] [address] Dr. Jalyn Tomlinson Calcium [Mass/Vol] 9.6 mg/dL Normal 8.5-10.1 [facility] Comment on above: Performed By: #### L IPID, T7, TSH, CMP #### [facility] [address] [place] [address] Dr. Jalyn Tomlinson Chloride [Moles/Vol] 107 mmol/L Normal 98-107 [facility] Comment on above: Performed By: #### L IPID, T7, TSH, CMP #### [facility] [address] [address] [address] Jalyn Tomlinson CO2 [Moles/Vol] 27.8 mmol/L Normal 21.0-32.0 [facility] Comment on above: Performed By: #### L IPID, T7, TSH, CMP #### [facility] [address] [address] [address] Jalyn Tomlinson Creatinine [Mass/Vol] 0.82 mg/dL Normal 0.55-1.02 [facility] Comment on above: Performed By: #### L IPID, T7, TSH, CMP #### [facility] [address] [address] [address] Jalyn Tomlinson EGFR-AF TURKMEN >60 Normal >=60 [facility] Comment on above: Performed By: #### L IPID, T7, TSH, CMP #### [facility] [address] [place] [address] Dr. Jalyn Tomlinson EGFR-NON AF TURKMEN >60 Normal >=60 [facility] Comment on above: Performed By: #### L IPID, T7, TSH, CMP #### [facility] [address] [address] [address] Jalyn Tomlinson Globulin (S) [Mass/Vol] 3.1 g/dL Normal [facility] Comment on above: Performed By: #### L IPID, T7, TSH, CMP #### [facility] [address] [address] [address] Jalyn Tomlinson Glucose [Mass/Vol] 105 mg/dL Normal 74-106 [facility] Comment on above: Performed By: #### L IPID, T7, TSH, CMP #### [facility] [address] [address] [address] Jalyn Tomlinson Potassium [Moles/Vol] 4.9 mmol/L Normal 3.5-5.1 [facility] Comment on above: Performed By: #### L IPID, T7, TSH, CMP #### [facility] [address] [address] [address] Jalyn Tomlinson Protein [Mass/Vol] 7.4 g/dL Normal 6.4-8.2 [facility] Comment on above: Performed By: #### L IPID, T7, TSH, CMP #### [facility] [address] [address] [address] Jalyn Tomlinson Sodium [Moles/Vol] 141 mmol/L Normal 136-145 [facility] Comment on above: Performed By: #### L IPID, T7, TSH, CMP #### [facility] [address] [address] [address] Jalyn Tomlinson Urea nitrogen [Mass/Vol] 18.0 mg/dL Normal 7.0-18.0 [facility] Comment on above: Performed By: #### L IPID, T7, TSH, CMP #### [facility] [address] [place] [address] Dr. Jalyn Tomlinson Urea nitrogen/Creatinine [Mass ratio] 22.0 mg/mg Normal [facility] Comment on above: Performed By: #### L IPID, T7, TSH, CMP #### [facility] [address] [place] [address] Dr. Jalyn Tomlinson TSHon 01-08-2023 TSH 2.471 uIU/mL Normal 0.358-3.740 [facility] Comment on above: Performed By: #### L IPID, T7, TSH, CMP #### [facility] [address] [place] [address] Dr. Jalyn Tomlinson VITAMIN D 25 OHon 01-08-2023 VIT D 25-OH 25.7 ng/mL Normal [facility] Comment on above: Performed By: #### V ITAD, IRON ####[facility] [id number] [address]Dr. Jalyn Tomlinson VIT D RANGES SEE BELOW Normal [facility] Comment on above: Result Comment: <20 ng/mL Vit D deficient 20 - <30 ng/mL Vit D insufficient 30 - 100 ng/mL Vit D sufficient >100 ng/mL Potential Toxicity Performed By: #### V ITAD, IRON ####[facility] [address] [place], [place] [address]Dr. Jalyn Tomlinson Curt 12-24-2022 L -- ---- Specimen: [id number] Received: 12/24/22 Status: MAN Leung Num: [id number] Spec Type: Surgical Subm Dr: Will Cornelius DO Tissues: A Endometrium - Curettings (ENDOM CURETTINGS) B Gross Only (GENERATOR) Procedures: HE/2, Gross/Micro L4, Level 1 Gross ---- Age/ Patient Sex Location Account Attending Physician ---- Kerri Champagne 72/F [place] [id number] Will Cornelius DO ---- SPEC NUM: [id number] RECD: 12/24/22 STATUS: MAN LEUNG NUM: [id number] TIAN: 12/24/[address] [facility] DR: Will Cornelius DO ENTERED: 12/24/22 [facility] DR: SPEC TYPE: Surgical DEPT: S ENTERED BY: [id number] RECV BY: [id number] ORDERED: HE/2, Gross/Micro L4, Level 1 Gross [...] clear plastic device with a serial number [id number] . Additionally received is a 21.0 x 0.2 cm silver metal and clear plastic device consistent with lead. A gross photo is taken. Gross examination only. ---- Specimen: [id number] Received: 12/24/22 Status: [facility] Ava Num: [id number] Spec Type: Surgical Subm Dr: Will Cornelius DO Tissues: A Endometrium - Curettings (ENDOM CURETTINGS) B Gross Only (GENERATOR) Procedures: HE/2, Gross/Micro L4, Level 1 Gross ---- Patient: Kerri Champagne [id number] (Continued) ---- Specimen: [id number] Received: 12/24/22 (Continued) Signed (signature on file) Fadumo Wisdom MD 12/25/22 [facility] ---- Specimen: [id number] Received: 12/24/22 Status: MAN Leung Num: [id number] Spec Type: Surgical Subm Dr: Will Cornelius DO Tissues: A Endometrium - Curettings (ENDOM CURETTINGS) B Gross Only (GENERATOR) Procedures: HE/2, Gross/Micro L4, Level 1 Gross ---- Patient: Kerri Champagne [id number] (Continued) ---- Specimen: [id number] Received: 12/24/22 (Continued) Microscopic Description Two glass slides with H E stained material have been examined. The microscopic findings support the above pathologic diagnosis. CPT Codes 72860, 62940 Gross Photo B ---- ---- Specimen: [id number] Received: 12/24/22 Status: MAN Leung Num: [id number] Spec Type: Surgical Subm Dr: Will Cornelius DO Tissues: A Endometrium - Curettings (ENDOM CURETTINGS) B Gross Only (GENERATOR) Procedures: HE/2, Gross/Micro L4, Level 1 Gross ---- Patient: Kerri Champagne [id number] (Continued) ---- Signed (signature on file) Fadumo Wisdom MD 12/25/22 [address] [facility] XR sacrum coccyx min 2Von XR sacrum coccyx min 2V [facility] [place] [address] XRay Report Signed Patient: Kerri Champagne MR#: [id number] 634 : 1950 Acct:[id number] Age/Sex: 72 / F ADM Date: 12/24/22 Loc: [place] Room: Type: [facility] Attending Dr: Will Cornelius DO Copies to: Will Cornelius DO Ordering Provider: Will Cornelius DO Date of Service: 12/24/22 XR/XR sacrum coccyx min 2V: INTERSTIM REPLACEMENT Intraoperative study. Reason for exam: InterStim replacement. Findings: 2 images were obtained intraoperatively. Cumulative Air Kerma in mGy: 18.7 mGy XR/XR sacrum coccyx min 2V Impression: Intraoperative study. Impression dictated by: Agapito Holder Jr., DGuillermina12/24/2022 3:12 PM Dictation Location: [place] [address] Transcribed By: [facility] 12/24/221511 Dictated By: Agapito Holder Jr, DO 12/24/221511 Signed By: 12/24/221511 [facility] Automated basophil %Ordered By: Will Cornelius on 12-19-2022 Basophils/100 WBC (Bld) 0.4 % Normal . [facility] Comment on above: Performed By: #### C BC, BMP #### [address] Automated basophil countOrde red By: Will Adryan on 12-19-2022 Basophils (Bld) [#/Vol] 0.0 10*3/uL Normal 0.0-0.2 [facility] Comment on above: Result Comment: PERF ORMED BY: [place] [address] PATHOLOGIST AROMATHERAPIST DEANDRE ARZOLA M.D. Performed By: #### C BC, BMP #### [address] Automated blood monocyte cou ntOrdered By: Will Adryan on 12-19-2022 Monocytes (Bld) [#/Vol] 0.5 10*3/uL Normal 0.0-0.8 [facility] Comment on above: Performed By: #### C BC, BMP #### [address] Automated eosinophil %Ordere d By: Will Adryan on 12-19-2022 Eosinophils/100 WBC (Bld) 3.9 % Normal . [facility] Comment on above: Performed By: #### C BC, BMP #### [address] Automated eosinophil countOr dered By: Will Adryan on 12-19-2022 Eosinophils (Bld) [#/Vol] 0.3 10*3/uL Normal 0.0-0.45 [facility] Comment on above: Performed By: #### C BC, BMP #### [address] Automated monocyte %Ordered By: Will Adryan on 12-19-2022 Monocytes/100 WBC (Bld) 7.8 % Normal . [facility] Comment on above: Performed By: #### C BC, BMP #### [address] Automated neutrophil %Ordere d By: Will Cornelius on 12-19-2022 Neutrophils/100 WBC (Bld) 64.1 % Normal . [facility] Comment on above: Performed By: #### C BC, BMP #### [address] Basic Metabolic Panelon Estimated GFR ( Emma > 60 Normal [facility] Comment on above: Result Comment: GFR estimated reference range: According to KDOQI guidelines, <60 ml/min/1.73m2 is sufficient to diagnose a patient with chronic kidney disease. Performed By: #### C BC, BMP #### [address] Estimated GFR (Non- Am > 60 Normal [facility] Comment on above: Performed By: #### C BC, BMP #### [address] Complete Blood Count Auto Di ffon 12-19-2022 Mean Corpuscular HGB Conc 33.4 g/dL Normal 32.0-35.0 [facility] Comment on above: Performed By: #### C BC, BMP #### [address] NRBC% 0.1 /100{WBC} Normal 0-0.5 [facility] Comment on above: Performed By: #### C BC, BMP #### [address] ECG 12 lead ECGon 12-19-2022 ECG 12 lead ECG [facility] [place] [address] [place] [address] Electrocardiograph Report Signed Patient: Kerri Champagne MR#: [id number] 634 : 1950 Acct:[id number] Age/Sex: 72 / F ADM Date: 12/19/22 Loc: [place] [facility]: [facility]: Will Cornelius DO Ordering Provider: Will Cornelius DO Date of Service: 12/19/2208/02/1559 ECG/ECG 12 [...] change was found Confirmed by VONDA ADAN [id number] on 12/20/2022 11:26:09 AM Referred By: ADRYAN Electronically Signed By:MATEUSZ ARAIZA MD [facility] Transcribed By: MUS Signed By Charles Araiza MD 12/20/22 1126 Normal [facility] Erythrocyte distribution wid th [Ratio] by Automated countOrdered By: Will Cornelius on 12-19-2022 Erythrocyte distribution width (RBC) [Ratio] 13.9 % Normal 11.9-15.3 [facility] Comment on above: Performed By: #### C BC, BMP #### [address] Erythrocytes [#/volume] in B lood by Automated countOrdered By: Will Cornelius on 12-19-2022 RBC (Bld) [#/Vol] 4.56 10*6/uL Normal 3.60-5.00 [facility] Comment on above: Performed By: #### C BC, BMP #### [facility] [address] [place] [address] Estimated glomerular filtrat ion rate (GFR) non- AmericanOrdered By: Will Cornelius on 12-19-2022 GFR/1.73 sq M.predicted among non-blacks MDRD (S/P/Bld) [Vol rate/Area] > 60 mL/Min [facility] Hematocrit [Volume Fraction] of Blood by Automated countOrdered By: Will Cornelius on 12-19-2022 Hematocrit (Bld) [Volume fraction] 37.7 % Normal 34.0-46.4 [facility] Comment on above: Performed By: #### C BC, BMP #### [address] Hemoglobin [Mass/volume] in BloodOrdered By: Will Cornelius on 12-19-2022 Hemoglobin (Bld) [Mass/Vol] 12.6 g/dL Normal 11.8-15.4 [facility] Comment on above: Performed By: #### C BC, BMP #### [address] Leukocytes [#/volume] correc mitzy for nucleated erythrocytes in Blood by Automated counOrdered By: Will Cornelius on 12-19-2022 WBC corrected for nucl RBC Auto (Bld) [#/Vol] 6.5 10*3/uL 3.8-11.6 [facility] Leukocytes [#/volume] in Blo od by Automated countOrdered By: Will Cornelius on 12-19-2022 WBC (Bld) [#/Vol] 6.5 10*3/uL Normal 3.8-11.6 [facility] Comment on above: Performed By: #### C BC, BMP #### [address] Lymphocytes [#/volume] in Bl ood by Automated countOrdered By: Will Cornelius on 12-19-2022 Lymphocytes (Bld) [#/Vol] 1.5 10*3/uL Normal 1.00-4.8 [facility] Comment on above: Performed By: #### C SHIRIN, BMP #### [address] Lymphocytes/100 leukocytes i n Blood by Automated countOrdered By: Will Cornelius on 12-19-2022 Lymphocytes/100 WBC (Bld) 23.8 % Normal . [facility] Comment on above: Performed By: #### C BC, BMP #### [place] [address] [place] MCH [Entitic mass] by Automa mitzy countOrdered By: Will Cornelius on 12-19-2022 MCH (RBC) [Entitic mass] 27.6 pg Normal 24.7-34.3 [facility] Comment on above: Performed By: #### C BC, BMP #### [address] MCHC Auto (RBC) [Mass/Vol]Or dered By: Will Cornelius on 12-19-2022 MCHC (RBC) [Mass/Vol] 33.4 g/dL 32.0-35.[address] [facility] MCV [Entitic volume] by Auto mated countOrdered By: Will Cornelius on 12-19-2022 MCV (RBC) [Entitic vol] 82.7 fL Normal 80-100 [facility] Comment on above: Performed By: #### C BC, BMP #### [address] Neutrophils [#/volume] in Bl ood by Automated countOrdered By: Will Cornelius on 12-19-2022 Neutrophils (Bld) [#/Vol] 4.1 10*3/uL Normal 1.8-7.7 [facility] Comment on above: Performed By: #### C SHIRIN, BMP #### [address] No Panel InformationOrdered By: Will Cornelius on 12-19-2022 Estimated GFR () > 60 mL/Min [facility] Comment on above: GFR estimated refere nce range: According to KDOQI guidelines, <60 ml/min/1.73m2 is sufficient to diagnose a patient with chronic kidney disease. Pharmacy Creatinine Clearance (Chem N/A [facility] Nucleated erythrocytes [Pres ence] in Blood by Automated countOrdered By: Will Cornelius on 12-19-2022 Nucleated RBC Auto Ql (Bld) 0.1 /100{WBC} 0-0.5 [facility] Platelet mean volume [Entiti c volume] in Blood by Automated countOrdered By: Will Cornelius on 12-19-2022 Platelet mean volume (Bld) [Entitic vol] 8.5 fL Normal 6.3-10.7 [facility] Comment on above: Performed By: #### C BC, BMP #### [address] Platelets [#/volume] in Bloo d by Automated countOrdered By: Will Cornelius on 12-19-2022 Platelets (Bld) [#/Vol] 284 10*3/uL Normal 150-450 [facility] Comment on above: Performed By: #### C BC, BMP #### [address] Serum or plasma anion gap de terminationOrdered By: Will Cornelius on 12-19-2022 Anion gap [Moles/Vol] 11.9 mmol/L Normal 6.0-15.0 [facility] Comment on above: Performed By: #### C BC, BMP #### [address] Serum or plasma calcium wilfrido urement (mass/volume)Ordered By: Will Cornelius on 12-19-2022 Calcium [Mass/Vol] 9.5 mg/dL Normal 8.2-10.2 [facility] Comment on above: Result Comment: PERF ORMED BY: [place] [address] PATHOLOGIST AROMATHERAPIST DEANDRE ARZOLA M.D. Performed By: #### C BC, BMP #### [address] Serum or plasma chloride ally surement (moles/volume)Ordered By: Will Cornelius on 12-19-2022 Chloride [Moles/Vol] 106 mmol/L Normal 95-114 [facility] [place] Comment on above: Performed By: #### C BC, BMP #### [address] Serum or plasma creatinine m easurement with calculation of estimated glomerular filtrOrdered By: Will Cornelius on 12-19-2022 Creatinine [Mass/Vol] 0.83 mg/dL Normal 0.44-1.[address] [facility] Comment on above: Performed By: #### C BC, BMP #### [address] Serum or plasma glucose wilfrido urement (mass/volume)Ordered By: Will Cornelius on 12-19-2022 Glucose [Mass/Vol] 88 mg/dL Normal 70-100 [facility] Comment on above: ADA recommended refe rence rangeRandom Glucose Reference Range is dependent on time and content of last meal. Glucose of more than 200 mg/dL in a nonstressed, ambulatory subject supports the diagnosis of Diabetes Mellitus. Result Comment: [facility] Glucose Reference Range is dependent on time and content of last meal. Glucose of more than 200 mg/dL in a nonstressed, ambulatory subject supports the diagnosis of Diabetes Mellitus. ADA recommended reference range Performed By: #### C BC, BMP #### [address] Serum or plasma potassium me asurement (moles/volume)Ordered By: Will Cornelius on 12-19-2022 Potassium [Moles/Vol] 4.5 mmol/L Normal 3.5-5.[address] [facility] Comment on above: Performed By: #### C SHIRIN, BMP #### [address] Serum or plasma sodium measu rement (moles/volume)Ordered By: Will Cornelius on 12-19-2022 Sodium [Moles/Vol] 137 mmol/L Normal 136-146 [facility] Comment on above: Performed By: #### C SHIRIN, BMP #### [address] Serum or plasma total carbon dioxide measurement (moles/volume)Ordered By: Will Cornelius on 12-19-2022 CO2 [Moles/Vol] 23.6 mmol/L Normal 22.0-30.0 [facility] Comment on above: Performed By: #### C SHIRIN, BMP #### [address] Serum or plasma urea nitroge n measurement (mass/volume)Ordered By: Will Cornelius on 12-19-2022 Urea nitrogen [Mass/Vol] 12 mg/dL Normal 9-23 [facility] Comment on above: Performed By: #### C SHIRIN, BMP #### [address] CNOVon 11-25-2022 CNOV Office Visit (NRESFV ) KERRI CHAMPAGNE ([id number]) 1950 F Date Time Provider Department 11/25/22 1:30 PM AMOS WISDOM During your visit today, we recorded the following information about you: Temperature Pulse Blood pressure Weight 96.4 degrees 78/minute 158/88 78 kg Height 1.6 m Amos Wisdom MD 11/25/2022 3:23 PM Signed [facility] Neurological Religious Movement Disorders Neurotoxin Visit Date: November 25, [...] Pain Management OT/PT/Speech Visit from 07/31/2022 in [place] Physical Therapy Global Physical Health T Score [...] guidance: Yes Injection Site: Cervical dystonia: CPT 76566 Left Right Sternocleidomastoid 25 Splenius capitus 25 50 Scalene Levator Scapulae Trapezius Semispinalis (Other) Lot#: [id number] Exp Date Future plan of care: Follow up: 3 months Neurotoxin change: No Dose change: Yes New Dose: 200 Reason(s) for changing neurotoxin type of dose: if this does not work Sent staff message to nursing related to any changes: Yes Amos Wisdom MD November 25, 2022 3:13 PM Dept of NEUROLOGY TIME OUT/ PROCEDURE NOTE: Informed consent Kerri Champagne Medical Record: [id number] Procedure: neurotoxin intramuscular injection The risks, benefits [...] Wisdom MD November 25, 2022 3:13 PM [facility] protocol/ safety checklist Sign in communication: Completed Time out:Team confirms the correct Patient, correct procedure, correct site and site marking, correct neurotoxin type, correct dose and correct dilution. Affirmation of time out: N/A Sign out discussion: Completed J (more content not included)... Normal [facility] Office Visiton 11-18-2022 Follow-up visit Diagnoses/Problems BMI [...] and post surgical patient. Surgery was at [facility] 5 years ago per patient. Status: Hold [...] Capsule Vitals Vital Signs Recorded: 18Nov2022 11:57AM Jdlpiwpcwlv99.8 F Zrcwqpkz497 Fukwmtpdu21 Height5 ft 3 in Slqqlc739 lb BMI Mtwdwdzmln31.47 kg/m2 BSA Calculated1.81 Tobacco Useb) No PHQ-2 [...] stutter. Voice (more content not included)... Normal [facility]One Tobacco Screening.on 023 Adult depression screening assessment No MP-Otolaryn gol [employer] 250 Work Phone: Tobacco use status CPHS b) No MP-Otolaryngol [employer] 250 Work Phone: Covid-19 PCR (CVDTB)on SARS-CoV-2 (COVID-19) RNA ELSA+probe Ql (Unsp spec) Not detected Normal NOT DETECTED [facility] Comment on above: Result Comment: When [...] for this test is supported by the [place] of Health and Human Service's declaration that [...] longer be used). Performed By: #### C VDTB #### [facility] [address] [place] [address] Dr. Jalyn Tomlinson INFLUENZA A AND B AGon 11-14 [facility] SEE BELOW Normal [facility] Comment on above: Result Comment: Nega tive for Flu A protein angiten. Infection due to Flu A cannot be ruled out. Flu A angiten in the sample may be below the detection limit of the test. Performed By: #### I NFLUAB #### [facility] [address] [place] [address] Dr. [facility] Normal [facility] Comment on above: Result Comment: Nega tive for Flu B protein antigen. Infection due to Flu B cannot be ruled out. Flu B antigen in the sample may be below the detection limit of the test. Performed By: #### I NFLUAB #### [facility] [address] [place] [address] Dr. Jalyn Tomlinson INFLUENZA A AG Negative Normal NEGATIVE SEE COMMENT [facility] Comment on above: Performed By: #### I NFLUAB #### [facility] [address] [place] [address] Dr. Jalyn Tomlinson INFLUENZA B AG Negative Normal NEGATIVE SEE COMMENT [facility] Comment on above: Performed By: #### I NFLUAB #### [facility] [address] [place] [address] Dr. Jalyn MACKon 11-13-2022 CNOV Office Visit (CLINT ) KERRI CHAMPAGNE ([id number]) 1950 F Date Time Provider Department 11/13/22 [...] (see below) 1. Physical therapy: Yes: Where: [facility] , Date Started: 07/17/22, Date Ended: 08/14/22 2. Home exercise program after PT: yes 3. Occupational therapy: No 4. A physician supervised home exercise program (HEP): No 5. Antisqueak Filler: No Passive conservative therapy lasting 6 weeks in the last six months (see below) 1. Medical devises: No 2. Acupuncture: No 3. Tens unit: No 4. Prescription pain medication: No 5. NSAIDS: [place]: Gregoria Villalta MA Date: November 13, 2022 [...] canal. Patent (more content not included)... Normal [facility] CNOVon 10-14-2022 CNOV Office Visit (CLINT ) KERRI CHAMPAGNE ([id number]) 1950 F Date Time Provider Department 10/14/22 9:30 AM AVANI RODRÍGUEZ During your visit today, we recorded the following information about you: Pulse Blood pressure Weight Height 56/minute 133/72 77.2 kg 1.575 m Avani Rodríguez MD 10/17/2022 11:10 AM Signed [facility] Pain Management Department Office Visit Date: October [...] Current anticoagulation: None Occupation: Retired [employer] [place] October 14, 2022 Attestation: The above information was explored in detail with the patient and edited as needed and is complete. Avani Rodríguez MD October 14, 2022 HISTORY OF PRESENT ILLNESS Kerri Champagne presents to [facility] for the evaluation of [...] bulk or (more content not included)... Normal [facility] CNOVon 09-18-2022 CNOV Office Visit (NRESFV ) IHSANKERRI Nuñez ([id number]) 1950 F Date Time Provider Department 09/18/22 10:00 AM AMOS WISDOM NRESFV During your visit today, we recorded the following information about you: Pulse Blood pressure Weight Height 57/minute 145/70 77.4 kg 1.575 m Aoms Wisdom MD 09/18/2022 10:44 AM Signed [facility] - NEW PATIENT EVALUATION No referring provider defined for this encounter. Luis Enrique Wood, [address] [facility] [address] [facility] [id number] Dear : I had the pleasure of [...] then, she started seeing a neurologist in [place] but reports that she was rough but [...] Depression, Diabetes (HCC), Epilepsy (HCC), Hypertension, Hypothyroidism, MCFP (current) use of systemic steroids, Obstructive sleep [...] Neurological Exa (more content not included)... Normal [facility] CNTHERAPYon 08-14-2022 CNTHERAPY OT/PT/Speech Visit (PTELYR) KERRI CHAMPAGNE ([id number]) 1950 F Date Time Provider Department 08/14/22 12:00 PM ALCIDESMELChristopher MOTLEY Date Time Provider Department [place] 08/14/2022 12:00 PM [id number] ESCAMILLA [facility] Reason for Visit: PT Discharge [752] Primary [...] type A 200 Units injection (BOTOX) Normal [facility] CNTHERAPYon 08-07-2022 CNTHERAPY OT/PT/Speech Visit (PTELYR) KERRI CHAMPAGNE ([id number]) 1950 F Date Time Provider Department 08/07/22 9:15 AM TELMA MEREDITH TIESHA Date Time Provider Department Center 08/07/2022 9:15 AM [id number], MEREDITH TIESHA [facility] Reason for Visit: Physical Therapy [503] Primary [...] type A 200 Units injection (BOTOX) Normal [facility] HEALTHon 08-05-2022 ALLIED HEALTH HNO ID: [id number] Author: Nieves Butcher, inside sales assistant Service: Radiology Author Type: Veneer Stock Layer Type: Allied Health Filed: 08/05/2022 8:06 AM [...] IV DATA: Not applicable SIGNED BY: Nieves Butcher, inside sales assistant August 05, 2022 8:06 AM Normal [facility] MRI BRAIN WO IVCONon 022 MRI [...] is taken as C2-3. Structural anomalies: None. Statistical Typist: PSCB Transcribe Date/Time: Aug 05 2022 9:55A Dictated by : YANIRA APARICIO MD This examination was interpreted and the report reviewed and electronically signed by: YANIRA APARICIO MD on Aug 05 2022 9:55AM EST [id number] Normal [facility] MRI CERVICAL SPINE WO IVCONo n 08-05-2022 [...] is taken as C2-3. Structural anomalies: None. Statistical Typist: DAHLIA Transcribe Date/Time: Aug 05 2022 9:55A Dictated by : YANIRA APARICIO MD This examination was interpreted and the report reviewed and electronically signed by: YANIRA APARICIO MD on Aug 05 2022 9:55AM EST [id number] Normal [facility] CNTHERAPYon 07-31-2022 CNTHERAPY OT/PT/Speech Visit (PTELYR) KERRI CHAMPAGNE ([id number]) 1950 F Date Time Provider Department 07/31/22 9:15 AM MEREDITH HOLLIS Date Time Provider Department Center 07/31/2022 9:15 AM [id number] HOLLIS [facility] Reason for Visit: Physical Therapy [503] Primary [...] type A 200 Units injection (BOTOX) Normal [facility] CNTHERAPYon 07-17-2022 CNTHERAPY OT/PT/Speech Visit (PTELYR) KERRI CHAMPAGNE ([id number]) 1950 F Date Time Provider Department 07/17/22 11:15 AM REMI ESCAMILLA Date Time Provider Department Center 07/17/2022 11:15 AM [id number] ESCAMILLA [facility] Reason for Visit: PT Eval [747] Primary [...] 200 Units injection (BOTOX) Letter Text Normal [facility] CNOVmelany 07-03-2022 CNOV Office Visit (SPMECO ) KERRI CHAMPAGNE ([id number]) 1950 F Date Time Provider Department 07/03/22 10:20 AM YONATHAN CAZARES SPMECO During your visit today, we recorded the [...] fluticasone (FLONASE) 50 mcg/actuation nasal sprayUse 1 [place] in each nostril once daily.Disp: Rfl: ofloxacin (FLOXIN) 0.3 % otic solutionUse 5 Drops in both ears once daily.Disp: Rfl: FLUoxetine (PROZAC) 10 mg capsuleTake 10 mg by mouth once daily.Disp: Rfl: rphqsfog-fepq-rfri-FA- K-hb#244 18-400-80 mg-mcg-mcg tabTake by mouth once [...] itching. PSYCHOLOGICAL (more content not included)... Normal [facility] No Panel Informationon 07-03 IMPRESSION: Lumbar spondylosis No acute osseous abnormality in the pelvis. Statistical Typist: DAHLIA Transcribe Date/Time: Jul 03 2022 12:47P Dictated by : FABIAN PRADHAN MD This examination was interpreted and the report reviewed and electronically signed by: ZAK MARSH MD on Jul 03 2022 1:47PM [facility] DIVISION OF RADIOLOGY Radiology Study observation (narrative) [facility] No Panel InformationOrdered By: Ccf Provider on 07-03-2022 [facility] XR CRV 7V AP/LAT/FLX/EXT/ODO /OBLon 07-03-2022 XR [...] apices are clear. IMPRESSION: Mild cervical spondylosis. Statistical Typist: DAHLIA Transcribe Date/Time: Jul 03 2022 12:51P Dictated by : FABIAN PRADHAN MD This examination was interpreted and the report reviewed and electronically signed by: ZAK MARSH MD on Jul 03 2022 4:52PM EST [id number] Normal [facility] XR Cervical spine AP and Obl ique and Odontoid and (Lateral W flexion and W extension)on 07-03-2022 IMPRESSION: Mild cervical spondylosis. Statistical Typist: DAHLIA Transcribe Date/Time: Jul 03 2022 12:51P Dictated by : FABIAN PRADHAN MD This examination was interpreted and the report reviewed and electronically signed by: ZAK MARSH MD on Jul 03 2022 4:52PM EST DIVISION OF RADIOLOGY * * *Final Report* * * DATE [...] normal atlantodental interval. Lung apices are clear. DIVISION OF RADIOLOGY Provider, [facility] - 07/03/2022 * * *Final Report* * * DATE [...] normal atlantodental interval. Lung apices are clear. IMPRESSION IMPRESSION: Mild cervical spondylosis. Statistical Typist: [email or web address] Style.comB Transcribe Date/Time: Jul 03 2022 12:51P Dictated by : FABIAN PRADHAN MD This examination was interpreted and the report reviewed and electronically signed by: ZAK MARSH MD on Jul 03 2022 4:52PM [facility] XR LUMBAR 3V AP/LAT/L5-S1on 07-03-2022 XR LUMBAR [...] Number of different views (projections): 1 (accession [id number]), 3 (accession [id number]) M: XB_1 COMPARISON: None RESULT: Counting reference: [...] No acute osseous abnormality in the pelvis. Statistical Typist: DAHLIA Transcribe Date/Time: Jul 03 2022 12:47P Dictated by : FABIAN PRADHAN MD This examination was interpreted and the report reviewed and electronically signed by: ZAK MARSH MD on Jul 03 2022 1:47PM EST [id number] Normal [facility] XR Lumbar spine 3 Viewson * * *Final Report* * * DATE [...] Number of different views (projections): 1 (accession [id number]), 3 (accession [id number]) M: XB_1 COMPARISON: None RESULT: Counting reference: [...] with a generator in the right buttock. DIVISION OF RADIOLOGY Provider, [facility] - 07/03/2022 * * *Final Report* * * DATE [...] Number of different views (projections): 1 (accession [id number]), 3 (accession [id number]) M: XB_1 COMPARISON: None RESULT: Counting reference: [...] with a generator in the right buttock. IMPRESSION IMPRESSION: Lumbar spondylosis No acute osseous abnormality in the pelvis. Statistical Typist: DAHLIA Transcribe Date/Time: Jul 03 2022 12:47P Dictated by : FABIAN PRADHAN MD This examination was interpreted and the report reviewed and electronically signed by: ZAK MARSH MD on Jul 03 2022 1:47PM [facility] XR PELVIS 1V APon 07-03-2022 [...] Number of different views (projections): 1 (accession [id number]), 3 (accession [id number]) M: XB_1 COMPARISON: None RESULT: Counting reference: [...] No acute osseous abnormality in the pelvis. Statistical Typist: DAHLIA Transcribe Date/Time: Jul 03 2022 12:47P Dictated by : FABIAN PRADHAN MD This examination was interpreted and the report reviewed and electronically signed by: ZAK MARSH MD on Jul 03 2022 1:47PM EST [id number] Normal [facility] XR Pelvis APon 07-03-2022 * * *Final Report* * * DATE [...] Number of different views (projections): 1 (accession [id number]), 3 (accession [id number]) M: XB_1 COMPARISON: None RESULT: Counting reference: [...] with a generator in the right buttock. DIVISION OF RADIOLOGY Provider, [facility] - 07/03/2022 * * *Final Report* * * DATE [...] Number of different views (projections): 1 (accession [id number]), 3 (accession [id number]) M: XB_1 COMPARISON: None RESULT: Counting reference: [...] with a generator in the right buttock. IMPRESSION IMPRESSION: Lumbar spondylosis No acute osseous abnormality in the pelvis. Statistical Typist: PSCB Transcribe Date/Time: Jul 03 2022 12:47P Dictated by : FABIAN PRADHAN MD This examination was interpreted and the report reviewed and electronically signed by: ZAK MARSH MD on Jul 03 2022 1:47PM [facility] CAROTID ART BILon 06-27-2 022 [place] CAROTID [...] by: ANGEL WOODS Date: 2022-05-06 16:19 [facility] Result Negative [employer] Other Vital Signs Date Time Vital Sign Value Performing Clinician Facility 09-16-2024 11:20-0500 Diastolic blood pressure 74 mm[Hg] Ines Owens RN INT[facility]ARE UNIT Work Phone: [facility] 09-16-2024 11:20-0500 Systolic blood pressure 116 mm[Hg] Ines Owens RN INTENSIVE CARE UNIT Work Phone: [facility] 02-10-2024 10:37-0400 Body height 162.6 cm Carlota Norton MD Work Phone: [facility] 02-10-2024 10:37-0400 Body mass index (BMI) [Ratio] 28.67 kg/m2 Carlota Norton MD Work Phone: [facility] 02-10-2024 10:37-0400 Body weight 75.75 kg Carlota Norton MD Work Phone: [facility] 01-19-2024 11:45-0400 Diastolic blood pressure 79 mm[Hg] Carlota Norton MD Work Phone: 3(300)159-473785 [place] [address] 01-19-2024 11:45-0400 Heart rate 95 /min Carlota Norton MD Work Phone: 3(178)180-833185 [place] [address] 01-19-2024 11:45-0400 Respiratory rate 13 /min Carlota Norton MD Work Phone: 4(429)201-929985 [place] [address] 01-19-2024 11:45-0400 SaO2% (BldA) [Mass fraction] 92 % Carlota Norton MD Work Phone: 1(118)116-212785 [place] [address] 01-19-2024 11:45-0400 Systolic blood pressure 143 mm[Hg] Carlota Norton MD Work Phone: 2(946)081-819685 [place] [address] 01-19-2024 11:30-0400 Body temperature 98.1 [degF] Carlota Norton MD Work Phone: 3(007)449-082785 [place] [address] 01-19-2024 06:23-0400 Body height 162.6 cm Carlota Norton MD Work Phone: 9(265)448-105385 [place] [address] 01-19-2024 06:23-0400 Body mass index (BMI) [Ratio] 29.93 kg/m2 Carlota Norton MD Work Phone: 8(110)176-388485 [place] [address] 01-19-2024 06:23-0400 Body weight 79.1 kg Carlota Norton MD Work Phone: 6(752)323-226185 [place] [address] 11-11-2023 10:56-0500 Body height 160 cm Carlota Norton MD Work Phone: 4(265)093-101485 [place] [address] 11-11-2023 10:56-0500 Body mass index (BMI) [Ratio] 30.65 kg/m2 Carlota Norton MD Work Phone: 4(045)476-508185 [place] [address] 11-11-2023 10:56-0500 Body weight 78.47 kg Carlota Norton MD Work Phone: 6(053)812-913685 [place] [address] 09-09-2023 11:12-0400 Body height 160 cm Argentina QUIJANO Work Phone: [facility] 09-09-2023 11:12-0400 Body mass index (BMI) [Ratio] 30.29 kg/m2 Argentina Lord FARM ASSISTANT-ACCOUNTING BOOKKEEPER Work Phone: [facility] 09-09-2023 11:12-0400 Body temperature 97.39 [degF] Argentina Lord FARM ASSISTANT-ACCOUNTING BOOKKEEPER Work Phone: [facility] 09-09-2023 11:12-0400 Body weight 77.56 kg Argentina Lord FARM ASSISTANT-ACCOUNTING BOOKKEEPER Work Phone: [facility] 09-09-2023 11:12-0400 Diastolic blood pressure 84 mm[Hg] Argentina Lord FARM ASSISTANT-ACCOUNTING BOOKKEEPER Work Phone: [facility] 09-09-2023 11:12-0400 Heart rate 54 /min Argentina Lord FARM ASSISTANT-ACCOUNTING BOOKKEEPER Work Phone: [facility] 09-09-2023 11:12-0400 Systolic blood pressure 156 mm[Hg] Argentina Lord FARM ASSISTANT-ACCOUNTING BOOKKEEPER Work Phone: [facility] 12-24-2022 11:20-0500 Diastolic blood pressure 71 mm[Hg] MD Albino Reilly Work Phone: [facility] 12-24-2022 11:20-0500 Heart rate 55 /min MD Albino Reilly Work Phone: [facility] 12-24-2022 11:20-0500 Respiratory rate 16 /min MD Albino Reilly Work Phone: [facility] 12-24-2022 11:20-0500 SaO2% (BldA) [Mass fraction] 99 % MD Albino Reilly Work Phone: [facility] 12-24-2022 11:20-0500 Systolic blood pressure 123 mm[Hg] MD Albino Reilly Work Phone: [facility] 02-14-2023 10:19-0500 Body temperature 98.1 [degF] MD Albino Reilly Work Phone: [facility] 12-24-2022 10:19-0500 Inhaled oxygen flow rate 6 L/min MD Albino Reilly Work Phone: [facility] 12-24-2022 08:00-0500 Body height 160.02 cm MD Albino Reilly Work Phone: [facility] 12-24-2022 08:00-0500 Body mass index (BMI) [Ratio] 30.3 kg/m2 MD Albino Reilly Work Phone: [facility] 12-24-2022 08:00-0500 Body weight 77.7 kg MD Albino Reilly Work Phone: [facility] 11-25-2022 13:09-0500 Body height 160 cm Amos Wisdom MD Work Phone: [facility] 11-25-2022 13:09-0500 Body temperature 96.4 [degF] Amos Wisdom MD Work Phone: [facility] 11-25-2022 13:09-0500 Body weight 78.02 kg Amos Wisdom MD Work Phone: [facility] 11-25-2022 13:09-0500 Diastolic blood pressure 88 mm[Hg] Amos Wisdom MD Work Phone: [facility] 11-25-2022 13:09-0500 Heart rate 78 /min Amos Wisdom MD Work Phone: [facility] 11-25-2022 13:09-0500 SaO2% (BldA) [Mass fraction] 98 % Amos Wisdom MD Work Phone: [facility] 11-25-2022 13:09-0500 Systolic blood pressure 158 mm[Hg] Amos Wisdom MD Work Phone: [facility] 11-18-2022 11:57-0500 Body height 160.02 cm No PCP None MP-Otolaryngolog y-We [place] [facility] [address] Work Phone: 11-18-2022 11:57-0500 Body mass index (BMI) [Ratio] 30.47 kg/m2 No PCP None ZU-Hlhlijctxgdxaa-Kf [place] [facility] Work Phone: 11-18-2022 11:57-0500 Body surface area Derived from formula 1.81 m2 No PCP None BN-Qgswqdfzpfxkgd-Rf [place] [facility] [address] Work Phone: 11-18-2022 11:57-0500 Body temperature 97.8 [degF] No PCP None MP-Otolaryngolo gy-We [place] [facility] [address] Work Phone: 11-18-2022 11:57-0500 Body weight 78.02 kg No PCP None MP-Otolaryngolog y-We [place] [facility] [address] Work Phone: 11-18-2022 11:57-0500 Diastolic blood pressure 82 mm[Hg] No PCP None KK-Mmafddzdfpamun-Jc [place] [facility] [address] Work Phone: 11-18-2022 11:57-0500 Systolic blood pressure 144 mm[Hg] No PCP None PF-Hgwxrviolkyisi-Ew [place] [facility] [address] Work Phone: 11-18-2022 11:57-0500 0 1 No PCP None MP-Otolaryngolog y-We [place] [facility] [address] Work Phone: Comment on above: [employer] 11-13-2022 10:00-0500 Body height 160 cm Kerri Moreno PA-C Work Phone: [facility] 11-13-2022 10:00-0500 Body weight 76.66 kg Kerri Moreno PA-C Work Phone: [facility] 11-13-2022 10:00-0500 Diastolic blood pressure 82 mm[Hg] Kerri Moreno PA-C Work Phone: [facility] 11-13-2022 10:00-0500 Heart rate 54 /min Kerri Moreno PA-C Work Phone: [facility] 11-13-2022 10:00-0500 Systolic blood pressure 134 mm[Hg] Kerri Moreno PA-C Work Phone: [facility] 07-03-2022 10:29-0400 Diastolic blood pressure 99 mm[Hg] Yonathan Lowanchick PA-C Work Phone: [facility] 07-03-2022 10:29-0400 Heart rate 60 /min Yonathan Lowanchick PA-C Work Phone: [facility] 07-03-2022 10:29-0400 SaO2% (BldA) [Mass fraction] 97 % Yonathan Evanchick PA-C Work Phone: [facility] 07-03-2022 10:29-0400 Systolic blood pressure 165 mm[Hg] Yonathan Sarmientoick PA-C Work Phone: [facility] 11-05-2021 15:45-0500 Body height 160.02 cm Gregoria Ginty Other [employer] Other 11-05-2021 15:45-0500 Body mass index (BMI) [Ratio] 29.58 kg/m2 Gregoria Ginty Other [employer] Other 11-05-2021 15:45-0500 Body temperature 96.7 [degF] Gregoria Ginty Other [employer] Other 11-05-2021 15:45-0500 Body weight 75.75 kg Gregoria Ginty Other [employer] Other 11-05-2021 15:45-0500 SaO2% (BldA) [Mass fraction] 97 % Gregoria Ginty Other [facility] [employer] Other Encounters Encounter Date Encounter Type Care Provider Facility Start: 09-16-2024 End: 09-16-2024 Bamboo flowsheet Ines Owens RN [facility] Work Phone: [facility] Start: 09-16-2024 End: 09-16-2024 Bamboo flowsheet Ines Owens RN [facility]ARE [facility]IT Work Phone: [facility] Start: 09-16-2024 End: 09-16-2024 Patient encounter procedure Ines Owens RN [facility]IT Work Phone: [facility] Comment on above: Cervical dystonia (P rimary Dx) Start: 09-16-2024 End: 09-16-2024 ambulatory INES OWENS Not Available Start: 07-06-2024 End: 07-06-2024 ambulatory WILL CORNELIUS Not Available Start: 05-27-2024 End: 05-27-2024 ambulatory INES OWENS Not Available Start: 05-14-2024 End: 05-14-2024 ambulatory ANASTASIIA CARNES Not Available Start: 03-09-2024 End: 03-09-2024 ambulatory [facility] Ambulatory Start: 03-09-2024 End: 03-09-2024 Postop follow up visit related to original px Carlota Norton MD Work Phone: [facility] Comment on above: Postoperative visit (Primary Dx); Multiple perforations of left tympanic membrane; Mixed conductive and sensorineural hearing loss of left ear with restricted hearing of right ear; Bilateral chronic serous otitis media; Mixed conductive and sensorineural hearing loss, bilateral Start: 02-24-2024 End: 02-24-2024 ambulatory INES OWENS Not Available Start: 02-17-2024 End: 02-17-2024 ambulatory INES OWENS Not Available Start: 02-10-2024 End: 02-10-2024 ambulatory [facility] Ambulatory Start: 02-10-2024 End: 04-02-2024 Postop follow up visit related to original px Carlota Norton MD Work Phone: [facility] Comment on above: Postoperative visit (Primary Dx); Multiple perforations of left tympanic membrane; Mixed conductive and sensorineural hearing loss of left ear with restricted hearing of right ear Start: 01-19-2024 End: 01-19-2024 Subsequent hospital visit by physician Carlota Norton MD Work Phone: 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 Start: 01-12-2024 End: 01-13-2024 ambulatory [facility] Start: 01-12-2024 End: 01-13-2024 Encounter for other preprocedural examination [facility] Start: 01-05-2024 End: 01-06-2024 ambulatory [facility] Start: 11-18-2023 End: 11-18-2023 ambulatory INES OWENS Not Available Start: 11-12-2023 ambulatory [facility] Start: 11-11-2023 End: 11-11-2023 ambulatory [facility] Ambulatory Start: 11-11-2023 End: 11-11-2023 Office outpatient new 45 minutes Carlota Norton MD Work Phone: [facility] Comment on above: Mixed conductive and sensorineural hearing loss of left ear with restricted hearing of right ear (Primary Dx); Perforation of left tympanic membrane Start: 10-07-2023 End: 10-07-2023 [facility] Start: 09-09-2023 End: 09-09-2023 ambulatory ARGENTINA Balbuena POP [facility] Amb[facility] Start: 09-09-2023 End: 09-09-2023 Office outpatient visit 25 minutes Argentina Lord FARM ASSISTANT-ACCOUNTING BOOKKEEPER Work Phone: [facility] Comment on above: Perforation of left tympanic membrane (Primary Dx); Left chronic serous otitis media; Bilateral impacted cerumen; Sensation of plugged ear, bilateral; Hearing difficulty of left ear; Otalgia of left ear Start: 01-08-2023 End: 01-09-2023 ambulatory CY STORY Facility: Start: 12-24-2022 End: 12-24-2022 ambulatory Will Cornelius Facility:[facility] Start: 12-24-2022 End: 12-24-2022 Admission to same day surgery center MD Albino Reilly Work Phone: [facility] [place] Start: 12-24-2022 End: 12-24-2022 ambulatory MD Albino Reilly Work Phone: [facility] Work Phone: Start: 12-19-2022 End: 12-19-2022 ambulatory Albino Reilly Facility:[facility] Start: 12-19-2022 End: 12-19-2022 ambulatory MD Albino Reilly Work Phone: [facility] Work Phone: Start: 12-19-2022 End: 12-19-2022 Patient encounter procedure MD Albino Reilly Work Phone: [facility] Work Phone: Start: 11-25-2022 End: 11-25-2022 ambulatory AMOS WISDOM Facility:[facility] Start: 11-25-2022 End: 11-25-2022 Patient encounter procedure Amos Wisdom MD Work Phone: Neurology Comment on above: Cervical dystonia (P rimary Dx) Start: 11-18-2022 Office outpatient ne w 30 minutes No PCP None [facility] Work Phone: Start: 11-14-2022 End: 11-14-2022 ambulatory CY STORY Facility: Start: 11-13-2022 End: 11-13-2022 ambulatory LUIS ENRIQUE WOOD Facility:[facility] Start: 11-13-2022 End: 11-13-2022 Patient encounter procedure Kerri Moreno PA-C Work Phone: Pain Management Comment on above: Cervical dystonia (P rimary Dx); Cervicalgia Start: 10-14-2022 End: 10-14-2022 ambulatory LUIS ENRIQUE WOOD Facility:[facility] Start: 10-08-2022 Refill Yonathan Kayden Torsten crawford PA-C Work Phone: Spine Medicine Comment on above: Refill Request Start: 09-18-2022 End: 09-18-2022 ambulatory AMOS WISDOM Facility:[facility] Start: 08-14-2022 End: 08-14-2022 ambulatory Remi Escamilla PT [facility] [facility] Comment on above: Neck pain (Primary D x) Start: 08-07-2022 End: 08-07-2022 ambulatory [facility] Facility:[facility] Start: 08-07-2022 End: 08-07-2022 ambulatory Meredith Hollis PTA Work Phone: [facility] Comment on above: Spasmodic torticolli s (Primary Dx); Neck pain Start: 08-05-2022 ambulatory YONATHAN Reza ity:[facility] Start: 07-31-2022 End: 07-31-2022 ambulatory [facility] Facility:[facility] Start: 07-31-2022 End: 07-31-2022 ambulatory Meredith Hollis PTA Work Phone: [facility] Comment on above: Spasmodic torticolli s (Primary Dx); Neck pain Start: 07-17-2022 End: 07-17-2022 ambulatory LUIS ENRIQUE WOOD Facility:[facility] Start: 07-17-2022 End: 07-17-2022 ambulatory Remi Escamilla PT [facility] [facility] Comment on above: Neck pain (Primary D x); Spasmodic torticollis; Bilateral carotid artery stenosis; Low back pain, non-specific; History of tremor; Myalgia; Pain of left sacroiliac joint; Spinal stenosis of cervical region; Chronic tension-type headache, not intractable; Imbalance Start: 07-09-2022 End: 07-09-2022 ambulatory LUIS ENRIQUE WOOD Facility:[facility] Start: 07-09-2022 End: 07-09-2022 ambulatory Yonathan Monique Debora HUNTER Work Phone: Spine Medicine Comment on above: Radiculopathy, cervi car region (Primary Dx); Spasmodic torticollis; Bilateral carotid artery stenosis; History of tremor; Myalgia; Spinal stenosis of cervical region; Chronic tension-type headache, not intractable; Imbalance; Cervical spondylosis without myelopathy; Lumbar facet arthropathy; Degeneration of lumbar intervertebral disc; Lumbar spondylosis Start: 07-09-2022 End: 07-09-2022 Telemedicine consultation with patient Yonathan Monique Debora HUNTER Work Phone: Project Manager [facility] Start: 07-03-2022 End: 07-03-2022 ambulatory LUIS ENRIQUE WOOD Facility:[facility] Start: 07-03-2022 End: 07-03-2022 ambulatory LUIS ENRIQUE WOOD Facility:[facility] Start: 07-03-2022 End: 07-03-2022 Subsequent hospital visit by physician India Durant Work Phone: Radiology Comment on above: Spasmodic torticolli s [G24.3] Start: 07-03-2022 End: 07-03-2022 Patient encounter procedure Yonathan Cazares PA-C Work Phone: Spine Medicine Comment on above: Spasmodic torticolli s (Primary Dx); Bilateral carotid artery stenosis; Neck pain; Low back pain, non-specific; History of tremor; Myalgia; Pain of left sacroiliac joint; Spinal stenosis of cervical region; Chronic tension-type headache, not intractable; Imbalance Start: 05-06-2022 End: 05-07-2022 ambulatory CY STORY Facility: Start: 11-05-2021 End: 11-05-2021 ambulatory Gregoria Hamlin Other [employer] Other Start: 11-05-2021 Office outpatient vi sit 15 minutes Gregoria Ginty [facility] Procedures Date Procedure Procedure Detail Performing Clinician Start: 01-19-2024 PULSE OXIMETRY, CONTINUOUS Angel abbasi MD Work Phone: Start: 01-12-2024 Basic metabolic 2000 panel - Serum or Plasma TU JOHNS Start: 01-12-2024 CBC W Auto Differential panel - Blood TU NAT Start: 01-05-2024 REQUEST FOR PRE-ADMISSION TESTING VISIT CARLOTA FOXWRY Start: 10-07-2023 COMPREHENSIVE HEARING TEST TU NAT Start: 12-24-2022 Hysteroscopy MD Albino Reilly Work Phone: Start: 12-24-2022 Implantation of sacral nerve stimulator MD Albino Reilly Work Phone: Start: 11-18-2022 Follow-up visit Start: 07-03-2022 Radex spine cervical 6 or more views Yonathan Cazares PA-C Work Phone: Start: 07-02-2022 Adult depression screening assessment Yonathan Cazares PA-C Work Phone: Start: 02-15-2022 Mammography Argentina Lord FARM ASSISTANT-ACCOUNTING BOOKKEEPER Work Phone: Start: 02-19-2017 Colonoscopy Ines Owens RN [facility]IVE [facility]ARE UNIT Work Phone: H/O: surgery S/P tympanoplasty MD Albino Reilly Work Phone: Tympanomastoidectomy No PCP None Plan of Treatment Date Care Activity Detail Author Start: 02-19-2027 Screening for malign ant neoplasm of colon [facility] Start: 02-07-2027 RSV Vaccine (1 - 1-d ose 75+ series) RSV Vaccine (1 - 1-dose 75+ series) [facility] Start: 01-22-2026 Screening for malign ant neoplasm of colon [facility] Start: 05-09-2025 Influenza vaccination Influenza Vacc ine (#1) [facility] Comment on above: Postponed from 07/11 (Patient Refused) Start: 12-30-2024 End: 12-30-2024 Patient encounter procedure 12/30/2024 10:00 AM EST Procedure Visit [facility] [address] [place] [address] Ines Owens RN [facility]ARE UNIT [address] [place] [id number] [facility] Start: 10-15-2024 Pneumococcal Vaccine : 65+ (3 of 3 - PPSV23 or PCV20) Pneumococcal Vaccine: 65+ (3 of 3 - PPSV23 or PCV20) [facility] Start: 10-15-2024 Pneumococcal Vaccine : 65+ Years (3 of 3 - PPSV23 or PCV20) Pneumococcal Vaccine: 65+ Years (3 of 3 - PPSV23 or PCV20) [facility] Start: 09-16-2024 End: 09-16-2024 Patient encounter procedure 09/16/2024 11:30 AM EST Procedure Visit [facility] [address] [facility] [address] [place] [address] Ines Owens NP [address] [place] [id number] [facility] Comment on above: Arrived Start: 07-11-2024 Covid-19 Vaccine ( season) Covid-19 Vaccine ( season) [facility] Start: 07-11-2024 Influenza vaccination [facility] Start: 03-09-2024 End: 03-09-2025 Hearing examination Comprehensive hearing test Audiology Routine 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, bilateral Expected: 03/09/2024 (Approximate), Expires: 03/09/2025 [facility] Service Area Work Phone: Comment on above: Expected: 03/09/2024 (Approximate), Expires: 03/09/2025 Start: 03-09-2024 End: 03-09-2024 Patient encounter procedure 03/09/2024 8:30 AM EDT Office Visit [facility] [address] [facility] [address] [place] [address] [place] [address] [place], [place] [id number] [facility] Start: 02-10-2024 End: 02-10-2024 Patient encounter procedure 02/10/2024 11:00 AM EDT Office Visit [facility] [address] [place] [address] [place] [address] [place] [address] [facility] Start: 01-15-2024 COVID-19 Vaccine (2022- season) COVID-19 Vaccine ( season) [facility] [...] of 3) [facility] Start: 11-10-2023 Advance Directive Discussion Advance Directive Discussion [facility] Start: 07-11-2023 Influenza vaccination Influenza Vacc ine (#1) [facility] Start: 07-02-2023 Adult depression screening assessment DEPRESSION SCREENING [facility] Start: 02-15-2023 Screening for malign ant neoplasm of breast Mammogram [facility] Start: 12-24-2022 Radiography of sacrococcygeal spine XR sacrum coccyx min 2V [facility] Start: 12-24-2022 XR Sacrum and Coccyx GE 2 Views [facility] Start: 12-24-2022 End: 12-24-2022 [facility] Start: 11-10-2022 ADVANCE DIRECTIVE DISCUSSION ADVANCE DIRECTIVE DISCUSSION [facility] Start: 11-10-2022 DEPRESSION ASSESSMENT DEPRESSION ASS ESSMENT [facility] Start: 08-13-2022 COVID-19 VACCINE (5 - Booster for Moderna series) COVID-19 VACCINE (5 - Booster for Moderna series) [facility] Start: 08-13-2022 COVID-19 Vaccine (5 - Moderna series) COVID-19 Vaccine (5 - Moderna series) [facility] Start: 07-11-2022 Influenza vaccination INFLUENZA (#1) [facility] Start: 11-10-2021 ADVANCE DIRECTIVE DISCUSSION ADVANCE DIRECTIVE DISCUSSION [facility] Start: 11-10-2021 DEPRESSION ASSESSMENT DEPRESSION ASS ESSMENT [facility] Start: 10-15-2020 Pneumococcal Vaccine : 65+ Years (3 - PPSV23 or PCV20) Pneumococcal Vaccine: 65+ Years (3 - PPSV23 or PCV20) [facility] Start: 02-07-2017 BONE DENSITY BONE DENSITY [facility] Start: 02-07-2017 PNEUMOCOCCAL: 65+ (1 - PCV) PNEUMOCOCCAL: 65+ (1 - PCV) [facility] Start: 02-07-2017 Screening for osteoporosis Bone Density Screening [facility] Start: 11-16-2016 Shingrix Vaccine (2 of 3) Shingrix Vaccine (2 of 3) [facility] Start: 11-16-2016 Zoster Vaccines (2 of 3) Zoster Vacc francoise (2 of 3) [facility] Start: 02-07-2002 Screening for malign ant neoplasm of lung Lung Cancer Screening [facility] Start: 02-07-2002 SHINGRIX VACCINE (1 of 2) SHINGRIX VACCINE (1 of 2) [facility] Start: 02-07-1997 COLOGUARD (FIT-DNA) COLOGUARD (FIT-D NA) [facility] Start: 02-07-1997 Colonoscopy COLONOSCOPY [facility] Start: 02-07-1997 COLORECTAL CANCER SCREENING COLORECTAL CANCER SCREENING [facility] Start: 02-07-[address] COLONOGRAPHY [facility] Start: 02-07-1997 DIABETES SCREEN DIABETES SCREEN [facility] Start: 02-07-1997 Diabetes Screening Diabetes Screenin g [facility] Start: 02-07-1997 FECAL OCCULT BLOOD FECAL OCCULT BLOO D [facility] Start: 02-07-1997 Lipid panel [facility] Screening [facility] Start: 02-07-1997 LIPID SCREEN LIPID SCREEN [facility] Start: 02-07-1997 Screening for malign ant neoplasm of colon [facility] Start: 02-07-1997 SIGMOIDOSCOPY SIGMOIDOSCOPY [facility] Start: 1992 Mammography MAMMOGRAM [facility] Start: 1992 Screening for malign ant neoplasm of breast Mammogram Screening [facility] Start: 02-07-1974 DTaP/Tdap/Td Vaccine s (1 - Tdap) DTaP/Tdap/Td Vaccines (1 - Tdap) [facility] Start: 02-07-1971 Urine microalbumin profile [facility] Start: 02-07-1970 Anxiety Screening Anxiety Screening [facility] Start: 02-07-1970 Depression Screening Depression Scre ening [facility] Start: 02-07-1970 Diabetes mellitus screening Diabetes Screening [facility] Start: 02-07-1970 HEPATITIS C SCREENING HEPATITIS C [facility] Start: 02-07-1970 Hepatitis C screening Hepatitis C [facility] Start: 1952 Lipid panel Lipid Panel [...] Imbalance 1 Occurrences starting 07/03/2022 until 08/02/2023 [facility] Work Phone: Comment on above: 1 Occurrences [...] Imbalance 1 Occurrences starting 07/03/2022 until 08/02/2023 [facility] Work Phone: Comment on above: 1 Occurrences starti ng 07/03/2022 until 08/02/2023 Patient Education Surgical Wound (DC) [facility] Work Phone: Patient referral [facility] Work Phone: PT PLAN OF CARE CERTIFICATION PT PLAN OF CARE CERTIFICATION Procedures Routine Neck pain Ordered: 07/17/2022 [facility] Comment on above: Ordered: 07/17/2022 End: 08-02-2023 Radex spine cervical 6 or more views XR CERV OTHER 7V AP/LAT/FLX/EXT/ODON/OBL Radiology Routine Spasmodic torticollis Bilateral carotid artery stenosis Neck pain Low back pain, non-specific History of tremor Myalgia Pain of left sacroiliac joint Spinal stenosis of cervical region Chronic tension-type headache, not intractable Imbalance 1 Occurrences starting 07/03/2022 until 08/02/2023 [facility] Work Phone: Comment on above: 1 Occurrences starti ng 07/03/2022 until 08/02/2023 Radex spine cervical 6 or more views XR CERV OTHER 7V AP/LAT/FLX/EXT/ODON/OBL Radiology Routine Spasmodic torticollis Bilateral carotid artery stenosis Neck pain Low back pain, non-specific History of tremor Myalgia Pain of left sacroiliac joint Spinal stenosis of cervical region Chronic tension-type headache, not intractable Imbalance 07/03/2022 12:05 PM EDT [facility] Work Phone: Tympanoplasty w/o mastoidec 1st/revj prosth torp Ossiculoplasty Perforation of left tympanic membrane [facility] Work Phone: Tympanoplasty w/o mastoidect w/o ossicle recnstj Tympanoplasty Perforation of left tympanic membrane [facility] Work Phone: [facility] Immunizations Immunization Date Immunization Notes Care Provider Fa cili 09-16-2023 ABRYSVO - Respirator y syncytial virus (RSV), vaccine, bivalent, protein subunit RSV prefusion F, diluent reconstituted, 0.5 mL, PF Ines Owens RN [facility]ARE UNIT Work Phone: [facility] 09-16-2023 SARS-COV-2 (COVID-19 ) vaccine, mRNA, spike protein, LNP, PF, 50 mcg/0.5 mL Ines Owens RN [facility]IT Work Phone: [facility] 09-16-2023 zoster vaccine recombinant Ines Reinaianlupis RN [facility]ARE UNIT Work Phone: [facility] 06-18-2022 COVID-19 mRNA-1273 (Moderna) MD Albino Reilly Work Phone: [facility] 10-25-2021 COVID-19 mRNA-1273 (Moderna) MD Albino Reilly Work Phone: [facility] 02-03-2021 COVID-19 mRNA-1273 (Moderna) MD Albino Reilly Work Phone: [facility] 01-06-2021 COVID-19 mRNA-1273 (Moderna) MD Albino Reilly Work Phone: [facility] 10-15-2019 pneumococcal conjuga te vaccine, 13 valent Argentina Lord FARM ASSISTANT-ACCOUNTING BOOKKEEPER Work Phone: [facility] Work Phone: 09-21-2016 zoster vaccine, live Bakari Lord FARM ASSISTANT-ACCOUNTING BOOKKEEPER Work Phone: [facility] Work Phone: 10-06-2001 pneumococcal polysaccharide vaccine, 23 valent Argentina Lord FARM ASSISTANT-ACCOUNTING BOOKKEEPER Work Phone: [facility] Work Phone: Payers Date Payer Category Payer Private Health Insurance [id number] 2023 Private Health Insurance CLI [id number] 2022 Self-pay [id number] 2022 Unknown [id number] 2022 Unknown 2021 Unknown [id number] 2017 Medicare [id number] 1959 Medicare [id number] 2.1 [id number] 1959 Unknown [id number] 2.16.8 [id number] 1952 Unknown [id number] 2.16.84 0.1.654156.3.579.2.593 1952 Unknown [id number] 2.16.84 0.1.558291.3.579.2.593 1952 Unknown [id number] 2.16.84 0.1.055135.3.579.2.593 1952 Unknown [id number] 2.16.8 40.1.387134.3.579.2.1245 1952 Unknown [id number] 2.16.8 40.1.862822.3.579.2.1245 1952 Unknown [id number] 2.16.8 40.1.722171.3.579.2.1242 1952 Unknown [id number] 2.16.8 40.1.816688.3.579.2.1242 1952 Unknown [id number] 2.16.84 0.1.218495.3.579.2.1242 1952 Unknown [id number] 2.16.8 40.1.922011.3.579.2.1244 1952 Unknown [id number] 2.16.8 40.1.643234.3.579.2.1244 1952 Unknown [id number] 2.16.8 40.1.421499.3.579.2.1244 1952 Unknown [id number] 2.16.8 40.1.055993.3.579.2.1244 1952 Unknown [id number] 2.16.84 0.1.829575.3.579.2.1259 1952 Unknown [id number] 2.16.84 0.1.556879.3.579.2.1259 1952 Unknown [id number] 2.16.84 0.1.625171.3.579.2.1259 1952 Unknown [id number] 2.16.84 0.1.876430.3.579.2.1259 1952 Unknown [id number] 2.16.84 0.1.130104.3.579.2.1259 1952 Unknown [id number] 2.16.84 0.1.281277.3.579.2.1259 1952 Unknown [id number] 2.16.84 0.1.682226.3.579.2.1259 Unknown [id number] 2.16.8 40.1.395611.3.579.2.531 Unknown [id number] 2.16.8 40.1.723638.3.579.2.531 Social History Date Type Detail Facility Sex Assigned At [facility] [employer] Other Start: 07-03-2022 End: 08-19-2023 Tobacco smoking status NHIS Ex-smoker [facility] Start: 11-10-1993 End: 11-10-2013 History of tobacco use Current smoker [facility] Start: 07-03-2022 End: 08-19-2023 Tobacco use and exposure Smokeless tobacco non-user [facility] Start: 07-03-2022 End: 07-06-2024 Alcohol intake Current drinker of alcohol (finding) [facility] Start: 1950 Sex Assigned At Not on file [facility] Start: 06-04-2022 End: 03-09-2024 Exposure to SARS-CoV-2 (event) Not sure [facility] Start: 1950 Sex Assigned At Female [facility] Start: 09-09-2023 Tobacco smoking status NHIS Never smoked tobacco [facility] Start: 09-09-2023 End: 05-27-2024 History of Social function [facility] Work Phone: Start: 09-09-2023 End: 05-27-2024 Tobacco use panel [facility] Work Phone: Start: 11-11-2023 Tobacco smoking status NHIS Occasional tobacco smoker [facility] Work Phone: Start: 11-10-1993 End: 11-10-2013 History of tobacco use Cigarette Smoker [facility] Work Phone: Start: 11-11-2023 Tobacco Comment Medical Cannabis. [facility] Work Phone: Adult Depression Screening Assessment 1 [facility] Start: 07-20-2023 Alcohol Comment Caffeine intake: 1-2 cups per day [facility] Start: 07-20-2023 Gender identity Identifies as female gender (finding) [facility] Start: 07-20-2023 Sexual orientation Heterosexual (finding) [facility] Goals Date Patient Goal Desired Activity /State Clinical Notes 07-03-2022 to 09-16-2024 Ines Owens NP - 09/16/2024 11:30 AM Echo Norton MD - 03/09/2024 8:30 AM EDTPatient InstructionsCarlota Norton MD - 02/10/2024 11:00 AM EDTPatient InstructionsDischarge Instructions Note Date & Type Note Facility 09-16-2024 History of Present illness Narrative Images from the original note were not included. CHIEF COMPLAINT REASON FOR VISIT : Botox HPI: Cara Champagne is a 74 y.o. female who presents for Cervical Dystonia injection. 4/10 Neck pain. Sh is having radiating pain and stiffness in her left shoulder to left side of head. She states the last round of injections really helped. Last botox injections worked better than the ones prior. She had less head tremor and pain. Declined flu CURRENT MEDICATIONS: ALLERGIES/DISCONTINUE MEDICATIONS Current Outpatient Medications Medication Instructions cetirizine (ZYRTEC) 10 mg, Oral, Daily RT cholecalciferol (Vitamin D-3) 50 MCG (1999 [place]) capsule 1 capsule, Oral, Daily estradiol (ESTRACE) 1 g, Vaginal, 2 times weekly fenofibrate (TRIGLIDE) 160 mg, Oral, Daily venlafaxine XR (Effexor XR) 37.5 MG 24 hr capsule Do not crush or chew. Then increase to the 75 mg dose. venlafaxine XR (Effexor XR) 75 MG 24 hr capsule Do not crush or chew. Allergies Allergen Reactions Atorvastatin GI intolerance and Unknown Prochlorperazine Other Other Reaction(s): Seizures Eyes rolled back into her head, and her head rolled back Statins Other There are no discontinued medications. PAST MEDICAL HISTORY: SURGICAL/SOCIAL/FAMILY HISTORY DEPRESSION SCREEN: Past Medical History: Diagnosis Date Allergies Dystonic tremor Heartburn Hypercholesterolemia (CMS/HCC) Irritable bowel syndrome Lichen simplex chronicus 12/17/2017 Past Surgical History: Procedure Laterality Date BIOPSY 12/17/2017 Vulvar biopsy- Lichen Simplex Chronicus BLADDER SURGERY 1992 Bladder lift COLONOSCOPY 2015 nl...[facility] HYSTEROSCOPY 12/24/2022 D & C, Full Interstim implant INTERSTIM PNE 2012 Interstim (sacral neuromodulation for urge incontinence) AR BREAST AUGMENTATION WITH IMPLANT 2006 Breast lift with implant TYMPANOPLASTY Left 10/22/2017, 01/15/18 Social History Tobacco Use Smoking status: Former Types: Cigarettes Smokeless tobacco: Never Substance Use Topics Alcohol use: Yes Alcohol/week: 2.0 standard drinks of alcohol Types: 2 Standard drinks or equivalent per week Comment: Caffeine intake: 1-2 cups per day Family History Problem Relation Name Age of Onset Colon cancer Mother Cancer Father Diabetes Sister No Known Problems Daughter Asthma Son Heart disease Paternal Grandfather Depression: Not at risk (03/09/2024) Received from [facility] PHQ-2 Patient Health Questionnaire-2 Score: 0 REVIEW OF SYMPTOMS: Review of Systems Review of Systems Constitutional: Negative for chills, fatigue and fever. HENT: Negative for tinnitus. Eyes: Negative for photophobia. Respiratory: Negative for shortness of breath. Cardiovascular: Negative for chest pain. Gastrointestinal: Negative for nausea and vomiting. Genitourinary: Negative for frequency. Musculoskeletal: Positive for neck pain and neck stiffness. Negative for back pain and gait problem. Neurological: Positive for tremors. Negative for dizziness, weakness, light-headedness, numbness and headaches. Psychiatric/Behavioral: Negative. OBJECTIVE: 07/06/2024 1:59 PM 05/27/2024 10:20 AM 02/17/2024 10:10 AM Vitals BMI 31.21 kg/m2 31.25 kg/m2 30.65 kg/m2 BSA (m2) 1.88 m2 1.89 m2 1.87 m2 Systolic 114 126 128 Diastolic 82 68 88 Height (in) 5' 3 5' 3 Weight (lb) 176.2 176.4 173 Visit Report Report EXAM: Neurological Exam Mental Status Awake, alert and oriented to person, place and time. Oriented to person, place and time. Speech is normal. Language is fluent with no aphasia. Motor Increased muscle tone. Head tremor, dystonic features, decreased tilt, lateral rotation, pulling/drawing of neck muscles. PROCEDURE: Procedure - Therapeutic injection, Botulinum Toxin- Dystonia Indication Dystonia Consent The procedure was explained to the patient. Informed consent for the procedure was obtained and risk associated with Botox treatments. Any further questions were answered during this visit. Site Prep The areas to be injected were sterilized with 70% isopropanol. Buy and Bill- Botox 200Ux1 100U x1 Lot #[id number] Dilution Per 200 units diluted with 4mL of 0.9% Sodium Chloride Procedure was completed with EMG guidance B/l upper trap 75 units each B/l sternocleidomastoid 25 units each B/l splenius capitis 25 units each B/l splenius cervicis 25 units each B/l longissimus 25 units each TOTAL UNITS INJECTED 250 WASTED 50 Disposition The patient tolerated the procedure well. Post-op care was discussed. The patient is aware that duration of action is 3 months, and that delay in reinjection often results in recurrence of symptoms. Patient Care Instructions Do not rub massage or touch injection sites for 24 hours. Do not lay down for 4 hours after treatment. Avoid hot showers, exercise, and spicy foods for 24 hours to avoid bruising and minimize redness. Discussed signs and symptoms of anaphylaxis and when to seek emergent treatment. Procedure Codes 10764-66 Chemodenervation of neck muscles, bilateral 25472 [EMG] Guidance for chemodenervation J0585 Botulinum toxin a per unit, Units: 325 Follow Up 3 months Botox ASSESSMENT AND PLAN: Diagnoses and all orders for this visit: Cervical dystonia 74 year old female here for repeat botox injections for cervical dystonia. She has head tremor. She has tried PT, muscle relaxers, massage, heat, ice and NSAIDs. She experiences greater than 50% reduction in symptoms with botox treatment. documented in this encounter [facility] 03-09-2024 History of Present illness Narrative History [...] postoperatively. - Audiogram in 2-3 months in [place], advised to have results faxed over to us - RTC in 1 year Scribe Attestation: By signing my name below, I, Uzma Dionte , Scrkei attest that this documentation has been prepared under the direction and in the presence of Carlota Norton MD. I have reviewed the documentation as scribed by Uzma Rapp and agree with the notes. Carlota Norton MD documented in this encounter [facility] Work Phone: 03-09-2024 Instructions Uzma Elaine Dionte - 03/09/2024 8:30 AM EDT Welcome to Dr. Norton's clinic. We are here to assist you through your ENT care at [facility]. Dr. Norton is an Ear surgeon. This means that she specializes in taking care of patients with complex ear problems. Dr. Norton's office number is [phone]. While you may see her at a satellite office, she has a team committed to help meet your healthcare needs at [facility]'s main campus. This number is the most direct way to communicate with the office. Gianna is Dr. Norton's medical secretary teacher and she answers the office phone from 8am-4pm Fri-Fri. She can help you with many general questions and information. Questions that she cannot answer will be directed to the appropriate staff. You may need to leave a message. In this case, someone from the team will call you back. Nirav Neal RN, is Dr. Norton's primary nurse and can be reached by calling the office. Nirav is in clinic with Dr. Norton's on Mondays and Tuesdays. Non-urgent calls will be returned on non-clinic days typically . Sometimes, other team members will also be involved in your care. These people may include dieticians, social workers, speech therapists, drawing hand, neurologist, and physical therapist. Dr. Norton will provide these referrals as needed. Please let her know if you would like to request a specific referral. For your convenience, Dr. Norton sees patients at several [facility] locations including [facility] and [facility] at the main campus [facility]. While we try to make your appointments as convenient as possible, occasionally a visit to another location may be necessary to provide the best care for you. We look forward to working with you to meet your healthcare goals. Dr. Norton makes every effort to run on time [...] procedures in 2015 through an ENT in [place], one operation through her ear canal the [...] my name below, I, Uzma Rapp , Scribania attest that this documentation has been prepared under the direction and in the presence of Carlota Norton MD. I have reviewed the documentation as scribed by Uzma Rapp and agree with the notes. Carlota Norton MD documented in this encounter [facility] Work Phone: 02-10-2024 Instructions Uzma Rapp - 02/10/2024 11:00 AM EDT Welcome to Dr. Norton's clinic. We are here to assist you through your ENT care at [facility]. Dr. Norton is an Ear surgeon. This means that she specializes in taking care of patients with complex ear problems. Dr. Norton's office number is [phone]. While you may see her at a satellite office, she has a team committed to help meet your healthcare needs at [facility]'s main campus. This number is the most direct way to communicate with the office. Gianna is Dr. Norton's medical secretary teacher and she answers the office phone from 8am-4pm Mon-Fri. She can help you with many general questions and information. Questions that she cannot answer will be directed to the appropriate staff. You may need to leave a message. In this case, someone from the team will call you back. Nirav is Dr. Norton's primary nurse and can be reached by calling the office. Nirav is in clinic with Dr. Norton's on Mondays and Tuesdays. Non-urgent calls will be returned on non-clinic days typically . Sometimes, other team members will also be involved in your care. These people may include dieticians, social workers, speech therapists, drawing hand, neurologist, and physical therapist. Dr. Norton will provide these referrals as needed. Please let her know if you would like to request a specific referral. For your convenience, Dr. Norton sees patients at several [facility] locations including [facility] and [facility] at the main campus [facility]. While we try to make your appointments as convenient as possible, occasionally a visit to another location may be necessary to provide the best care for you. We look forward to working with you to meet your healthcare goals. Dr. Norton makes every effort to run on time [...] Hospital Work Phone: 01-19-2024 Hospital Discharge instructions Carolta Norton MD - 01/19/2024 10:30 AM EDT Images [...] (L) Operative Note Date: 01/19/2024 OR Location: [facility] OR Name: Kerri Champagne, : 1950, Age: 73 y.o., , Sex: female Diagnosis Pre-op Diagnosis * Perforation of left tympanic membrane [H72.92] Post-op Diagnosis * Perforation of left tympanic membrane [H72.92] Procedures Left Sided Lateral Graft Tympanoplasty; Ossiculoplasty 05881 - AR TYMPANOPLASTY W/O MASTOIDECT W/O OSSICLE RECNSTJ Left Sided Lateral Graft Tympanoplasty; Ossiculoplasty 78611 - AR TYMPANOPLASTY W/O MASTOIDEC 1ST/REVJ PROSTH TORP AR SPLIT AGRFT F/S/N/H/F/G/M/D GT 1ST 100 CM/</1 % [49569] Surgeons * Carlota Norton - Primary Resident/Fellow/Other Rag Cutting Machine Operator: Surgeon(s) and Role: Procedure Summary Anesthesia: [...] 0 mL Specimen: No specimens collected Staff: Financial Professional: Elaina Marie RN Relief Financial Professional: Lin Stroud RN Relief Scrub: Kisha Jauregui [...] team. Pre-operative huddle was performed by Dr. Norton. General anesthesia was induced and patient was [...] fashion. Pre-incision timeout was performed by Dr. Norton. The surgical microscope was then brought in. [...] the recovery room in stable condition. Dr. Norton was presented and participated in all critical portions of the procedure. Complications: None; patient tolerated the procedure well. Disposition: PACU - hemodynamically stable. Condition: stable Additional Details: Attending Attestation: I was present and scrubbed for the entire procedure. Carlota Norton documented in this encounter [facility] Work Phone: 01-19-2024 Note Formatting of this n ote is different from the original. Left Sided Lateral Graft Tympanoplasty; Ossiculoplasty (L) Operative Note Date: 01/19/2024 OR Location: [facility] OR Name: Kerri Champagne, : 1950, Age: 73 y.o., , Sex: female Diagnosis Pre-op Diagnosis * Perforation of left tympanic membrane [H72.92] Post-op Diagnosis * Perforation of left tympanic membrane [H72.92] Procedures Left Sided Lateral Graft Tympanoplasty; Ossiculoplasty 43924 - AR TYMPANOPLASTY W/O MASTOIDECT W/O OSSICLE RECNSTJ Left Sided Lateral Graft Tympanoplasty; Ossiculoplasty 30289 - AR TYMPANOPLASTY W/O MASTOIDEC 1ST/REVJ PROSTH TORP AR SPLIT AGRFT F/S/N/H/F/G/M/D GT 1ST 100 CM/Surgeons * Carlota Norton - Primary Resident/Fellow/Other Rag Cutting Machine Operator: Surgeon(s) and Role: Procedure Summary Anesthesia: [...] 0 mL Specimen: No specimens collected Staff: Financial Professional: Elaina Marie RN Relief Financial Professional: Lin Stroud RN Relief Scrub: Kisha Jauregui [...] team. Pre-operative huddle was performed by Dr. Norton. General anesthesia was induced and patient was [...] fashion. Pre-incision timeout was performed by Dr. Norton. The surgical microscope was then brought in. [...] the recovery room in stable condition. Dr. Norton was presented and participated in all critical portions of the procedure. Complications: None; patient tolerated the procedure well. Disposition: PACU - hemodynamically stable. Condition: stable Additional Details: Attending Attestation: I was present and scrubbed for the entire procedure. Carlota Norton [facility] Work Phone: 01-19-2024 Attending History and physical note H&P reviewed. The patient was examined and there are no changes to the H&P. Source Note - Sally Wynne PA-C - 01/12/2024 10:30 AM EST [facility] Evaluation Name: Kerri Champagne (Kerri Champagne) /Age: 302/08/1950/73 y.o. Date of Consult: 01/12/24 Referring Provider: Dr. Norton Surgery, Date, and Length: Left Sided Lateral Graft Tympanoplasty; Possible Ossiculoplasty; Postauricualr Skin Graft - Left Ossiculoplasty(psb) - Right , 01/19/24, 180MIN Kerri Champagne is a 73 year-old female who presents to the [facility] for perioperative risk assessment prior to surgery. Patient presents with a primary diagnosis of left TM perforation for many years. She had 2 procedures in 2014 through an ENT in [place], one operation through her ear canal the [...] blood transfusions The patient is not a Hinduism and will accept blood and blood products if medically indicated. Type and screen NOT sent. 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 Family History Problem Relation Name Age of Onset Colon cancer Mother 65 Skin cancer Father Diabetes Sister No Known Problems Maternal Grandmother lived to [facility] Social History Socioeconomic History Marital status: [...] - Left Ossiculoplasty(psb) - Right with Dr. Norton on 01/19/24. Patient has no active cardiac [...] Date of Consult: 01/12/24 Referring Provider: Dr. Norton Surgery, Date, and Length: Left Sided Lateral Graft Tympanoplasty; Possible Ossiculoplasty; Postauricualr Skin Graft - Left Ossiculoplasty(psb) - Right , 01/19/24, 180MIN Kerri Champagne is a 73 year-old female who presents to the [facility] for perioperative risk assessment prior to surgery. Patient presents with a primary diagnosis of left TM perforation for many years. She had 2 procedures in 2014 through an ENT in [place], one operation through her ear canal the [...] blood transfusions The patient is not a Hinduism and will accept blood and blood products if medically indicated. Type and screen NOT sent. 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 Family History Problem Relation Name Age of Onset Colon cancer Mother 65 Skin cancer Father Diabetes Sister No Known Problems Maternal Grandmother lived to [facility] Social History Socioeconomic History Marital status: [...] mg) by mouth once daily. Historical Provider, MD GONZALES ROS: Constitutional: no fever no chills no [...] - Left Ossiculoplasty(psb) - Right with Dr. Norton on 01/19/24. Patient has no active cardiac [...] procedures in 2014 through an ENT in [place], one operation through her ear canal the [...] drainage. She was given ear drops through [facility], she's unsure if the infection resolved. She [...] my name below, I, Uzma Rapp , Scribania attest that this documentation has been prepared under the direction and in the presence of Carlota Norton MD. I have reviewed the documentation as scribed by Uzma Rapp and agree with the notes. Carlota Norton MD documented in this encounter [facility] Work Phone: 11-11-2023 Instructions Charmaine Dionte - 11/11/2023 11:30 AM EST Welcome to Dr. Norton's clinic. We are here to assist you through your ENT care at [facility]. Dr. Norton is an Ear surgeon. This means that she specializes in taking care of patients with complex ear problems. Dr. Norton's office number is [phone]. While you may see her at a satellite office, she has a team committed to help meet your healthcare needs at [facility]'s main campus. This number is the most direct way to communicate with the office. Gianna is Dr. Norton's medical secretary teacher and she answers the office phone from 8am-4pm Fri-Fri. She can help you with many general questions and information. Questions that she cannot answer will be directed to the appropriate staff. You may need to leave a message. In this case, someone from the team will call you back. Nirav is Dr. Notron's primary nurse and can be reached by calling the office. Nirav is in clinic with Dr. Norton's on Mondays and Tuesdays. Non-urgent calls will be returned on non-clinic days typically . Sometimes, other team members will also be involved in your care. These people may include dieticians, social workers, speech therapists, drawing hand, neurologist, and physical therapist. Dr. Norton will provide these referrals as needed. Please let her know if you would like to request a specific referral. For your convenience, Dr. Norton sees patients at several [facility] locations including [facility] and [facility] at the main campus of [facility]. While we try to make your appointments as convenient as possible, occasionally a visit to another location may be necessary to provide the best care for you. We look forward to working with you to meet your healthcare goals. Dr. Norton makes every effort to run on time [...] was done initially by Dr. Lopez in [place], [place] approximately 7-8 years ago and ended [...] hearing function. Patient preference with Dr. Carlota Norton due to driving/transportation accommodations but is willing to drive to nurse midwife/clinical instructor that is available. -Follow-up: Patient will follow-up [...] Vaseline using dry clean cloth. Then, use general studies program chair on warm or cool air and hold it out 12 inches away from the affected ear and air dry ears for 30 seconds. documented in this encounter [facility] Work Phone: 11-25-2022 Note HNO ID: [id number] Author: Amos Wisdom MD Service: ? Author Type: Physician Type: Progress Notes Filed: 11/25/2022 3:23 PM Note Text: Summary: BTX for cervical dystonia [facility] Religious Movement Disorders Neurotoxin Visit Date: November 25, [...] Pain Management OT/PT/Speech Visit from 07/31/2022 in [facility] Physical Therapy Global Physical Health T Score [...] guidance: Yes Injection Site: Cervical dystonia: CPT 22346 Left Right Sternocleidomastoid 25 Splenius capitus 25 50 Scalene Levator Scapulae Trapezius Semispinalis (Other) Lot#: [id number] Exp Date Future plan of care: Follow up: 3 months Neurotoxin change: No Dose change: Yes New Dose: 200 Reason(s) for changing neurotoxin type of dose: if this does not work Sent staff message to nursing related to any changes: Yes Amos Wisdom MD November 25, 2022 3:13 PM Dept of NEUROLOGY TIME OUT/ PROCEDURE NOTE: Informed consent Kerri Champagne Medical Record: [id number] Procedure: neurotoxin intramuscular injection The risks, benefits [...] Wisdom MD November 25, 2022 3:13 PM Wright protocol/ safety checklist Sign in communication: Completed Time out:Team confirms the correct Patient, correct procedure, correct site and site marking, correct neurotoxin type, correct dose and correct dilution. Affirmation of time out: N/A Sign out discussion: Completed Amos Wisdom MD [facility] 11-25-2022 History of Present illness Narrative Summary: BTX for cervical dystonia Images from the original note were not included. [facility]rological Religious Movement Disorders Neurotoxin Visit Date: November 25, [...] Pain Management OT/PT/Speech Visit from 07/31/2022 in [facility] Physical Therapy Global Physical Health T Score [...] guidance: Yes Injection Site: Cervical dystonia: CPT 53562 Left Right Sternocleidomastoid 25 Splenius capitus 25 50 Scalene Levator Scapulae Trapezius Semispinalis (Other) Lot#: [id number] Exp Date Future plan of care: Follow up: 3 months Neurotoxin change: No Dose change: Yes New Dose: 200 Reason(s) for changing neurotoxin type of dose: if this does not work Sent staff message to nursing related to any changes: Yes Amos Wisdom MD November 25, 2022 3:13 PM Dept of NEUROLOGY TIME OUT/ PROCEDURE NOTE: Informed consent Kerri Champagne Medical Record: [id number] Procedure: neurotoxin intramuscular injection The risks, benefits [...] Wisdom MD November 25, 2022 3:13 PM Wright protocol/ safety checklist Sign in communication: Completed Time out:Team confirms the correct Patient, correct procedure, correct site and site marking, correct neurotoxin type, correct dose and correct dilution. Affirmation of time out: N/A Sign out discussion: Completed Amos Wisdom MD documented in this encounter [facility] 11-13-2022 Note HNO ID: [id number] Author: Kerri Moreno PA-C Service: ? Author Type: Physician Rag Cutting Machine Operator Type: Progress Notes Filed: 11/13/2022 11:24 [...] (see below) 1. Physical therapy: Yes: Where: [facility] , Date Started: 07/17/22, Date Ended: 08/14/22 2. Home exercise program after PT: yes 3. Occupational therapy: No 4. A physician supervised home exercise program (HEP): No 5. [place] Filler: No Passive conservative therapy lasting 6 weeks in the last six months (see below) 1. Medical devises: No 2. Acupuncture: No 3. Tens unit: No 4. Prescription pain medication: No 5. NSAIDS: [place]: Gregoria VillaltaTIFFANY Date: November 13, 2022 The subjective information: [...] as appropriate. Monserrat (more content not included)... [facility] 11-13-2022 Instructions Kerri Moreno PA-C - 11/13/2022 10:16 AM EST PLAN: 1) Continue Methocarbamol 500 mg three times a day #90 - refill x 5 2) RTC 6 months or sooner if needed. documented in this encounter [facility] 11-13-2022 History of Present illness Narrative Pain [...] supervised home exercise program (HEP): No 5. [place] Filler: No Passive conservative therapy lasting 6 weeks in the last six months (see below) 1. Medical devises: No 2. Acupuncture: No 3. Tens unit: No 4. Prescription pain medication: No 5. NSAIDS: [place]: Gregoria Villalta MA Date: November 13, 2022 [...] November 13, 2022 documented in this encounter [facility] 10-14-2022 Note HNO ID: [id number] Author: Avani Rodríguez MD Service: ? Author Type: Physician Type: Progress Notes Filed: 10/17/2022 11:10 AM Note Text: [facility] Pain Management Department Office Visit Date: October [...] Current anticoagulation: None Occupation: Retired [employer], [place] October 14, 2022 Attestation: The above information was explored in detail with the patient and edited as needed and is complete. Avani Rodríguez MD October 14, 2022 HISTORY OF PRESENT ILLNESS Kerri Champagne [facility] to [facility] [facility] for the evaluation of [...] clearly evaluated relat (more content not included)... [facility] 09-18-2022 Note HNO ID: [id number] Author: Amos Wisdom MD Service: ? Author Type: Physician Type: Progress Notes Filed: 09/18/2022 10:44 AM Note Text: Summary: cervical dystonia and neck pain [facility] - NEW PATIENT EVALUATION No referring provider defined for this encounter. Luis Enrique Wood DO [address] [facility] [address] Dear : I had the pleasure of [...] then, she started seeing a neurologist in [place] but reports that she was rough but [...] Mental Status Awak (more content not included)... [facility] 08-14-2022 Note HNO ID: [id number] Author: Remi Escamilla, PT Service: ? Author Type: Physical Therapist Type: Progress Notes Filed: 08/14/2022 12:44 PM Note Text: Episode Visit Count: 4 Therapist That Will Accept/Oversee The Plan Of Care: Remi Esacmilla Start of Care Date: 07/17/22 Onset Date: [...] treatment included: Therapeutic exercise, Manual therapy, and Self-penitentiary management. Patient was given updated Home Exercise Program and will continue to complete them at home. Patient was educated that they are able to contact the office with any questions they may have. Goals for Episode of Care: created on 07/17/22 through 09/11/22; updated: 08/14/22 [place] in home exercise program. (MET) Patient will [...] cervical retractions 2x10 3: seated UT stretch [id number] 4: seated levator stretch [id number] 5: scapular retractions 2x10 6: SNAG 2x10 [...] Time Minutes (timed/untimed): 42 Remi Escamilla, PT [facility] 08-14-2022 History of Present illness [...] treatment included: Therapeutic exercise, Manual therapy, and Self-penitentiary management. Patient was given updated Home Exercise Program and will continue to complete them at home. Patient was educated that they are able to contact the office with any questions they may have. Goals for Episode of Care: created on 07/17/22 through 09/11/22; updated: 08/14/22 [place] in home exercise program. (MET) Patient will [...] cervical retractions 2x10 3: seated UT stretch [id number] 4: seated levator stretch [id number] 5: scapular retractions 2x10 6: SNAG 2x10 [...] Remi Escamilla PT documented in this encounter [facility] 08-07-2022 Note HNO ID: [id number] Author: Meredith Hollis PTA Service: ? Author Type: Commercial Real Estate Associate Type: Progress Notes Filed: 08/07/2022 10:28 AM [...] retractions x15 2: seated upper trap stretch [id number] 3: seated levator stretch [id number] 4: scapular retraction x20 5: *cervical isometrics [...] Time Minutes (timed/untimed): 40 Meredith Hollis PTA [facility] 08-07-2022 History of Present illness [...] retractions x15 2: seated upper trap stretch [id number] 3: seated levator stretch 3q00slar 4: scapular retraction x20 5: *cervical isometrics [...] Meredith Hollis PTA documented in this encounter [facility] 07-31-2022 Note HNO ID: [id number] Author: Meredith Hollis PTA Service: ? Author Type: Commercial Real Estate Associate Type: Progress Notes Filed: 07/31/2022 10:24 AM [...] retractions x10 2: seated upper trap stretch 8r98pawg 3: seated levator stretch 5b56qggn (no overpressure) 4: *scapular retraction x20 5: [...] Time Minutes (timed/untimed): 41 Meredith Hollis PTA [facility] 07-31-2022 History of Present illness [...] retractions x10 2: seated upper trap stretch 4h94kcvi 3: seated levator stretch 2e25zjgy (no overpressure) 4: *scapular retraction x20 5: [...] Meredith Hollis PTA documented in this encounter [facility] 07-17-2022 Note HNO ID: [id number] Author: Remi Escamilla PT Service: ? Author [...] of Care: created on 07/17/22 through 09/11/22 [place] in home exercise program. Patient will decrease [...] Planned: 48 Planned Treatment Interventions: Therapeutic exercise (16554);Neuromuscular re-education (40137);Manual therapy (78564);Therapeutic activities (62841);Self-penitentiary management (86287);Patient/Family/Caregiver Education;Body Mechanics Training PLAN FOR NEXT VISIT: [...] 07/02/2022 07/16/2022 Phys (more content not included)... [facility] 07-17-2022 History of Present illness Narrative Episode Visit Count: 1 Therapist That Will Oversee The Plan Of Care: Reim Escamilla Start of Care Date: 07/17/22 Onset [...] of Care: created on 07/17/22 through 09/11/22 [place] in home exercise program. Patient will decrease [...] Planned: 48 Planned Treatment Interventions: Therapeutic exercise (65524);Neuromuscular re-education (13210);Manual therapy (10525);Therapeutic activities (91209);Self-penitentiary management (70697);Patient/Family/Caregiver Education;Body Mechanics Training PLAN FOR NEXT VISIT: [...] Thumb Extension (C8): 5/5 Hand Strength R Geothermal Operating Engineer Position 2 (lbs): 49 lbs L Geothermal Operating Engineer Position 2 (lbs): 45 lbs Special Tests [...] States/Identifies;Return Demonstration TREATMENT: PT Treatment Interventions: Therapeutic Exercise;Self-Prison Management Evaluation Therapeutic Exercise: 1: seated cervical retractions 2x10 2: seated upper trap stretch [id number] 3: seated levator stretch 4e93zgbw 4: seated thoracic extension 2x10 Skilled Intervention: Patient was educated in proper exercise technique and purpose for exercises. Skilled judgment was provided in selection of appropriate interventions. Self-Prison Management: 1: education on POC and HEP Skilled Intervention: Skilled judgment in the selection of proper modification for activity of daily living/home management based on clinical presentation, deficits, and needs. Billing * Evaluation Low Complexity: 1 Unit Therapeutic Exercise Treatment Minutes: 14 Self-Care/Home Management Treatment Minutes: 1 Total Treatment Time Minutes (timed/untimed): 41 Remi Escamilla PT documented in this encounter [facility] 07-09-2022 Note HNO ID: [id number] Author: Yonathan Cazares PA-C Service: ? Author Type: Physician Rag Cutting Machine Operator Type: Progress Notes Filed: 08/13/2022 1:58 PM Note Text: VIRTUAL VISIT PROGRESS NOTE This is a virtual visit using Joome video visit. It required patient-provider interaction for [...] on the d (more content not included)... [facility] 07-09-2022 History of Present illness Narrative VIRTUAL VISIT PROGRESS NOTE This is a virtual visit using MyChart video visit. It required patient-provider interaction for [...] the date of the service which included eued-ga-gyox patient care, completing clinical documentation, obtaining and/or [...] or progressive neurological issues. EMMANUEL Weiss PA-C [facility] [address] [place] [address], [address] [place] [address] Yonathan Cazares PA-C documented in this encounter [facility] 07-03-2022 Note HNO ID: [id number] Author: RT Jaleesa(R) Service: ? Author Type: [...] RT Jaleesa(R) July 03, 2022 12:04 PM [facility] 07-03-2022 History of Present illness Narrative Radiology Service Progress Note PATIENT NAME: Kerri [...] RT Jaleesa(R) July 03, 2022 12:04 PM documented in this encounter [facility] 07-03-2022 Note HNO ID: [id number] Author: Yonathan Cazares PA-C Service: ? Author Type: Physician Rag Cutting Machine Operator Type: Progress Notes Filed: 07/03/2022 11:43 [...] fluticasone (FLONASE) 50 mcg/actuation nasal sprayUse 1 [place] in each nostril once daily.Disp: Rfl: ofloxacin (FLOXIN) 0.3 % otic solutionUse 5 Drops in both ears once daily.Disp: Rfl: FLUoxetine (PROZAC) 10 mg capsuleTake 10 mg by mouth once daily.Disp: Rfl: awgnnzdv-uyou-cjjr-FA-K-hb#244 18-400-80 mg-mcg-mcg tabTake by mouth once daily.Disp: [...] recent MRSA infe (more content not included)... [facility] 07-03-2022 History of Present illness [...] fluticasone (FLONASE) 50 mcg/actuation nasal spray^Use 1 [place] in each nostril once daily.^Disp: ^Rfl: ofloxacin (FLOXIN) 0.3 % otic solution^Use 5 Drops in both ears once daily.^Disp: ^Rfl: FLUoxetine (PROZAC) 10 mg capsule^Take 10 mg by mouth once daily.^Disp: ^Rfl: wqpqkizn-zctv-dpns-FA-K-hb#244 18-400-80 mg-mcg-mcg tab^Take by mouth once daily.^Disp: [...] pain today. Pt has had PT in [place] last year for her complaints. Pt seen in [place] at a wellness clinic with a chiropractor [...] Interested in B[facility] again in future at [facility]. Lives in [facility] is an easier drive in future? [...] the date of the service which included gvkt-sk-dqeq patient care, completing clinical documentation, obtaining and/or [...] forwarded to consulting/requesting physician. EMMANUEL Weiss PA-C [facility] [address] [place] [address], [address] [place] [address] documented in this encounter [facility] Evaluation note [facility] GIVVER Other Evaluation note Diagnosis Spasmodic torticollis- Primary [...] Abnormality of gait [facility] Diagnosis Neck pain- Primary Cervicalgia Spasmodic [...] Abnormality of gait [facility] Diagnosis Spasmodic torticollis- Primary Neck pain Cervicalgia documented [facility] Diagnosis Spasmodic torticollis- Primary Neck pain Cervicalgia [facility]* Diagnosis Radiculopathy, cervical region- Primary Brachial [...] spondylosis without myelopathy [facility] Diagnosis Neck pain- Primary Cervicalgia [facility] Diagnosis Radiculopathy, cervical region- Primary Brachial neuritis or radiculitis nos Cervical spondylosis without myelopathy Spasmodic torticollis Imbalance Abnormality of gait Neck pain Cervicalgia Spinal stenosis of cervical region Spinal stenosis in cervical region [facility]* Diagnosis Cervical dystonia- Primary Spasmodic torticollis Cervicalgia documented in this [facility]* Diagnosis Cervical dystonia- Primary Spasmodic torticollis documented in this encounter [facility] noteNo assessment information [facility]Mary[facility] Work Phone: Evaluation note* Diagnosis Perforation [...] [facility] Work Phone: Evaluation note* Diagnosis Spasmodic torticollis Bilateral carotid artery stenosis Occlusion [...] Abnormality of gait [facility] Cervical dystonia- Primary Spasmodic torticollis [facility] KERRI CHAMPAGNE is a 72 year- old female presents to clinic today referred by Dr. Fuentes, No PCP with com plaints of bilateral cerumen impaction and difficulty hearing [...] that I personally reviewed with the patient. [facility] Work Phone: History of Present illness [...] that I personally reviewed with the patient. [facility] Work Phone: Hospital Discharge instructions Additional [...] in an emergency, call the office at [[phone]]. TODAY -Take it easy the rest of [...] told otherwise. DIET -Any diet is permissible [facility] Work Phone: Reason for referral (narrative)* - Authorized Specialty Diagnoses / Procedures Referred By Don leon Referred To Contact Physical Therapy Diagnoses Spasmodic torticollis Bilateral carotid artery stenosis Neck pain Low back pain, non-specific History of tremor Myalgia Pain of left sacroiliac joint Spinal stenosis of cervical region Chronic tension-type headache, not intractable Imbalance Procedures CONSULT [place] [address] [place] [address] Referral ID Status Reason Start Date Expiration Date V isits Requested Visits Authorized [id number] Authorized 07/03/2022 10/01/2022 99 99 * Consult, Test, Treat (Routine) - Authorized Specialty Diagnoses / Procedures Referred By Don t Referred To Contact Neurology Diagnoses Spasmodic torticollis Neck pain History of tremor Myalgia Pain of left sacroiliac joint Spinal stenosis of cervical region Chronic tension-type headache, not intractable Imbalance Procedures CONSULT TO NEUROLOGY OFFICE/OUTPATIENT [facility] 60-74 MINUTES Yonathan Cazares PA-C [address] [facility] [address] [place] [address] Referral ID Status Reason Start Date Expiration Date Visits Requested Visits Authorized [id number] Authorized PCP Requested Referral 07/03/2022 07/03/2023 1 [...] W/O CONTRAST MATERIAL Yonathan Cazares PA-C [address] [facility] [address] [place] [address] Mr Imaging Referral ID Status Reason Start Date Expiration Date Visits Requested Visits Authorized [id number] Authorized Auto-Generat ed Referral 07/03/2022 08/02/2023 1 [...] W/O CONTRAST MATRL Yonathan Cazares PA-C [address] [address] Mr Imaging Referral ID Status Reason Start Date Expiration Date Visits Requested Visits Authorized [id number] Authorized Auto-Generat ed Referral 07/03/2022 08/02/2023 1 [...] OR MORE VIEWS Yonathan Cazares PA-C [address] [address] Xr Imaging Referral ID Status Reason Start Date Expiration Date V isits Requested Visits Authorized [id number] Closed Auto-Generate d Referral 07/03/2022 08/02/2023 1 1 * Diagnostic Procedure Only (Routine) - Closed Specialty Diagnoses / Procedures [facility] Referred To Contact XR IMAGING Diagnoses Spasmodic torticollis Bilateral carotid artery stenosis Neck pain Low back pain, non-specific History of tremor Myalgia Pain of left sacroiliac joint Spinal stenosis of cervical region Chronic tension-type headache, not intractable Imbalance Procedures XR PELVIS 1V AP RADIOLOGIC EXAMINATION PELVIS 1/2 VIEWS Yonathan Cazares PA-C [address] [address] Xr Imaging Referral ID Status Reason Start Date Expiration Date V isits Requested Visits Authorized [id number] Closed Auto-Generate d Referral 07/03/2022 08/02/2023 1 1 * Diagnostic Procedure Only (Routine) - Closed Specialty Diagnoses / Procedures Referred By Don t Referred To Contact XR IMAGING Diagnoses Spasmodic torticollis Bilateral carotid artery stenosis Neck pain Low back pain, non-specific History of tremor Myalgia Pain of left sacroiliac joint Spinal stenosis of cervical region Chronic tension-type headache, not intractable Imbalance Procedures XR LUMBAR GENERAL 3V AP/LAT/L5-S1 RADEX SPINE LUMBOSACRAL 2/3 VIEWS Yonathan Cazares PA-C [address] [place] [address] [address] [place] [address] Xr Imaging Referral ID Status Reason Start Date Expiration Date V isits Requested Visits Authorized [id number] Closed Auto-Generate d Referral 07/03/2022 08/02/2023 1 1 [facility] for referral (narrative)* Consultation (Routine) - Pending Review Specialty Diagnoses / Procedures Referred By Don t Referred To Contact Otolaryngology Diagnoses Perforation of left tympanic membrane Left chronic serous otitis media [place] Lord APRN-CNP [address] [facility] [place] [address] Carlota Norton MD [address] [facility] [address] [place] [address] Referral ID Status Reason Start Date Expiration Date Visits Requested Visits Authorized [id number] Pending Review Specialty Services Required 09/08/2024 1 1 Scheduling Instructions Schedule audiogram prior to appointment. * Medications - Pending Review Specialty Diagnoses / Procedures Referred By Don leon Referred To Contact Diagnoses Perforation of left tympanic membrane Left chronic serous otitis media [place] Lord APRN-CNP [address] [facility] [place] [address] Referral ID Status Reason Start Date Expiration Date V isits Requested Visits Authorized [id number] Pending Review 1 1 [facility] Work Phone: Reason for referral (narrative)* Diagnostic Procedure Only (Routine) - Closed Specialty [...] OR MORE VIEWS Yonathan Cazares PA-C [address] [place] [id number] Xr Imaging [place] [address] Referral ID Status Reason Start Date Expiration Date V isits Requested Visits Authorized [id number] Closed Auto-Generate d Referral 07/03/2022 08/02/2023 1 [...] PELVIS 1/2 VIEWS Yonathan Cazares PA-C [address] [place] [phone] Xr Imaging [facility] Referral ID Status Reason Start Date Expiration Date V isits Requested Visits Authorized [id number] Closed Auto-Generate d Referral 07/03/2022 08/02/2023 1 [...] LUMBOSACRAL 2/3 VIEWS Yonathan Cazares PA-C [address] [facility] [address] [place] [address] Xr Imaging [facility] Referral ID Status Reason Start Date Expiration Date V isits Requested Visits Authorized [id number] Closed Auto-Generate d Referral 07/03/2022 08/02/2023 1 1 [facility] for visit Narrative* Diagnostic Procedure Only (Routine) - Closed Specialty Diagnoses / Procedures Referred By Don leon Referred To Contact XR IMAGING Diagnoses Spasmodic torticollis Bilateral carotid artery stenosis Neck pain Low back pain, non-specific History of tremor Myalgia Pain of left sacroiliac joint Spinal stenosis of cervical region Chronic tension-type headache, not intractable Imbalance Procedures XR CERV OTHER 7V AP/LAT/FLX/EXT/ODON/OBL RADEX SPINE CERVICAL 6 OR MORE VIEWS Yonathan Cazares PA-C [address] [facility] [address] [place] [phone] Xr Imaging [facility] Referral ID Status Reason Start Date Expiration Date V isits Requested Visits Authorized [id number] Closed Auto-Generate d Referral 07/03/2022 08/02/2023 1 1 [facility] Summary Purpose Family History No Family History [...] Referral Specialty Diagnoses / Procedures Referred By Don leon Referred To Contact Audiology Diagnoses 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, bilateral Procedures [place] [address] [place] [phone] Referral ID Status Reason Start Date Expiration Date V isits Requested Visits Authorized [id number] Pending Review 03/09/2024 03/09/2025 1 1 Additional Source Comments Source Comments (unrecognize d section and content) In the event this informatio n is protected by the Federal Confidentiality of Alcohol and Drug Abuse Patient Records regulations: The Federal rules restrict any use of the information to criminally investigate or prosecute any alcohol or drug abuse patient.[facility] the event this information is protected by the Federal Confidentiality of Alcohol and Drug Abuse Patient Records regulations: The Federal rules restrict any use of the information to criminally investigate or prosecute any alcohol or drug abuse patient.[facility] the event this information is protected by the Federal Confidentiality of Alcohol and Drug Abuse Patient Records regulations: The Federal rules restrict any use of the information to criminally investigate or prosecute any alcohol or drug abuse patient.[facility] the event this information is protected by the Federal Confidentiality of Alcohol and Drug Abuse Patient Records regulations: The Federal rules restrict any use of the information to criminally investigate or prosecute any alcohol or drug abuse patient.[facility] the event this information is protected by the Federal Confidentiality of Alcohol and Drug Abuse Patient Records regulations: The Federal rules restrict any use of the information to criminally investigate or prosecute any alcohol or drug abuse patient.[facility] the event this information is protected by the Federal Confidentiality of Alcohol and Drug Abuse Patient Records regulations: The Federal rules restrict any use of the information to criminally investigate or prosecute any alcohol or drug abuse patient.[facility] the event this information is protected by the Federal Confidentiality of Alcohol and Drug Abuse Patient Records regulations: The Federal rules restrict any use of the information to criminally investigate or prosecute any alcohol or drug abuse patient.[facility] the event this information is protected by the Federal Confidentiality of Alcohol and Drug Abuse Patient Records regulations: The Federal rules restrict any use of the information to criminally investigate or prosecute any alcohol or drug abuse patient.[facility] the event this information is protected by the Federal Confidentiality of Alcohol and Drug Abuse Patient Records regulations: The Federal rules restrict any use of the information to criminally investigate or prosecute any alcohol or drug abuse patient.[facility] the event this information is protected by the Federal Confidentiality of Alcohol and Drug Abuse Patient Records regulations: The Federal rules restrict any use of the information to criminally investigate or prosecute any alcohol or drug abuse patient.[facility] Reason for Visit (unrecogniz ed section and [...] CONS[place] [address] [place] [address] Pt [facility] [place] [place] [facility] [address] [address] Referral ID Status Reason Start Date Expiration Date V isits Requested Visits Authorized [id number] Authorized 07/03/2022 10/01/2022 99 99 Reason Comments [...] Perforation of left tympanic membrane [H72.92] Procedures AR TYMPANOPLASTY W/O MASTOIDECT W/O OSSICLE RECNSTJ AR TYMPANOPLASTY W/O MASTOIDEC 1ST/REVJ PROSTH TORP AR SPLIT AGRFT F/S/N/H/F/G/M/D GT 1ST 100 CM/</1 % Left Sided Lateral Graft Tympanoplasty; Possible Ossiculoplasty; Postauricualr Skin Graft Left Sided Lateral Graft Tympanoplasty; Possible Ossiculoplasty; Postauricualr [place] [address] [place] [address] [facility] [address] [place] [address] Referral ID Status Reason Start Date Expiration Date Visits Re quested Visits Authorized [id number] 1 1 Reason Comments Follow-up Packing removal and check left ear Reason Comments Follow-up Care Teams (unrecognized sec tion and content) Ice Seller Relationship Specialty Start Date End Date Luis Enrique Wood, DO [address] [facility] [address] [place] [address] PCP - General Family Practice 05/06/18 Ice Seller Relationship Specialty Start Date End Date Luis Enrique Wood DO [address] [facility] [address] [place] [address] PCP - General Family Practice 05/06/18 Ice Seller Relationship Specialty Start Date End Date Luis Enrique Wood, DO [address] [place] [address] PCP - General Family Medicine 05/06/18 Ice Seller Relationship Specialty Start Date End Date Luis Enrique Wood, DO [address] [place] [address] PCP - General Family Medicine 05/06/18 Ice Seller Relationship Specialty Start Date End Date Luis Enrique Wood, DO [address] [place] [address] PCP - General Family Medicine 05/06/18 Ice Seller Relationship Specialty Start Date End Date Luis Enrique Wood, DO [address] [place] [address] PCP - General Family Medicine 05/06/18 Ice Seller Relationship Specialty Start Date End Date Luis Enrique Wood, DO [address] [place] [address] PCP - General Family Medicine 05/06/18 Ice Seller Relationship Specialty Start Date End Date Luis Enrique Wood, DO [address] [address] [place] [address] PCP - General Family Medicine 05/06/18 Team Status: Inactive Member Role Status Estee Cornelius DO Attending Provider Active Albino Reilly MD Primary Care Provider Active Team Status: Active Member Role Status Dates Albino Reilly MD Primary Care Provider Active Ice Seller Relationship Specialty Start Date End Date Generic Provider, No Assigned MD Efrem [address] [place] [address] PCP - General 01/19/24 Ice Seller Relationship Specialty Start Date End Date Generic Provider, [place] [address] PCP - General 01/19/24 Ice Seller Relationship Specialty Start Date End Date Generic Provider, [place] [address] PCP - General 01/19/24 Ice Seller Relationship Specialty Start Date End Date Luis Enrique Wood DO [address] [place] [address] PCP - General Family Medicine 05/06/18 Ice Seller Relationship Specialty Start Date End Date David Story MD [address] [place] [address] PCP - General Family Medicine 05/14/24 Ice Seller Relationship Specialty Start Date End Date David Story MD [address] [place], [place] [id number] PCP - General Family Medicine 05/14/24 INFORMATION SOURCE (unrecogn ized section and content) DATE CREATED AUTHOR 11/18/2022 [employer] DATE CREATED AUTHOR AUTHOR'S ORGANIZ ATION 11/26/2022 [facility] DATE CREATED AUTHOR AUTHOR'S ORGANIZ ATION 12/30/2022 [facility] DATE CREATED AUTHOR AUTHOR'S ORGANIZ ATION 01/11/2023 [facility] DATE CREATED AUTHOR AUTHOR'S ORGANIZ ATION 01/14/2023 [facility] DATE CREATED AUTHOR AUTHOR'S ORGANIZ ATION 01/17/2024 [facility] DATE CREATED AUTHOR AUTHOR'S ORGANIZ ATION 01/19/2024 [facility] DATE CREATED AUTHOR AUTHOR'S ORGANIZ ATION 03/16/2024 [facility] DATE CREATED AUTHOR AUTHOR'S ORGANIZ ATION 09/18/2024 [facility] d[facility] Specialists EPIC Goals (unrecognized section and content) Goals may be documented in a n alternate section Scheduled Active and Recently Administ ered Medications (unrecognized section and content) Medication Order 01/17/2024 01/18/2024 01/19/2024 acetaminophen (Tylenol) tablet 975 mg (COMPLETED) 975 mg, oral, Once, On Fri01/19/24 at 0715, For 1 dose, Preprocedure, Administer [...] Intraprocedure 0836 (Given - Provid er: Carlota Norton MD) balanced salts (BSS) intraocular solution (CANCELED) As needed, Starting on Fri01/19/24 at 0836, Intraprocedure 0836 (Given - Provid er: Carlota Norton MD) ciprofloxacin-dexamethasone (CiproDEX) otic suspension (CANCELED) As needed, Starting on Fri01/19/24 at 0844, Intraprocedure 0844 (Given - Provid er: Carlota Norton MD - Comment: Soaked in gelfoam) diphenhydrAMINE (BENADryl) injection 12.5 mg 12.5 mg, intravenous, Once as needed, itching, allergic reaction, Starting on Fri01/19/24 at 1050, For 1 dose, Recovery (only) EPINEPHrine HCl (PF) (Adrenalin) injection (CANCELED) As needed, Starting on Fri01/19/24 at 0837, Intraprocedure 0837 (Given - Provid er: Carlota Norton MD - Comment: Mixed w/ 19 ml NaCl: 1.5 ml injected) gelatin absorbable (Gelfoam) 100 sponge (CANCELED) As needed, Starting on Fri01/19/24 at 0845, Intraprocedure 0845 (Given - Provid er: Carlota Norton MD) hydrALAZINE (Apresoline) injection 5 mg 5 [...] Intraprocedure 1020 (Given - Provid er: Carlota Norton MD) ondansetron (Zofran) injection 4 mg 4 [...] Intraprocedure 0846 (Given - Provid er: Carlota Norton MD - Comment: Warmed bottle) sodium chloride bacteriostatic 0.9 % injection (CANCELED) As needed, Starting on Fri01/19/24 at 0845, Intraprocedure 0845 (Given - Provid er: Carlota Norton MD) FOR RECORDS PERTAINING TO PATIENTS WHO [...] BE BASED ON THE PRIMARY CLINICAL RECORDS. mobile [facility]. provides no warranty or guarantee of the accuracy or completeness of information in this document.
[2024-09-29 07:50] LABS: Basophils Percent Auto 0.7 % (0.2-2.0); Eosinophils Absolute Auto 0.4 10^3/uL (0.0-0.7); Eosinophils Percent Auto 6.8 % (0.9-7.0); Hematocrit 41.1 % (36.0-48.0); Hemoglobin 13.3 g/dL (12.0-16.0); Immature Granulocytes Abs Auto 0.02 10^3/uL (0.00-0.03); Immature Granulocytes Pct Auto 0.4 % (0.0-0.5); Lymphocytes Absolute Auto 1.4 10^3/uL (1.2-3.8); Lymphocytes Percent Auto 25.4 % (20.5-60.0); Mean Corpuscular HGB Conc 32.4 g/dL (29.9-35.2); Mean Corpuscular Hemoglobin 27.6 pg (26.7-34.0); Mean Corpuscular Volume 85.3 fL (81.0-99.0); Mean Platelet Volume 10.5 fL (9.5-13.5); Monocytes Absolute Auto 0.6 10^3/uL (0.3-0.8); Monocytes Percent Auto 10.7 % (1.7-12.0); Platelet Count 299 10^3/uL (150-450); Red Blood Count 4.82 10^6/uL (4.20-5.40); Red Cell Distribution Width 13.7 % (11.0-15.0); White Blood Count 5.4 10^3/uL (4.0-11.0)
[2024-09-29 08:40] LABS: Estimated Average Glucose 117 mg/dL; Glycohemoglobin A1C 5.7 % (4.5-6.2)
[2024-09-29 08:54] LABS: Alanine Aminotransferase 23 U/L (14-59); Albumin Globulin Ratio 1.3; Albumin Level 4.1 g/dL (3.4-5.0); Alkaline Phosphatase 100 U/L (46-116); Anion Gap 18.6; Aspartate Amino Transferase 14 U/L (15-37); BUN Creatinine Ratio 19.6; Bilirubin Total 0.4 mg/dL (0.2-1.0); Calcium 9.6 mg/dL (8.5-10.1); Chloride 106 mmol/L (98-107); Chol HDL Ratio 2.8; Cholesterol 225 mg/dL (<=200); Estimated GFR (African America >60 (>=60 mL/min/1.73m^2); Estimated GFR (Non-African Ame 50 (>=60 mL/min/1.73m^2); Free T3 2.47 pg/mL (2.18-3.98); Globulin 3.2 g/dL; Glucose 120 mg/dL (74-106); HDL Cholesterol 81 mg/dL (40-60); Potassium 4.6 mmol/L (3.5-5.1); Sodium 144 mmol/L (136-145); Thyroid Stimulating Hormone 3.176 uIU/mL (0.358-3.740); Total Protein 7.3 g/dL (6.4-8.2); Triglycerides 92 mg/dL (<=150); VLDL CHOLESTEROL 18.4 mg/dL
== END 2024-09-29 07:33 | disposition home or self-care (01) ==
LOC: LAB 07:34
PROVIDERS: PCP Nurse Practitioner Family; Visit Provider Nurse Practitioner Family
DX: E78.5 Hyperlipidemia, unspecified (principal); R53.83 Other fatigue; R73.09 Other abnormal glucose; I10 Essential (primary) hypertension
CPT/HCPCS: 36415; 80053; 80061; 83036; 83525; 84436; 84443; 84481; 85025

== ENCOUNTER 2025-03-31 09:19 | Outpatient (OUT) | payer MEDICARE, OTHER, SELFPAY ==
--- OUTSIDE RECORDS SUMMARY | 2025-02-25 13:45 | XMS_ITS ---
Author Name Auto Generated Organization OHIP Care Team Providers Care Tape Transferrer Name Role Phone Tania Magana Attending Unavailable Tania Magana Admitting Unavailable LAURA OWENS Attending Unavailab ANASTASIIA García Attending Unavailable LAURA OWENS Attending Unavailab WILL Avalos Attending Unavailable LAURA OWENS Attending Unavailab le PROBLEMS DATE TYPE CONDITION / CODE ATTENDING STATUS HARDEEP RCE 02/25/2025 Unknown Unspecified urin aayush incontinence / R32(ICD-10) Tania Magana Active [facility] PROCEDURES No Procedure Records Found RESULTS URINE CULTURE Observed: 02/25/2025 1:45 PM Status: F Source: [facility] 75,000 colonies/ml mixed bacterial skin contaminants 2 Days PERFORMED BY: [facility] [place] [address] PATHOLOGIST DIETARY SUPERVISOR MATTHEW MADSEN M.D. Performed By: #### CUU #### [place] [id number] [facility] ALLERGIES DATE TYPE / CODE NAME / CODE REACTION SEVERITY SOURCE 02/25/2025 Drug Allergy/480742559 (SNOMED CT) prochlorperazine/ [id number](RXNORM ) Seizure Unknown [facility] ENCOUNTERS ADMIT/DISCHARGE ACCOUNT NUMBER ADMITTING ENCOUNTER CLASS LOCATION SOURCE 02/25/2025/02/26/20 [id number] [facility]ania Magana [facility] 12/31/2024/12/31/19 [id number] Ambulatory Building:[facility] EPIC 09/16/2024/09/16/20 24 [id number] Ambulatory Building:[facility] EPIC 07/06/2024/07/06/20 24 [id number] Ambulatory Building:[facility] SWS OB [facility] EPIC 05/27/2024/05/27/20 24 [id number] Ambulatory Building:[facility] EPIC 05/14/2024/05/14/20 24 [id number] Ambulatory Building:[facility] SH AUD [facility] EPIC PAYERS ENCOUNTER GUARANTOR PAYER SUBSCRIBER SOURCE 02/25/2025 [place] [address]Kch: (HP) Primary Insurance:Medicare Policy Number: [id number] Date:2025-02-25 Kerri Gonzalez: [id number] [place] [address]Eeo: () [facility] 02/25/2025 [facility]: [id number] Date:4271-09-14XX [address]J[place] Rí[address] [address]TF: Kerri Gonzalez: [id number] [place] [address]Wph: (HP) [facility] 02/25/2025 Tertiary Insurance:Self PayPolicy Number: Effective Date:2025-02-[address] [facility] 12/31/2024 KERRI GONZALEZ: [place] [address]Vbp: () Primary Insurance:MEDICARE Policy Number: [id number] Date:9539-89-86Jfh n Name:Medicare KERRI BATESB: [id number] [place] [address] [facility] EPIC 12/31/2024 Secondary Insurance:AETNAPol icy Number: [id number] Date:9059-94-32Ssa n Name:[address] [place] [address]KJ: KERRI BATESB: [id number] [place] [address] [facility] EPIC 09/16/2024 KERRI BATESB: [place] [address]Evq: () Primary Insurance:MEDICARE Policy Number: [id number] Date:5236-30-68Qyj n Name:Medicare KERRI BATESB: [id number] [place] [address] [facility] EPIC 09/16/2024 Secondary Insurance:AETNAPol icy Number: [id number] e Date:3865-65-90Fyv n Name:[address] [place] [address]SK: KERRI ACEVEDOB: [id number] [place] [address] [facility] EPIC 07/06/2024 KERRI BATESB: [place] [address]Llp: (HP) Primary Insurance:MEDICARE Policy Number: [id number] Date:8538-90-00Dwr n Name:Medicare KERRI ACEVEDODOB: [id number] [place] [address] [facility] EPIC 07/06/2024 Secondary Insurance:AETNAPol icy Number: [id number] Date:8676-70-83Vce n Name:[address] [address]AA: KERRI ACEVEDODOB: [id number] [place] [address] [facility] EPIC 05/27/2024 KERRI ACEVEDODOB: [place] [address]Hmn: (HP) Primary Insurance:MEDICARE Policy Number: [id number] Date:4157-79-27Aac n Name:Medicare KERRI ACEVEDODOB: [id number] [place] [address] [facility] EPIC 05/27/2024 Secondary Insurance:AETNAPol icy Number: [id number] Date:0418-93-76Vad n Name:[facility] [address] [address]HH: KERRI ACEVEDODOB: [id number] [place] [address] [facility] EPIC 05/14/2024 KERRI ACEVEDODOB: [place] [address]Ocg: (HP) Primary Insurance:MEDICARE Policy Number: [id number] Date:6855-87-21Yub n Name:Medicare KERRI ACEVEDODOB: [id number] [place] [address] [facility] 05/14/2024 Secondary Insurance:AETNAPol icy Number: [id number] Date:3171-76-81Apo n Name:[facility] [address] [address], [place] [address]QK: KERRI ACEVEDODOB: [id number] [place] [address] [facility] EPIC
--- OUTSIDE RECORDS SUMMARY | 2025-03-31 04:30 | XMS_ITS ---
Author Organization [facility] in [place] Address [address] [place] [place] [address] Care Team Providers Care Gis Application Developer Name Role Phone Idalia, Triny Primary Care Provider Allergies Allergen (clinical drug ingredient) Drug/Non Drug Allergy documented on EMR Reaction Allergy Type Onset Date Status atorvastatin Lipitor muscle cramping Drug Allergy Active Compazine seizure Drug Allergy Active REASON FOR VISIT patient is co intermittent stomach pains that warp around to her left side and lower back went to [facility] a few weeks ago thinking she has a uti but it was neg, also she thinks the pains could be her bowels Medications Medication SIG (Take, Route, Frequency, Duration) Notes Start Date End Date Status Venlafaxine HCl 37.5 MG 1 tablet with fo od Orally Once a day for 30 days Active Fenofibrate 160 MG TAKE 1 TABLET BY FAY TH EVERY DAY for 30 Active Vitamin D3 50 MCG (1999 UT) TAKE 1 CAPSU LE BY MOUTH EVERY DAY for 100 Active Social History Tobacco Use: Social History Observation Description Date Details (start date - stop date) Former Smoker 11/10/1976 - 11/10/2009 Tobacco Use/Smoking Question Answer Notes Patient is a former smoker When did you start smoking? 11/10/1976 When did you stop smoking? 11/10/2009 How long has it been since y ou last smoked? > 10 years Additional Findings: Tobacco User Modera te cigarette smoker (10-19 cigs/day) AUDIT-C (Standard) Question Answer Notes Did you have a drink contain ing alcohol in the past year? Yes How often did you have six o r more drinks on one occasion in the past year? Never (0 point) How many drinks did you have on a typical day when you were drinking in the past year? 1 or 2 drinks (0 point) How often did you have a dri nk containing alcohol in the past year? 2 to 3 times a week (3 points) Points 3 Interpretation Positive Vital Signs Blood pressure systolic 138 mm Hg 03/31/20 25 Blood pressure diastolic 78 mm Hg 025 Height 63 in 03/31/2025 Weight 174.6 lbs 03/31/2025 BMI 30.93 kg/m2 03/31/2025 Encounters Encounter Location Date Provider Diagnosis [facility] [address] [place] [address] 03/31/2025 Triny Friedman LLQ pain R10.32 Assessments Encounter Date Diagnosis (ICD Code) Assessment Notes Treatment Notes Treatment Clinical Notes Section Notes 03/31/2025 LLQ pain (ICD-10 - R10.32) Plan Of Treatment Pending Test Test Name Order Date XR Abdomen AP (1 view) (KUB) * Progress Notes * Brandi ACEVEDO SDOB:[birth year] (75 yo F)Acc No.[id number]:03/31/2025 UNLOCKED PROGRESS NOTE Progress Note Patient: Brandi BARKLEY Provider: Meenu Friedman ([facility]), FERRIS WHEEL ATTENDANT :1950 A ge:75 Y S ex:Female Date:03/31/2025 Address:[facility] [address] [place], [facility] Check In:08:29 AM ESTCheck O ut:09:07 AM EST Subjective: * Chief Complaints: * 1 . Patient is co intermittent stomach pains that warp around to her left side and lower back went to [facility] a few weeks ago thinking she has a uti but it was neg. 2. Also she thinks the pains could be her bowels. * HPI: D epression Screening: PHQ-2 (2015 Edition) L ittle interest or pleasure in doing things??Not at all F eeling down, depressed, or hopeless? N ot at all T otal Score 0 G eneral: UC kale couple weeks ago, neg UTI low pelvic pain also LLQ and sometimes wraps around to back achey pain daily BM not always a lot, does have hx of constipation no vaginal bleeding hx scope in past LLQ pain achey today 3/10 taking probiotic , new. * Medical History: V itamin D deficiency, Wellness examination, Over weight, Acute sinusitis, Neck pain, Hyperglycemia, Dystonic tremor, Irritable bowel syndrome, Hyperlipidemia, Arthritis. * Surgical History: L eft Ear Surgery x2 , Breast Augmentation , Bladder Lift , bladder surgery; Inter Stim bladder stimulator- 12/24/22 . * Hospitalization/Major Diagno stic Procedure: s ee above . * Family History: F ather: , diagnosed with Other malignant neoplasm of unspecified site. M other: , Colon Cancer- age 67, diagnosed with Other malignant neoplasm of unspecified site. S ister(s): alive, diagnosed with Diabetes mellitus without mention of complication, type II or unspecified type, not stated as uncontrolled, Unspecified essential hypertension. S on(s): alive. D aughter(s): alive. 1 sister(s) . 1 son(s) , 1 daughter(s) - healthy. . * Social History: T obacco Use: T obacco Use/Smoking P atient is a f ormer smoker W hen did you start smoking? 0 11/10/1976 W hen did you stop smoking? 0 11/10/2009 H ow long has it been since you last smoked??> 10 years A dditional Findings: Tobacco User M oderate cigarette smoker (10-19 cigs/day) D rug/Alcohol: A KATINA-C (Standard) D id you have a drink containing alcohol in the past year? Y es H ow often did you have six or more drinks on one occasion in the past year? N ever (0 point) H ow many drinks did you have on a typical day when you were drinking in the past year? 1 or 2 drinks (0 point) H ow often did you have a drink containing alcohol in the past year? 2 to 3 times a week (3 points) P oints 3 I nterpretation P ositive * Medications: T aking Fenofibrate 160 MG Tablet TAKE 1 TABLET BY MOUTH EVERY DAY , Taking Venlafaxine HCl 37.5 MG Tablet 1 tablet with food Orally Once a day , Taking Vitamin D3 50 MCG (1999 UT) Capsule TAKE 1 CAPSULE BY MOUTH EVERY DAY , Medication List reviewed and reconciled with the patient * Allergies: C ompazine: seizure - Criticality High, Lipitor: muscle cramping - Criticality High. Objective: * Vitals: W t:174.6lbs, Ht: 63 in, BP:138/78mm Hg, BMI:30.93Index, Ht-cm: 160.02 cm, Wt-k.2 kg. Assessment: * Assessment: 1. L LQ pain - R10.32 (Primary) Plan: * Treatment: * Preventive Medicine: Screenings/Counseling: B [place] ACTION PLAN Above Normal BMI Follow-up D ietary management education, guidance, and counseling * * Electronic signature of Beryl Lehman NP, MOLDING LINE ASSISTANT.FERRIS WHEEL ATTENDANT.[id number] on 03/31/2025 at 09:26 AM EDT Sign off status: Pending Visit Status: C HK (Check Out) * Provider: Meenu Friedman ([facility]), FERRIS WHEEL ATTENDANT Date: 03/31/2025 Generated for Jeb marquez/Diana/eTransmitting on: 03/31/2025 09:26 AM EDT History and Physical Notes * HPI (History of Present Illness) Category Sub-Category Detail Notes Category Not es General UC kale couple weeks ago, neg UTI low pelvic pain also LLQ and sometimes wraps around to back achey pain daily BM not always a lot, does have hx of constipation no vaginal bleeding hx scope in past LLQ pain achey today 3/10 taking probiotic , new Depression Screening PHQ-2 (2015 Edition) Little interest or pleasure in doing things?: Not at all Feeling down, depressed, or hopeless?: N ot at all Total Score: 0
--- OUTSIDE RECORDS SUMMARY | 2025-03-31 05:06 | XMS_ITS ---
Author Organization [facility] in [place] Address [address] [place] [address] Care Team Providers Care Oil Pit Attendant Name Role Phone Triny Friedman Primary Care Provider [phone] Encounters Encounter Location Date Provider Diagnosis [address] [place] [address] 03/31/2025 Triny Friedman Plan Of Treatment No Information Progress Notes * Brandi ACEVEDO SDOB:[birth year] (75 yo F)Acc No.[id number]:03/31/2025 UNLOCKED PROGRESS NOTE Patient: Brandi BARKLEY :1950 A ge:75 Y S ex:Female Address:[facility] [address] [place] [employer] [facility] [facility] [place], [address] * * Date:
--- OUTSIDE RECORDS SUMMARY | 2025-03-31 09:26 | XMS_ITS | Clinical Summary ---
Author Organization [facility] Address [address] [place] [address] Care Team Providers Care Manager Technical Sales Name Role Phone Luis Enrique Wood Primary Care Provider [phone] Allergies Active Allergy Reactions Criticality Noted Date Comments Prochlorperazine Other: See Comments 04/11/2015 Eyes rolled back into her head, and her head rolled back Medications FLUoxetine (PROZAC) 10 mg capsule Take 10 mg by mouth once daily. Active Fenofibrate (LOFIBRA) 160 mg tablet Take 160 mg by mouth once daily. Active cholecalciferol, vitamin D3, (VITAMIN D3 ORAL) Take by mouth. 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 Last address used for calculation [address] [place] 03/31/2023 Comments No Sex and Gender Information Value Date Recorded Sex Assigned at Not on file Legal Sex Female 4:36 PM EDT Gender Identity Not on file Sexual Orientation Not on file Last Filed Vital Signs Vital Sign Reading Time Taken Comments Blood Pressure 134/84 03/31/2023 11:27 AM EDT Pulse 45 03/31/2023 11:27 AM EDT Temperature 35.8 C (96.4 F) 11/25/2022 1:09 PM EST Respiratory Rate 16 02/19/2016 10:44 AM EDT Oxygen Saturation 97% 03/31/2023 11:27 AM EDT Inhaled Oxygen Concentration - - Weight 71.8 kg (158 lb 3.2 oz) 03/31/2023 11:27 AM EDT Height 160 cm (5' 3 ) 11/25/2022 1:09 PM EST Body Mass Index 28.02 11/25/2022 1:09 PM EST Plan of Treatment Health Maintenance Due Date Last Done Comments Anxiety Screening 02/07/1970 Depression Screening 02/07/1970 Hepatitis C Screening 02/07/1970 DTaP,Tdap,Td Vaccine (1 - Tdap) 02/07/[address] Colonography 02/07/1997 Colonoscopy 02/07/1997 Diabetes Screening 02/07/1997 Fecal Occult Blood 02/07/1997 Lipid Screening 02/07/1997 Sigmoidoscopy 02/07/1997 Shingrix Vaccine (2 of 3) 11/16/2016 09/21/2016 Bone Density Screening 02/07/2017 Covid-19 Vaccine (5 - 2023-2 5 season) 2024 06/18/2022, 10/25/2021, 02/03/2021, Additional history exists Pneumococcal Vaccine: 50+ (3 of 3 - PCV20 or PCV21) 10/15/2024 10/15/2019, 10/06/2001 Advance Directive Discussion 11/10/2024 Influenza Vaccine (Season Ended) 2025 Cologuard (FIT-DNA) 01/22/2026 01/22/2023 Colorectal Cancer Screening 01/22/2026 RSV Vaccine (1 - 1-dose 75+ series) 02/07/2027 Insurance MEDICARE [place] [id number] [employer] SUPPLEMENT Care Teams Manager Technical Sales Relationship Specialty Start Date End Date Luis Enrique Wood DO [address] [facility] [address] [place] [address] PCP - General Family Medicine 05/06/18
--- OUTSIDE RECORDS SUMMARY | 2025-03-31 09:26 | XMS_ITS | Encounter Summary ---
Author Organization [facility] Address [address] [place] [address] Phone Care Team Providers Care Bale Piler Name Role Phone Generic Provider, No Assigned Pcp MD Primary Car e Provider Unavailable Reason for Visit * Reason Comments Med Change Request Encounter Details Date Type Department Care Team (Late st Contact Info) Description 09/09/[address] [place] [id number] Argentina Murguia, BIOMETRICS SPECIALIST-LOGISTICS COORDINATOR [address] [place] [address] [place] [address] Perforation of left tympanic membrane; Left chronic serous otitis media Social History Tobacco Use Types Packs/Day Years Used Date Smoking Tobacco: Never PHQ-2 Answer Date Recorded Patient Health Questionnaire-2 Score 0 09/09/2023 Comments Unknown Sex and Gender Information Value Date Recorded Sex Assigned at Not on file Legal Sex Female 12:00 PM EST Gender Identity Not on file Sexual Orientation Not on file COVID-19 Exposure Response Date Recorded In the last 10 days, have yo u been in contact with someone who was confirmed or suspected to have Coronavirus/COVID-19? No / Unsure 09/09/2023 10:56 AM EDT documented as of this encounter Functional Status * Over the past 2 weeks, how often have you been bothered by any of the following problems? Question Answer Date of Assessment Author Little interest or pleasure in doing things Not at all 09/09/2023 11:15 AM EDT Carlota Booth R N Feeling down, depressed, or hopeless Not at all 09/09/2023 11:15 AM EDT Carlota Booth R N Patient Health Questionnaire -2 Score 0 09/09/2023 11:15 AM EDT Carlota Booth R N documented as of this encounter Plan of Treatment Not on file documented as of this encounter Visit Diagnoses Diagnosis Perforation of left tympanic membrane Left chronic serous otitis media Simple or unspecified chronic serous otitis media documented in this encounter Additional Health Concerns Assessment Noted Time A fall risk assessment has been complete d for the patient 09/09/2023 11:15 AM EDT documented as of this encounter Care Teams Bale Piler Relationship Specialty Start Date End Date Generic Provider, No Assigned P[place], [place] [address] PCP - General 01/19/24 documented as of this encounter
--- OUTSIDE RECORDS SUMMARY | 2025-03-31 09:26 | XMS_ITS | Encounter Summary ---
Author Organization [facility] Address [address] [place] [address] Phone Care Team Providers Care Rfid Technician Name Role Phone Generic Provider, No Assigned Pcp MD Primary Car e Provider Unavailable Encounter Details Date Type Department Care Team (Late st Contact Info) Description 11/12/2023 Scanned Document [facility] [address] [place] [address] Triny Friedman, AUTOMOTIVE LOT ATTENDANT-HEALTH CARE ASSISTANT [address] [facility], [place] [id number] Social History Tobacco Use Types Packs/Day Years Used Date Smoking Tobacco: Some Days Cigarettes Comments:Medical Cannabis. PHQ-2 Answer Date Recorded Patient Health Questionnaire-2 Score 0 11/11/2023 Comments Unknown Sex and Gender Information Value Date Recorded Sex Assigned at Not on file Legal Sex Female 12:00 PM EST Gender Identity Not on file Sexual Orientation Not on file COVID-19 Exposure Response Date Recorded In the last 10 days, have yo u been in contact with someone who was confirmed or suspected to have Coronavirus/COVID-19? No / Unsure 11/11/2023 10:48 AM EST documented as of this encounter Plan of Treatment Not on file documented as of this encounter Visit Diagnoses Not on filedocumented in this encounter Additional Health Concerns Assessment Noted Time A fall risk assessment has been complete d for the patient 11/11/2023 10:58 AM EST documented as of this encounter Care Teams Rfid Technician Relationship Specialty Start Date End Date Generic Provider, No Assigned Pcp, [place] [address] PCP - General 01/19/24 documented as of this encounter
--- OUTSIDE RECORDS SUMMARY | 2025-03-31 09:26 | XMS_ITS | Patient Health Record ---
Author Organization [facility] [place] Address [address] [place] [address] Care Team Providers Care Stitcher Set Up Operator Automatic Name Role Phone Triny Friedman Primary Care Provider RenovaleAnders Unavailable [phone] JoneSalvador denton Unavailable [phone] Allergies Allergen (clinical drug ingredient) Drug/Non Drug Allergy documented on EMR Reaction Allergy Type Onset Date Status atorvastatin Lipitor muscle cramping Drug Allergy Active Compazine seizure Drug Allergy Active Results Component Value Reference Range Notes CBC AUTO DIFF Reviewed date:09/29/2024 12:12:42 PM Interpretation: Performing Lab: Notes/Report: [facility] , White Blood Count 5.4 4.0-11.0 10 3/uL Red Blood Count 4.82 4.20-5.40 10 6/uL Hemoglobin 13.3 12.0-16.0 g/dL Hematocrit 41.1 36.0-48.0 % Mean Corpuscular Volume 85.3 81.0-99.0 fL Mean Corpuscular Hemoglobin 27.6 26.7-34.0 pg Mean Corpuscular HGB Conc 32.4 29.9-35.2 g/dL Red Cell Distribution Width 13.7 11.0-15.0 % Platelet Count 299 150-450 10 3/uL Mean Platelet Volume 10.5 9.5-13.5 fL Neutrophils Percent Auto 56.0 43.0-75.0 % Lymphocytes Percent Auto 25.4 20.5-60.0 % Monocytes Percent Auto 10.7 1.7-12.0 % Eosinophils Percent Auto 6.8 0.9-7.0 % Basophils Percent Auto 0.7 0.2-2.0 % Immature Granulocytes Pct Auto 0.4 0.0-0.5 % Neutrophils Absolute Auto 3.0 1.4-6.5 10 3/uL Lymphocytes Absolute Auto 1.4 1.2-3.8 10 3/uL Monocytes Absolute Auto 0.6 0.3-0.8 10 3/uL Eosinophils Absolute Auto 0.4 0.0-0.7 10 3/uL Basophils Absolute Auto 0.0 0.0-0.1 10 3/uL Immature Granulocytes Abs Auto 0.02 0.00-0.03 10 3/uL Performing Lab: see note ML - [facility] GLYCOHEMOGLOBIN A1C Reviewed date:09/29/2024 12:12:42 PM Interpretation: Performing Lab: Notes/Report: [facility] , Glycohemoglobin A1C 5.7 4.5-6.2 % ADA RECOMMENDED LIMIT 4.0 - 6.0 ACTION SUGGESTED ADA THERAPEUTIC TARGET < 7.0 > 7.0 Estimated Average Glucose 117 Performing Lab: see note ML - [facility] LB TSH Reviewed date:09/29/2024 12:12:42 PM Interpretation: Performing Lab: Notes/Report: [facility] , Thyroid Stimulating Hormone 3.176 0.358-3.740 uIU/mL Performing Lab: see note - [facility] T4 Reviewed date:09/29/2024 12:12:42 PM Interpretation: Performing Lab: Notes/Report: [facility] , T4 Thyroxine 7.50 4.80-13.90 ug/dL Performing Lab: see note - [facility] LB PROF 14(COMP METB) Reviewed date:09/29/2024 12:12:42 PM Interpretation: Performing Lab: Notes/Report: [facility] , Sodium 144 136-145 mmol/L Potassium 4.6 3.5-5.1 mmol/L Chloride 106 98-107 mmol/L Carbon Dioxide 24.0 21.0-32.0 mmol/L Anion Gap 18.6 Glucose 120 74-106 mg/dL Blood Urea Nitrogen 21.0 7.0-18.0 mg/dL Creatinine 1.07 0.55-1.02 mg/dL Estimated GFR ( Emma >60 >=60 mL/min/1.73m 2 Estimated GFR (Non- Susan 50 >=60 mL/min/1.73m 2 BUN Creatinine Ratio 19.6 Calcium 9.6 8.5-10.1 mg/dL Bilirubin Total 0.4 0.2-1.0 mg/dL Aspartate Amino Transferase 14 15-37 U/L Alanine Aminotransferase 23 14-59 U/L Alkaline Phosphatase 100 46-116 U/L Total Protein 7.3 6.4-8.2 g/dL Albumin Level 4.1 3.4-5.0 g/dL Globulin 3.2 Albumin Globulin Ratio 1.3 Performing Lab: see note ML - [facility] LB LIPID PROFILE Reviewed date:09/29/2024 12:12:42 PM Interpretation: Performing Lab: Notes/Report: [facility] , Triglycerides 92 <=150 mg/dL Cholesterol 225 <=200 mg/dL HDL Cholesterol 81 40-60 mg/dL > or =60 mg/dl - LOW CARDIOVASCULAR RISK <40 mg/dl - HIGH CARDIOVASCULAR RISK LDL Cholesterol Calculated 126.0 >190 mg/dl VERY HIGH 100-129 mg/dl NEAR OR ABOVE OPTIMAL 160-189 mg/dl HIGH <100 mg/dl OPTIMAL 130-159 mg/dl BORDERLINE HIGH VLDL CHOLESTEROL 18.4 Chol HDL Ratio 2.8 3.3 - 4.4 LOW RISK 4.4 - 7.1 AVERAGE RISK >11.0 HIGH RISK 7.1 - 11.0 MODERATE RISK Performing Lab: see note - [facility] FREE T3 Reviewed date:09/29/2024 12:12:42 PM Interpretation: Performing Lab: Notes/Report: [facility] , Free T3 2.47 2.18-3.98 pg/mL Performing Lab: see note ML - [facility] LB XR foot LT min 3V Reviewed date:09/29/2024 12:12:42 PM Interpretation: Performing Lab: Notes/Report: Source Facility: [facility]-[address] [place] [address] [place] [address] XRay Report Signed Patient: KERRI ACEVEDO MR#: [id number] : 1950 Acct:[id number] Age/Sex: 74 / F ADM Date: 04/29/24 Loc: EC Attending Dr: Salvador Goddard Ordering Physician: Salvador Goddard Date of Service: 04/29/24 Procedure(s): XR foot LT min 3V Accession Number(s): [id number] cc: TRINY FRIEDMAN ; Salvador Goddard [place] [address] Patient Name: KERRI ACEVEDO MRN: [id number] date: 1950 Sex: F Assigned Patient Location: Current Patient Location: Accession/Order Number: [id number] Exam Date: 04/29/2024 09:45 Report Date: 04/30/2024 06:01 At the request of: SALVADOR GODDARD Procedure: XR foot LT min 3V PROCEDURE: XR foot LT min 3V HISTORY: LEFT FOOT PAIN ; second and 5th toe pain COMPARISON: XR foot left 04/06/2024 FINDINGS: BONES:Stable nondisplaced subacute fracture involving base of 5th proximal phalanx, with suspected intra-articular extension. Tiny ossification along lateral margin of the second toe distal interphalangeal joint. SOFT TISSUES:No visible soft tissue swelling. EFFUSION:None visible. OTHER: Negative. XR/XR foot LT min 3V IMPRESSION: 1. Stable subacute 5th proximal phalanx fracture. No significant callus formation at this time. 2. Tiny ossification adjacent second toe distal interphalangeal joint, most suggestive of sequela of remote injury. Electronically authenticated by: KALI GROVE Date: 04/30/2024 06:01 Dictated By: Kali Grove M.D. Signed By: 04/30/24603 DD/ 0 TD/TT: Organic Preparation Technician: [place] [address] XRay Report Signed Patient: ANTOLIN ACEVEDO RA MR#: [id number] : 1950 Acct:[id number] Age/Sex: 74 / F ADM Date: 04/29/24 Loc: EC Attending Dr: Alexandra Goddard Ordering Physician: Salvador Goddard Date of Service: 04/29/24 Procedure(s): XR linnette t LT min 3V Accession Number(s): [id number] cc: TRINY FRIEDMAN ; Salvador Goddard [place] [address] Patient Name: KERRI ACEVEDO MRN: [id number] date: 1950 Sex: F Assigned Patient Location: Current Patient Location: Accession/Order Numb er: [id number] Exam Date: 04/29/2024 09:45 Report Date: 04/30/2024 06:01 At the request of: SALVADOR GODDARD Procedure: XR foot L T min 3V PROCEDURE: XR foot L T min 3V HISTORY: LEFT FOOT P AIN ; second and 5th toe pain COMPARISON: XR foot left 04/06/2024 FINDINGS: BONES:Stable nondisplaced subacute fracture involving base of 5th proximal phalanx, with suspec mitzy intra-articular extension. Tiny ossification along lateral margin of th e second toe distal interphalangeal joint. SOFT TISSUES:No visi ble soft tissue swelling. EFFUSION:None visible. OTHER: Negative. XR/XR foot LT min 3V IMPRESSION: 1. Stable subacute 5 th proximal phalanx fracture. No significant callus formation at this time. 2. Tiny ossification adjacent second toe distal interphalangeal joint, most suggestive of sequel a of remote injury. Electronically authenticated by: KALI GROVE Date: 04/30/2024 06:01 Dictated By: Kali Grove M.D. Signed By: 04/30/2404 DD/ 0 TD/TT: Organic Preparation Technician: XR foot LT min 3V Reviewed date:04/20/2024 11:15:22 AM Interpretation: Performing Lab: Notes/Report: Source Facility: [facility]-[address] [place] [address] [place] [address] XRay Report Signed Patient: KERRI ACEVEDO MR#: [id number] : 1950 Acct:[id number] Age/Sex: 74 / F ADM Date: 04/06/24 Loc: EC Attending Dr: Anders Christina D.P.M. Ordering Physician: Anders Christina D.P.M. Date of Service: 04/06/24 Procedure(s): XR foot LT min 3V Accession Number(s): [id number] cc: TRINY FRIEDMAN ; Anders Christina D.P.M. [address] [address] Patient Name: KERRI ACEVEDO MRN: [id number] date: 1950 Sex: F Assigned Patient Location: Current Patient Location: Accession/Order Number: [id number] Exam Date: 04/06/2024 10:00 Report Date: 04/07/2024 06:14 At the request of: ANDERS CHRISTINA Procedure: XR foot LT min 3V PROCEDURE: XR foot LT min 3V HISTORY: LEFT FOOT PAIN ; pain to second toe and base of 5th toe COMPARISON: None. FINDINGS: BONES:Nondisplaced transverse fracture through base of 5th proximal phalanx with suspected intra-articular extension. Unremarkable second toe. SOFT TISSUES:Soft tissue swelling of 5th toe. EFFUSION:None visible. OTHER: Negative. XR/XR foot LT min 3V IMPRESSION: 1. Acute versus subacute fracture involving base of 5th proximal phalanx. Electronically authenticated by: KALI GROVE Date: 04/07/2024 06:14 Dictated By: Kali Grove M.D. Signed By: 04/07/24616 DD/ 3 TD/TT: Organic Preparation Technician: [place] [address] XRay Report Signed Patient: ANTOLIN ACEVEDO RA MR#: [id number] : 1950 Acct:[id number] Age/Sex: 74 / F ADM Date: 04/06/24 Loc: EC Attending Dr: Anders Chirstina D.P.M. Ordering Physician: Anders Christina D.P.M. Date of Service: 04/06/24 Procedure(s): XR linnette t LT min 3V Accession Number(s): [id number] cc: TRINY FRIEDMAN ; Anders Christina D.P.M. The [place] [id number] Patient Name: KERRI ACEVEDO MRN: [id number] date: 1950 Sex: F Assigned Patient Location: Current Patient Location: Accession/Order Numb er: [id number] Exam Date: 04/06/2024 10:00 Report Date: 04/07/2024 06:14 At the request of: ANDERS CHRISTINA Procedure: XR foot L T min 3V PROCEDURE: XR foot L T min 3V HISTORY: LEFT FOOT P AIN ; pain to second toe and base of 5th toe COMPARISON: None. FINDINGS: BONES:Nondisplaced transverse fracture through base of 5th proximal phalanx with suspected intra-articular extension. Unremarkable second toe. SOFT TISSUES:Soft tissue swelling of 5th toe. EFFUSION:None visible. OTHER: Negative. XR/XR foot LT min 3V IMPRESSION: 1. Acute versus subacute fracture involving base of 5th proximal phalanx. Electronically authenticated by: KALI GROVE Date: 04/07/2024 06:14 Dictated By: Kali Grove M.D. Signed By: 04/07/24616 DD/ 3 TD/TT: Organic Preparation Technician: XR Foot LT (3 views) * Reviewed date:08/05/2024 11:44:29 AM Interpretation: Performing Lab: Notes/Report: XR Foot LT (3 views) * Reviewed date:04/20/2024 11:01:52 AM Interpretation: Performing Lab: Notes/Report: INSULIN Reviewed date:09/30/2024 10:17:58 AM Interpretation: Performing Lab: Notes/Report: [facility] , Insulin 16.0 2.6-24.9 uIU/mL Performed at: - [facility] [place] Security Specialist: Vignesh Monique PhD, Phone: [phone] [address] [place], [place] [id number] Performing Lab: see note - [facility] LB Reason For Referral No Information Medications Medication SIG (Take, Route, Frequency, Duration) Notes Start Date End Date Status Venlafaxine HCl 37.5 MG 1 tablet with fo od Orally Once a day for 30 days Active Fenofibrate 160 MG TAKE 1 TABLET BY EVERY DAY for 30 Active Vitamin D3 50 MCG (1999) TAKE 1 CAPSU LE BY MOUTH EVERY [...] week (3 points) Points 3 Interpretation Positive Problems Problem Type SNOMED Code ICD Code Onset Dates Problem Status W/U Status Risk Notes Problem Hyperlipidemia (03650004) Hyperlipidemia (E78.5) Active confirmed Problem Dyslipidemia (826500838) Dyslipidemia (E78.5) Active confirmed Problem Anxiety (43365382) Anxiety (F41.9) Active confirmed Problem Neck pain (41120913) Neck pain (M54.2) Active confirmed Problem Hyperglycemia (55801707) Hyperglycemia (R73.9) Active confirmed Problem Arthritis (9878145) Arthritis (M19.90) Active confirmed Problem Vitamin D deficiency (68821788) Vitamin D deficiency (E55.9) Active confirmed Problem Acute sinusitis (49236734) Acute sinusitis (J01.90) Active confirmed Problem Irritable bowel syndrome (48608541) Irritable bowel syndrome (K58.9) Active confirmed Problem Postmenopausal bleeding (33186237) Postmenopausal vaginal bleeding (N95.0) Active confirmed Problem Overweight (517444203) Over weight (E66.3) Active confirmed Problem Annual wellness visit (531774764868691) Wellness examination (Z00.00) Active confirmed Problem Dystonic tremor (656007607) 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) Active confirmed Problem Elevated blood pressure (00770423) Elevated BP (I10) Active confirmed Vital Signs Heart Rate 54 /min 10/26/2024 Temperature 98.2 degrees Fahrenheit 04/29/2024 Blood pressure diastolic 78 mm Hg 03/31/2025 Oximetry 98 % 10/26/2024 Height 63 in 03/31/2025 Blood pressure systolic 138 mm Hg 03/31/2025 Weight 174.6 lbs 03/31/2025 BMI 30.93 kg/m2 03/31/2025 Encounters Encounter Location Date Provider Diagnosis [facility] [address] [place] [address] 07/28/2024 Triny Friedman [facility] [address] [place] [address] 09/22/2024 Triny Friedman [facility] [address] [place] [address] 09/24/2024 Triny Friedman [facility] [address] [place] [address] 09/29/2024 Triny Friedman [facility] [address] [place] [address] 11/29/2024 Triny Friedman [facility] [address] [place] [address] 03/31/2025 Triny Friedman [facility] [address] [place] [address] [place] [address] 04/06/2024 Anders Christina Left foot pain M79.672 and Displaced fracture of proximal phalanx of left lesser toe(s), initial encounter for closed fracture S92.512A [facility] [address] [place] [address] [place] [address] 04/29/2024 Salvador Goddard Left foot pain M79.672 and Displaced fracture of proximal phalanx of left lesser toe(s), subsequent encounter for fracture with routine healing S92.512D [facility] [address] [place] [address] 03/31/2025 Triny Friedman LLQ pain R10.32 [facility] [address] [place] [address] 09/22/2024 Triny Friedman Hot flashes R23.2 ; Dyslipidemia E78.5 and Elevated BP I10 [facility] [address] [place] [address] 10/26/2024 Triny Friedman Anxiety F41.9 and Bronchitis J40 Assessments Encounter Date Diagnosis (ICD Code) Assessment Notes Treatment Notes Treatment Clinical Notes Section Notes 04/06/2024 Left foot pain (ICD-10 - M79.672) 04/06/2024 Displaced fracture of proximal phalanx of left lesser toe(s), initial encounter for closed fracture (ICD-10 - S92.512A) The patient is a pleasant 74-year-old female who presents for evaluation of pain in the left second and fifth toes after injury that occurred approximately 3-1/2 weeks ago (~ DOI 03/12/24). X-rays reveal a comminuted fracture of the proximal phalanx of the fifth toe. She was placed in a cam boot for immobilization.Sh e was advised on RICE therapy and tddb-tih-yzysafn analgesia.Follow- up in 3 weeks, sooner if any issues arise. I would like weightbearing foot x-rays at follow-up. 04/29/2024 Left foot pain (ICD-10 - M79.672) 04/29/2024 Displaced fracture of proximal phalanx of left lesser toe(s), subsequent encounter for fracture with routine healing (ICD-10 - S92.512D) The patient is a 74-year-old female who presents for reevaluation of fractures of the second and fifth proximal phalanges of the left foot, DOI: ~03/10/24. The patient notes continued improvement in her pain. She did not tolerate the cam boot due to hip and back pain and is now wearing flip-flops.X-ray shows stable alignment.The patient was advised that she may continue weightbearing as tolerated and what ever shoe gear provides the most relief in symptoms.RICE therapy and drsz-bpu-jhwsohi analgesia advised.Follow-up in 3 to 4 weeks, sooner if any issues arise. I would like weightbearing foot x-rays at follow-up. 09/22/2024 Hot flashes (ICD-10 - R23.2) discuss estrogen therapy with DR Hoy OBGYN referral? [facility] 09/22/2024 Dyslipidemia (ICD-10 - E78.5) hx high chol may be willing to try rosuvastatin 10/26/2024 Anxiety (ICD-10 - F41.9) restart venlafaxine took in past fu one month 10/26/2024 Bronchitis (ICD-10 - J40) cough for 2 weeks fu if not improving 03/31/2025 LLQ pain (ICD-10 - R10.32) 09/22/2024 Elevated BP (ICD-10 - I10) continue monitor Plan Of Treatment Pending Test Test Name Order Date CMP (COMPLETE METABOLIC PANEL) 4 HEMOGLOBIN A1C (GLYCO) 09/22/2024 INSULIN, TOTAL 09/22/2024 LIPID PANEL (CHOL/TRIG/HDL/LDL) 09/22/20 24 CBC WITH DIFF 09/22/2024 XR Abdomen AP (1 view) (KUB) * 5 THYROID PANEL (T4/TSH/FREE T3) 4 MM diagnostic mammo BI 12/19/2023 Insurance Providers Payer Name Payer Address Payer Phone Subscriber Number Group Number Insured Name Patient Relationship to Insured Coverage Start Date Coverage End Date [place] [address] [place] [address] [phone] [id number] Kerri Acevedo Self - patient is the insured [employer] [address] [employer] [facility] [place], [place] [phone] [id number] Kerri Acevedo Self - patient is the insured Medical (General) History Medical History History ICD Code Vitamin D deficiency E55.9 Wellness examination Z00.00 Over weight E66.3 Acute sinusitis J01.90 Neck pain M54.2 Hyperglycemia R73.9 Dystonic tremor G25.2 Irritable bowel syndrome K58.9 Hyperlipidemia E78.5 Arthritis M19.90 Surgical History Surgery Date(Month/Year) Bladder Lift Breast Augmentation Left Ear Surgery x2 bladder surgery; Inter Stim bladder stim ulator- 12/24/22 Hospitalization History Reason Date(Month/Year) see above
--- OUTSIDE RECORDS SUMMARY | 2025-03-31 09:26 | XMS_ITS | Clinical Summary ---
Author Organization [facility] Address [address] [place] [address] Phone Care Team Providers Care Acquisition Associate Name Role Phone Generic Provider, No Assigned Pcp MD Primary Car e Provider Unavailable Allergies Active Allergy Reactions Criticality Noted Date Comments Atorvastatin GI Upset Low 11/11/2023 Prochlorperazine Seizure Medium 08/29/2023 Medications FLUoxetine (PROzac) 10 mg capsule Take 1 capsule (10 mg) by mouth once daily. Active fenofibrate (Triglide) 160 mg tablet Take 1 tablet (160 mg) by mouth once daily. Active cholecalciferol (Vitamin D3) 50 MCG (2000 UT) tablet Take 1 tablet (50 mcg) by mouth once daily. Active cetirizine (ZyrTEC) 10 mg tablet Take 1 tablet (10 mg) by mouth once daily. Active calcium carbonate EX (Tums Extra Strength) 300 mg (750 mg) chewable tablet Chew 300 mg once daily. 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 Take while using narcotics for pain control 4 Active Additional Information Patient not taking.Reported on 02/10/2024 propranolol (Inderal) 10 mg tablet Take 1 tablet (10 mg) by mouth 3 times a day. Active Active Problems Problem Noted Date Diagnosed Date Postoperative visit 02/10/2024 Gastroesophageal reflux disease 01/19/2024 Mixed conductive and sensori neural hearing loss of left ear with restricted hearing of right ear 11/11/2023 Hoarseness or changing voice 11/11/2023 Perforation of left tympanic membrane 11/11/2023 Otitis media 08/29/2023 Multiple perforations of tympanic membrane 08/29 Resolved Problems Problem Noted Date Diagnosed Date Resolved Date Vocal cord weakness 11/11/2023 11/11/19 24 Immunizations Immunization Administration Dates Next Due Pneumococcal conjugate vaccine, 13-valent (PREVN AR 13) 10/15/2019 Pneumococcal polysaccharide vaccine, 23-valent, age 2 years and older (PNEUMOVAX 23) 10/06/2001 Zoster, live 09/21/2016 Family History Medical History Relation Name Comments Skin cancer Father No Known Problems Maternal Grandmother li maría to 103 Colon cancer Mother Diabetes Sister Relation Name Status Comments Father Maternal Grandmother Mother Sister Alive Social History Tobacco Use Types Packs/Day Years Used Date Smoking Tobacco: Former Cigarettes 1 20 1 994 - 2014 Tobacco Cessation:Counseling Given: Not Answered Comments:Medical Cannabis. Alcohol Use Standard Drinks/Week Comments Yes 3 (1 standard drink = 0.6 oz pur e alcohol) PHQ-2 Answer Date Recorded Patient Health Questionnaire-2 Score 0 03/09/2024 Comments Unknown Sex and Gender Information Value Date Recorded Sex Assigned at Not on file Legal Sex Female 12:00 PM EST Gender Identity Not on file Sexual Orientation Not on file Last Filed Vital Signs Vital Sign Reading Time Taken Comments Blood Pressure 143/79 01/19/2024 11:45 AM EDT Pulse 95 01/19/2024 11:45 AM EDT Temperature 36.7 C (98.1 F) 01/19/2024 11:30 AM EDT Respiratory Rate 13 01/19/2024 11:45 AM EDT Oxygen Saturation 92% 01/19/2024 11:45 AM EDT Inhaled Oxygen Concentration - - Weight 75.8 kg (167 lb) 02/10/2024 10:37 AM EDT Height 162.6 cm (5' 4 ) 02/10/2024 10:37 AM EDT Body Mass Index 28.67 02/10/2024 10:37 AM EDT Plan of Treatment Health Maintenance Due Date Last Done Comments CT Colonography 1950 Colonoscopy 1950 FIT 1950 Lipid Panel 1950 Medicare Annual Wellness Visit (AWV) 1950 Sigmoidoscopy 1950 Diabetes Screening 02/07/1970 Hepatitis C Screening 02/07/1970 DTaP/Tdap/Td Vaccines (1 - Tdap) 02/07/1974 Lung Cancer Screening 02/07/2002 Mammogram 02/15/2023 02/15/2022, 0406/2022, 04/01/2020 Zoster Vaccines (3 of 3) 11/11/2023 09/16/2023, 09/10 COVID-19 Vaccine ( - season) 2024 09/16/2023, 06/18/2022, 10/25/2021, Additional history exists Pneumococcal Vaccine (3 of 3 - PCV20 or PCV21) 10/15/2024 10/15/2019, 10/06/2001 Influenza Vaccine (Season Ended) 2025 Colorectal Cancer Screening 01/22/2026 FIT-DNA (Cologuard) 01/22/2026 01/22/2023 Bone Density Scan Completed 02/15/2022 RSV High Risk: (Elderly (60+) or Population) Completed 09/16/2023 HIB Vaccines Aged Out No longer eligi ble based on patient's age to complete this topic HPV Vaccines Aged Out No longer eligi ble based on patient's age to complete this topic Hepatitis A Vaccines Aged Out No long er eligible based on patient's age to complete this topic Hepatitis B Vaccines Aged Out No long er eligible based on patient's age to complete this topic IPV Vaccines Aged Out No longer eligi ble based on patient's age to complete this topic Meningococcal Vaccine Aged Out No dionna hammad eligible based on patient's age to complete this topic Rotavirus Vaccines Aged Out No longer eligible based on patient's age to complete this topic Insurance MEDICARE PART A AND B AETNA SENIOR SUPPLEMENT EYEMED MEDICARE PART A AND B AETNA SENIOR SUPPLEMENT EYEMED Care Teams Acquisition Associate Relationship Specialty Start Date End Date Generic Provider, No Assigned Pcp, [place] [address] PCP - General 01/19/24
--- OUTSIDE RECORDS SUMMARY | 2025-03-31 09:26 | XMS_ITS | Encounter Summary ---
Author Organization [facility] Address [address] [place] [address] Care Team Providers Care Radiologic Electronic Specialist Name Role Phone Arlen Parrish MD Primary Care Provider [phone] Luis Enrique Wood DO Primary Care Provider [phone] Source Comments In the event this information is protected by the Federal Confidentiality of Alcohol and Drug AbusePatient Records regulations: The Federal rules restrict any use of the information to criminally investigate or prosecute any alcohol or drug abuse patient.[facility] Encounter Details Date Type Department Care Team (Late st Contact Info) Description 08/15/2015 Patient Msg Medical Records [address] [place] [address] Provider, [facility] Appointment Cancellation Request Social History Tobacco Use Types Packs/Day Years Used Date Smoking Tobacco: Former Smokeless Tobacco: Never Alcohol Use Standard Drinks/Week Comments Not Asked 0 (1 standard drink = 0.6 oz pur e alcohol) Comments Unknown Sex and Gender Information Value Date Recorded Sex Assigned at Not on file Legal Sex Female 4:36 PM EDT Gender Identity Not on file Sexual Orientation Not on file documented as of this encounter Functional Status * Are you deaf or do you have serious difficulty hearing? Answer Date of Assessment Author No 04/11/2015 12:51 PM EDT Mukund Estevez (Ma) (Hist) * Are you blind or do you have serious difficulty seeing, even when wearing glasses? Answer Date of Assessment Author Yes 04/11/2015 12:51 PM EDT Mukund Estevez (Ma) (Hist) * Do you have serious difficulty walking or climbing stairs? Answer Date of Assessment Author No 04/11/2015 12:51 PM EDT Mukund Etsevez (Ma) (Hist) * Do you have difficulty dressing or bathing? Answer Date of Assessment Author No 04/11/2015 12:51 PM EDT Mukund Estevez (Ma) (Hist) * Because of a physical, mental, or emotional condition, do you have difficulty doing errands alone such as visiting a doctor's office or shopping? Answer Date of Assessment Author No 04/11/2015 12:51 PM EDT Mukund Estevez (Ma) (Hist) documented as of this encounter Mental Status * Because of a physical, mental, or emotional condition, do you have serious difficulty concentrating, remembering, or making decisions? Answer Entry Date Author No 04/11/2015 12:51 PM EDT Mukund Estevez (Ma) (Hist) documented in this encounter Plan of Treatment Not on file documented as of this encounter Visit Diagnoses Not on filedocumented in this encounter Care Teams Radiologic Electronic Specialist Relationship Specialty Start Date End Date Arlen Parrish MD [address] [place] [address] PCP - General Family Medicine 02/24/15 05/05/18 Luis Enrique Wood DO [address] [facility] [address] [place] [id number] PCP - General Family Medicine 05/06/18 documented as of this encounter
--- OUTSIDE RECORDS SUMMARY | 2025-03-31 09:26 | XMS_ITS | Clinical Summary ---
Author Organization [facility] Address [address] [place] [address] Care Team Providers Care Executive Relations Specialist Name Role Phone David Friedman MD Primary Care Provider [phone] Allergies Active Allergy Reactions Criticality Noted Date Comments Atorvastatin GI intolerance,Unknown 11/11/2023 Prochlorperazine Other 04/11/2015 Other Reaction(s): Seizures Eyes rolled back into her head, and her head rolled back Statins Other 07/21/2023 Medications fenofibrate (Triglide) 160 MG tablet Take 160 mg by mouth in the morning. Active cholecalciferol (Vitamin D-3) 50 MCG (1999) capsule Take 1 capsule by mouth in the morning. 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 07/21/2023 Cervical paraspinal muscle spasm 07/21/2023 Immunizations Immunization Administration Dates Next Due ABRYSVO - Respiratory syncyt ial virus (RSV), vaccine, bivalent, protein subunit RSV prefusion F, diluent reconstituted, 0.5 mL, PF 09/16/2023 Pneumococcal Conjugate PCV 13 10/15/2019 Pneumococcal Polysaccharide PPSV23 10/06/2001 SARS-COV-2 (COVID-19) vaccin e, mRNA, spike protein, LNP, PF, 50 mcg/0.5 mL 09/16/2023 Zoster, Recombinant 09/16/2023 Zoster, live 09/21/2016 Family History Medical History Relation Name Comments No Known Problems Daughter Cancer Father Colon cancer Mother Heart disease Paternal Grandfather Diabetes Sister Asthma Son Relation Name Status Comments Daughter Alive 1 daughter Father Mother Other Alive spouse Paternal Grandfather Sister Alive 1 sister Son Alive 1 son Social History Tobacco Use Types Packs/Day Years Used Date Smoking Tobacco: Former Cigarettes Smokeless Tobacco: Never Alcohol Use Standard Drinks/Week Comments Yes 2 (1 standard drink = 0.6 oz pure alcohol) Caffeine intake: 1-2 cups per day Comments Unknown Sex and Gender Information Value Date Recorded Sex Assigned at Female 07/20/2023 10:15 AM EDT Legal Sex Female 7:22 PM EDT Gender Identity Female 07/20/2023 10:15 AM EDT Sexual Orientation Straight 07/20/2023 10 :15 AM EDT Last Filed Vital Signs Vital Sign Reading Time Taken Comments Blood Pressure 116/74 09/16/2024 11:20 AM EST Pulse 55 07/21/2023 11:18 AM EDT Temperature - - Respiratory Rate - - Oxygen Saturation - - Inhaled Oxygen Concentration - - Weight 77.6 kg (171 lb) 12/31/2024 10:15 AM EST Height 162.6 cm (5' 4 ) 12/31/2024 10:15 AM EST Body Mass Index 29.35 12/31/2024 10:15 AM EST Plan of Treatment Upcoming Encounters Date Type Department Care Team (Late st Contact Info) Description 04/07/2025 10:00 AM EDT Procedure Visit [facility] [address] [facility] [address] [place] [address] Ines Pollack, REEL ASSEMBLER [address] [place] [address] Health Maintenance Due Date Last Done Comments CT Colonography 1952 FIT 1952 FOBT 1950 Sigmoidoscopy 1950 Mammogram 02/15/2023 02/15/2022, 04/0 06/2022, 04/01/2020, Additional history exists Influenza Vaccine (Season Ended) 2025 FIT-DNA 01/22/2026 01/22/2023 Colonoscopy 02/19/2027 02/19/2017 Colorectal Cancer Screening 02/19/2027 Pneumococcal Vaccine: 65+ Years Discontinued 9, 10/06/2001 Procedures Procedure Name Priority Date/Time Associated Diagnosis Comments BI MAMMOGRAM SCREENING BILATERAL Routine 02/15/2022 12:00 PM EDT Lichen simplex chronicus Immunization not carried out because of patient refusal Constipation, unspecified Encounter for gynecological examination (general) (routine) without abnormal findings Unspecified abdominal pain Encounter for screening for malignant neoplasm of cervix Frequency of micturition Encounter for screening for osteoporosis Encounter for screening for human papillomavirus (HPV) Urgency of urination Other specified noninflammatory disorders of vulva and perineum Asymptomatic menopausal state Encounter for screening mammogram for malignant neoplasm of breast Presence of neurostimulator COLONOSCOPY Routine 02/19/2017 12:00 PM EDT from Last 3 Months or Most Recently Relevant to Health Maintenance Results * Bilateral screening mammogram (02/15/2022 12:00 PM EDT) Anatomical Region Laterality Modality Breast Bilateral Mammography Narrative 02/15/2022 12:00 PM EDT PERFORMED AT [facility] LOCATION:[id number] Procedure Note CONVERSION, GENERIC - 05/16/2023 PERFORMED AT [facility] LOCATION:[id number] us Pancho Estrada DO IMG BI PROCEDURES Final Resul t * Colonoscopy (02/19/2017 12:00 PM EDT) Anatomical Region Laterality Modality Endoscopy 02/19/2017 12:0 0 PM EDT Narrative 02/19/2017 12:00 PM EDT PERFORMED AT [facility] LOCATION:[id number] Procedure Note CONVERSION, GENERIC - 03/27/2023 PERFORMED AT [facility] LOCATION:[id number] us Shivani Haider REEL ASSEMBLER ENDOSCOPY PROCEDURE ORDERAB LES Final Result from Last 3 Months or Most Recently Relevant to Health Maintenance Insurance MEDICARE AET Care Teams Executive Relations Specialist Relationship Specialty Start Date End Date David Friedman MD [address] [place], [place] [id number] PCP - General Family Medicine 05/14/24
--- NOTE | 2025-03-31 09:30 | XR_ITS ---
The [address] [address] Patient Name: KERRI CHAMPAGNE MRN: [id number] date: 1950 Sex: F Assigned Patient Location: [facility] Current Patient Location: [facility] Accession/Order Number: [id number] Exam Date: 03/31/2025 10:24 Report Date: 03/31/2025 10:26 At the request of: CY STORY Procedure: XR abdomen 1V SINGLE VIEW ABDOMEN COMPARISON: None CLINICAL DATA: Left lower quadrant pain for the past few months. Supine views of the abdomen and pelvis were obtained. Patient has a bladder stimulator on the right. There is air within the stomach. There is air and stool along the colon. There is minimal small bowel air though no disproportionate distention. No soft tissue masses or suspect renal calculi are noted. There is levoscoliotic curvature as well as degenerative changes at the spine. XR/XR abdomen 1V IMPRESSION: NONSPECIFIC, NONOBSTRUCTIVE BOWEL GAS PATTERN. Impression dictated by: Celine Jones M.D. 03/31/2025 10:26 AM Dictation Location: [place] [address] Electronically authenticated by: [id number] Date: 03/31/2025 10:26
== END 2025-03-31 09:20 | disposition home or self-care (01) ==
PROVIDERS: PCP Nurse Practitioner Family; Visit Provider Nurse Practitioner Family
DX: R10.32 Left lower quadrant pain (principal)
CPT/HCPCS: 74018

== ENCOUNTER 2025-04-20 14:27 | Outpatient (OUT) | payer MEDICARE, OTHER, SELFPAY ==
--- OUTSIDE RECORDS SUMMARY | 2025-03-31 05:06 | XMS_ITS ---
Author Organization [facility] in [place] Address [address] [place] [address] Care Team Providers Care Solids Control Technician Name Role Phone Triny Friedman Primary Care Provider REASON FOR VISIT looking for UC report Encounters Encounter Location Date Provider Diagnosis [facility] [address] [place] [address] 03/31/2025 Triny Friedman Plan Of Treatment No Information Progress Notes * Brandi ACEVEDO SDOB:[birth year] (75 yo F)Acc No.[id number]:03/31/2025 Patient: Brandi BARKLEY :1950 A ge:75 Y S ex:Female Address:[facility] [place], [address] * true * Date: Generated for Printi ng/Fanaveeng/eTransmitting on: 0 04/20/2025 02:29 PM EDT
--- OUTSIDE RECORDS SUMMARY | 2025-04-15 07:29 | XMS_ITS | CCD ---
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 Role Phone Gregoria Hamlin Unavailable Luis Enrique Wood DO Primary Care Provider [phone] Luis Enrique Wood DO Primary Care Provider Luis Enrique Wood DO Primary Care Provider [phone] None, No PCP Unavailable Unavailable Unavailable Unavailable ARTIS, AMOS Attending Unavailable ARTIS, AMOS Referring Unavailable LUIS ENRIQUE WOOD Primary Care Unavailable ARTIS, AMOS Attending Unavailable LUIS ENRIQUE WOOD G Primary Care Unavailable YONATHAN CAZARES Referring Unavailable LUIS ENRIQUE WOOD Primary Care Unavailable DO Will Estrada Attending Provider MD Albino Reilly Primary Care Provider LUIS ENRIQUE WOOD Primary Care Unavailable KERRI MORENO Attending Unavailable LUIS ENRIQUE WOOD G Primary Care Unavailable AVANI RODRÍGUEZ Attending Unavailable ARTIS, AMOS Referring Unavailable LUIS ENRIQUE WOOD G Primary Care Unavailable YONATHAN CAZARES Attending Unavailable YONATHAN CAZARES Referring Unavailable LUIS ENRIQUE WOOD G Primary Care Unavailable YONATHAN CAZARES Referring Unavailable DONTA DO Referring Unavailable HANNA WOODONY G Primary Care Unavailable DONTA DO A Referring Unavailable DOUGIE, LUIS ENRIQUE G Primary Care Unavailable EILEEN DOHOSH A Referring Unavailable DOUGIE, LUIS ENRIQUE G Primary Care Unavailable DOUGIE, LUIS ENRIQUE G Primary Care Unavailable EILEEN DOHOSH A Referring Unavailable DOUGIE, LUIS ENRIQUE G Primary Care Unavailable YONATHAN CAZARES Attending Unavailable CY STORY Primary Care Unavailable CY STORY Consulting Unavailable JEZ, CY Attending Unavailable JEZ, CY Admitting Unavailable JEZ, CY Primary Care Unavailable JEZ, CY Consulting Unavailable EJZ, CY Attending Unavailable JEZ, CY Admitting Unavailable JEZ, CY Primary Care Unavailable CHUCK, DR ANGEL Hassan Consulting Unavailable JEZ, CY Attending Unavailable JEZ, CY Admitting Unavailable JEZ, CY Consulting Unavailable Unavailable Primary Care Provider Unavailabl ania JOHNS, TU A Referring Unavailable TU JOHNS Primary [...] Luis Enrique Wood DO Primary Care Provider David Story MD Primary Care Provider David Story MD Primary Care Provider Tania Magana Attending Unavailable Tania Magana Admitting Unavailable Tania Magana APRN Attending Provider INES OWENS Attending Unavailab INES Spencer Attending Unavailab ANASTASIIA García Attending Unavailable INES OWENS Attending Unavailab WILL Avalos Attending Unavailable INES OWENS Attending Unavailab le Allergies Allergy Classification Reported Allergen(s) Allergy Type Date of Onset Reaction(s) Facility (20 sources) Prochlorperazine; Translations: [Compazine] Drug Allergy 5 Other: See Comments, Unknown, Seizure, Other [facility] (7 sources) atorvastatin; Translations: [ATORVASTATIN] Drug Allergy 4 GI Upset [facility] (10 sources) atorvastatin Drug Allergy 4 GI intolerance, Unknown [facility] (10 sources) HMG-CoA reductase inhibitor Drug Allergy 3 Other [facility] (1 source) Prochlorperazine Drug Allergy [facility] Repository Medications Current Medications Medication Drug Class(es) Dates [...] 01-19-2024 acetaminophen (Tylenol) tabl et 975 mg albuterol 0.83 mg/ml inhalation solution (1 source) beta2-Adrenergic Agonist Start: 01-19-2024 albuterol 2.5 mg /3 mL (0.083 %) nebulizer solution 2.5 mg onabotulinumtoxina 200 unt injection (20 sources) Acetylcholine Release Inhibitor Start: 04-07-2025 End: 04-07-2025 onabotulinumtoxinA (Botox) injection 100 Units Start: 04-07-2025 End: 04-07-2025 inject 100 [IU] by intramuscular injection once 100 Units, Intramuscular, Once, On Fri04/07/25 at 1045, For 1 dose, Charging context for this clinic-administered medication: Medically Necessary/Insurance Start: 04-07-2025 End: 04-07-2025 onabotulinumtoxinA (Botox) i njection 200 Units Start: 04-07-2025 End: 04-07-2025 inject 200 [IU] by intramuscular injection once 200 Units, Intramuscular, Once, On Jenni 04/07/25 at 1045, For 1 dose, Charging context for this clinic-administered medication: Medically Necessary/Insurance Start: 12-31-2024 End: 12-31-2024 onabotulinumtoxinA (Botox) i njection 50 Units Start: 12-31-2024 End: 12-31-2024 inject 50 [IU] by intramuscular injection once 50 Units, Intramuscular, Once, On Fri12/31/24 at 1030, For 1 dose, Charging context for this clinic-administered medication: Medically Necessary/Insurance Start: 12-31-2024 End: 12-31-2024 onabotulinumtoxinA (Botox) i njection 200 Units Start: 12-31-2024 End: 12-31-2024 inject 200 [IU] by intramuscular injection once 200 Units, Intramuscular, Once, On Fri12/31/24 at 1030, For 1 dose, Charging context for this clinic-administered medication: Medically Necessary/Insurance Start: 09-16-2024 End: 09-16-2024 onabotulinumtoxinA (Botox) i njection 50 Units Start: 09-16-2024 End: 09-16-2024 inject [...] this clinic-administered medication: Medically Necessary/Insurance Start: 12-19-2022 End: 02-25-2025 inject 100 [IU] by subcutaneous injection every three months Onabotulinumtoxina (Botox) 100 unit Recon Soln Discontinued 1 UNIT SUBCUT Q3M December 19, 2022 1:00am February 25, 2025 1:48pm botox treatments q 3 months Start: 11-25-2022 [...] meq/ml injectable solution (2 sources) Start: 01-19-20 lactated Ringer's infusion cephalexin 500 mg oral capsule (8 sources) Cephalosporin Antibacterial Start: 02-26-20 25 take 1 capsule by mouth three times daily Cephalexin 500 mg capsule Active 500 MG PO Three times daily 15 February 25, 2025 12:00am Start: 12-24-2022 End: 02-25-2025 take 1 capsule by mouth twice daily Cephalexin 500 mg capsule Discontinued 500 MG PO Twice daily 14 December 24, 2022 1:00am February 25, 2025 1:46pm Start: 01-15-2018 End: 01-22-2018 take 1 capsule by mouth twice daily Cephalexin 500 mg capsule Discontinued 500 MG PO Twice daily 14 January 15, 2018 1:00am January 21, 2018 12:00am January 22, 2018 12:03am cetirizine hydrochloride 10 mg oral tablet (8 sources) Histamine-1 Receptor Antagonist End: 09-16-2024 take 1 tablet by mouth in the morning cetirizine (ZyrTEC) 10 MG tablet Take 10 mg by mouth in the morning. 09/16/2024 Discontinued (Therapy completed) cholecalciferol 0.05 mg oral capsule (15 sources) Vitamin D Start: 02-25-2025 take 1 capsule by mouth once daily Cholecalciferol (Vitamin D3) 50 mcg (2,000 unit) capsule Active 2000 UNIT PO Daily February 25, 2025 12:00am take 1 tablet by mouth once wyatt y cholecalciferol (Vitamin D3) 50 MCG (2000 UT) [...] 01/19/2024 Active estradiol 0.1 mg/ml vaginal cream (9 sources) Estrogen Start: 07-08-2024 End: 07-08-2025 estradiol [...] 0.2 mg ibuprofen 600 mg oral tablet (6 sources) Nonsteroidal Anti-inflammatory Drug Start: 01-19-2024 take [...] doses. 20 tablet 01/19/2024 Active Start: 12-24-2022 End: 02-25-2025 take 4 tablets by mouth every twenty-four hours for pain Ibuprofen 600 mg tablet Discontinued 600 MG PO Every 6 hours as needed for pain December 24, 2022 1:00am February 25, 2025 1:48pm do not exceed 4 doses in a [...] on above: Take 1 tablet by ana th three times daily. Take 1-2 tablets by mouth twice daily. 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 Do not start before February 09, 2024. 0.9 mL 02/09/2024 03/10/2024 Active Start: 10-21-2017 End: 01-14-2018 Ofloxacin 0.3 % Drops Discon tinued 1 DROPS EAR-BOTH Twice daily as needed for Ear Pain October 21, 2017 1:00am January 14, 2018 4:13pm Start: 10-21-2017 End: 01-14-2018 Ofloxacin Discontinued 1 [...] by mouth 3 times a day. Active Semaglutide-Weight Management 0.5 MG/0.5ML solution auto-injector (3 sources) Start: 06-22-2024 End: 07-22-2024 inject 0.6 mg by subcutaneous injection every week Semaglutide-Weig ht Management 0.5 MG/0.5ML solution auto-injector Indications: Weight loss counseling, encounter for Inject 0.6 mg under the skin 1 (one) time per week 2.4 mL 1 06/22/2024 07/22/2024 Active topiramate 25 mg oral tablet (1 source) Start: 04-07-2025 End: 05-14-2025 take 1 tablet by mouth at bedtime, then take 1 tablet by mouth twice daily topiramate (Topamax) 25 MG tablet Indications: Cervical dystonia Take 1 tablet (25 mg) by mouth at bedtime for 7 days, THEN 1 tablet (25 mg) 2 (two) times a day. 67 tablet 11 04/07/2025 05/14/2025 Active traMADol hydrochloride 50 mg oral tablet [...] pain (7 - 10) (pain unrelieved by tylenol/ibuprofe n) for up to 12 doses. 12 tablet 01/19/2024 Active venlafaxine 37.5 mg oral tablet (14 sources) Serotonin and Norepinephrine Reuptake Inhibitor Start: 02-25-2025 take 1 tablet by mouth once daily Venlafaxine 37.5 mg tablet Active 37.5 MG PO Daily February 25, 2025 12:00am Start: 07-06-2024 End: 09-16-2024 venlafaxine XR (Effexor XR) 37.5 MG 24 hr capsule Indications: Hot flashes Do not crush or chew. Then increase to the 75 mg dose. 7 capsule 07/06/2024 09/16/2024 Discontinued (Therapy completed) Start: 07-06-2024 End: 01-10-2025 venlafaxine XR (Effexor XR) 75 MG 24 hr capsule Indications: Hot flashes Do not crush or chew. 30 capsule 11 07/06/2024 01/10/2025 Discontinued Start: 07-06-2024 End: 07-06-2024 take 1 capsule by mouth once daily venlafaxine XR (Effexor XR) 37.5 MG 24 hr capsule Indications: Hot flashes Take 1 capsule (37.5 mg) by mouth Daily Do not crush or chew. 30 capsule 5 07/06/2024 07/06/2024 Discontinued (Entered in error) Completed/Discontinued Medications Medication Drug Class(es) Dates Sig (Normalized) Sig (Original) acetaminophen 325 mg / HYDROcodone bitartrate 5 mg oral tablet (11 sources) Opioid Agonist Start: 12-24-2022 End: 02-25-2025 take 1 tablet by mouth every six hours as needed for pain Hydrocodone-Acetami nophen 5-325 mg tablet Discontinued 1 TAB PO Q6H as needed for pain 10 12December 24, 2022 February 25, 2025 1:48pm Start: 10-22-2017 End: 12-19-2022 take 1 tablet by mouth every four to six hours as needed for pain Hydrocodone-Acetaminophen ([place]) 5-325 mg tablet Discontinued 1 TAB PO EVERY 4-6 HOURS as needed for pain January 15, 2018 December 19, 2022 5:39pm Amoxicillin (4 sources) Penicillin-class Antibacterial Amoxicillin CAPS Quantity: 0 Refills: 0 Ordered: 18-Nov-2022 DO Active amoxicillin 875 mg / clavulanate 125 mg oral tablet (4 sources) Penicillin-class Antibacterial Start: 11-14-19 Amoxicillin-Pot Clavulanate 875-125 MG Oral Tablet Quantity: 20 Refills: 0 Ordered: 14-Nov-2022 DO Start : 14-Nov-2022 Active ciprofloxacin 3 mg/ml ophthalmic solution (4 sources) Quinolone Antimicrobial Start: 11-18-19 take 2-3 drop(s) into the eye(s) twice daily Ciprofloxacin HCl - 0.3 % Ophthalmic Solution Instill 2-3 drops in left ear twice daily for 5 days. Quantity: 1 Refills: 0 Ordered: 18-Nov-2022 Lauren Sharma Start : 18-Nov-2022 Active clobetasol propionate 0.0005 mg/mg topical ointment (5 sources) Corticosteroid Start: 07-08-20 22 Clobetasol Propionate 0.05 % External Ointment Quantity: [...] (11 sources) Benzodiazepine Start: 07-03-20 End: 09-09-20 diazePAM [...] Start : 15-Oct-2022 Active Start: 10-21-2017 take 1 tablet by ana th once daily at bedtime Fenofibrate 160 mg tablet Active 160 MG PO Daily at bedtime October 21, 2017 1:00am Comment on above: Take 160 mg by [...] 10 MG PO Daily October 21, 2017 1:00am December 19, 2022 5:39pm PROzac 10 MG Ora l Capsule Quantity: 0 Refills: 0 Ordered: 18-Nov-2022 DO Active Comment on above: Take 10 mg by mouth once daily. fluticasone propionate 0.05 mg/actuat metered dose nasal spray (5 sources) Corticosteroid Start: 10-21-2017 End: 12-19-2022 Fluticasone Propionate 50 MCG spray,suspension Discontinued 1 PUFF INTRANASAL Twice daily October 21, 2017 1:00am December 19, 2022 5:39pm Start: 10-21-2017 End: 12-19-2022 Fluticasone Propionate Disco ntinued 1 PUFF INTRANASAL Twice daily October 21, 2017 12:00am December 19, 2022 4:39pm End: 07-03-2022 take 1 spray(s) nasal route once daily fluticasone (FLONASE) 50 mcg/actuation nasal spray Use 1 [place] in each nostril once daily. 0 07/03/2022 Discontinued Comment on above: Use 1 [place] in each nostril once daily. gabapentin 300 [...] / neomycin 3.5 mg/ml / polymyxin b 06969 unt/ml otic solution (4 sources) Aminoglycoside Antibacterial, [...] Ordered: 06-Dec-2021 DO Start : 07-Aug-2021 Active [id number]-eawb-xltg-FA-K-hb#2 44 18-400-80 mg-mcg-mcg tab (1 source) End: 07-03-2022 ghkfspyd-wznj-ivuz-FA-K-hb#2 44 18-400-80 mg-mcg-mcg tab Take by mouth once daily. 0 07/03/2022 Discontinued Comment on above: Take by mouth once d aily. phentermine hydrochloride 37 .5 mg oral capsule (3 sources) Sympat homime tic Amine Anorec tic Start: 05-27-2024 End: 07-06-2024 take 1 capsul e by mouth before mealti me phentermine (Adipex-P) 37.5 MG capsule Indications: Weight loss counseling, encounter for Take 1 capsule (37.5 mg) by mouth in the morning. Take before meals. 30 capsule 05/27/2024 07/06/2024 Discontinued (Allergic response) progesterone 200 mg oral capsule (11 sources) Proges terone Start: 06-03-2022 End: 09-09-2023 take 1 capsul e by mouth once daily in the evenin g progesterone micronized (PROMETRIUM) 200 mg capsule TAKE 1 CAPSULE BY MOUTH EVERY EVENING 06/03/2022 08/13/2022 Discontinued Comment on above: TAKE 1 CAPSULE BY [facility] EVERY EVENING rosuvastatin calcium 20 mg o ral tablet (4 sources) HMG-Co A Reduct ase Inhibi tor Start: 10-21-2017 End: 10-22-2017 Rosuvastatin (Crestor) 20 mg Tablet Discontinued TABLET October 21, 2017 1:00am October 22, 2017 7:30pm Problems Active Problems Problem Classification Problem Date Documented Date Episodic/Chronic Complications of surgical procedures or medical care (4 sources) Postoperative hemorrhage; Translations: [Postoperative hemorrhage] 01-15-2018 Episodic Comment on above: Problem List clean-u p per request of Phys. EHR Cmte Deficiency and other anemia (1 source) Anemia, unspecified; Translations: [ANEMIA UNSPECIFIED] Onset: 01-12-2023 Episodic Diabetes mellitus without complication (1 source) Other abnormal glucose; Translations: [OTHER ABNORMAL GLUCOSE] Onset: 01-12-2023 Episodic Disorders of lipid metabolism (4 sources) Hyperlipidemia, unspecified; Translations: [HYPERLIPIDEMIA UNSPECIFIED] Onset: 01-08-2023 Chronic Esophageal disorders (4 sources) Gastroesophageal reflux disease; Translations: [Gastro-esophageal reflux disease without esophagitis] Onset: 01-19-2024 01-19-2024 Chronic Genitourinary symptoms and ill-defined conditions (1 source) Unspecified urinary incontinence; Translations: [Unspecified urinary incontinence] Onset: 02-25-2025 Chronic Headache; including migraine (6 sources) Chronic tension-type headache; Translations: [Chronic tension-type headache, not intractable] Onset: 07-09-2022 Chronic Menopausal disorders (2 sources) Atrophy of vagina; Translations: [Postmenopausal atrophic vaginitis] 07-06-2024 Chronic Nutritional deficiencies (1 source) Vitamin D [...] Other hereditary and degenerative nervous system conditions (16 sources) Isolated cervical dystonia; Translations: [Spasmodic torticollis] Onset: 07-21-2023 Chronic Other hereditary and degenerative nervous system conditions (4 sources) Spasmodic torticollis; 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] Onset: 06-08-2015 Chronic Other hereditary and degenerative nervous system conditions (10 sources) Dystonic tremor; Translations: [Other specified forms of tremor] Onset: 02-17-2024 02-17-2024 Chronic Other nervous system disorders (4 sources) History of clinical finding in subject; Translations: [Personal history of other diseases of the nervous system and sense organs] Episodic Other nervous system disorders (5 sources) Impairment of balance; Translations: [Other abnormalities of gait and mobility] Episodic Other nervous system disorders (3 sources) Acute postoperative pain; Translations: [Other acute postprocedural pain] 12-24-2022 Episodic Comment on above: Problem List clean-u p per request of Phys. EHR Cmte Other nutritional; endocrine; and metabolic disorders (4 [...] [Low back pain, non-specific] Onset: 07-03-2022 Unclassified (3 sources) CONTACT W/AND (SUSP) EXPOS COVID-19; Translations: [CONTACT W/AND (SUSP) EXPOS COVID-19] Onset: 11-17-2022 Urinary tract infections (2 sources) Acute urinary tract infection; Translations: [Urinary tract infection, site not specified] 02-25-2025 Episodic Past or Other Problems Problem Classification Problem Date Documented Date Episodic/Chronic Administrative/social admission (10 sources) Patient encounter status; Translations: [Dietary counseling and surveillance] Onset: 05-27-2024 05-27-2024 Episodic Immunizations and screening for infectious disease (1 source) Contact with and (suspected) exposure to other viral communicable diseases Onset: 11-05-2021 Resolved: 11-05-2021 Episodic Other connective tissue disease (2 sources) Myalgia, unspecified site; Translations: [Myalgia] Onset: 07-09-2022 Episodic Other connective tissue disease (10 sources) Spasm of cervical paraspinous muscle; Translations: [...] of ear, bilateral] Onset: 09-09-2023 Episodic Other female genital disorders (2 sources) Vaginal odor; Translations: [Other specified noninflammatory disorders of vagina] 07-05-2024 Episodic Other female genital disorders (2 sources) Vaginal discharge; Translations: [Other specified noninflammatory disorders of vagina] 07-05-2024 Episodic Other nervous system disorders (2 sources) [...] and resonance disorder] Onset: 11-11-2023 11-11-2023 Episodic Residual codes; unclassified (2 sources) Device in situ; Translations: [Presence of neurostimulator] 07-05-2024 Episodic Residual codes; unclassified (2 sources) Flushing; Translations: [Flushing] 07-06-2024 Episodic Unclassified (1 source) CONTACT W/AND (SUSP) EXPOS COVID-19; Translations: [CONTACT W/AND (SUSP) EXPOS COVID-19] Onset: 11-14-2022 Unclassified (5 sources) Onset: 09-09-2023 Resolved: 03-09-2024 09-09-2023 Results Test Name Value Interpretation Reference Range Facility Laboratory - Chemistry and C hemistry - challengeon 02-25-2025 Bilirubin Ql (U) Negative [facility] Glucose (U) [Mass/Vol] Negative [facility] Ketones Ql (U) Negative [facility] pH (U) 6.5 [pH] [facility] Specific gravity (U) [Rel density] 1.015 [facility] Urobilinogen (U) [Mass/Vol] 0.2 mg/dL [facility] Laboratory - Specimen inform ationon 02-25-2025 Appearance (U) clear [facility] Color (U) paleyellow [facility] Laboratory - Urinalysison Leukocyte esterase Test strip Ql (U) small [facility] Nitrite Ql (U) Negative [facility] Protein Ql (U) Negative [facility] No Panel Informationon 02-25 Urine Occult Blood Negative [facility] Urine Cultureon 02-25-2025 Bacteria identified Cx Nom (U) 75,000 colonies/ml mixed bacterial skin contaminants 2 Days PERFORMED BY: [facility] [address] [place] [address] PATHOLOGIST CHILD SUPPORT OFFICER MATTHEW MADSEN M.D. Normal [facility] Comment on above: Performed By: #### C UU #### [facility] [address] [place] [address] [facility] Laboratory - Microbiology an d Antimicrobial susceptibilityon 07-06-2024 Bacterial vaginosis and vaginitis DNA panel Probe+sig amp (Vag fld) Negative [facility] No Panel Informationon 07-06 Interpretation and review of laboratory results Normal [facility] Trichomonas, UA Negative [facility] Yeast Negative [facility] Parabasal cells [facility] Basic metabolic 2000 panelon 01-12-2024 Anion gap [Moles/Vol] 13 mmol/L Normal 10-20 [facility] Comment on above: Performed By: #### 2 4321-2 #### OMAR JOSEPH ([id number]) [facility] ([facility]) [address] [place] [address] Calcium [Mass/Vol] 9.8 mg/dL Normal 8.6-10.3 [facility] Comment on above: Performed By: #### 2 4321-2 #### OMAR JOSEPH ([id number]) [facility] ([facility]) [address] [place] [address] Chloride [Moles/Vol] 104 mmol/L Normal 98-107 [facility] Comment on above: Performed By: #### 2 4321-2 #### OMAR JOSEPH ([id number]) [facility] ([facility]) [address] [place] [address] CO2 [Moles/Vol] 27 mmol/L Normal 21-32 [facility] Comment on above: Performed By: #### 2 4321-2 #### OMAR JOSEPH ([id number]) [facility] ([facility]) [address] [place] [address] Creatinine [Mass/Vol] 0.81 mg/dL Normal 0.50-1.05 [facility] Comment on above: Performed By: #### 2 4321-2 #### OMAR JOSEPH ([id number]) [facility] ([facility]) [address] [place] [address] Glomerular filtration rate/1.73 sq M.predicted 78 mL/min/1.73m*2 Normal >60 [facility] Comment on above: Result Comment: Calc ulations of estimated GFR are performed using the 2020 CKD-EPI Study Refit equation without the race variable for the IDMS-Traceable creatinine methods. https://jasn.asnjournals.org/content/early//ASN.58427 08024 Performed By: #### 2 4321-2 #### OMAR JOSEPH ([id number]) [facility] ([facility]) [address] [place] [address] Glucose [Mass/Vol] 95 mg/dL Normal 74-99 [facility] Comment on above: Performed By: #### 2 4321-2 #### OMAR JOSEPH ([id number]) [facility] ([facility]) [address] [place] [address] Potassium [Moles/Vol] 5.0 mmol/L Normal 3.5-5.3 [facility] Comment on above: Performed By: #### 2 4321-2 #### OMAR JOSEPH ([id number]) [facility] ([facility]) [address] [place] [address] Sodium [Moles/Vol] 139 mmol/L Normal 136-145 [facility] Comment on above: Performed By: #### 2 4321-2 #### OMAR JOSEPH ([id number]) [facility] ([facility]) [address] [place] [address] Urea nitrogen [Mass/Vol] 14 mg/dL Normal 6-23 [facility] Comment on above: Performed By: #### 2 4321-2 #### OMAR JOSEPH ([id number]) [facility] ([facility]) [address] [place] [address] CBC W Auto Differential pane l (Bld)on 01-12-2024 Basophils (Bld) [#/Vol] 0.05 x10*3/uL Normal 0.00-0.10 [facility] Comment on above: Performed By: #### 5 7021-8 #### OMAR JOSEPH ([id number]) [facility] ([facility]) [address] [place] [address] Basophils/100 WBC (Bld) 0.9 % Normal 0.0-2.0 [facility] Comment on above: Performed By: #### 70-8 #### OMAR JOSEPH ([id number]) [facility] ([facility]) [address] [place] [address] Eosinophils (Bld) [#/Vol] 0.33 x10*3/uL Normal 0.00-0.40 [facility] Comment on above: Performed By: #### 7021-8 #### OMAR JOSEPH ([id number]) [facility] ([facility]) [address] [place] [address] Eosinophils/100 WBC (Bld) 6.1 % Normal 0.0-6.0 [facility] Comment on above: Performed By: #### 7021-8 #### OMAR JOSEPH ([id number]) [facility] ([facility]) [address] [place] [address] Erythrocyte distribution width (RBC) [Ratio] 13.6 % Normal 11.5-14.5 [facility] Comment on above: Performed By: #### 5 7021-8 #### OMAR JOSEPH ([id number]) [facility] ([facility]) [address] [place] [address] Hematocrit (Bld) [Volume fraction] 40.4 % Normal 36.0-46.0 [facility] Comment on above: Performed By: #### 5 7021-8 #### OMAR JOSEPH ([id number]) [facility] HOSPITAL LAB ([facility]) [address] [place] [address] Hemoglobin (Bld) [Mass/Vol] 13.0 g/dL Normal 12.0-16.0 [facility] Comment on above: Performed By: #### 5 7021-8 #### OMAR JOSEPH ([id number]) [facility] ([facility]) [address] [place] [address] Immature granulocytes (Bld) [#/Vol] 0.02 x10*3/uL Normal 0.00-0.50 [facility] Comment on above: Performed By: #### 5 7021-8 #### OMAR JOSEPH ([id number]) [facility] ([facility]) [address] [id number] Immature granulocytes/100 WBC (Bld) 0.4 % Normal 0.0-0.9 [facility] Comment on above: Result Comment: Lolis ture Granulocyte Count (IG) includes promyelocytes, myelocytes and metamyelocytes but does not include bands. Percent differential counts (%) should be interpreted in the context of the absolute cell counts (cells/UL). Performed By: #### 5 7021-8 #### OMAR JOSEPH ([id number]) [facility] ([facility]) [address] [place] [address] Lymphocytes (Bld) [#/Vol] 1.39 x10*3/uL Normal 0.80-3.00 [facility] Comment on above: Performed By: #### 5 7021-8 #### OMAR JOSEPH ([id number]) [facility] ([facility]) [address] [place] [address] Lymphocytes/100 WBC (Bld) 25.9 % Normal 13.0-44.0 [facility] Comment on above: Performed By: #### 5 7021-8 #### OMAR JOSEPH ([id number]) [facility] ([facility]) [address] [place] [address] MCH (RBC) [Entitic mass] 27.7 pg Normal 26.0-34.0 [facility] Comment on above: Performed By: #### 5 7021-8 #### OMAR JOSEPH ([id number]) [facility] ([facility]) [address] [place] [address] MCHC (RBC) [Mass/Vol] 32.2 g/dL Normal 32.0-36.0 [facility] Comment on above: Performed By: #### 5 7021-8 #### OMAR JOSEPH ([id number]) [facility] ([facility]) [address] [place] [address] MCV (RBC) [Entitic vol] 86 fL Normal 80-100 [facility] Comment on above: Performed By: #### 5 7021-8 #### OMAR JOSEPH ([id number]) [facility] ([facility]) [address] [place] [address] Monocytes (Bld) [#/Vol] 0.42 x10*3/uL Normal 0.05-0.80 [facility] Comment on above: Performed By: #### 5 7021-8 #### OMAR JOSEPH ([id number]) [facility] ([facility]) [address] [place] [address] Monocytes/100 WBC (Bld) 7.8 % Normal 2.0-10.0 [facility] Comment on above: Performed By: #### 5 7021-8 #### OMAR JOSEPH ([id number]) [facility] ([facility]) [address] [place] [address] Neutrophils (Bld) [#/Vol] 3.16 x10*3/uL Normal 1.60-5.50 [facility] Comment on above: Result Comment: Perc ent differential counts (%) should be interpreted in the context of the absolute cell counts (cells/uL). Performed By: #### 5 7021-8 #### OMAR JOSEPH ([id number]) [facility] ([facility]) [address] [place] [address] Neutrophils/100 WBC (Bld) 58.9 % Normal 40.0-80.0 [facility] Comment on above: Performed By: #### 5 7021-8 #### OMAR JOSEPH ([id number]) [facility] ([facility]) [address] [place] [address] Nucleated RBC/100 WBC (Bld) [Ratio] 0.0 /100 WBCs Normal 0.0-0.0 [facility] Comment on above: Performed By: #### 5 7021-8 #### OMAR JOSEPH ([id number]) [facility] ([facility]) [address] [phone] Platelets (Bld) [#/Vol] 294 x10*3/uL Normal 150-450 [facility] Comment on above: Performed By: #### 5 7021-8 #### OMAR JOSEPH ([id number]) [facility] ([facility]) [address] [phone] RBC (Bld) [#/Vol] 4.70 x10*6/uL Normal 4.00-5.20 [facility] Comment on above: Performed By: #### 5 7021-8 #### OMAR JOSEPH ([id number]) [facility] ([facility]) [address] [place] [address] WBC (Bld) [#/Vol] 5.4 x10*3/uL Normal 4.4-11.3 [facility] Comment on above: Performed By: #### 5 7021-8 #### OMAR JOSEPH ([id number]) [facility] ([facility]) [address] [phone] Alen 01-09-2023 CNPN Telephone (NREUS2) KERRI CHAMPAGNE ([id number]) 1950 F Date Time Provider Department 01/09/23 AMOS WISDOM NREUS2 During your visit today, we recorded the following information about you: Keiko Rebollarcheco [facility] 01/09/2023 10:09 AM Signed Kerri phoned - she is interested in having Cool Sculpting done through [employer] [facility]. 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 Please email to: Rosaura Galicia 01/09/2023 2:13 PM Addendum Discussed with provider and letter made. Would you be able to help draft this< She has cervical dystonia and has not contraindications from getting this procedure done. Thanks Amos HUTSON for patient to call back. Email address did not work. Received a message from [employer] that user was not found. Will request fax number. Amos Wisdom MD 01/09/2023 2:42 PM Signed This looks perfect, can we send it to her please? Thanks [facility] Keiko Corado [facility] 01/09/2023 2:50 PM Signed Their fax does not work - try [email or web address] I think the s was left off [...] Assessed Reason for Visit: Letter [264] Cmt: [facility] Prescriptions as of 01/09/2023 - methocarbamol [...] Status:Closed by AMOS WISDOM on 01/09/23 Normal [facility] INSULINon 01-09-2023 Insulin 6.5 uIU/mL Normal 2.6-24.9 [facility] Comment on above: Performed By: #### I NSULIN #### [facility] [address] [place] [address] Dr. Jalyn Tomlinson CBC AUTO DIFFon 01-08-2023 BASO # 0.0 103/ul Normal 0.0-0.1 [facility] Comment on above: Performed By: #### C BC #### [facility] [address] [place] [address] Dr. Jalyn Tomlinson Basophils/100 WBC (Bld) 0.4 % Normal 0.2-2.0 [facility] Comment on above: Performed By: #### C BC #### [facility] [address] [place] [address] Dr. Jalyn Tomlinson EO # 0.3 103/ul Normal 0.0-0.7 [facility] Comment on above: Performed By: #### C BC #### [facility] [address] [place] [address] Dr. Jalyn Tomlinson Eosinophils/100 WBC (Bld) 7.2 % Critically high 0.9-7.0 [facility] Comment on above: Performed By: #### C BC #### [facility] [address] [place] [address] Dr. Jalyn Tomlinson Erythrocyte distribution width (RBC) [Ratio] 13.4 % Normal 11.0-15.0 [facility] Comment on above: Performed By: #### C BC #### [facility] [address] [place] [address] Dr. Jalyn Tomlinson Hematocrit (Bld) [Volume fraction] 40.3 % Normal 36.0-48.0 [facility] Comment on above: Performed By: #### C BC #### [facility] [address] [place] [address] Dr. Jalyn Tomlinson Hemoglobin (Bld) [Mass/Vol] 13.0 g/dL Normal 12.0-16.0 [facility] Comment on above: Performed By: #### C BC #### [facility] [address] [place] [address] Dr. Jalyn Tomlinson IG # 0.02 10e3/ul Normal 0.00-0.03 [facility] Comment on above: Performed By: #### C BC #### [facility] [address] [place] [address] Dr. Jalyn Tomlinson IG % 0.4 % Normal 0.0-0.5 [facility] Comment on above: Performed By: #### C BC #### [facility] [address] [place] [address] Dr. Jalyn Tomlinson LYMPH # 1.2 103/ul Normal 1.2-3.8 [facility] Comment on above: Performed By: #### C BC #### [facility] [address] [place] [address] Dr. Jalyn Tomlinson Lymphocytes/100 WBC (Bld) 25.7 % Normal 20.5-60.0 [facility] Comment on above: Performed By: #### C BC #### [facility] [address] [place] [address] Dr. Jalyn Tomlinson MANUAL DIFF REQ NO Normal [facility] Comment on above: Performed By: #### C BC #### [facility] [address] [place] [address] Dr. Jalyn Tomlinson MCH (RBC) [Entitic mass] 27.3 pg Normal 26.7-34.0 [facility] Comment on above: Performed By: #### C BC #### [facility] [address] [place] [address] Dr. Jalyn Tomlinson MCHC (RBC) [Mass/Vol] 32.3 g/dL Normal 29.9-35.2 [facility] Comment on above: Performed By: #### C BC #### [facility] [address] [place] [address] Dr. Jalyn Tomlinson MCV (RBC) [Entitic vol] 84.7 fL Normal 81.0-99.0 [facility] Comment on above: Performed By: #### C BC #### [facility] [address] [place] [address] Dr. Jalyn Tomlinson MONO # 0.4 103/ul Normal 0.3-0.8 [facility] Comment on above: Performed By: #### C BC #### [facility] [address] [place] [address] Dr. Jalyn Tomlinson Monocytes/100 WBC (Bld) 7.8 % Normal 1.7-12.0 [facility] Comment on above: Performed By: #### C BC #### [facility] [address] [place] [address] Dr. Jalyn Tomlinson NEUT # 2.7 103/ul Normal 1.4-6.5 [facility] Comment on above: Performed By: #### C BC #### [facility] [address] [place] [address] Dr. Jalyn Tomlinson Neutrophils/100 WBC (Bld) 58.5 % Normal 43.0-75.0 [facility] Comment on above: Performed By: #### C BC #### [facility] [address] [place] [address] Dr. Jalyn Tomlinson Platelet mean volume (Bld) [Entitic vol] 10.0 fL Normal 9.5-13.5 [facility] Comment on above: Performed By: #### C BC #### [facility] [address] [place] [address] Dr. Jalyn Tomlinson PLT 306 103/ul Normal 150-450 [facility] Comment on above: Performed By: #### C BC #### [facility] [address] [place] [address] Dr. Jalyn Tomlinson RBC 4.76 106/ul Normal 4.20-5.40 [facility] Comment on above: Performed By: #### C BC #### [facility] [address] [place] [address] Dr. Jalyn Tomlinson WBC 4.6 103/ul Normal 4.0-11.0 [facility] Comment on above: Performed By: #### C BC #### [facility] [address] [place] [address] Dr. Jalyn Tomlinson FREE THYROXINE INDEX T7on FTI 2.24 Normal 1.30-4.50 [facility] Comment on above: Performed By: #### L IPID, T7, TSH, CMP #### [facility] [address] [place] [address] Dr. Jalyn Tomlinson T3U 34.0 % Normal 30.0-39.0 [facility] Comment on above: Performed By: #### L IPID, T7, TSH, CMP #### [facility] [address] [address] [address] Jalyn Tomlinson T4 [Mass/Vol] 6.60 ug/dL Normal 4.80-13.90 [facility] Comment on above: Performed By: #### L IPID, T7, TSH, CMP #### [facility] [address] [address] [address] Jalyn Tomlinson GLYCOHEMOGLOBIN A1Con 2022 ADA RECOMMENDATION SEE BELOW Normal [facility] Comment on above: Result Comment: ADA RECOMMENDED LIMIT 4.0 - 6.0 ADA THERAPEUTIC TARGET < 7.0 ACTION SUGGESTED > 7.0 Performed By: #### A 1C #### [facility] [address] [address] [address] Jalyn Tomlinson Glucose [Mass/Vol] 108 mg/dL Normal [facility] Comment on above: Performed By: #### A 1C #### [facility] [address] [address] [address] Jalyn Tomlinson HbA1c (Bld) [Mass fraction] 5.4 % Normal 4.5-6.2 [facility] Comment on above: Performed By: #### A 1C #### [facility] [address] [address] [address] Jalyn Tomlinson IRONon 01-08-2023 Iron [Mass/Vol] 57.0 ug/dL Normal 50.0-170.0 [facility] Comment on above: Performed By: #### V ITAD, IRON ####[facility] [address] [address]Dr. Jalyn Tomlinson LIPID PROFILEon 01-08-2023 CHOL-HDL RATIO NORM SEE BELOW Normal [facility] Comment on above: Result Comment: 3.3 - 4.4 LOW RISK 4.4 - 7.1 AVERAGE RISK 7.1 - 11.0 MODERATE RISK >11.0 HIGH RISK Performed By: #### L IPID, T7, TSH, CMP #### [facility] [address] [address] [address] Jalyn Tomlinson Cholesterol [Mass/Vol] 215 mg/dL Critically high <=200 [facility] Comment on above: Performed By: #### L IPID, T7, TSH, CMP #### [facility] [address] [address] [address] Jalyn Tomlinson Cholesterol in HDL [Mass/Vol] 74 mg/dL Critically high 40-60 [facility] Comment on above: Performed By: #### L IPID, T7, TSH, CMP #### [facility] [address] [address] [address] Jalyn Tomlinson Cholesterol in LDL [Mass/Vol] 127.4 mg/dL Normal [facility] Comment on above: Performed By: #### L IPID, T7, TSH, CMP #### [facility] [address] [address] [address] Jalyn Tomlinson Cholesterol.total/Chol esterol in HDL [Mass ratio] 2.9 {ratio} Normal [facility] Comment on above: Performed By: #### L IPID, T7, TSH, CMP #### [facility] [address] [address] [address] Jalyn Tomlinson HDL NORMAL > or = 60 mg/dl - LO W CARDIOVASCULAR RISK <40 mg/dl - HIGH CARDIOVASCULAR RISK Normal [facility] Comment on above: Performed By: #### L IPID, T7, TSH, CMP #### [facility] [address] [address] [address] Jalyn Tomlinson LDL CALC NORMAL SEE BELOW Normal [facility] Comment on above: Result Comment: <100 mg/dl OPTIMAL 100 - 129 mg/dl NEAR OR ABOVE OPTIMAL 130 - 159 mg/dl BORDERLINE HIGH 160 - 189 mg/dl HIGH >190 mg/dl VERY HIGH Performed By: #### L IPID, T7, TSH, CMP #### [facility] [address] [address] [address] Jalyn Tomlinson Triglyceride [Mass/Vol] 68 mg/dL Normal <=150 [facility] Comment on above: Performed By: #### L IPID, T7, TSH, CMP #### [facility] [address] [place] [address] Dr. Jalyn Tomlinson VLDL CALC 13.6 mg/dL Normal [facility] Comment on above: Performed By: #### L IPID, T7, TSH, CMP #### [facility] [address] [place] [address] Dr. Jalyn Tomlinson PROF 14(COMP METB)on 023 Albumin [Mass/Vol] 4.3 g/dL Normal 3.4-5.0 [facility] Comment on above: Performed By: #### L IPID, T7, TSH, CMP #### [facility] [address] [place] [address] Dr. Jalyn Tomlinson Albumin/Globulin [Mass ratio] 1.4 {ratio} Normal [facility] Comment on above: Performed By: #### L IPID, T7, TSH, CMP #### [facility] [address] [place] [address] Dr. Jalyn Tomlinson ALP [Catalytic activity/Vol] 64 U/L Normal 46-116 [facility] Comment on above: Performed By: #### L IPID, T7, TSH, CMP #### [facility] [address] [place] [address] Dr. Jalyn Tomlinson ALT [Catalytic activity/Vol] 24 U/L Normal 14-59 [facility] Comment on above: Performed By: #### L IPID, T7, TSH, CMP #### [facility] [address] [place] [address] Dr. Jalyn Tomlinson Anion gap [Moles/Vol] 11.1 mmol/L Normal [facility] Comment on above: Performed By: #### L IPID, T7, TSH, CMP #### [facility] [address] [place] [address] Dr. Jalyn Tomlinson AST [Catalytic activity/Vol] 20 U/L Normal 15-37 [facility] Comment on above: Performed By: #### L IPID, T7, TSH, CMP #### [facility] [address] [place] [address] Dr. Jalyn Tomlinson Bilirubin [Mass/Vol] 0.3 mg/dL Normal 0.2-1.0 [facility] Comment on above: Performed By: #### L IPID, T7, TSH, CMP #### [facility] [address] [place] [address] Dr. Jalyn Tomlinson Calcium [Mass/Vol] 9.6 mg/dL Normal 8.5-10.1 [facility] Comment on above: Performed By: #### L IPID, T7, TSH, CMP #### [facility] [address] [place] [address] Dr. Jalyn Tomlinson Chloride [Moles/Vol] 107 mmol/L Normal 98-107 [facility] Comment on above: Performed By: #### L IPID, T7, TSH, CMP #### [facility] [address] [place] [address] Dr. Jalyn Tomlinson CO2 [Moles/Vol] 27.8 mmol/L Normal 21.0-32.0 [facility] Comment on above: Performed By: #### L IPID, T7, TSH, CMP #### [facility] [address] [place] [address] Dr. Jalyn Tomlinson Creatinine [Mass/Vol] 0.82 mg/dL Normal 0.55-1.02 [facility] Comment on above: Performed By: #### L IPID, T7, TSH, CMP #### [facility] [address] [place] [address] Dr. Jalyn Tomlinson EGFR-AF CROATIAN >60 Normal >=60 [facility] Comment on above: Performed By: #### L IPID, T7, TSH, CMP #### [facility] [address] [place] [address] Dr. Jalyn Tomlinson EGFR-NON AF CROATIAN >60 Normal >=60 [facility] Comment on above: Performed By: #### L IPID, T7, TSH, CMP #### [facility] [address] [place] [address] Dr. Jalyn Tomlinsno Globulin (S) [Mass/Vol] 3.1 g/dL Normal [facility] Comment on above: Performed By: #### L IPID, T7, TSH, CMP #### [facility] [address] [place] [address] Dr. Jalyn Tomlinson Glucose [Mass/Vol] 105 mg/dL Normal 74-106 [facility] Comment on above: Performed By: #### L IPID, T7, TSH, CMP #### [facility] [address] [place] [address] Dr. Jalyn Tomlinson Potassium [Moles/Vol] 4.9 mmol/L Normal 3.5-5.1 [facility] Comment on above: Performed By: #### L IPID, T7, TSH, CMP #### [facility] [address] [place] [address] Dr. Jalyn Tomlinson Protein [Mass/Vol] 7.4 g/dL Normal 6.4-8.2 [facility] Comment on above: Performed By: #### L IPID, T7, TSH, CMP #### [facility] [address] [place] [address] Dr. Jalyn Tomlinson Sodium [Moles/Vol] 141 mmol/L Normal 136-145 [facility] Comment on above: Performed By: #### L IPID, T7, TSH, CMP #### [facility] [address] [place] [address] Dr. Jalyn Tomlinson Urea nitrogen [Mass/Vol] 18.0 mg/dL Normal 7.0-18.0 [facility] Comment on above: Performed By: #### L IPID, T7, TSH, CMP #### [facility] [address] [place] [address] Dr. Jalyn Tomlinson Urea nitrogen/Creatinine [Mass ratio] 22.0 mg/mg Normal [facility] Comment on above: Performed By: #### L IPID, T7, TSH, CMP #### [facility] [address] [place] [address] Dr. Jalyn Tomlinson TSHon 01-08-2023 TSH 2.471 uIU/mL Normal 0.358-3.740 [facility] Comment on above: Performed By: #### L IPID, T7, TSH, CMP #### [facility] [address] [place], [place] [address] Dr. Jalyn Tomlinson VITAMIN D 25 OHon 01-08-2023 VIT D 25-OH 25.7 ng/mL Normal [facility] Comment on above: Performed By: #### V ITAD, IRON ####[facility] [address] [place], [place] [address]QxUmesh Tomlinson VIT D RANGES SEE BELOW Normal [facility] Comment on above: Result Comment: <20 ng/mL Vit D deficient 20 - <30 ng/mL Vit D insufficient 30 - 100 ng/mL Vit D sufficient >100 ng/mL Potential Toxicity Performed By: #### V ITAD, IRON ####[facility] [address] [place], [place] [address]McUmesh Tomlinson Basophils Auto (Bld) [#/Vol] Ordered By: Will Estrada on 12-19-2022 Basophils (Bld) [#/Vol] 0.0 10*3/uL 0.0-0.2 [facility] Basophils/100 WBC Auto (Bld) Ordered By: Will Estrada on 12-19-2022 Basophils/100 WBC (Bld) 0.4 % . [facility] Creatinine and Glomerular fi ltration rate.predicted panel (S/P/Bld)Ordered By: Will Estrada on 12-19-2022 Creatinine [Mass/Vol] 0.83 mg/dL 0.44-1.03 [facility] Eosinophils Auto (Bld) [#/Vo l]Ordered By: Will Estrada on 12-19-2022 Eosinophils (Bld) [#/Vol] 0.3 10*3/uL 0.0-0.45 [facility] Eosinophils/100 WBC Auto (Bl d)Ordered By: Will Estrada on 12-19-2022 Eosinophils/100 WBC (Bld) 3.9 % . [facility] Erythrocyte distribution wid th Auto (RBC) [Ratio]Ordered By: Will Estrada on 12-19-2022 Erythrocyte distribution width (RBC) [Ratio] 13.9 % 11.9-15.3 [facility] Estimated glomerular filtrat ion rate (GFR) non- AmericanOrdered By: Will Estrada on 12-19-2022 GFR/1.73 sq M.predicted among non-blacks MDRD (S/P/Bld) [Vol rate/Area] > 60 mL/Min [facility] Hematocrit Auto (Bld) [Volum e fraction]Ordered By: Will Estrada on 12-19-2022 Hematocrit (Bld) [Volume fraction] 37.7 % 34.0-46.4 [facility] Hemoglobin [Mass/volume] in BloodOrdered By: Will Estrada on 12-19-2022 Hemoglobin (Bld) [Mass/Vol] 12.6 g/dL 11.8-15.4 [facility] Leukocytes [#/volume] correc mitzy for nucleated erythrocytes in Blood by Automated counOrdered By: Will Estrada on 12-19-2022 WBC corrected for nucl RBC Auto (Bld) [#/Vol] 6.5 10*3/uL 3.8-11.6 [facility] Lymphocytes Auto (Bld) [#/Vo l]Ordered By: Will Estrada on 12-19-2022 Lymphocytes (Bld) [#/Vol] 1.5 10*3/uL 1.00-4.8 [facility] Lymphocytes/100 WBC Auto (Bl d)Ordered By: Will Estrada on 12-19-2022 Lymphocytes/100 WBC (Bld) 23.8 % . [facility] MCH Auto (RBC) [Entitic mass ]Ordered By: Will Estrada on 12-19-2022 MCH (RBC) [Entitic mass] 27.6 pg 24.7-34.3 [facility] MCHC Auto (RBC) [Mass/Vol]Or dered By: Will Estrada on 12-19-2022 MCHC (RBC) [Mass/Vol] 33.4 g/dL 32.0-35.0 [facility] MCV Auto (RBC) [Entitic vol] Ordered By: Will Estrada on 12-19-2022 MCV (RBC) [Entitic vol] 82.7 fL 80-100 [facility] Monocytes Auto (Bld) [#/Vol] Ordered By: Will Estrada on 12-19-2022 Monocytes (Bld) [#/Vol] 0.5 10*3/uL 0.0-0.8 [facility] Monocytes/100 WBC Auto (Bld) Ordered By: Will Estrada on 12-19-2022 Monocytes/100 WBC (Bld) 7.8 % . [facility] Neutrophils Auto (Bld) [#/Vo l]Ordered By: Will Estrada on 12-19-2022 Neutrophils (Bld) [#/Vol] 4.1 10*3/uL 1.8-7.7 [facility] Neutrophils/100 WBC Auto (Bl d)Ordered By: Will Estrada on 12-19-2022 Neutrophils/100 WBC (Bld) 64.1 % . [facility] No Panel InformationOrdered By: Will Estrada on 12-19-2022 Estimated GFR () > 60 mL/Min [facility] Comment on above: GFR estimated refere nce range: According to KDOQI guidelines, <60 ml/min/1.73m2 is sufficient to diagnose a patient with chronic kidney disease. Pharmacy Creatinine Clearance (Chem N/A [facility] Nucleated erythrocytes [Pres ence] in Blood by Automated countOrdered By: Will Estrada on 12-19-2022 Nucleated RBC Auto Ql (Bld) 0.1 /100{WBC} 0-0.5 [facility] Platelet mean volume Auto (B ld) [Entitic vol]Ordered By: Will Estrada on 12-19-2022 Platelet mean volume (Bld) [Entitic vol] 8.5 fL 6.3-10.7 [facility] Platelets Auto (Bld) [#/Vol] Ordered By: Will Estrada on 12-19-2022 Platelets (Bld) [#/Vol] 284 10*3/uL 150-450 [facility] RBC Auto (Bld) [#/Vol]Ordere d By: Will Estrada on 12-19-2022 RBC (Bld) [#/Vol] 4.56 10*6/uL 3.60-5.00 [facility] Serum or plasma anion gap de terminationOrdered By: Will Estrada on 12-19-2022 Anion gap [Moles/Vol] 11.9 mmol/L 6.0-15.0 [facility] Serum or plasma calcium wilfrido urement (mass/volume)Ordered By: Will Estrada on 12-19-2022 Calcium [Mass/Vol] 9.5 mg/dL 8.2-10.2 [facility] Serum or plasma chloride ally surement (moles/volume)Ordered By: Will Estrada on 12-19-2022 Chloride [Moles/Vol] 106 mmol/L 95-114 [facility] Serum or plasma glucose wilfrido urement (mass/volume)Ordered By: Will Estrada on 12-19-2022 Glucose [Mass/Vol] 88 mg/dL 70-100 [facility] Comment on above: ADA recommended refe rence rangeRandom Glucose Reference Range is dependent on time and content of last meal. Glucose of more than 200 mg/dL in a nonstressed, ambulatory subject supports the diagnosis of Diabetes Mellitus. Serum or plasma potassium me asurement (moles/volume)Ordered By: Will Estrada on 12-19-2022 Potassium [Moles/Vol] 4.5 mmol/L 3.5-5.1 [facility] Serum or plasma sodium measu rement (moles/volume)Ordered By: Will Estrdaa on 12-19-2022 Sodium [Moles/Vol] 137 mmol/L 136-146 [facility] Serum or plasma total carbon dioxide measurement (moles/volume)Ordered By: Will Estrada on 12-19-2022 CO2 [Moles/Vol] 23.6 mmol/L 22.0-30.0 [facility] Serum or plasma urea nitroge n measurement (mass/volume)Ordered By: Will Estrada on 12-19-2022 Urea nitrogen [Mass/Vol] 12 mg/dL 9-23 [facility] WBC Auto (Bld) [#/Vol]Ordere d By: Will Estrada on 12-19-2022 WBC (Bld) [#/Vol] 6.5 10*3/uL 3.8-11.6 [facility] CNOVon 11-25-2022 CNOV Office Visit (NRESFV ) KERRI CHAMPAGNE ([id number]) 1950 F Date Time Provider Department 11/25/22 1:30 PM AMOS WISDOM During your visit today, we recorded the following information about you: Temperature Pulse Blood pressure Weight 96.4 degrees 78/minute 158/88 78 kg Height 1.6 m Amos Wisdom MD 11/25/2022 3:23 PM Signed [facility] Neurotoxin Visit Date: November 25, [...] Pain Management OT/PT/Speech Visit from 07/31/2022 in [facility] Physical Therapy Global Physical Health T [...] guidance: Yes Injection Site: Cervical dystonia: CPT 87708 Left Right Sternocleidomastoid 25 Splenius capitus 25 50 Scalene Levator Scapulae Trapezius Semispinalis (Other) Lot#: [id number] Exp Date Future plan of care: Follow up: 3 months Neurotoxin change: No Dose change: Yes New Dose: 200 Reason(s) for changing neurotoxin type of dose: if this does not work Sent staff message to nursing related to any changes: Yes Amos Wisdom MD November 25, 2022 3:13 PM Dept of NEUROLOGY TIME OUT/ PROCEDURE NOTE: Informed consent Kerri Champagne Medical Record: [id number] Procedure: neurotoxin intramuscular injection The risks, benefits [...] Wisdom MD November 25, 2022 3:13 PM [place] protocol/ safety checklist Sign in communication: Completed Time out:Team confirms the correct Patient, correct procedure, correct site and site marking, correct neurotoxin type, correct dose and correct dilution. Affirmation of time out: N/A Sign out discussion: Completed J (more content not included)... Normal [facility] Office Visiton 11-18-2022 Follow-up visit Diagnoses/Problems [...] and post surgical patient. Surgery was at [facility] 5 years ago per patient. Status: [...] Capsule Vitals Vital Signs Recorded: 18Nov2022 11:57AM Gktuanoljrw70.8 F Yixoocof411 Gotmtelpc99 Height5 ft 3 in Uhlgjb531 lb BMI Erpwomjfwe52.47 kg/m2 BSA Calculated1.81 Tobacco Useb) No PHQ-2 [...] stutter. Voice (more content not included)... Normal [facility] Tobacco Screening.on 023 Adult depression screening assessment No MP-Otolaryn gol Diino SystemsW 250 Work Phone: Tobacco use status CPHS b) No MP-Otolaryngol Qiwi Post-Mango DSPW 250 Work Phone: [facility]on SARS-CoV-2 (COVID-19) RNA ELSA+probe Ql (Unsp spec) Not detected Normal NOT DETECTED [facility] Comment on above: Result Comment: When [...] for this test is supported by the Dye Tub Operator of Health and Human Service's declaration that [...] used). Performed By: #### C VDTB #### [facility] [address] [place] [address] Dr. Jalyn Tomilnson INFLUENZA A AND B AGon 11-14 [facility] SEE BELOW Normal [facility] Comment on above: Result Comment: Nega tive for Flu A protein angiten. Infection due to Flu A cannot be ruled out. Flu A angiten in the sample may be below the detection limit of the test. Performed By: #### I NFLUAB #### [facility] [address] [place] [address] Dr. Jalyn Tomlinson [facility] SEE BELOW Normal [facility] Comment on above: Result Comment: Nega tive for Flu B protein antigen. Infection due to Flu B cannot be ruled out. Flu B antigen in the sample may be below the detection limit of the test. Performed By: #### I NFLUAB #### [facility] [address] [place] [address] Dr. Jalyn Tomlinson INFLUENZA A AG Negative Normal NEGATIVE SEE COMMENT [facility] Comment on above: Performed By: #### I NFLUAB #### [facility] [address] [place] [address] Dr. Jalyn Tomlinson INFLUENZA B AG Negative Normal NEGATIVE SEE COMMENT [facility] Comment on above: Performed By: #### I NFLUAB #### [facility] [address] [place] [address] Dr. Jalyn VAZQUEZOVon 11-13-2022 CNOV Office Visit (CLINT ) KERRI CHAMPAGNE ([id number]) 1950 F Date Time Provider Department 11/13/22 [...] (see below) 1. Physical therapy: Yes: Where: [facility] , Date Started: 07/17/22, Date Ended: 08/14/22 2. Home exercise program after PT: yes 3. Occupational therapy: No 4. A physician supervised home exercise program (HEP): No 5. Assemblies And Installations Inspector: No Passive conservative therapy lasting 6 weeks in the last six months (see below) 1. Medical devises: No 2. Acupuncture: No 3. Tens unit: No 4. Prescription pain medication: No 5. NSAIDS: [place]: Gregoria Villalta MA Date: November 13, 2022 [...] canal. Patent (more content not included)... Normal [facility] CNOVon 10-14-2022 CNOV Office Visit (CLINT ) KERRI CHAMPAGNE ([id number]) 1950 F Date Time Provider Department 10/14/22 9:30 AM AVANI RODRÍGUEZ During your visit today, we recorded the following information about you: Pulse Blood pressure Weight Height 56/minute 133/72 77.2 kg 1.575 m Avani Rodríguez MD 10/17/2022 11:10 AM Signed [facility] Pain Management Department Office Visit Date: October [...] Current anticoagulation: None Occupation: Retired [employer] [place] October 14, 2022 Attestation: The above information was explored in detail with the patient and edited as needed and is complete. Avani Rodríguez MD October 14, 2022 HISTORY OF PRESENT ILLNESS Kerri Champagne presents to [facility] for the [...] bulk or (more content not included)... Normal [facility] CNOVon 09-18-2022 CNOV Office Visit (NRESFV ) KERRI CHAMPAGNE ([id number]) 1950 F Date Time Provider Department 09/18/22 10:00 AM AMOS WISDOM NRSHAMEKA During your visit today, we recorded the following information about you: Pulse Blood pressure Weight Height 57/minute 145/70 77.4 kg 1.575 m Amos Wisdom MD 09/18/2022 10:44 AM Signed [facility] - NEW PATIENT EVALUATION No referring provider defined for this encounter. Luis Enrique Wood, [address] [facility] [address] [facility] [address] Dear : I had the pleasure of [...] then, she started seeing a neurologist in [place] but reports that she was rough but [...] Depression, Diabetes (HCC), Epilepsy (HCC), Hypertension, Hypothyroidism, assisted (current) use of systemic steroids, Obstructive sleep [...] Neurological Exa (more content not included)... Normal [facility] CNTHERAPYon 08-14-2022 CNTHERAPY OT/PT/Speech Visit (PTELYR) KERRI [id number]) 1950 F Date Time Provider Department 08/14/22 12:00 PM SOTOMARYCHAIREMI PTMIKAELAR Date Time Provider Department Center 08/14/2022 12:00 PM [id number], [facility] Reason for Visit: PT Discharge [752] [...] toxin type A 200 Units injection (BOTOX) [facility] CNTHERAPYon 08-07-2022 CNTHERAPY OT/PT/Speech Visit (PTELYR) KERRI CHAMPAGNE ([id number]) 1950 F Date Time Provider Department 08/07/22 9:15 AM ADELFO HOLLISFER TIESHA Date Time Provider Department Center 08/07/2022 9:15 AM [id number] MEREDITH TIESHA [facility] Reason for Visit: Physical Therapy [503] Primary [...] type A 200 Units injection (BOTOX) Normal [facility] HEALTHon 08-05-2022 ALLIED HEALTH HNO ID: [id number] Author: Nieves Butcher, research physicist Service: Radiology Author Type: Certified Vehicle Fire Investigator Type: Allied Health Filed: 08/05/2022 8:06 AM [...] DATA: Not applicable SIGNED BY: Nieves Butcher, research physicist August 05, 2022 8:06 AM Normal [facility] MRI BRAIN WO IVCONon 022 MRI [...] is taken as C2-3. Structural anomalies: None. Gold Letterer: DAHLIA Transcribe Date/Time: Aug 05 2022 9:55A Dictated by : YANIRA APARICIO MD This examination was interpreted and the report reviewed and electronically signed by: YANIRA APARICIO MD on Aug 05 2022 9:55AM EST [id number] Normal [facility] MRI CERVICAL SPINE WO IVCONo n [...] is taken as C2-3. Structural anomalies: None. Gold Letterer: DAHLIA Transcribe Date/Time: Aug 05 2022 9:55A Dictated by : YANIRA APARICIO MD This examination was interpreted and the report reviewed and electronically signed by: YANIRA APARICIO MD on Aug 05 2022 9:55AM EST [id number] Normal [facility] CNTHERAPYon 07-31-2022 CNTHERAPY OT/PT/Speech Visit (PTELYR) KERRI CHAMPAGNE ([id number]) 1950 F Date Time Provider Department 07/31/22 9:15 AM MEREDITH HOLLIS Date Time Provider Department Center 07/31/2022 9:15 AM [id number] HOLLIS [facility] Reason for Visit: Physical Therapy [503] Primary [...] type A 200 Units injection (BOTOX) Normal [facility] CNTHERAPYon 07-17-2022 CNTHERAPY OT/PT/Speech Visit (PTELYR) KERRI CHAMPAGNE ([id number]) 1950 F Date Time Provider Department 07/17/22 11:15 AM RMEI ESCAMILLA Date Time Provider Department Center 07/17/2022 11:15 AM [id number] ESCAMILLA [facility] Reason for Visit: PT Eval [747] Primary [...] 200 Units injection (BOTOX) Letter Text Normal [facility] CNMagdalena 07-03-2022 CNOV Office Visit (SPMECO ) KERRI CHAMPAGNE ([id number]) 1950 F Date Time Provider Department 07/03/22 10:20 AM YONATHAN CAZARES SPMNABEEL During your visit today, we recorded the [...] fluticasone (FLONASE) 50 mcg/actuation nasal sprayUse 1 [place] in each nostril once daily.Disp: Rfl: ofloxacin (FLOXIN) 0.3 % otic solutionUse 5 Drops in both ears once daily.Disp: Rfl: FLUoxetine (PROZAC) 10 mg capsuleTake 10 mg by mouth once daily.Disp: Rfl: czosifvf-fraj-izhh-FA- K-hb#244 18-400-80 mg-mcg-mcg tabTake by mouth once [...] itching. PSYCHOLOGICAL (more content not included)... Normal [facility] No Panel Informationon 07-03 IMPRESSION: Lumbar spondylosis No acute osseous abnormality in the pelvis. Gold Letterer: DAHLIA Transcribe Date/Time: Jul 03 2022 12:47P Dictated by : FABIAN PRADHAN MD This examination was interpreted and the report reviewed and electronically signed by: ZAK MARSH MD on Jul 03 2022 1:47PM [facility] DIVISION OF RADIOLOGY Radiology Study observation (narrative) [facility] No Panel InformationOrdered By: Ccf Provider on 07-03-2022 [facility] XR CRV 7V AP/LAT/FLX/EXT/ODO /OBLon 07-03-2022 XR [...] apices are clear. IMPRESSION: Mild cervical spondylosis. Gold Letterer: DAHLIA Transcribe Date/Time: Jul 03 2022 12:51P Dictated by : FABIAN PRADHAN MD This examination was interpreted and the report reviewed and electronically signed by: ZAK MARSH MD on Jul 03 2022 4:52PM EST [id number] Normal [facility] XR Cervical spine AP and Obl ique and Odontoid and (Lateral W flexion and W extension)on 07-03-2022 IMPRESSION: Mild cervical spondylosis. Gold Letterer: DAHLIA Transcribe Date/Time: Jul 03 2022 12:51P [...] apices are clear. DIVISION OF RADIOLOGY Provider, [facility] - 07/03/2022 * * *Final Report* * [...] are clear. IMPRESSION IMPRESSION: Mild cervical spondylosis. Gold Letterer: PulseOn Transcribe Date/Time: Jul 03 2022 12:51P Dictated by : FABIAN PRADHAN MD This examination was interpreted and the report reviewed and electronically signed by: ZAK MARSH MD on Jul 03 2022 4:52PM [facility] XR LUMBAR 3V AP/LAT/L5-S1on 07-03-2022 XR [...] Number of different views (projections): 1 (accession [id number]), 3 (accession [id number]) M: XB_1 COMPARISON: None RESULT: Counting reference: [...] No acute osseous abnormality in the pelvis. Gold Letterer: DAHLIA Transcribe Date/Time: Jul 03 2022 12:47P Dictated by : FABIAN PRADHAN MD This examination was interpreted and the report reviewed and electronically signed by: ZAK MARSH MD on Jul 03 2022 1:47PM EST [id number] Normal [facility] XR Lumbar spine 3 Viewson * * [...] Number of different views (projections): 1 (accession [id number]), 3 (accession [id number]) M: XB_1 COMPARISON: None RESULT: Counting reference: [...] the right buttock. DIVISION OF RADIOLOGY [facility] 07/[facility] * * *Final Report* [...] Number of different views (projections): 1 (accession [id number]), 3 (accession [id number]) M: XB_1 COMPARISON: None RESULT: Counting reference: [...] No acute osseous abnormality in the pelvis. Gold Letterer: DALHIA Transcribe Date/Time: Jul 03 2022 12:47P Dictated by : FABIAN PRADHAN MD This examination was interpreted and the report reviewed and electronically signed by: ZAK MARSH MD on Jul 03 2022 1:47PM [facility] XR PELVIS 1V APon 07-03-2022 XR PELVIS [...] Number of different views (projections): 1 (accession [id number]), 3 (accession [id number]) M: XB_1 COMPARISON: None RESULT: Counting reference: [...] No acute osseous abnormality in the pelvis. Gold Letterer: DAHLIA Transcribe Date/Time: Jul 03 2022 12:47P Dictated by : FABIAN PRADHAN MD This examination was interpreted and the report reviewed and electronically signed by: ZAK MARSH MD on Jul 03 2022 1:47PM EST [id number] Normal [facility] XR Pelvis APon 07-03-2022 * * *Final [...] Number of different views (projections): 1 (accession [id number]), 3 (accession [id number]) M: XB_1 COMPARISON: None RESULT: Counting reference: [...] the right buttock. DIVISION OF RADIOLOGY Provider, [facility] Migdaliajohana [facility] - 07/03/2022 * * *Final Report* [...] Number of different views (projections): 1 (accession [id number]), 3 (accession [id number]) M: XB_1 COMPARISON: None RESULT: Counting reference: [...] No acute osseous abnormality in the pelvis. Gold Letterer: PSCB Transcribe Date/Time: Jul 03 2022 12:47P Dictated by : FABIAN PRADHAN MD This examination was interpreted and the report reviewed and electronically signed by: ZAK MARSH MD on Jul 03 2022 1:47PM [facility] CAROTID ART BILon 06-27-2 022 [place] CAROTID [...] by: ANGEL WOODS Date: 2022-05-06 16:19 Normal [facility] [place] Quick Testingon 2020 Result Negative [employer] Other Vital Signs Date Time Vital Sign Value Performing Clinician Facility 02-25-2025 13:45-0400 Body height 162.56 cm [facility] 02-25-2025 13:45-0400 Body mass index (BMI) [Ratio] 29.7 kg/m2 [facility] 02-25-2025 13:45-0400 Body temperature 96.8 [degF] [facility] 02-25-2025 13:45-0400 Body weight 78.69 kg [facility] 02-25-2025 13:45-0400 Diastolic blood pressure 80 mm[Hg] [facility] 02-25-2025 13:45-0400 Heart rate 70 /min [facility] 02-25-2025 13:45-0400 Respiratory rate 16 /min [facility] 02-25-2025 13:45-0400 SaO2% (BldA) [Mass fraction] 95 % [facility] 02-25-2025 13:45-0400 Systolic blood pressure 134 mm[Hg] [facility] 12-31-2024 10:15-0500 Body height 162.6 cm Ines Owens PHOTOGRAPHER STILL Work Phone: [facility] 12-31-2024 10:15-0500 Body mass index (BMI) [Ratio] 29.35 kg/m2 Ines Pritchardi PHOTOGRAPHER STILL Work Phone: [facility] 12-31-2024 10:15-0500 Body weight 77.56 kg Ines Prithcardi PHOTOGRAPHER STILL Work Phone: [facility] 09-16-2024 11:20-0500 Diastolic blood pressure 74 mm[Hg] Ines Pritchardi PHOTOGRAPHER STILL Work Phone: [facility] 09-16-2024 11:20-0500 Systolic blood pressure 116 mm[Hg] Ines Pritchardi PHOTOGRAPHER STILL Work Phone: [facility] 07-06-2024 13:59-0400 Body mass index (BMI) [Ratio] 31.21 kg/m2 Will Visci DO Work Phone: [facility] 07-06-2024 13:59-0400 Body weight 79.92 kg Will Visci DO Work Phone: [facility] 07-06-2024 13:59-0400 Diastolic blood pressure 82 mm[Hg] Will Visci DO Work Phone: [facility] 07-06-2024 13:59-0400 Systolic blood pressure 114 mm[Hg] Will Visci DO Work Phone: [facility] 02-10-2024 10:37-0400 Body height 162.6 cm Carlota Cotton MD Work Phone: [facility] 02-10-2024 10:37-0400 Body mass index (BMI) [Ratio] 28.67 kg/m2 Carlota Cotton MD Work Phone: [facility] 02-10-2024 10:37-0400 Body weight 75.75 kg Carlota Cotton MD Work Phone: [facility] 01-19-2024 11:45-0400 Diastolic blood pressure 79 mm[Hg] Carlota Cotton MD Work Phone: 0(654)[phone] [place] [address] 01-19-2024 11:45-0400 Heart rate 95 /min Carlota Cotton MD Work Phone: [phone](703)632-38[address] [place] [address] 01-19-2024 11:45-0400 Respiratory rate 13 /min Carlota Cotton MD Work Phone: [phone])122-102710 [place] [address] 01-19-2024 11:45-0400 SaO2% (BldA) [Mass fraction] 92 % Carlota Cotton MD Work Phone: [phone](058)520-782410 [place] [address] 01-19-2024 11:45-0400 Systolic blood pressure 143 mm[Hg] Carlota Cotton MD Work Phone: 2(317)657-182510 [place] [address] 01-19-2024 11:30-0400 Body temperature 98.1 [degF] Carlota Cotton MD Work Phone: [phone](384)[phone] [place] [address] 01-19-2024 06:23-0400 Body height 162.6 cm Carlota Cotton MD Work Phone: [phone])[phone] [place] [address] 01-19-2024 06:23-0400 Body mass index (BMI) [Ratio] 29.93 kg/m2 Carlota Cotton MD Work Phone: [phone])729-221510 [place] [address] 01-19-2024 06:23-0400 Body weight 79.1 kg Carlota Cotton MD Work Phone: 8(360)[phone] [place] [address] 11-11-2023 10:56-0500 Body height 160 cm Carlota Cotton MD Work Phone: [phone] [place] [address] 11-11-2023 10:56-0500 Body mass index (BMI) [Ratio] 30.65 kg/m2 Carlota Cotton MD Work Phone: [phone])[phone] [place] [address] 11-11-2023 10:56-0500 Body weight 78.47 kg Carlota Cotton MD Work Phone: 4(990)[phone] [place] [address] 09-09-2023 11:12-0400 Body height 160 cm Argentina Lord JUNIOR SYSTEMS ADMINISTRATOR-CANAL STRUCTURE OPERATOR Work Phone: [facility] 09-09-2023 11:12-0400 Body mass index (BMI) [Ratio] 30.29 kg/m2 Argentina Lord JUNIOR SYSTEMS ADMINISTRATOR-CANAL STRUCTURE OPERATOR Work Phone: [facility] 09-09-2023 11:12-0400 Body temperature 97.39 [degF] Argentina Lord JUNIOR SYSTEMS ADMINISTRATOR-CANAL STRUCTURE OPERATOR Work Phone: [facility] 09-09-2023 11:12-0400 Body weight 77.56 kg Argentina Lord JUNIOR SYSTEMS ADMINISTRATOR-CANAL STRUCTURE OPERATOR Work Phone: [facility] 09-09-2023 11:12-0400 Diastolic blood pressure 84 mm[Hg] Argentina Lord JUNIOR SYSTEMS ADMINISTRATOR-CANAL STRUCTURE OPERATOR Work Phone: [facility] 09-09-2023 11:12-0400 Heart rate 54 /min Argentina Lord JUNIOR SYSTEMS ADMINISTRATOR-CANAL STRUCTURE OPERATOR Work Phone: [facility] 09-09-2023 11:12-0400 Systolic blood pressure 156 mm[Hg] Argentina Lord JUNIOR SYSTEMS ADMINISTRATOR-CANAL STRUCTURE OPERATOR Work Phone: [facility] 12-24-2022 11:20-0500 Diastolic blood pressure 71 mm[Hg] MD Albino Reilly Work Phone: [facility] 12-24-2022 11:20-0500 Heart rate 55 /min MD Albino Reilly Work Phone: [facility] 12-24-2022 11:20-0500 Respiratory rate 16 /min MD Albino Reilly Work Phone: [facility] 12-24-2022 11:20-0500 SaO2% (BldA) [Mass fraction] 99 % MD Albino Reilly Work Phone: [facility] 12-24-2022 11:20-0500 Systolic blood pressure 123 mm[Hg] MD Albino Reilly Work Phone: [facility] 12-24-2022 10:19-0500 Body temperature 98.1 [degF] MD Albino Reilly Work Phone: [facility] 12-24-2022 10:19-0500 Inhaled oxygen flow rate 6 L/min MD Albino Reilly Work Phone: [facility] 12-24-2022 08:00-0500 Body height 160.02 cm MD Albino Reilly Work Phone: [facility] 12-24-2022 08:00-0500 Body mass index (BMI) [Ratio] 30.3 kg/m2 MD Albino Reilly Work Phone: [facility] 12-24-2022 08:00-0500 Body weight 77.7 kg MD Albino Reilly Work Phone: [facility] 11-25-2022 13:09-0500 Body height 160 cm Amos Wisdom MD Work Phone: [facility] 11-25-2022 13:09-0500 Body temperature 96.4 [degF] Amos Wisdom MD Work Phone: [facility] 11-25-2022 13:09-0500 Body weight 78.02 kg Amos Wisdom MD Work Phone: [facility] 11-25-2022 13:09-0500 Diastolic blood pressure 88 mm[Hg] Amos Wisdom MD Work Phone: [facility] 11-25-2022 13:09-0500 Heart rate 78 /min Amos Wisdom MD Work Phone: [facility] 11-25-2022 13:09-0500 SaO2% (BldA) [Mass fraction] 98 % Amos Wisdom MD Work Phone: [facility] 11-25-2022 13:09-0500 Systolic blood pressure 158 mm[Hg] Amos Wisdom MD Work Phone: [facility] 11-18-2022 11:57-0500 Body height 160.02 cm No PCP None MP-Otolaryngolog y-We stlake SJW 250 Work Phone: 11-18-2022 11:57-0500 Body mass index (BMI) [Ratio] 30.47 kg/m2 No PCP None SX-Ggwowgcuuflglr-Vu stlake SJW 250 Work Phone: 11-18-2022 11:57-0500 Body surface area Derived from formula 1.81 m2 No PCP None LJ-Nerqwmabiefjxn-Ej stlake SJW 250 Work Phone: 11-18-2022 11:57-0500 Body temperature 97.8 [degF] No PCP None MP-Otolaryngolo gy-We stlake SJW 250 Work Phone: 11-18-2022 11:57-0500 Body weight 78.02 kg No PCP None MP-Otolaryngolog y-We stlake SJW 250 Work Phone: 11-18-2022 11:57-0500 Diastolic blood pressure 82 mm[Hg] No PCP None JV-Xziqcwbsuzrdlo-Uj stlake SJW 250 Work Phone: 11-18-2022 11:57-0500 Systolic blood pressure 144 mm[Hg] No PCP None LG-Rqqflpikalogdx-Da [place] [facility] 250 Work Phone: 11-18-2022 11:57-0500 0 1 No PCP None MP-Otolaryngolog y-We [place] [facility] 250 Work Phone: Comment on above: [employer] 11-13-2022 10:00-0500 Body height 160 cm Kerri Moreno PA-C Work Phone: [facility] 11-13-2022 10:00-0500 Body weight 76.66 kg Kerri Moreno PA-C Work Phone: [facility] 11-13-2022 10:00-0500 Diastolic blood pressure 82 mm[Hg] Kerri Maline PA-C Work Phone: [facility] 11-13-2022 10:00-0500 Heart rate 54 /min Kerri Maline PA-C Work Phone: [facility] 11-13-2022 10:00-0500 Systolic blood pressure 134 mm[Hg] Kerri Maline PA-C Work Phone: [facility] 07-03-2022 10:29-0400 Diastolic blood pressure 99 mm[Hg] Yonathan Lowanchick PA-C Work Phone: [facility] 07-03-2022 10:29-0400 Heart rate 60 /min Yonathan Lowanchick PA-C Work Phone: [facility] 07-03-2022 10:29-0400 SaO2% (BldA) [Mass fraction] 97 % Yonathan Evanchick PA-C Work Phone: [facility] 07-03-2022 10:29-0400 Systolic blood pressure 165 mm[Hg] Yonathan Evanchick PA-C Work Phone: [facility] 11-05-2021 15:45-0500 Body height 160.02 cm Gregoria Ginty Other [employer] Other 11-05-2021 15:45-0500 Body mass index (BMI) [Ratio] 29.58 kg/m2 Gregoria Ginty Other [employer] Other 11-05-2021 15:45-0500 Body temperature 96.7 [degF] Gregoria Ginty Other [employer] Other 11-05-2021 15:45-0500 Body weight 75.75 kg Gregoria Ginty Other [employer] Other 11-05-2021 15:45-0500 SaO2% (BldA) [Mass fraction] 97 % Gregoria Hamlin Other [employer] Other Encounters Encounter Date Encounter Type Care Provider Facility Start: 04-11-2025 End: 04-11-2025 Telephone encounter Ines Owens PHOTOGRAPHER STILL Work Phone: [facility] 210 Start: 04-07-2025 End: 04-07-2025 Bamboo flowsheet Ines Owens PHOTOGRAPHER STILL Work Phone: [facility] Start: 04-07-2025 End: 04-07-2025 Bamboo flowsheet Ines Owens PHOTOGRAPHER STILL Work Phone: [facility] Start: 04-07-2025 End: 04-07-2025 ambulatory INES OWENS Not Available Start: 04-07-2025 End: 04-07-2025 Office outpatient visit 15 minutes Ines Owesn PHOTOGRAPHER STILL Work Phone: [facility] Comment on above: Cervical dystonia (P rimary Dx) Start: 02-25-2025 End: 02-25-2025 Departed Referred Tania Magana APRN Work Phone: [facility] [place] Work Phone: Start: 02-25-2025 End: 02-25-2025 ambulatory Tania Magana Facility:[facility] Start: 02-25-2025 End: 02-25-2025 Patient encounter procedure [facility] Work Phone: Start: 12-31-2024 End: 12-31-2024 Bamboo flowsheet Ines Owens PHOTOGRAPHER STILL Work Phone: [facility] Start: 12-31-2024 End: 12-31-2024 Bamboo flowsheet Ines Owens PHOTOGRAPHER STILL Work Phone: [facility] Start: 12-31-2024 End: 12-31-2024 Patient encounter procedure Ines Kayden Roman PHOTOGRAPHER STILL Work Phone: [facility] Comment on above: Cervical dystonia (P rimary Dx) Start: 12-31-2024 End: 12-31-2024 ambulatory INES Kayden ROMAN Not Available Start: 09-16-2024 End: 09-16-2024 Bamboo flowsheet Ines Kayden Roman PHOTOGRAPHER STILL Work Phone: [facility] Start: 09-16-2024 End: 09-16-2024 Bamboo flowsheet Ines Kayden Roman PHOTOGRAPHER STILL Work Phone: [facility] Start: 09-16-2024 End: 09-16-2024 Patient encounter procedure Ines M Roman PHOTOGRAPHER STILL Work Phone: [facility] Comment on above: Cervical dystonia (P rimary Dx) Start: 09-16-2024 End: 09-16-2024 ambulatory INES Kayden ROMAN Not Available Start: 07-06-2024 End: 07-06-2024 Bamboo flowsheet Will A Visci DO Work Phone: [facility] Start: 07-06-2024 End: 07-06-2024 Bamboo flowsheet Will A Visci DO Work Phone: [facility] Start: 07-06-2024 End: 07-06-2024 Office outpatient visit 25 minutes Will A Visci DO Work Phone: [facility] Comment on above: Presence of neurosti mulator; Vaginal odor; Vaginal discharge; Hot flashes; Vaginal atrophy Start: 07-06-2024 End: 07-06-2024 ambulatory WILL A VISCI Not Available Start: 05-27-2024 End: 05-27-2024 ambulatory INES OWENS Not Available Start: 05-14-2024 End: 05-14-2024 ambulatory ANASTASIIA CARNES Not Available Start: 03-09-2024 End: 03-09-2024 ambulatory [facility] Ambulatory Start: 03-09-2024 End: 03-09-2024 Postop follow up visit related to original px Carlota Cotton MD Work Phone: [facility] Comment on above: Postoperative visit (Primary Dx); Multiple perforations of left tympanic membrane; Mixed conductive and sensorineural hearing loss of left ear with restricted hearing of right ear; Bilateral chronic serous otitis media; Mixed conductive and sensorineural hearing loss, bilateral Start: 02-10-2024 End: 02-10-2024 ambulatory [facility] Start: 02-10-2024 End: 02-10-2024 Postop follow up visit related to original px Carlota Cotton MD Work Phone: [facility] Comment on above: Postoperative visit (Primary Dx); Multiple perforations of left tympanic membrane; Mixed conductive and sensorineural hearing loss of left ear with restricted hearing of right ear Start: 01-19-2024 End: 01-19-2024 Subsequent hospital visit by physician Carlota Cotton MD Work Phone: [facility] [place] Comment on above: Perforation of left tympanic membrane (Primary Dx); 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 Start: 01-12-2024 End: 01-13-2024 ambulatory [facility] Start: 01-12-2024 End: 01-13-2024 Encounter for other preprocedural examination [facility] Start: 01-05-2024 End: 01-06-2024 ambulatory [facility] Start: 11-12-2023 ambulatory [facility] Start: 11-11-2023 End: 11-11-2023 ambulatory [facility] Ambulatory Start: 11-11-2023 End: 11-11-2023 Office outpatient new 45 minutes Carlota Cotton MD Work Phone: [facility] Comment on above: Mixed conductive and sensorineural hearing loss of left ear with restricted hearing of right ear (Primary Dx); Perforation of left tympanic membrane Start: 10-07-2023 End: 10-07-2023 [facility] Start: 09-09-2023 End: 09-09-2023 ambulatory ARGENTINA Balbuena POP [facility] Amb[facility] Start: 09-09-2023 End: 09-09-2023 Office outpatient visit 25 minutes Argentina A Pop JUNIOR SYSTEMS ADMINISTRATOR-CANAL STRUCTURE OPERATOR Work Phone: [facility] Comment on above: Perforation of left tympanic membrane (Primary Dx); Left chronic serous otitis media; Bilateral impacted cerumen; Sensation of plugged ear, bilateral; Hearing difficulty of left ear; Otalgia of left ear Start: 01-08-2023 End: 01-09-2023 ambulatory CY STORY Facility: Start: 12-24-2022 End: 12-24-2022 Admission to same day surgery center MD Albino Reilly Work Phone: [facility] [place] Start: 12-24-2022 End: 12-24-2022 ambulatory MD Albino Reilly Work Phone: [facility] Work Phone: Start: 12-19-2022 End: 12-19-2022 ambulatory MD Albino Reilly Work Phone: [facility] Work Phone: Start: 12-19-2022 End: 12-19-2022 Patient encounter procedure MD Albino Reilly Work Phone: [facility] Work Phone: Start: 11-25-2022 End: 11-25-2022 ambulatory AMOS WISDOM Facility:[facility] Start: 11-25-2022 End: 11-25-2022 Patient encounter procedure Amos Wisdom MD Work Phone: Neurology Comment on above: Cervical dystonia (P rimary Dx) Start: 11-18-2022 Office outpatient ne w 30 minutes No PCP None [facility] [facility] Work Phone: Start: 11-14-2022 End: 11-14-2022 ambulatory CY STORY Facility: Start: 11-13-2022 End: 11-13-2022 ambulatory LUIS ENRIQUE WOOD Facility:[facility] Start: 11-13-2022 End: 11-13-2022 Patient encounter procedure Kerri Moreno PA-C Work Phone: Pain Management Comment on above: Cervical dystonia (P rimary Dx); Cervicalgia Start: 10-14-2022 End: 10-14-2022 ambulatory LUIS ENRIQUE WOOD Facility:[facility] Start: 10-08-2022 Refill Yonathan crawford PA-C Work Phone: Spine Medicine Comment on above: Refill Request Start: 09-18-2022 End: 09-18-2022 ambulatory AMOS WISDOM Facility:[facility] Start: 08-14-2022 End: 08-14-2022 ambulatory Remi Escamilla PT [facility] Comment on above: Neck pain (Primary D x) Start: 08-07-2022 End: 08-07-2022 ambulatory DONTA DO Facility:[facility] Start: 08-07-2022 End: 08-07-2022 ambulatory Meredith Hollis ECOLOGICAL MODELER Work Phone: [employer] [facility] Comment on above: Spasmodic torticolli s (Primary Dx); Neck pain Start: 08-05-2022 ambulatory YONATHAN Reza ity:[facility] Start: 07-31-2022 End: 07-31-2022 ambulatory DONTA DO Facility:[facility] Start: 07-31-2022 End: 07-31-2022 ambulatory Meredith Hollis ECOLOGICAL MODELER Work Phone: [employer] [facility] Comment on above: Spasmodic torticolli s (Primary Dx); Neck pain Start: 07-17-2022 End: 07-17-2022 ambulatory LUIS ENRIQUE WOOD Facility:[facility] Start: 07-17-2022 End: 07-17-2022 ambulatory Remi Escamilla PT [employer] [facility] Comment on above: Neck pain (Primary D x); Spasmodic torticollis; Bilateral carotid artery stenosis; Low back pain, non-specific; History of tremor; Myalgia; Pain of left sacroiliac joint; Spinal stenosis of cervical region; Chronic tension-type headache, not intractable; Imbalance Start: 07-09-2022 End: 07-09-2022 ambulatory LUIS ENRIQUE WOOD Facility:[facility] Start: 07-09-2022 End: 07-09-2022 ambulatory Yonathan [...] with patient Yonathan Cazares PA-C Work Phone: [facility] Start: 07-03-2022 End: 07-03-2022 ambulatory LUIS ENRIQUE WOOD Facility:[facility] Start: 07-03-2022 End: 07-03-2022 ambulatory LUIS ENRIQUE G DOUGIE Facility:[facility] Start: 07-03-2022 End: 07-03-2022 Subsequent hospital visit by physician India Long [facility] Work Phone: Radiology Comment on above: Spasmodic [...] 11-05-2021 End: 11-05-2021 ambulatory Gregoria Hamlin Other [employer] Other Start: 11-05-2021 Office outpatient vi sit 15 minutes Gregoria Hamlin [facility] Procedures Date Procedure Procedure Detail Performing Clinician Start: 07-06-2024 Smr prim src wet ana nt nfct agt Will A Visci DO Work Phone: Start: 01-19-2024 PULSE OXIMETRY, CONTINUOUS Angel Larios MD Work Phone: Start: 01-12-2024 Basic metabolic 2000 panel - Serum or Plasma [facility] Start: 01-12-2024 CBC W Auto Different ial panel - Blood [facility] Start: 01-05-2024 REQUEST FOR PRE-ADMI SSION TESTING VISIT CARLOTA COTTON Start: 10-07-2023 COMPREHENSIVE HEARING TEST [facility] Start: 12-24-2022 Hysteroscopy MD Albino Reilly Work Phone: Start: 12-24-2022 Implantation of sacr al nerve stimulator MD Albino Reilly Work Phone: Start: 11-18-2022 Follow-up visit Start: 07-03-2022 Radex spine cervical 6 or more views Yonathan Cazares PA-C Work Phone: Start: 07-02-2022 Adult depression scr eening assessment Yonathan Cazares PA-C Work Phone: Start: 02-15-2022 Mammography Argentina Lord JUNIOR SYSTEMS ADMINISTRATOR-CANAL STRUCTURE OPERATOR Work Phone: Start: 02-19-2017 Colonoscopy Will Vi sci DO Work Phone: H/O: surgery S/P tympanoplasty MD Albino Reilly Work Phone: Comment on above: Problem List clean-u p per request of Phys. EHR Cmte Tympanomastoidectomy No PCP None Plan of Treatment Date Care Activity Detail Author Start: 02-19-2027 Screening for malign ant neoplasm of colon [facility] Start: 02-07-2027 RSV Vaccine (1 - 1-d ose 75+ series) RSV Vaccine (1 - 1-dose 75+ series) [facility] Start: 01-22-2026 Screening for malign ant neoplasm of colon [facility] Start: 07-28-2025 End: 07-28-2025 Patient encounter procedure 07/28/2025 10:30 AM EDT Procedure Visit [facility] [address] [facility] [address] [place] [address] Ines Owens PHOTOGRAPHER STILL [address] [address] [facility] Start: 07-11-2025 Influenza vaccination Influenz a Vaccine (Season Ended) [facility] Start: 05-09-2025 Influenza vaccination Influenza Vacc ine (#1) [facility] Comment on above: Postponed from 07/11 (Patient Refused) Start: 04-07-2025 End: 04-07-2026 MR Cervical spine WO contrast MR cervical spine wo contrast Imaging Routine Cervical dystonia Expected: 04/07/2025 (Approximate), Expires: 04/07/2026 [facility] Work Phone: Comment on above: Expected: 04/07/2025 (Approximate), Expires: 04/07/2026 Start: 04-07-2025 End: 04-07-2025 Patient encounter procedure 04/07/2025 10:00 AM EDT Procedure Visit [facility] [address] [facility] [address] [place] [address] Ines Owens PHOTOGRAPHER STILL [address], [place] [address] [facility] Start: 02-25-2025 Bacteria identified in Urine by Culture Urine Culture [facility] Start: 02-25-2025 Urine culture [facility] Start: 12-31-2024 End: 12-31-2024 Patient encounter procedure 12/31/2024 10:00 AM EST Procedure Visit [facility] [address] [place] [address] Ines Owens, PHOTOGRAPHER STILL [address] [place] [address] Arrived [facility] Comment on above: Arrived Start: 12-30-2024 End: 12-30-2024 Patient encounter procedure 12/30/2024 10:00 AM EST Procedure Visit [facility] [address] [facility] [address] [place] [address] Ines Owens, PHOTOGRAPHER STILL [address] [place] [address], [place] [address] [facility] Start: 10-15-2024 Pneumococcal Vaccine : 65+ (3 of 3 - PPSV23 or PCV20) Pneumococcal Vaccine: 65+ (3 of 3 - PPSV23 or PCV20) [facility] Start: 10-15-2024 Pneumococcal Vaccine : 65+ Years (3 of 3 - PPSV23 or PCV20) Pneumococcal Vaccine: 65+ Years (3 of 3 - PPSV23 or PCV20) [facility] Start: 09-16-2024 End: 09-16-2024 Patient encounter procedure 09/16/2024 11:30 AM EST Procedure Visit [facility] [address] [facility] [address] [place] [address] Ines Owens, PHOTOGRAPHER STILL [address] [place] [address], [place] [address] Arrived [facility] Comment on above: Arrived Start: 08-26-2024 End: 08-26-2024 Patient encounter procedure 08/26/2024 9:30 AM EDT Procedure Visit [facility] [address] [facility] [address] [place] [address] Ines Owens, PHOTOGRAPHER STILL [address] [place] [address], [place] [address] [facility] Start: 07-11-2024 Covid-19 Vaccine ( season) Covid-19 Vaccine ( season) [facility] Start: 07-11-2024 Influenza vaccination [facility] Start: 07-06-2024 End: 07-06-2024 Patient encounter procedure 07/06/2024 1:15 PM EDT Office Visit [facility] [address] [place] [address] Will Estrada, [address] [place] [address] Presence of neurostimulator; Vaginal odor; Vaginal discharge [facility] Comment on above: Presence of neurosti mulator; Vaginal odor; Vaginal discharge Start: 03-09-2024 End: 03-09-2025 Hearing examination Comprehensive hearing test Audiology Routine 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, bilateral Expected: 03/09/2024 (Approximate), Expires: 03/09/2025 [facility] Work Phone: Comment on above: Expected: 03/09/2024 (Approximate), Expires: 03/09/2025 Start: 03-09-2024 End: 03-09-2024 Patient encounter procedure 03/09/2024 8:30 AM EDT Office Visit [facility] [address] [place] [id number] [place] [address] [place], [place] [id number] [facility] Start: 02-10-2024 End: 02-10-2024 Patient encounter procedure 02/10/2024 11:00 AM EDT Office Visit [facility] [address] [place] [address] [place] [address] [place] [address] [facility] Start: 01-15-2024 COVID-19 Vaccine ( season) COVID-19 Vaccine ( season) [facility] Start: 11-11-2023 COVID-19 Vaccine (5 - Moderna series) COVID-19 Vaccine (5 - Moderna series) [facility] Start: 11-11-2023 End: 11-11-2024 Request for Pre-Admission Testing Visit Request for Pre-Admission Testing Visit Procedures Routine Perforation of left tympanic membrane Expected: 11/11/2023 (Approximate), Expires: 11/11/2024 [facility] Service Area Work Phone: Comment on above: Expected: 11/11/2023 (Approximate), Expires: 11/11/2024 Start: 11-11-2023 Zoster Vaccines (3 of 3) Zoster Vacc francoise (3 of 3) [facility] Start: 11-10-2023 Advance Directive Discussion Advance Directive Discussion [facility] Start: 07-11-2023 Influenza vaccination Influenza Vacc ine (#1) [facility] Start: 07-02-2023 Adult depression screening assessment DEPRESSION SCREENING [facility] Start: 02-15-2023 Screening for malign ant neoplasm of breast Mammogram [facility] Start: 12-24-2022 Radiography of sacrococcygeal spine XR sacrum coccyx min 2V [facility] Start: 12-24-2022 XR Sacrum and Coccyx GE 2 Views [facility] Start: 12-24-2022 End: 12-24-2022 [facility] Start: 11-10-2022 ADVANCE DIRECTIVE DISCUSSION ADVANCE DIRECTIVE DISCUSSION [facility] Start: 11-10-2022 DEPRESSION ASSESSMENT DEPRESSION ASS ESSMENT [facility] Start: 08-13-2022 COVID-19 VACCINE (5 - Booster for Moderna series) COVID-19 VACCINE (5 - Booster for Moderna series) [facility] Start: 08-13-2022 COVID-19 Vaccine (5 - Moderna series) COVID-19 Vaccine (5 - Moderna series) [facility] Start: 07-11-2022 Influenza vaccination INFLUENZA (#1) [facility] Start: 11-10-2021 ADVANCE DIRECTIVE DISCUSSION ADVANCE DIRECTIVE DISCUSSION [facility] Start: 11-10-2021 DEPRESSION ASSESSMENT DEPRESSION ASS ESSMENT [facility] Start: 10-15-2020 Pneumococcal Vaccine : 65+ Years (3 - PPSV23 or PCV20) Pneumococcal Vaccine: 65+ Years (3 - PPSV23 or PCV20) [facility] Start: 02-07-2017 BONE DENSITY BONE DENSITY [facility] Start: 02-07-2017 PNEUMOCOCCAL: 65+ (1 - PCV) PNEUMOCOCCAL: 65+ (1 - PCV) [facility] Start: 02-07-2017 Screening for osteoporosis Bone Density Screening [facility] Start: 11-16-2016 Shingrix Vaccine (2 of 3) Shingrix Vaccine (2 of 3) [facility] Start: 11-16-2016 Zoster Vaccines (2 of 3) Zoster Vacc francoise (2 of 3) [facility] Start: 02-07-2002 Screening for malign ant neoplasm of lung Lung Cancer Screening [facility] Start: 02-07-2002 SHINGRIX VACCINE (1 of 2) SHINGRIX VACCINE (1 of 2) [facility] Start: 02-07-1997 COLOGUARD (FIT-DNA) COLOGUARD (FIT-D NA) [facility] Start: 02-07-1997 Colonoscopy COLONOSCOPY [facility] Start: 02-07-1997 COLORECTAL CANCER SCREENING COLORECTAL CANCER SCREENING [facility] Start: 02-07-[address] COLONOGRAPHY [facility] Start: 02-07-1997 DIABETES SCREEN DIABETES SCREEN [facility] Start: 02-07-1997 Diabetes Screening Diabetes Screenin g [facility] Start: 02-07-1997 FECAL OCCULT BLOOD FECAL OCCULT BLOO D [facility] Start: 02-07-1997 Lipid panel Lipid Screening [facility] Start: 02-07-1997 LIPID SCREEN LIPID SCREEN [facility] Start: 02-07-1997 Screening for malign ant neoplasm of colon [facility] Start: 02-07-1997 [facility] Start: 1992 Mammography MAMMOGRAM [facility] Start: 1992 Screening for malign ant neoplasm of breast Mammogram Screening [facility] Start: 02-07-1974 DTaP/Tdap/Td Vaccine s (1 - Tdap) DTaP/Tdap/Td Vaccines (1 - Tdap) [facility] Start: 02-07-1971 Urine microalbumin profile [facility] Start: 02-07-1970 Anxiety Screening Anxiety Screening [facility] Start: 02-07-1970 Depression Screening Depression Scre enoscar [facility] Start: 02-07-1970 Diabetes mellitus screening Diabetes Screening [facility] Start: 02-07-1970 HEPATITIS C [facility] Start: 02-07-1970 Hepatitis C screening Hepatitis C [facility] Start: 1952 Lipid panel Lipid Panel [facility] Start: 1950 Medicare Annual Well ness Visit Medicare Annual Wellness Visit (AWV) [facility] Start: 1950 Screening for malign ant neoplasm of colon [facility] End: 08-02-2023 Mri brain brain stem w/o contrast material MRI BRAIN WO IVCON Radiology Routine Spasmodic torticollis Bilateral carotid artery stenosis Neck pain Low back pain, non-specific History of tremor Myalgia Pain of left sacroiliac joint Spinal stenosis of cervical region Chronic tension-type headache, not intractable Imbalance 1 Occurrences starting 07/03/2022 until 08/02/2023 [facility] Work Phone: Comment on above: [...] Imbalance 1 Occurrences starting 07/03/2022 until 08/02/2023 [facility] Work Phone: Comment on above: 1 Occurrences starti ng 07/03/2022 until 08/02/2023 Patient Education Surgical Wound (DC) [facility] Work Phone: Patient referral [facility] Work Phone: PT PLAN OF CARE CERTIFICATION PT PLAN OF CARE CERTIFICATION Procedures Routine Neck pain Ordered: 07/17/2022 [facility] Comment on above: Ordered: 07/17/2022 End: 08-02-2023 Radex spine cervical 6 or more views XR CERV OTHER 7V AP/LAT/FLX/EXT/ODON/OBL Radiology Routine Spasmodic torticollis Bilateral carotid artery stenosis Neck pain Low back pain, non-specific History of tremor Myalgia Pain of left sacroiliac joint Spinal stenosis of cervical region Chronic tension-type headache, not intractable Imbalance 1 Occurrences starting 07/03/2022 until 08/02/2023 [facility] Work Phone: Comment on above: [...] not intractable Imbalance 07/03/2022 12:05 PM EDT [facility] Work Phone: Tympanoplasty w/o mastoidec 1st/revj prosth torp Ossiculoplasty Perforation of left tympanic membrane [facility] Work Phone: Tympanoplasty w/o mastoidect w/o ossicle recnstj Tympanoplasty Perforation of left tympanic membrane [facility] Work Phone: [facility] Immunizations Immunization Date Immunization Notes Care Provider Fa [place] 09-16-2023 ABRYSVO - Respirator y syncytial virus (RSV), vaccine, bivalent, protein subunit RSV prefusion F, diluent reconstituted, 0.5 mL, PF Will HuStreami DO Work Phone: [facility] 09-16-2023 SARS-COV-2 (COVID-19 ) vaccine, mRNA, spike protein, LNP, PF, 50 mcg/0.5 mL Will HuStreami DO Work Phone: [facility] [facility]16[facility]23 zoster vaccine recombinant AgeCheq DO Work Phone: [facility] 06-18-2022 COVID-19 mRNA-1273 (Moderna) MD Albino Reilly Work Phone: [facility] 10-25-2021 COVID-19 mRNA-1273 (Moderna) MD Albino Reilly Work Phone: [facility] 02-03-2021 COVID-19 mRNA-1273 (Moderna) MD Albino Reilly Work Phone: [facility] 01-06-2021 COVID-19 mRNA-1273 (Moderna) MD Albino Reilly Work Phone: [facility] 10-15-2019 pneumococcal conjuga te vaccine, 13 valent Argentina Lord JUNIOR SYSTEMS ADMINISTRATOR-CANAL STRUCTURE OPERATOR Work Phone: [facility] Work Phone: 09-21-2016 zoster vaccine, live Libraruddy Lord JUNIOR SYSTEMS ADMINISTRATOR-CANAL STRUCTURE OPERATOR Work Phone: [facility] Work Phone: 10-06-2001 pneumococcal polysaccharide vaccine, 23 valent Argentina Lord JUNIOR SYSTEMS ADMINISTRATOR-CANAL STRUCTURE OPERATOR Work Phone: [facility] Work Phone: Payers Date Payer Category Payer Self-pay [id number] 2025 Unknown [id number] 2023 Private Health Insurance [id number] 2023 Private Health Insurance CLI [id number] 2022 Unknown 2021 Unknown [id number] 2017 Medicare [id number] [id number] 1959 Medicare [id number] [id number] 1959 Unknown [id number] 2.16.8 [id number] 1952 Unknown [id number] 2.16.840.1.949776.3.579.2.593 1952 Unknown [id number] 2.16.840.1.995278.3.579.2.593 1952 Unknown [id number] 2.16.840.1.411435.3.579.2.593 1952 Unknown [id number] 2.16.840.1.211498.3.579.2.1245 1952 Unknown [id number] 2.16.840.1.284995.3.579.2.1245 1952 Unknown [id number] 2.16.840.1.715944.3.579.2.1242 1952 Unknown [id number] 2.16.840.1.556306.3.579.2.1242 1952 Unknown [id number] 2.16.840.1.420540.3.579.2.1242 1952 Unknown [id number] 2.16.840.1.141727.3.579.2.1244 1952 Unknown [id number] 2.16.840.1.081577.3.579.2.1244 1952 Unknown [id number] 2.16.840.1.308429.3.579.2.1244 1952 Unknown [id number] 2.16.840.1.849222.3.579.2.1244 1952 Unknown [id number] 2.16.840.1.949526.3.579.2.1259 1952 Unknown [id number] 2.16.840.1.967109.3.579.2.1259 1952 Unknown [id number] 2.16.840.1.056181.3.579.2.1259 1952 Unknown [id number] 2.16.840.1.050900.3.579.2.1259 1952 Unknown [id number] 2.16.840.1.231714.3.579.2.1259 1952 Unknown [id number] 2.16.840.1.968955.3.579.2.1259 Unknown Regular Insurance [id number] Unknown [id number] 2.16.840.1.197369.3.579.2.531 Social History Date Type Detail Facility Sex Assigned At [employer] Other Start: 07-03-2022 End: 08-19-2023 Tobacco smoking status NDIS Ex-smoker [facility] Start: 11-10-1993 End: 11-10-2013 History of tobacco use Current smoker [facility] Start: 07-03-2022 End: 08-19-2023 Tobacco use and exposure Smokeless tobacco non-user [facility] Start: 07-03-2022 End: 04-07-2025 Alcohol intake Current drinker of alcohol (finding) [facility] Start: 1950 Sex Assigned At Not on file [facility] Start: 06-04-2022 End: 03-09-2024 Exposure to SARS-CoV-2 (event) Not sure [facility] Start: 1950 Sex Assigned At Female [facility] Start: 09-09-2023 Tobacco smoking status NDIS Never smoked tobacco [facility] Start: 09-09-2023 End: 04-07-2025 History of Social function [facility] Work Phone: Start: 09-09-2023 End: 04-07-2025 Tobacco use panel [facility] Work Phone: Start: 11-11-2023 Tobacco smoking status NHIS Occasional tobacco smoker [facility] Work Phone: Start: 11-10-1993 End: 11-10-2013 History of tobacco use Cigarette Smoker [facility] Work Phone: Start: 11-11-2023 Tobacco Comment Medical Cannabis. [facility] Work Phone: Adult Depression Screening Assessment 1 [facility] Start: 07-20-2023 Alcohol Comment Caffeine intake: 1-2 cups per day [facility] Start: 07-20-2023 Gender identity Identifies as female gender (finding) [facility] Start: 07-20-2023 Sexual orientation Heterosexual (finding) [facility] Start: 02-25-2025 End: 02-26-2025 Sex Female (finding) [facility] Medical Equipment Procedure Code Equipment Code Equipment Origin al Text Equipment Identifier Dates Insertion, sacral nerve stimulator, percutaneous Implantable incontinence-contro l electrical stimulation system [id number] FDA Start: 12-24-2022 Insertion, sacral nerve stimulator, percutaneous [id number] FDA Start: 12-24-2022 Goals Date Patient Goal Desired Activity /State Clinical Notes 07-03-2022 to 04-07-2025 Ines Owens, HELEN - 04/07/2025 10:00 AM EDT Note Date & Type Note Facility 04-07-2025 History of Presen t illness Narrative Images from the original note were not included. CHIEF COMPLAINT REASON FOR VISIT : dystonia botox HPI: Cara Champagne is a 75 y.o. female who presents for repeat botox injections. She is doing worse. She is having more neck pain and upper trap pain. There is head tremor. She had recent massage. She has tried Flexeril, OTCs, NSAIDs prior. There is a lot of stiffness and tightness to her neck. She has difficulty turning her head. She has limited range of motion. CURRENT MEDICATIONS: ALLERGIES/DISCONTINUE MEDICATIONS Current Outpatient Medications Medication Instructions cholecalciferol (Vitamin D-3) 50 MCG (1999) capsule 1 capsule, Daily estradiol (ESTRACE) 1 g, Vaginal, 2 times weekly fenofibrate (TRIGLIDE) 160 mg, Daily Allergies Allergen Reactions Atorvastatin GI intolerance and [...] Chronicus BLADDER SURGERY 1992 Bladder lift COLONOSCOPY 2016 nl...Loc HYSTEROSCOPY 12/24/2022 D & C, Full Interstim implant INTERSTIM PNE 2013 Interstim (sacral neuromodulation for urge incontinence) NV BREAST AUGMENTATION WITH IMPLANT 2006 Breast lift [...] Depression: Not at risk (03/09/2024) Received from [facility] PHQ-2 Patient Health Questionnaire-2 Score: 0 REVIEW OF SYMPTOMS: Review of Systems Constitutional: Negative for chills, [...] light-headedness, numbness and headaches. Psychiatric/Behavioral: Negative. OBJECTIVE: 12/31/2024 10:15 AM 09/16/2024 11:20 AM 07/06/2024 1:59 PM Vitals BMI 29.35 kg/m2 31.21 kg/m2 BSA (m2) 1.87 m2 1.88 m2 Systolic 116 114 Diastolic 74 82 Height (in) 5' 4 Weight (lb) 171 176.2 Visit Report Report EXAM: Neurological Exam Mental Status Awake, alert and oriented to person, place and time. Oriented to person, place and time. Recent and remote memory are intact. Speech is normal. Language is fluent with no aphasia. Attention and concentration are normal. Cranial Nerves CN II: Visual acuity is normal. Visual sandy full to confrontation. CN III, IV, : Extraocular movements intact bilaterally. Normal lids and orbits bilaterally. Pupils equal round and reactive to light bilaterally. CN V: Facial sensation is normal. CN VII: Full and symmetric facial movement. CN VIII: Hearing is normal. CN XII: Tongue midline without atrophy or fasciculations. Motor Normal muscle bulk throughout. Increased muscle tone. Head titubation, increased cervical/neck paraspinal muscles. Right Left Wrist flexion 5 5 Wrist extension 5 5 Right Left Deltoid 5 5 Biceps 5 5 Triceps 5 5 Wrist flexor 5 5 Wrist extensor 5 5 Glutei 5 5 Iliopsoas 5 5 Quadriceps 5 5 Gastrocnemius 5 5 Anterior tibialis 5 5 Posterior tibialis 5 5 Sensory Light touch is normal in upper and lower extremities. Pinprick is normal in upper and lower extremities. Vibration is normal in upper and lower extremities. Reflexes Right Left Brachioradialis 2+ 2+ Biceps 2+ 2+ Patellar 2+ 2+ Achilles 2+ 2+ Right Plantar: downgoing Left Plantar: downgoing Right pathological reflexes: Gabbie's absent. Ankle clonus absent. Left pathological reflexes: Gabbie's absent. Ankle clonus absent. Coordination Dthccg-wx-yjhi, rapid alternating movements and ecey-gu-fpjb normal bilaterally without dysmetria. Gait Normal casual, toe, heel and tandem gait. Romberg is absent. PROCEDURE: Procedure - Therapeutic injection, Botulinum Toxin- Dystonia Indication Dystonia Consent The procedure was explained to the patient. Informed consent for the procedure was obtained and risk associated with Botox treatments. Any further questions were answered during this visit. Site Prep The areas to be injected were sterilized with 70% isopropanol. Buy/bill Botox 200U, 100U Lot #[id number], [id number] Dilution Per 200 units diluted with 4mL of 0.9% Sodium Chloride Per 100 units diluted with 2 mL of 0.9% Sodium Chloride Procedure was completed with EMG guidance B/l upper trap 50 units each B/l longissimus 25 units each B/l SCM 25 units each B/l splenius cervicis 25 units each B/l splenis capitis 12.5 units each B/l semispinalis capitis 12.5 units each TOTAL UNITS INJECTED 300 WASTED 0 Disposition The patient tolerated the procedure well. [...] when to seek emergent treatment. Procedure Codes 82061-05 Chemodenervation of neck muscles, bilateral 88449 [EMG] Guidance for chemodenervation J0585 Botulinum toxin a per unit, Units: 300 Follow Up 3 months Botox ASSESSMENT AND PLAN: Diagnoses and all orders for this visit: Cervical dystonia 75 year old female here for repeat botox injections. She needs more units. I injected 300 units today compared to 250 units last time. She may need 400 units next visit. She has head tremor and severe neck pain and muscle spasm. I will obtain an MRI of the cervical spine to assess for a structural lesion including degenerative cervical spine disease which may be contributing to the patient's symptoms. I will start topamax 25 mg at bedtime for symptom control. She may need baclofen and klonopin pending course. She dose complete massage. This was discussed with patient all questions answered. Total time 20 minutes spent reviewing records, performing medically appropriate exam, counseling , education, ordering medication, tests, and/or procedures, documenting health information into the health record, communicating results to the patient, and coordinating care. documented in this encounter [facility] 02-25-2025 Evaluation note Diagnosis Onset Date Resolution Acute UTI acute February 25 1:36pm [facility] Work Phone: 1(399) 974-794602-21-2025 History of Present illness Narrative* Ines Owens NP - 12/31/2024 10:00 AM EST Images from the original note were not included. CHIEF COMPLAINT REASON FOR VISIT : dystonia botox HPI: Cara Champagne is a 74 y.o. female who presents for repeat botox injections. Botox reduces severity of her neck pain and provides her more movement. Without botox she experiences pulling/drawing of neck muscles. She has stiffness. She has tried flexeril, ice, heat, PT, massage. She has tried steroidsand injections. CURRENT MEDICATIONS: ALLERGIES/DISCONTINUE MEDICATIONS Current Outpatient Medications Medication Instructions cholecalciferol (Vitamin D-3) 50 MCG (1999) capsule 1 capsule, Daily estradiol (ESTRACE) 1 g, Vaginal, 2 times weekly fenofibrate (TRIGLIDE) 160 mg, Daily Allergies Allergen Reactions Atorvastatin GI intolerance and Unknown Prochlorperazine Other Other Reaction(s): Seizures Eyes rolled back into her head, and her head rolled back Statins Other Medications Discontinued During This Encounter Medication Reason venlafaxine XR (Effexor XR) 75 MG 24 hr capsule PAST MEDICAL HISTORY: SURGICAL/SOCIAL/FAMILY HISTORY DEPRESSION SCREEN: Past Medical History: Diagnosis Date Allergies Dystonic tremor Heartburn Hypercholesterolemia (CMS/HCC) Irritable bowel syndrome Lichen simplex chronicus 12/17/2017 Past Surgical History: Procedure Laterality Date BIOPSY 12/17/2017 Vulvar biopsy- Lichen Simplex Chronicus BLADDER SURGERY 1992 Bladder lift COLONOSCOPY 2016 nl...Loc HYSTEROSCOPY 12/24/2022 D & C, Full Interstim implant INTERSTIM PNE 2013 Interstim (sacral neuromodulation for urge incontinence) NV BREAST AUGMENTATION WITH IMPLANT 2006 Breast lift [...] Depression: Not at risk (03/09/2024) Received from [facility] PHQ-2 Patient Health Questionnaire-2 Score: 0 REVIEW OF SYMPTOMS: Review of Systems Constitutional: Negative for chills, fatigue and fever. HENT: Negative for tinnitus. Eyes: Negative for photophobia. Respiratory: Negative for shortness of breath. Cardiovascular: Negative for chest pain. Gastrointestinal: Negative for nausea and vomiting. Genitourinary: Negative for frequency. Musculoskeletal: Positive for neck pain and neck stiffness. Negative for back pain and gait problem. Neurological: Negative for dizziness, tremors, weakness, light-headedness, numbness and headaches. Psychiatric/Behavioral: Negative. OBJECTIVE: 12/31/2024 10:15 AM 09/16/2024 11:20 AM 07/06/2024 1:59 PM Vitals BMI 29.35 kg/m2 31.21 kg/m2 BSA (m2) 1.87 m2 1.88 m2 Systolic 116 114 Diastolic 74 82 Height (in) 5' 4 Weight (lb) 171 176.2 Visit Report Report EXAM: Neurological Exam Mental Status Awake, alert and oriented to person, place and time. Oriented to person, place and time. Speech is normal. Language is fluent with no aphasia. Motor Increased muscle tone. Increased cervical/neck paraspinal muscles. PROCEDURE: Procedure - Therapeutic injection, Botulinum Toxin- Dystonia Indication Dystonia Consent The procedure was explained to the patient. Informed consent for the procedure was obtained and risk associated with Botox treatments. Any further questions were answered during this visit. Site Prep The areas to be injected were sterilized with 70% isopropanol. Buy and Bill- Botox 200IU, 100IU Lot #[id number], [id number] Dilution Per 200 units diluted with 4mL of 0.9% Sodium Chloride Per 100 units diluted with 4mL of 0.9% Sodium Chloride Procedure was completed with EMG guidance B/l upper trap 50 units each B/l sternocleidomastoid 25 units B/l splenius capitis 25 units B/l semispinalis capitis 25 units each TOTAL UNITS INJECTED 250 [...] when to seek emergent treatment. Procedure Codes 71166-37 Chemodenervation of neck muscles, bilateral 86929 [EMG] Guidance for chemodenervation J0585 Botulinum toxin a per unit, Units: 250 Follow Up 3 months Botox ASSESSMENT AND PLAN: Diagnoses and all orders for this visit: Cervical dystonia 74 year old female here for repeat botox injections for cervical dystonia. She has head tremor. Shehas tried PT, muscle relaxers, massage, heat, ice and NSAIDs. She experiences greater than 50% reduction in symptoms with botox treatment. documented in this encounter[facility] [id number] History of Present illness Narrative* Ines Owens NP - 09/16/2024 11:30 AM EST Images from the original note were not included. CHIEF COMPLAINT REASON FOR VISIT : Botox HPI: Cara Champagne is a 74 y.o. female who presents for Cervical Dystonia injection. 02/17 Neck pain. Sh is having radiating pain and stiffness in her left shoulder to left side of head. She states the lastround of injections really helped. Last botox injections worked better than the ones prior. She hadless head tremor and pain. Declined flu CURRENT MEDICATIONS: ALLERGIES/DISCONTINUE MEDICATIONS Current Outpatient Medications Medication Instructions cetirizine (ZYRTEC) 10 mg, Oral, Daily RT cholecalciferol (Vitamin D-3) 50 MCG (1999) capsule 1 capsule, Oral, Daily estradiol (ESTRACE) [...] BLADDER SURGERY 1992 Bladder lift COLONOSCOPY 2015 nl...Loc HYSTEROSCOPY 12/24/2022 D & C, Full Interstim implant INTERSTIM PNE 2013 Interstim (sacral neuromodulation for urge incontinence) NV BREAST AUGMENTATION WITH IMPLANT 2006 Breast lift [...] Depression: Not at risk (03/09/2024) Received from [facility] PHQ-2 Patient Health Questionnaire-2 Score: 0 [...] Positive for tremors. Negative for dizziness, weakness, light- headedness, numbness and headaches. Psychiatric/Behavioral: Negative. OBJECTIVE: 07/06/2024 [...] and Bill- Botox 200Ux1 100U x1 Lot #[id number] Dilution Per 200 units diluted with 4mL [...] when to seek emergent treatment. Procedure Codes 19367-71 Chemodenervation of neck muscles, bilateral 61790 [EMG] Guidance for chemodenervation J0585 Botulinum toxin a per unit, Units: 325 Follow Up 3 months Botox ASSESSMENT AND PLAN: Diagnoses and all orders for this visit: Cervical dystonia 74 year old female here for repeat botox injections for cervical dystonia. She has head tremor. Shehas tried PT, muscle relaxers, massage, heat, ice and NSAIDs. She experiences greater than 50% reduction in symptoms with botox treatment. documented in this encounterSaint [facility] [id number] History of Present illness Narrative* Will Estrada, DO - 07/06/2024 1:15 PM EDT Images from the original note were not included. Iván Champagne is a 74 y.o. female Chief Complaint Patient presents with Gynecologic Exam Pt complains of vaginal odor when perspiring for a couple years and getting worse. Pt would also discuss Hormone labs for hot flashes and night sweats. History of Present Illness Current Outpatient Medications: cetirizine (ZyrTEC) 10 MG tablet, Take 10 mg by mouth in the morning., Disp: , Rfl: cholecalciferol (Vitamin D-3) 50 MCG (1999) capsule, Take 1 capsule by mouth in the morning., Disp: , Rfl: fenofibrate (Triglide) 160 MG tablet, Take 160 mg by mouth in the morning., Disp: , Rfl: Semaglutide-Weight Management 0.5 MG/0.5ML solution auto-injector, Inject 0.6 mg under the skin 1 (one) time per week, Disp: 2.4 mL, Rfl: 1 Past Medical History: Diagnosis Date Allergies Dystonic tremor Heartburn Hypercholesterolemia (CMS/HCC) Irritable bowel syndrome Lichen simplex chronicus 12/17/2017 Past Surgical History: Procedure Laterality Date BIOPSY 12/17/2017 Vulvar biopsy- Lichen Simplex Chronicus BLADDER SURGERY 1992 Bladder lift COLONOSCOPY 2015 nl...[facility] HYSTEROSCOPY 12/24/2022 D & C, Full Interstim implant INTERSTIM PNE 2012 Interstim (sacral neuromodulation for urge incontinence) NV BREAST AUGMENTATION WITH IMPLANT 2005 Breast lift with implant TYMPANOPLASTY Left 10/22/2017, 01/15/18 Family History Problem Relation Name Age of Onset Colon cancer Mother Cancer Father Diabetes Sister No Known Problems Daughter Asthma Son Heart disease Paternal Grandfather OB History Obstetric Comments Pap 01/19/22- Neg, HPV Neg Cologuard 01/22/23- Neg Review of Systems All negative unless documented in treatment Objective Visit Vitals BP 114/82 Wt 176 lb 3.2 oz BMI 31.21 kg/m Smoking Status Former BSA 1.88 m Allergies Allergen Reactions Atorvastatin GI intolerance and Unknown Prochlorperazine Other Other Reaction(s): Seizures Eyes rolled back into her head, and her head rolled back Statins Other Physical Exam Constitutional: Appearance: Normal appearance. Genitourinary: Vulva, bladder, rectum and urethral meatus normal. Right Labia: No lesions or skin changes. Left Labia: No lesions or skin changes. Vaginal discharge present. Moderate vaginal atrophy present. Right Adnexa: not tender and no mass present. Left Adnexa: not tender and no mass present. No cervical motion tenderness or lesion. No parametrium nodularity or thickening present. Uterus is not tender. Uterus is anteverted. HENT: Head: Normocephalic and atraumatic. Musculoskeletal: Right lower leg: No edema. Left lower leg: No edema. Neurological: Mental Status: She is alert and oriented to person, place, and time. Skin: General: Skin is warm and dry. Findings: No rash. Procedures ICD-10-CM 1. Presence of neurostimulator Z96.82 2. Vaginal odor N89.8 3. Vaginal discharge N89.8 4. Hot flashes R23.2 She has c/o very bothersome hot flashes and night sweats. Discussed hormonal and non-hormonal treatment options. Given her age and the number of years since she has been through menopause we discussed how hormone replacement therapy may not be safe. We reviewed other nonhormonal options like SSRIs,SNRIs, gabapentin, clonidine, oxybutynin etc.. She tried Prozac in the past for depression and did not do well. We have decided to trial Effexor 37.5mg for 1 week then 75 mg daily. She will call office if she does not notice an improvement in 4-6 weeks. She admits to vaginal odor which worsens whenshe is active or when she sweats. Interstim in place and tolerating well, she adjusted device approx 3 months ago. Since she has started Semaglutide 1 week ago she has had increased urinary frequency. Denies nocturia. She did not bring her device with her so we are unable to evaluate device. Discharge noted on exam. Wet prep- parabasal cells. Discussed vaginal atrophy and treatment options. Will rx Estradiol vaginal cream to use twice weekly and encouraged Lume for vaginal odor. If urinary frequency persists she will return with her Interstim device for evaluation. Entered by Nidhi Ortega LPN acting as scribe for Dr. Will Estrada. Signature: Nidhi Ortega LPN The documentation recorded by the scribe accurately reflects the service(s) I personally performed and the decisions I made. Signature: Will Estrada DO Assessment & Plan documented in this encounterSaint Francis [facility] & Health [id number] History of Present illness Narrative* Carlota Cotton MD - 03/09/2024 8:30 AM EDT History Of Present Illness: Kerri Champagne is [...] that her hearing should continue to improve overthe next 6 months as the tympanic membrane thins out postoperatively. - Audiogram in 2-3 months in [place], advised to have results faxed over to us - RTC in 1 year Scribe Attestation: By signing my name below, I, Uzma Rapp , Scribe attest that this documentation has been prepared under the direction and in the presence of Carlota Lowe MD. I have reviewed the documentation as scribed by Uzma Rapp and agree with the notes. Carlota Cotton MD documented in this [facility] Work Phone: 1(138) 140-364604-30-2024 Instructions* Patient Instructions* Uzma Rapp - 03/09/2024 8:30 AM EDT Welcome to Dr. Cotton's clinic. We are here to assist you through your ENT care at [facility]. Dr. Cotton is an Ear surgeon. This means that she specializes in taking care of patients with complex ear problems. Dr. Cotton's office number is [phone]. While you may see her at a satellite office, she has a team committed to help meet your healthcare needs at [facility]'s main [place]. This number is the most direct way to communicate with the office. Gianna is Dr. Cotton's school attendance secretary and she answers the office phone [...] may include dieticians, social workers, speech therapists, plaster lather, neurologist, and physical therapist. Dr. Cotton will provide these referrals as needed. Please let her know if you would like to request a specific referral. For your convenience, Dr. Cotton sees patients at several [facility] locations including [facility] and [facility] at the main campus of [facility]. While we try tomake your appointments as convenient as possible, occasionally a visit to another location may be ne cessary to provide the best care for you. We look forward to working with you to meet your healthcare goals. Dr. Cotton makes every effort to run on time for your appointments. Therefore, if you are more than 30 minutes late unrelated to a scan or another appointment such therapy or audio you will have to reschedule. documented in this [facility] Work Phone: 1(910) 166-328004-02-2024 History of Present illness Narrative* Carlota Cotton MD - 02/10/2024 11:00 AM EDT History Of Present Illness: Kerri Champagne is a 74 y.o. female with a history of left-sided TM perforation and left mixed hearing loss, she is s/p left lateral graft tympanoplasty with ossiculoplasty on 3/11/24. She has noticed a swooshing in her [...] procedures in 2015 through an ENT in [place], one operation through her ear canal the [...] Scribe Attestation: By signing my name below, IUzma , Scrkei attest that this documentation has been prepared under the direction and in the presence of Carlota Lowe MD. I have reviewed the documentation as scribed by Uzma Rapp and agree with the notes. Carlota Cotton MD documented in this [facility] Work Phone: 1(958) 663-486804-02-2024 Instructions* Patient Instructions* Uzma Elaine Dionte - 02/10/2024 11:00 AM EDT Welcome to Dr. Cotton's clinic. We are here to assist you through your ENT care at [facility]. Dr. Cotton is an Ear surgeon. This means that she specializes in taking care of patients with complex ear problems. Dr. Cotton's office number is [phone]. While you may see her at a satellite office, she has a team committed to help meet your healthcare needs at [facility]'s [place]. This number is the most direct way to communicate with the office. Gianna is Dr. Cotton's school attendance secretary and she answers the office phone [...] may include dieticians, social workers, speech therapists, plaster lather, neurologist, and physical therapist. Dr. Cotton will provide these referrals as needed. Please let her know if you would like to request a specific referral. For your convenience, Dr. Cotton sees patients at several [facility] locations including [facility] and [facility] at the main campus of [facility]. While we try tomake your appointments as convenient as possible, occasionally a visit to another location may be ne cessary to provide the best care for you. We look forward to working with you to meet your healthcare goals. Dr. Cotton makes every effort to run on time for your appointments. Therefore, if you are more than 30 minutes late unrelated to a scan or another appointment such therapy or audio you will have to reschedule. [facility] Work Phone: 1([phone]) 302-671203-11-2024 Nurse Note* Kelly Welch RN - 01/19/2024 11:45 AM EDT 1145: Handoff received from Rosemarie POWERS, assumed care for patient at this time 1200: Family at bedside 1205: Discharge instructions reviewed with patient and family, no further questions at this time. 1215: Patient dressed with family assistance. 1225: Peripheral IV removed with no complications. 1248: Patient to main lobby via transport with all belongings in stable condition. Phase 2 complete. [facility]03-11[facility] Nurse Note* Kelly Welch RN - 01/19/2024 11:45 AM EDT 1145: Handoff received from Rosemarie POWERS, assumed care for patient at this time 1200: Family at bedside 1205: Discharge instructions reviewed with patient and family, no further questions at this time. 1215: Patient dressed with family assistance. 1225: Peripheral IV removed with no complications. 1248: Patient to main lobby via transport with all belongings in stable condition. Phase 2 complete. documented in this [facility] Work Phone: [phone]) [phone] Hospital Discharge instructions* Discharge Instructions* Carlota Cotton MD - 01/19/2024 10:30 AM [...] surgery. Once removed, replace the cotton ball inthe ear as needed. Once the dressing is off, and if you have an incision behind your ear with stitches, clean the incision twice daily with soap and water and apply Vaseline or antibiotic ointment after cleaning. If you have paper strips or surgical glue over the incision, Do not apply anything behi nd the ear. Bloody drainage from the ear [...] your hearing may sound muffled and your voicemay echo in your ear during speech. Minor swelling of the face on the same side of the surgery is not uncommon. Small bruising near theeye or mouth is not uncommon from the [...] suggestions for your care. documented in this [facility] Work Phone: 1(515) 370-229203-11-2024 Miscellaneous Notes* Op Note - Carlota Cotton MD - 01/19/2024 8:15 AM EDT Left Sided Lateral Graft Tympanoplasty; Ossiculoplasty (L) Operative Note Date: 01/19/2024 OR Location: [facility] OR Name: Kerri Champagne, : 1950, Age: 73 y.o., , Sex: female Diagnosis Pre-op Diagnosis * Perforation of left tympanic membrane [H72.92] Post-op Diagnosis * Perforation of left tympanic membrane [H72.92] Procedures Left Sided Lateral Graft Tympanoplasty; Ossiculoplasty 53892 - NV TYMPANOPLASTY W/O MASTOIDECT W/O OSSICLE RECNSTJ Left Sided Lateral Graft Tympanoplasty; Ossiculoplasty 59962 - NV TYMPANOPLASTY W/O MASTOIDEC 1ST/REVJ PROSTH TORP NV SPLIT AGRFT F/S/N/H/F/G/M/D GT 1ST 100 CM/</1 % [39890] Surgeons * Carlota Cotton - Primary Resident/Fellow/Other Hoop Driving Machine Operator: Surgeon(s) and Role: Procedure Summary [...] 0 mL Specimen: No specimens collected Staff: Manager User Interface: Elaina Marie RN Relief Manager User Interface: Lin Stroud RN Relief Scrub: Kisha Jauregui [...] has been actively warmed in preoperative area. Preopera tive antibiotics have been ordered and given within [...] points. Test roll was performed. Facial nerve electrodeswere placed over the orbicularis marimar and orbicularis [...] ear canal was cleared of Betadine. A four-quadrantinjection of 1:20,000 epinephrine was performed. A vascular strip incision was made. The medial portion was just lateral to the annulus with the radial incisions being along the superior and inferiorsuture lines. Once the radial incisions were made [...] was taken out of retraction and repositioned inits anatomic position. Once vascular strip was repositioned the ear canal was packed laterally withGelfoam as well. The periosteum was then closed with interrupted 3-0 Vicryl. The skin was closed with interrupted 3-0 Vicryl and a 5- 0fast gut in the skin. The facial nerve [...] entire procedure. Carlota Cotton documented in this [facility] Work Phone: 1([phone]) 133-196503-11-2024 Note* Op Note - Carlota Cotton MD - 01/19/2024 8:15 AM EDT Left Sided Lateral Graft Tympanoplasty; Ossiculoplasty (L) Operative Note Date: 01/19/2024 OR Location: [facility] OR Name: Kerri Champagne, : 1950, Age: 73 y.o., , Sex: female Diagnosis Pre-op Diagnosis * Perforation of left tympanic membrane [H72.92] Post-op Diagnosis * Perforation of left tympanic membrane [H72.92] Procedures Left Sided Lateral Graft Tympanoplasty; Ossiculoplasty 86478 - NV TYMPANOPLASTY W/O MASTOIDECT W/O OSSICLE RECNSTJ Left Sided Lateral Graft Tympanoplasty; Ossiculoplasty 65257 - NV TYMPANOPLASTY W/O MASTOIDEC 1ST/REVJ PROSTH TORP NV SPLIT AGRFT F/S/N/H/F/G/M/D GT 1ST 100 CM/Surgeons * Carlota Cotton - Primary Resident/Fellow/Other Hoop Driving Machine Operator: Surgeon(s) and Role: Procedure Summary [...] 0 mL Specimen: No specimens collected Staff: Manager User Interface: Elaina Marie RN Relief Manager User Interface: Lin Stroud RN Relief Scrub: Kisha Jauregui [...] has been actively warmed in preoperative area. Preopera tive antibiotics have been ordered and given within [...] points. Test roll was performed. Facial nerve electrodeswere placed over the orbicularis marimar and orbicularis [...] ear canal was cleared of Betadine. A four-quadrantinjection of 1:20,000 epinephrine was performed. A vascular strip incision was made. The medial portion was just lateral to the annulus with the radial incisions being along the superior and inferiorsuture lines. Once the radial incisions were made [...] was taken out of retraction and repositioned inits anatomic position. Once vascular strip was repositioned the ear canal was packed laterally withGelfoam as well. The periosteum was then closed with interrupted 3-0 Vicryl. The skin was closed with interrupted 3-0 Vicryl and a 5- 0fast gut in the skin. The facial nerve [...] scrubbed for the entire procedure. Carlota Cotton [facility] Work Phone: 1([phone]) 466-257803-11-2024 Attending History and physical note* Ashley Bower MD - 01/19/2024 7:16 AM EDT H&P reviewed. The patient was examined and there are no changes to the H&P. Source Note - Sally Wynne PA-C - 01/12/2024 10:30 AM EST [facility]PAT Evaluation Name: Kerri Champagne (Kerri Champagne) /Age: 302/08/1950/73 y.o. Date of Consult: 01/12/24 Referring Provider: Dr. Cotton Surgery, Date, and Length: Left Sided Lateral Graft Tympanoplasty; Possible Ossiculoplasty; Postauricualr Skin Graft - Left Ossiculoplasty(psb) - Right , 01/19/24, 180MIN Kerri Champagne is a 73 year-old female who presents to the [facility] for perioperative risk assessment prior to surgery. Patient presents with a primary diagnosis of left TM perforation for many years. She had 2 procedures in 2015 through an ENT in [place], one operation through her ear canal the other behind her ear.After her first procedure, she had significant bleeding from her ear canal, she presented to the EDand they pulled out her packing, she feels [...] anesthetic complications such as PONV, awareness, prolonged sedation,dental damage, aspiration, cardiac arrest, difficult intubation, difficult I.V. access or unexpected hospital admissions. NO malignant hyperthermia and or pseudocholinesterase deficiency. No history of blood transfusions The patient is not a Zoroastrianism and will accept blood and blood products if medically indicated. Type and screen NOT sent. 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 Family History Problem Relation Name Age of Onset Colon cancer Mother 65 Skin cancer Father Diabetes Sister No Known Problems Maternal Grandmother lived to [facility] Social History Socioeconomic History Marital status: Single Spouse name: Not on file Number of children: Not on file Years of education: Not on file Highest education level: Not on file Occupational History Not on file Tobacco Use Smoking status: Former Packs/day: 1.00 Years: 20.00 Additional pack years: 0.00 Total pack years: 20.00 Types: Cigarettes Quit date: 2013 Years since quittin. Smokeless tobacco: Not on file Tobacco comments: [...] given in preadmission testing; discharge instructions available [facility]. This note was dictated by a speech recognition. Minor errors may have been detected in a speech recognition. [facility] Work Phone: 1(141) 980-747203-11-2024 History and physical note* Ashley Bower MD - 01/19/2024 7:16 AM EDT H&P reviewed. The patient was examined and there are no changes to the H&P. Source Note - Sally Wynne PA-C - 01/12/2024 10:30 AM EST [facility] Evaluation Name: Kerri Champagne (Kerri Champagne) /Age: 302/08/1950/73 y.o. Date of Consult: 01/12/24 Referring Provider: Dr. Cotton Surgery, Date, and Length: Left Sided Lateral Graft Tympanoplasty; Possible Ossiculoplasty; Postauricualr Skin Graft - Left Ossiculoplasty(psb) - Right , 01/19/24, 180MIN Kerri Champagne is a 73 year-old female who presents to the [facility] for perioperative risk assessment prior to surgery. Patient presents with a primary diagnosis of left TM perforation for many years. She had 2 procedures in 2014 through an ENT in [place], one operation through her ear canal the other behind her ear.After her first procedure, she had significant bleeding from her ear canal, she presented to the EDand they pulled out her packing, she feels [...] anesthetic complications such as PONV, awareness, prolonged sedation,dental damage, aspiration, cardiac arrest, difficult intubation, difficult I.V. access or unexpected hospital admissions. NO malignant hyperthermia and or pseudocholinesterase deficiency. No history of blood transfusions The patient is not a Zoroastrianism and will accept blood and blood products if medically indicated. Type and screen NOT sent. 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 Family History Problem Relation Name Age of Onset Colon cancer Mother 65 Skin cancer Father Diabetes Sister No Known Problems Maternal Grandmother lived to [facility] Social History Socioeconomic History Marital status: Single [...] given in preadmission testing; discharge instructions available inE. This note was dictated by a speech recognition. Minor errors may have been detected in a speech recognition. documented in this [facility] Work Phone: 1(978) 238-804801-02-2024 History of Present illness Narrative* Carlota Cotton MD - 11/11/2023 11:30 AM EST History Of Present Illness: Kerri Champagne is a 73 y.o. female whom presents to me as a new patient for left-sided TM perforation and COM, referred here today by Argentina Lord CNP. She's had a left-sided TM perforation for many years. She had 2 procedures in 2015 through an ENT in [place], one operation through her ear canal the [...] drainage. She was given ear drops through [facility], she's unsure if the infection resolved. She [...] from 10/07/23 which demonstrated right-sided mild low frequencysensorineural hearing loss rising to normal in the mid frequencies dropping to severe in the high frequencies with a type A tympanogram, left-sided severe rising to mild dropping to severe mixed losswith type B tympanogram with large volume, and good word understanding bilaterally. Assessment/Plan 73 y.o. female whom presents to me as a new patient for left-sided TM perforation and COM, referredhere today by Argentina Lord CNP. She's had a left-sided TM perforation for many years, she's had 2 surgical procedures to repair this, one through her ear canal, the other behind her ear. Afterher first procedure, she has significant ear canal bleeding, she presented to the ED and they pulled out her packing, she feels this may have damaged her graft. Her hearing has been consistently downsince the perforation. She does have some vocal weakness, she tried vocal therapy in the past but discontinued. We discussed her vocal weakness, it could be that her vocal cords don't come together properly, she'd like to wait on this work-up. 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 I have reviewed the documentation as scribed by Uzma Rapp and agree with the notes. Carlota Cotton MD documented in this [facility] Work Phone: 1(656) 443-319001-02-2024 Instructions* Patient Instructions* Uzma Rapp - 11/11/2023 11:30 AM EST Welcome to Dr. Cotton's clinic. We are here to assist you through your ENT care at [facility]. Dr. Cotton is an Ear surgeon. This means that she specializes in taking care of patients with complex ear problems. Dr. Cotton's office number is [phone]. While you may see her at a satellite office, she has a team committed to help meet your healthcare needs at [facility]'s main campus. This number is the most direct way to communicate with the office. Gianna is Dr. Cotton's school attendance secretary and she answers the office phone [...] may include dieticians, social workers, speech therapists, plaster lather, neurologist, and physical therapist. Dr. Cotton will provide these referrals as needed. Please let her know if you would like to request a specific referral. For your convenience, Dr. Cotton sees patients at several [facility] locations including [facility] and [facility] at the main campus [facility]. While we try tomake your appointments as convenient as possible, occasionally a visit to another location may be ne cessary to provide the best care for you. We look forward to working with you to meet your healthcare goals. Dr. Cotton makes every effort to run on time for your appointments. Therefore, if you are more than 30 minutes late unrelated to a scan or another appointment such therapy or audio you will have to reschedule. documented in this [facility] Work Phone: 1(201) 597-131010-31-2023 History of Present illness Narrative* Argentina Lord, JUNIOR SYSTEMS ADMINISTRATOR-CANAL STRUCTURE OPERATOR - 09/09/2023 11:30 AM EDT Images from the original note [...] itching, ear drainage, aural fullness, hearing loss, autophony,tinnitus, dizziness or vertigo, she admits to bilateral [...] was done initially by Dr. Lopez in [place], [place] approximately 7-8 years ago and ended [...] was placed in the ear canals to visualizethe ear canal debris. Ear Cleaning Instrument and [...] of infection, effusion, bleeding, or retraction. No perforationseen. EAC is clear. Left Ear- Non-intact TM [...] otologic exam revealed left TM perforation with evidenceof serous otitis media. After extensive discussion with [...] daily for 7 days for left serous OM.I recommended that the patient warms the bottle to her body temperature to avoid adverse dizziness effects. -Referral to otology was placed. I recommend audiogram prior to appointment with otology to evaluate hearing function. Patient preference with Dr. Carlota Cotton due to driving/transportation accommodations but is willing to drive to business trainer that is available. -Follow-up: Patient will follow-up with otology physician. She may follow up with me as needed. Allquestions answered to patient's satisfaction. documented in this [facility] Work Phone: [phone]) 474-414310-31-2023 Instructions* Patient Instructions* SAMM Cho - 09/09/2023 11:30 AM EDT [...] Vaseline using dry clean cloth. Then, use department of sociology chair on warm or cool air and hold it out 12 inches away from the affected ear and air dry ears for 30 seconds. documented in this [facility] Work Phone: 1(433) 976-886401-16-2023 NoteHNO ID: [id number] Author: Amos Wisdom MD Service: ? Author Type: Physician Type: Progress Notes Filed: 11/25/2022 3:23 PM Note Text: Summary: BTX for cervical dystonia [place] [facility] Neurotoxin Visit Date: November 25, [...] Pain Management OT/PT/Speech Visit from 07/31/2022 in [facility] Physical Therapy [facility] T [...] guidance: Yes Injection Site: Cervical dystonia: CPT 99415 Left Right Sternocleidomastoid 25 Splenius capitus 25 50 Scalene Levator Scapulae Trapezius Semispinalis (Other) Lot#: [id number] Exp Date Future plan of care: Follow up: 3 months Neurotoxin change: No Dose change: Yes New Dose: 200 Reason(s) for changing neurotoxin type of dose: if this does not work Sent staff message to nursing related to any changes: Yes Amos Wisdom MD November 25, 2022 3:13 PM Dept of NEUROLOGY TIME OUT/ PROCEDURE NOTE: Informed consent Kerri Champagne Medical Record: [id number] Procedure: neurotoxin intramuscular injection The risks, benefits [...] Wisdom MD November 25, 2022 3:13 PM [place] protocol/ safety checklist Sign in communication: Completed Time out:Team confirms the correct Patient, correct procedure, correct site and site marking, correct neurotoxin type, correct dose and correct dilution. Affirmation of time out: N/A Sign out discussion: Completed Amos Wisdom MDWorcester Recovery Center And [id number] History of Present illness Narrative* Amos Wisdom MD - 11/25/2022 3:12 PM ESTSummary: BTX for cervical dystonia Images from the original note were not included. [place] [facility] Neurotoxin Visit Date: November 25, [...] Pain Management OT/PT/Speech Visit from 07/31/2022 in [facility] Physical Therapy [facility] T [...] guidance: Yes Injection Site: Cervical dystonia: CPT 31474 Left Right Sternocleidomastoid 25 Splenius capitus 25 50 Scalene Levator Scapulae Trapezius Semispinalis (Other) Lot#: [id number] Exp Date Future plan of care: Follow up: 3 months Neurotoxin change: No Dose change: Yes New Dose: 200 Reason(s) for changing neurotoxin type of dose: if this does not work Sent staff message to nursing related to any changes: Yes Amos Wisdom MD November 25, 2022 3:13 PM Dept of NEUROLOGY TIME OUT/ PROCEDURE NOTE: Informed consent Kerri Champagne Medical Record: [id number] Procedure: neurotoxin intramuscular injection The risks, benefits [...] Wisdom MD November 25, 2022 3:13 PM [place] protocol/ safety checklist Sign in communication: Completed Time out:Team confirms the correct Patient, correct procedure, correct site and site marking, correct neurotoxin type, correct dose and correct dilution. Affirmation of time out: N/A Sign out discussion: Completed Amos Wisdom MD documented in this [facility]-2023 NoteHNO ID: [id number] Author: Kerri Moreno PA-C Service: ? Author Type: Physician Hoop Driving Machine Operator Type: Progress Notes Filed: 11/13/2022 [...] (see below) 1. Physical therapy: Yes: Where: [facility] , Date Started: 07/17/22, Date Ended: 08/14/22 2. Home exercise program after PT: yes 3. Occupational therapy: No 4. A physician supervised home exercise program (HEP): No 5. Assemblies And Installations Inspector: No Passive conservative therapy lasting 6 weeks in the last six months (see below) 1. Medical devises: No 2. Acupuncture: No 3. Tens unit: No 4. Prescription pain medication: No 5. NSAIDS: [place]: Gregoria Villalta MA Date: November 13, 2022 [...] made as appropriate. Monserrat (more content not included)...[facility]01-04-2023 Instructions* Patient Instructions* Kerri Moreno PA-C - 11/13/2022 10:16 AM EST PLAN: 1) Continue Methocarbamol 500 mg three times a day #90 - refill x 5 2) RTC 6 months or sooner if needed. documented in this encounterTr[facility]01-04-2023 History of Present illness Narrative* Kerri Moreno PA-C - 11/13/2022 10:00 AM EST Pain Management Follow Up Visit Date: November [...] supervised home exercise program (HEP): No 5. Assemblies And Installations Inspector: No Passive conservative therapy lasting 6 weeks in the last six months (see below) 1. Medical devises: No 2. Acupuncture: No 3. Tens unit: No 4. Prescription pain medication: No 5. NSAIDS: [place]: Gregoria Villalta MA Date: November 13, 2022 [...] new bowel and bladder dysfunction, saddle anesthesia, weakness,sensory loss, fevers/chills, unintentional weight loss) were reviewed [...] continues to have tremors in the neck forwhich she reports she will seek Botox injections [...] the cervical paraspinal muscles. Mild restriction in cervicalextension and right lateral rotation. Kerri Champagne will [...] PA-C November 13, 2022 documented in this encounterTr[facility]12-05-2022 NoteHNO ID: [id number] Author: Avani Rodríguez MD Service: ? Author Type: Physician Type: Progress Notes Filed: 10/17/2022 11:10 AM Note Text: [facility] Office Visit Date: October [...] Current anticoagulation: None Occupation: Retired [employer], [place] October 14, 2022 Attestation: The above information was explored in detail with the patient and edited as needed and is complete. Avani Rodríguez MD October 14, 2022 HISTORY OF PRESENT ILLNESS Kerri Champagne [facility] for the [...] not clearly evaluated relat (more content not included)...[facility]-09-2022 NoteHNO ID: [id number] Author: Amos Wisdom MD Service: ? Author Type: Physician Type: Progress Notes Filed: 09/18/2022 10:44 AM Note Text: Summary: cervical dystonia and neck pain [facility] - NEW PATIENT EVALUATION No referring provider defined for this encounter. Luis Enrique Wood DO [address] [facility] [address] [facility] [address] Dear : I had the pleasure of [...] then, she started seeing a neurologist in [place] but reports that she was rough but [...] Depression, Diabetes (HCC), Epilepsy (HCC), Hypertension, Hypothyroidism, assisted (current) use of systemic steroids, Obstructive sleep [...] Exam Mental Status Awak (more content not included)...[id number] NoteHNO ID: [id number] Author: Remi Escamilla, PT Service: ? Author [...] created on 07/17/22 through 09/11/22; updated: 08/14/22 [facility] in home exercise program. (MET) Patient will [...] cervical retractions 2x10 3: seated UT stretch [id number] 4: seated levator stretch [id number] 5: scapular retractions 2x10 6: SNAG 2x10 7: open books 2x10 Skilled Intervention: Patient was educated in proper exercise technique and purpose for exercises. Skilled judgment was provided in selection of appropriate interventions. Manual Therapy: 1: STM to B upper trap, levator scalenes 2: manual traction Skilled Intervention: Manual skills to improve joint mobility, ROM, and decrease pain. Utilized anatomy knowledge of the therapist, and assessment of patient's response to intervention. Billing Therapeutic Exercise Treatment Minutes: 32 Manual TherapyTreatment Minutes: 10 Total Treatment Time Minutes (timed/untimed): 42 Remi Escamilla, [facility]10-05-2022 History of Present illness Narrative* Remi Escamilla, PT - 08/14/2022 12:15 PM EDT Episode Visit Count: 4 Therapist That Will [...] created on 07/17/22 through 09/11/22; updated: 08/14/22 [facility] in home exercise program. (MET) Patient will [...] cervical retractions 2x10 3: seated UT stretch 3x00gyiz 4: seated levator stretch [id number] 5: scapular retractions 2x10 6: SNAG 2x10 [...] 42 Remi Escamilla PT documented in [facility]09-28-[facility]22 NoteHNO ID: [id number] Author: Meredith Hollis PTA Service: ? Author Type: Manager Paper Type: Progress Notes Filed: 08/07/2022 10:28 AM [...] retractions x15 2: seated upper trap stretch [id number] 3: seated levator stretch 9e02gjyd 4: scapular retraction x20 5: *cervical isometrics [...] Treatment Time Minutes (timed/untimed): 40 Meredith Hollis [facility]TA[facility] History of Present illness Narrative* Meredith Hollis PTA - 08/07/2022 9:20 AM EDT Episode Visit Count: 3 Therapist That Will [...] from ongoing skilled physical therapy for reassessment bysupervising therapist. PLAN FOR NEXT VISIT: Progress note SUBJECTIVE: Pt states that her neck is feeling good. She has one bad spell on Friday, but she is not sure why. She was getting spasm and that caused her neck to get tensed up. She took some meds and rested andfelt better. She thinks the exercises are helping. [...] retractions x15 2: seated upper trap stretch 3x15ruex 3: seated levator stretch 1o60qovx 4: scapular retraction x20 5: *cervical isometrics [...] 40 Meredith Hollis PTA documented in this encounterTr[facility]09-21-2022 NoteHNO ID: [id number] Author: Meredith Hollis PTA Service: ? Author Type: Manager Paper Type: Progress Notes Filed: 07/31/2022 10:24 AM [...] retractions x10 2: seated upper trap stretch [id number] 3: seated levator stretch 1j71pbau (no overpressure) 4: *scapular retraction x20 5: [...] Total Treatment Time Minutes (timed/untimed): 41 Meredith HollisPARRISHHolzer Medical Center [facility]09-21-2022 History of Present illness Narrative* Meredith PARRISH Hollis - 07/31/2022 9:21 AM EDT Episode Visit Count: 2 Therapist That Will [...] retractions x10 2: seated upper trap stretch [id number] 3: seated levator stretch 5f97pjve (no overpressure) 4: *scapular retraction x20 5: [...] 41 Meredith Hollis PTA documented in this encounterTrumbull [facility]09-07-2022 NoteHNO ID: [id number] Author: Remi Escamilla PT Service: ? Author Type: Physical Therapist Type: Progress Notes Filed: 07/17/2022 11:55 AM Note Text: Episode Visit Count: 1 Therapist That Will Oversee The Plan Of Care: Remi Escamlila Start of Care Date: 07/17/22 Onset Date: [...] of Care: created on 07/17/22 through 09/11/22 [facility] in home exercise program. Patient will decrease [...] Planned: 48 Planned Treatment Interventions: Therapeutic exercise (31031);Neuromuscular re-education (14403);Manual therapy (86577);Therapeutic activities (54610);Self-penitentiary management (01856);Patient/Family/Caregiver Education;Body Mechanics Training PLAN FOR NEXT VISIT: [...] 06/26/2017 07/02/2022 07/16/2022 Phys (more content not included)...[facility]-07-2022 History of Present illness Narrative* Remi Escamilla, PT - 07/17/2022 11:39 AM EDT Episode Visit Count: 1 Therapist That Will [...] complaint of chronic neck pain that interferes withdriving;sleeping (moving neck) . She presents with impairments in ADL's, flexibility, independence in exercise, joint mobility, overall function, posture, range of motion, and tissue tenderness. PROMIS (Patient-Reported Outcomes Measurement Information System) scores were reviewed and physical function domain, social roles domain , and fatigue domain identified as a rehabilitation concern. Prognosis for therapy is Good due to: current objective clinical presentation;good overall health status .Patient's signs and symptoms seem muscular in nature. The root of the muscle tightness and pain maybe trying to control her tremors by tensing up. She will benefit from skilled therapy services to meet the goals established for this plan of care as noted below. Goals for Episode of Care: created on 07/17/22 through 09/11/22 [facility] in home exercise program. Patient will decrease [...] Planned: 48 Planned Treatment Interventions: Therapeutic exercise (46377);Neuromuscular re- education (51206);Manual therapy (86202);Therapeutic activities (78645);Self- penitentiary management (85045);Patient/Family/Caregiver Education;Body Mechanics Training PLAN FOR NEXT VISIT: [...] Proceed with caution due to the above (1- 2) risk factors Cancer Red Flags: History of [...] Thumb Extension (C8): 5/5 Hand Strength R [employer]frame [employer] Power Plant Mechanic Position 2 (lbs): 49 lbs L [employer]frame [employer] Power Plant Mechanic Position 2 (lbs): 45 lbs Special Tests [...] States/Identifies;Return Demonstration TREATMENT: PT Treatment Interventions: Therapeutic Exercise;Self-Long-Term Management Evaluation Therapeutic Exercise: 1: seated cervical retractions 2x10 2: seated upper trap stretch [id number] 3: seated levator stretch 9j24iwau 4: seated thoracic extension 2x10 Skilled Intervention: Patient was educated in proper exercise technique and purpose for exercises. Skilled judgment was provided in selection of appropriate interventions. Self-Long-Term Management: 1: education on POC and HEP Skilled Intervention: Skilled judgment in the selection of proper modification for activity of daily living/home management based on clinical presentation, deficits, and needs. Billing * Evaluation Low Complexity: 1 Unit Therapeutic Exercise Treatment Minutes: 14 Self-Care/Home Management Treatment Minutes: 1 Total Treatment Time Minutes (timed/untimed): 41 Remi Escamilla PT documented in this encounterTrumbull [facility] Hospital08-30-2022 NoteHNO ID: [id number] Author: Yonathan Cazares PA-C Service: ? Author Type: Physician Hoop Driving Machine Operator Type: Progress Notes Filed: 08/13/2022 1:58 PM Note Text: VIRTUAL VISIT PROGRESS NOTE This is a virtual visit using [employer]icketland video visit. It required patient-provider interaction for [...] minutes on the d (more content not included)...[facility]08-30-2022 History of Present illness Narrative* Yonathan Cazares PA-C - 07/09/2022 1:47 PM EDT VIRTUAL VISIT PROGRESS NOTE This is a virtual visit using Ticketland video visit. It required patient-provider interaction for themedical decision making as documented below. Kerri Champagne [...] to MRI, may take additional tablet 5 minprior to procedure (MRI) Fenofibrate (LOFIBRA) 160 mg [...] the date of the service which included bmiq-ju-nfeg patient care,completing clinical documentation, obtaining and/or reviewing separately obtained history, performing a medically appropriate examination, counseling and educating the patient/family/caregiver, ordering medications, tests, or procedures, independently interpreting results (not separately reported),communicating results to the patient/family/caregiver, and care coordination (not separately reported). The current medical regimen is effective; continue present plan and medications. Consider advanced imaging and invasive options if pain persists, has new or progressive neurological issues. EMMANUEL Weiss PA-C [facility] [address] [place] [address], [address] [place] [address] Yonathan Cazares PA-C documented in this encounterTrumbull Memorial Hospital08-24-2022 NoteHNO ID: [id number] Author: RT Jaleesa(R) Service: ? Author Type: [...] BY: RT Jaleesa(R) July 03, 2022 12:04 [facility]08-24-2022 History of Present illness Narrative* Margy Mcgee RT(R) - 07/03/2022 12:45 PM EDT Radiology Service Progress Note PATIENT NAME: Kerri Champagne DATE OF SERVICE: July 03, 2022 TIME: 12:04 PM PATIENT IDENTITY VERIFICATION COMPLETED USING TWO (2) IDENTIFIERS: Name and Date of confirmedby patient verbally. FALL SCREENING: Has the patient [...] 03, 2022 12:04 PM documented in this encounterTrumbull [facility] Hospital08-24-2022 NoteHNO ID: [id number] Author: Yonathan Cazares PA-C Service: ? Author Type: Physician Hoop Driving Machine Operator Type: Progress Notes Filed: 07/03/2022 [...] Duration Units: Months Frequency: Intermittent Intervention/Comfort measure: Medication;Reposition;Relaxation;Cold Pain Radiation: Pain does not radiate Aggravating [...] fluticasone (FLONASE) 50 mcg/actuation nasal sprayUse 1 [place] in each nostril once daily.Disp: Rfl: ofloxacin (FLOXIN) 0.3 % otic solutionUse 5 Drops in both ears once daily.Disp: Rfl: FLUoxetine (PROZAC) 10 mg capsuleTake 10 mg by mouth once daily.Disp: Rfl: lfnniopt-upuf-dkvo-FA-K-hb#244 18-400-80 mg-mcg-mcg tabTake by mouth once daily.Disp: [...] or recent MRSA infe (more content not included)...[facility]08-[facility]22 History of Present illness Narrative* Yonathan Cazares PA-C - 07/03/2022 10:15 AM EDT Images from the original note [...] regarding Neck and Lt sided LBP x 12months. My final recommendations will be communicated back to the requesting physician by way of shared medical record or letter via US mail. Other Issues Addressed at the Visit Today: None. Precipitating Event: None PAIN EVALUATION 07/03/2022 1017 Pain Level: 4 Pain Location: Neck Lt sided lower back Description: Aching;Dull Duration Amount of Time: 12 Duration Units: Months Frequency: Intermittent Intervention/Comfort measure: Medication;Reposition;Relaxation;Cold Pain Radiation: Pain does not radiate Aggravating [...] fluticasone (FLONASE) 50 mcg/actuation nasal spray^Use 1 [place] in each nostril once daily.^Disp: ^Rfl: ofloxacin (FLOXIN) 0.3 % otic solution^Use 5 Drops in both ears once daily.^Disp: ^Rfl: FLUoxetine (PROZAC) 10 mg capsule^Take 10 mg by mouth once daily.^Disp: ^Rfl: tpjtnbsw-xxlq-ngeh-FA-K-hb#244 18-400-80 mg-mcg-mcg tab^Take by mouth once daily.^Disp: [...] pain today. Pt has had [place] in [place] last yearfor her complaints. Pt seen in [place] at a wellness clinic with a chiropractor [...] begins, sits for relief. Unable to sit inrecliner with back pain. No radicular leg pain [...] with palpation of cervical paraspinous muscles, trapezius, lumbarparaspinous, sacroiliac joints and PSIS (L>R) and greater [...] Interested in Botox again in future at [facility]. [facility] [place] in [...] the date of the service which included bidf-jw-esgh patient care, completing clinical documentation, obtaining and/or [...] forwarded to consulting/requesting physician. EMMANUEL Weiss, DALE [facility] [address], [address] [place] [address] documented in this encounterTrumbull Memorial HospitalEvaluation noteNorth [employer] Other Evaluation note* Diagnosis Spasmodic torticollis- Primary Bilateral carotid artery [...] Neck pain Cervicalgia [facility] Spasmodic torticollis- Primary Neck pain Cervicalgia [facility] Diagnosis Radiculopathy, cervical region- Primary [...] pain- Primary Cervicalgia [facility] Radiculopathy, cervical region- Primary Brachial neuritis or radiculitis nos Cervical spondylosis without myelopathy Spasmodic torticollis Imbalance Abnormality of gait Neck pain Cervicalgia Spinal stenosis of cervical region Spinal stenosis in cervical region [facility] Diagnosis Cervical dystonia- Primary Spasmodic torticollis Cervicalgia documented [facility] Diagnosis Cervical dystonia- Primary Spasmodic torticollis [facility] noteNo assessment information availableSamaritan North Health Center Work Phone: Evaluation note* Diagnosis Perforation of left tympanic membrane- Primary Left chronic serous otitis media Simple or unspecified chronic serous otitis media Bilateral impacted cerumen Impacted cerumen Sensation of plugged ear, bilateral Hearing difficulty of left ear Otalgia of left ear documented in this encounter [facility] Work Phone: Evaluation note* Diagnosis Mixed conductive and sensorineural hearing loss of left ear with restricted hearing of right ear- Primary Perforation of left tympanic membrane documented in this encounter [facility] Work Phone: Evaluation note* Diagnosis Perforation of left tympanic membrane- Primary Perforation of left tympanic membrane 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 Gastroesophageal reflux disease Esophageal reflux documented in this encounter [facility] Work Phone: Evaluation note* Diagnosis Postoperative visit- Primary 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 of left ear with restricted hearing of right ear documented in this encounter [facility] Work Phone: Evaluation note* Diagnosis Postoperative visit- Primary 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 of left ear with restricted hearing of right ear Bilateral chronic serous otitis media Simple or unspecified chronic serous otitis media Mixed conductive and sensorineural hearing loss, bilateral Mixed hearing loss, bilateral documented in this encounter [facility] Work Phone: Evaluation note* Diagnosis Spasmodic [...] Abnormality of gait documented in this encounter [facility]* Diagnosis Cervical dystonia- Primary Spasmodic torticollis [facility] Diagnosis Presence of neurostimulator Vaginal odor Unspecified symptom associated with female genital organs Vaginal discharge Leukorrhea, not specified as infective Hot flashes Vaginal atrophy Postmenopausal atrophic vaginitis [facility] Diagnosis Cervical dystonia- Primary Spasmodic torticollis [facility] Diagnosis Cervical dystonia- Primary Spasmodic torticollis [...] that I personally reviewed with the patient. [id number] [facility] Work Phone: History of Present [...] that I personally reviewed with the patient. [facility] Work Phone: Hospital Discharge instructions Additional Instructions [...] in an emergency, call the office at [[phone]]. TODAY -Take it easy the rest of [...] told otherwise. DIET -Any diet is permissible [facility] Work Phone: Reason for referral (narrative)* - Authorized Specialty Diagnoses / Procedures Referred By Contac t Referred To Contact Physical Therapy Diagnoses Spasmodic torticollis Bilateral carotid artery stenosis Neck pain Low back pain, non-specific History of tremor Myalgia Pain of left sacroiliac joint Spinal stenosis of cervical region Chronic tension-type headache, not intractable Imbalance Procedures [place] [address] [place] [address] Referral ID Status Reason Start Date Expiration Date V isits Requested Visits Authorized [id number] Authorized 07/03/2022 10/01/2022 99 99 * Consult, Test, Treat (Routine) - Authorized Specialty Diagnoses / Procedures Referred By Contac t Referred To Contact Neurology Diagnoses Spasmodic torticollis Neck pain History of tremor Myalgia Pain of left sacroiliac joint Spinal stenosis of cervical region Chronic tension-type headache, not intractable Imbalance Procedures CONSULT TO NEUROLOGY OFFICE/OUTPATIENT [facility] 60-74 MINUTES Yonathan Cazares PA-C [address] [facility] [address] [place] [address] Referral ID Status Reason Start Date Expiration Date Visits Requested Visits Authorized [id number] Authorized PCP Requested Referral 07/03/2022 07/03/2023 1 [...] W/O CONTRAST MATERIAL Yonathan Cazares PA-C [address] [place] [id number] Mr Imaging Referral ID Status Reason Start Date Expiration Date Visits Requested Visits Authorized [id number] Authorized Auto-Generat ed Referral 07/03/2022 08/02/2023 1 [...] W/O CONTRAST MATRL Yonathan Cazares PA-C [address] [facility] [address] [place] [address] Mr Imaging Referral ID Status Reason Start Date Expiration Date Visits Requested Visits Authorized [id number] Authorized Auto-Generat ed Referral 07/03/2022 08/02/2023 1 [...] OR MORE VIEWS Yonathan Cazares PA-C [address] [address] Xr Imaging Referral ID Status Reason Start Date Expiration Date V isits Requested Visits Authorized [id number] Closed Auto-Generate d Referral 07/03/2022 08/02/2023 1 [...] PELVIS 1/2 VIEWS Yonathan Cazares PA-C [address] [place] [address] Xr Imaging Referral ID Status Reason Start Date Expiration Date V isits Requested Visits Authorized [id number] Closed Auto-Generate d Referral 07/03/2022 08/02/2023 1 [...] LUMBOSACRAL 2/3 VIEWS Yonathan Cazares PA-C [address] [address] Xr Imaging Referral ID Status Reason Start Date Expiration Date V isits Requested Visits Authorized [id number] Closed Auto-Generate d Referral 07/03/2022 08/02/2023 1 1 [facility] for referral (narrative)* Consultation (Routine) - Pending Review Specialty Diagnoses / Procedures Referred By Don t Referred To Contact Otolaryngology Diagnoses Perforation of left tympanic membrane Left chronic serous otitis media [place] Lord APRN-LIDYA [address] [place] [address] Carlota Cotton MD [address] [facility] [address] [place] [address] Referral ID Status Reason Start Date Expiration Date Visits Requested Visits Authorized [id number] Pending Review Specialty Services Required 09/08/2024 1 1 Scheduling Instructions Schedule audiogram prior to appointment. * Medications - Pending Review Specialty Diagnoses / Procedures Referred By Don leon Referred To Contact Diagnoses Perforation of left tympanic membrane Left chronic serous otitis media [place] Lord APRN-LIDYA [address] [place] [address] Referral ID Status Reason Start Date Expiration Date V isits Requested Visits Authorized [id number] Pending Review 1 1 [facility] Work Phone: [facility] for referral (narrative)* Diagnostic Procedure Only (Routine) [...] OR MORE VIEWS Yonathan Cazares PA-C [address] [place] [address] [place] [address] Referral ID Status Reason Start Date Expiration Date V isits Requested Visits Authorized [id number] Closed Auto-Generate d Referral 07/03/2022 08/02/2023 1 [...] PELVIS 1/2 VIEWS Yonathan Cazares PA-C [address] [place] [id number] Xr Imaging [facility] [address] Referral ID Status Reason Start Date Expiration Date V isits Requested Visits Authorized [id number] Closed Auto-Generate d Referral 07/03/2022 08/02/2023 1 [...] LUMBOSACRAL 2/3 VIEWS Yonathan Cazares PA-C [address] [place] [id number] Xr Imaging [facility] [address] [address] Referral ID Status Reason Start Date Expiration Date V isits Requested Visits Authorized [id number] Closed Auto-Generate d Referral 07/03/2022 08/02/2023 1 1 [facility] for visit Narrative* Diagnostic Procedure Only (Routine) [...] OR MORE VIEWS Yonathan Cazares PA-C [address] [place] [address] [place] [address] Referral ID Status Reason Start Date Expiration Date V isits Requested Visits Authorized [id number] Closed Auto-Generate d Referral 07/03/2022 08/02/2023 1 1 [facility] Summary Purpose Family History Relationship Condition Age at Onset Recorded Date/T julissa sister Type 2 diabetes mellitus Unknown Not Specified Malignant neoplasm of colon Unknown father Malignant neoplasm Unknown Relationship Condition Age at Onset Recorded Date/T julissa sister Type 2 diabetes mellitus Unknown mother Malignant neoplasm of colon Unknown father Malignant neoplasm Unknown father Unknown mother Unknown Advance Directives Advance Directive Response Recorded Date/ Time Advance Directives No July 10:56am Advance Directive Response Recorded Date/ Time Advance Directives No July 11:56am Chief Complaint Patient here today for wax removal.Patient here today for wax removal. 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, bilateral Procedures [place] [address] [place] [address] Referral ID Status Reason Start Date Expiration Date V isits Requested Visits Authorized [id number] Pending Review 03/09/2024 03/09/2025 1 1 Additional Source Comments Source Comments (unrecognize d section and content) In the event this informatio n is protected by the Federal Confidentiality of Alcohol and Drug Abuse Patient Records regulations: The Federal rules restrict any use of the information to criminally investigate or prosecute any alcohol or drug abuse patient.[facility] HospitalIn the event this information is protected by the Federal Confidentiality of Alcohol and Drug Abuse Patient Records regulations: The Federal rules restrict any use of the information to criminally investigate or prosecute any alcohol or drug abuse patient.[facility] HospitalIn the event this information is protected by the Federal Confidentiality of Alcohol and Drug Abuse Patient Records regulations: The Federal rules restrict any use of the information to criminally investigate or prosecute any alcohol or drug abuse patient.[facility] HospitalIn the event this information is protected by the Federal Confidentiality of Alcohol and Drug Abuse Patient Records regulations: The Federal rules restrict any use of the information to criminally investigate or prosecute any alcohol or drug abuse patient.[facility] HospitalIn the event this information is protected by the Federal Confidentiality of Alcohol and Drug Abuse Patient Records regulations: The Federal rules restrict any use of the information to criminally investigate or prosecute any alcohol or drug abuse patient.[facility] HospitalIn the event this information is protected by the Federal Confidentiality of Alcohol and Drug Abuse Patient Records regulations: The Federal rules restrict any use of the information to criminally investigate or prosecute any alcohol or drug abuse patient.[facility] HospitalIn the event this information is protected by the Federal Confidentiality of Alcohol and Drug Abuse Patient Records regulations: The Federal rules restrict any use of the information to criminally investigate or prosecute any alcohol or drug abuse patient.[facility] HospitalIn the event this information is protected by the Federal Confidentiality of Alcohol and Drug Abuse Patient Records regulations: The Federal rules restrict any use of the information to criminally investigate or prosecute any alcohol or drug abuse patient.[facility] HospitalIn the event this information is protected by the Federal Confidentiality of Alcohol and Drug Abuse Patient Records regulations: The Federal rules restrict any use of the information to criminally investigate or prosecute any alcohol or drug abuse patient.[facility] HospitalIn the event this information is protected by the Federal Confidentiality of Alcohol and Drug Abuse Patient Records regulations: The Federal rules restrict any use of the information to criminally investigate or prosecute any alcohol or drug abuse patient.[facility] Reason for Visit (unrecogniz ed section and content) Reason Comments PT Discharge Specialty Diagnoses / Procedures Referred By Don t Referred To Contact Physical Therapy / PHYSICAL THERAPY Diagnoses Spasmodic torticollis Bilateral carotid artery stenosis Neck pain Low back pain, non-specific History of tremor Myalgia Pain of left sacroiliac joint Spinal stenosis of cervical region Chronic tension-type headache, not intractable Imbalance Procedures [place] [address] [place] [address] Pt [facility] Inessa Burns Com [address] [place] [address] Referral ID Status Reason Start Date Expiration Date V isits Requested Visits Authorized [id number] Authorized 07/03/2022 10/01/2022 99 99 Reason Comments [...] Perforation of left tympanic membrane [H72.92] Procedures NV TYMPANOPLASTY W/O MASTOIDECT W/O OSSICLE RECNSTJ NV TYMPANOPLASTY W/O MASTOIDEC 1ST/REVJ PROSTH TORP NV SPLIT AGRFT F/S/N/H/F/G/M/D GT 1ST 100 CM/</1 % Left Sided Lateral Graft Tympanoplasty; Possible Ossiculoplasty; Postauricualr Skin Graft Left Sided Lateral Graft Tympanoplasty; Possible Ossiculoplasty; [place]auricualr [place] [address] [place] [address] [facility] [address] [place] [address] Referral ID Status Reason Start Date Expiration Date Visits Re quested Visits Authorized [id number] 1 1 Reason Comments Follow-up Packing removal and check left ear Reason Comments Follow-up Reason Comments Gynecologic Exam Pt complains of vagi nal odor when perspiring for a couple years and getting worse. Pt would also discuss Hormone labs for hot flashes and night sweats. Care Teams (unrecognized sec tion and content) Team Status: Active Member Role Status Dates Albino Reilly MD Primary Care Provider Active Team Status: Inactive Member Role Status Dates Albino Reilly MD Primary Care Provider Active Start: February 25, 2025 End: February 25, 2025 Tania Magana APRN Attending Provider Active Start: February 25, 2025 End: February 25, 2025 Mechanical Pencils Assembler Relationship Specialty Start Date End Date Luis Enrique Wood DO [address] [facility] [address] [place] [address] PCP - General Family Practice 05/06/18 Mechanical Pencils Assembler Relationship Specialty Start Date End Date Luis Enrique Wood DO [address] [place] [address] PCP - General Family Practice 05/06/18 Mechanical Pencils Assembler Relationship Specialty Start Date End Date Luis Enrique Wood, DO [address] [place] [address] PCP - General Family Medicine 05/06/18 Mechanical Pencils Assembler Relationship Specialty Start Date End Date Luis Enrique Wood, DO [address] [place] [address] PCP - General Family Medicine 05/06/18 Mechanical Pencils Assembler Relationship Specialty Start Date End Date Luis Enrique Wood, DO [address] [place] [address] PCP - General Family Medicine 05/06/18 Mechanical Pencils Assembler Relationship Specialty Start Date End Date Luis Enrique Wood, DO [address] [place] [address] PCP - General Family Medicine 05/06/18 Mechanical Pencils Assembler Relationship Specialty Start Date End Date Luis Enrique Wood, DO [address] [place] [address] PCP - General Family Medicine 05/06/18 Mechanical Pencils Assembler Relationship Specialty Start Date End Date Luis Enrique Wood, DO [address] [place] [address] PCP - General Family Medicine 05/06/18 Team Status: Inactive Member Role Status Dates Will Estrada DO Attending Provider Active Albino Reilly MD Primary Care Provider Active Mechanical Pencils Assembler Relationship Specialty Start Date End Date Generic Provider, No Assigned PcpMD [address] [place] [address] PCP - General 01/19/24 Mechanical Pencils Assembler Relationship Specialty Start Date End Date Generic Provider, No [place] [address] PCP - General 01/19/24 Mechanical Pencils Assembler Relationship Specialty Start Date End Date Generic Provider, No [place] [address] PCP - General 01/19/24 Mechanical Pencils Assembler Relationship Specialty Start Date End Date Luis Enrique Wood DO [address] [place] [address] PCP - General Family Medicine 05/06/18 Mechanical Pencils Assembler Relationship Specialty Start Date End Date David Story MD [address] [place] [address] PCP - General Family Medicine 05/14/24 Mechanical Pencils Assembler Relationship Specialty Start Date End Date David Story MD [address] [place] [address] PCP - General Family Medicine 05/14/24 Mechanical Pencils Assembler Relationship Specialty Start Date End Date David Story MD [address] [place] [address] PCP - General Family Medicine 05/14/24 Mechanical Pencils Assembler Relationship Specialty Start Date End Date David Story MD [address] [place] [address] PCP - General Family Medicine 05/14/24 Mechanical Pencils Assembler Relationship Specialty Start Date End Date David Story MD [address] [place] [address] PCP - General Family Medicine 05/14/24 Mechanical Pencils Assembler Relationship Specialty Start Date End Date David Story MD [address] [place] [address] PCP - General Family Medicine 05/14/24 Team Status: Inactive Member Role Status Dates Tania Magana , JUNIOR SYSTEMS ADMINISTRATOR Attending Provider Active Start: February 25, 2025 End: February 25, 2025 Mechanical Pencils Assembler Relationship Specialty Start Date End Date David Story MD [address] [place] [address] PCP - General Family Medicine 05/14/24 Mechanical Pencils Assembler Relationship Specialty Start Date End Date David Story MD [address] [place], [place] [id number] PCP - General Family Medicine 05/14/24 Mechanical Pencils Assembler Relationship Specialty Start Date End Date David Story MD [address] [place], [place] [id number] PCP - General Family Medicine 05/14/24 INFORMATION SOURCE (unrecogn ized section and content) DATE CREATED AUTHOR 11/18/2022 [employer] DATE CREATED AUTHOR AUTHOR'S ORGANIZ ATION 11/26/2022 [facility] DATE CREATED AUTHOR AUTHOR'S ORGANIZ ATION 01/11/2023 [facility] DATE CREATED AUTHOR AUTHOR'S ORGANIZ ATION 01/14/2023 [facility] DATE CREATED AUTHOR AUTHOR'S ORGANIZ ATION 01/17/2024 [facility] DATE CREATED AUTHOR AUTHOR'S ORGANIZ ATION 01/19/2024 [facility] DATE CREATED AUTHOR AUTHOR'S ORGANIZ ATION 03/16/2024 [facility] DATE CREATED AUTHOR AUTHOR'S ORGANIZ ATION 03/03/2025 [facility] DATE CREATED AUTHOR AUTHOR'S ORGANIZ ATION 04/09/2025 [facility] d[facility] Special[facility] EPIC Goals (unrecognized section and content) Goals may be documented in a n alternate sectionGoals may be documented in an alternate sectionGoals may be documented in an alternate section Scheduled Active and Recently Administ [...] BE BASED ON THE PRIMARY CLINICAL RECORDS. [employer] [facility]. provides no warranty or guarantee of the accuracy or completeness of information in this document.
--- NOTE | 2025-04-20 14:29 | MR_ITS ---
[address] [address] Patient Name: KERRI CHAMPAGNE MRN: [id number] date: 1950 Sex: F Assigned Patient Location: MRI Current Patient Location: MRI Accession/Order Number: [id number] Exam Date: 04/20/2025 15:24 Report Date: 04/20/2025 15:28 At the request of: LAURA OWENS Procedure: MR cervical spine wo con MRI Cervical Spine without contrast TECHNIQUE: Multiplanar T1 and T2-weighted imaging of the cervical spine obtained. HISTORY: Chronic neck pain. Trauma. COMPARISON: None BONY ALIGNMENT: Adequate BONY LESION: None CERVICAL CORD: No significant demyelination. SKULL BASE: unremarkable. PREVERTEBRAL SOFT TISSUES: Unremarkable NASOPHARYNGEAL REGION: unremarkable. VERTEBRAL ARTERIES: unremarkable. POSTSURGICAL CHANGES: None CERVICAL SOFT TISSUES: Unremarkable C1-2 LEVEL: Unremarkable C2-3: Mild disc space narrowing. Patent central canal and neural foramen mild disc space narrowing. Diffuse disc bulge. Mild crowding the cord. No cord hemorrhage. Patent neural foramen. C3-4: Mild disc space narrowing. Mild diffuse disc bulge. Mild crowding the cord. Patent neural foramen C4-5: Mild disc space narrowing. Diffuse disc bulge. Mild crowding the cord. Patent neural foramen C5-6: Mild disc space narrowing. Diffuse disc bulge. Mild to moderate crowding the cord. Mild bilateral neural foraminal narrowing C6-7: Mild disc space narrowing. Mild crowding the cord. No cord edema or hemorrhage. Mild bilateral neural foraminal narrowing C7-T1: Unremarkable MR/MR cervical spine wo con IMPRESSION: The multilevel discovertebral degenerative changes. Levels of mild to moderate crowding of the spinal cord. No cord edema or hemorrhage. Impression dictated by: Seng Corbin M.D. 04/20/2025 3:28 PM Dictation Location: [place] [address] Electronically authenticated by: [id number] Y Date: 04/20/2025 15:28
--- OUTSIDE RECORDS SUMMARY | 2025-04-20 14:29 | XMS_ITS | Clinical Summary ---
Author Organization [facility] Address [address] [place] [address] Phone Care Team Providers Care Partner Manager Name Role Phone Generic Provider, No Assigned [...] B [employer] S[employer]IOR [employer]LEMENT EYEMED Care Teams Partner Manager Relationship Specialty Start Date End Date Generic Provider, No Assigned Pcp, [place] [address] PCP - General 01/19/24
--- OUTSIDE RECORDS SUMMARY | 2025-04-20 14:29 | XMS_ITS | Encounter Summary ---
Author Organization [facility] Address [address] [place] [address] Care Team Providers Care Civil Engineering Manager Name Role Phone David Friedman MD Primary Care Provider [phone] Encounter Details Date Type Department Care Team (Latest Contact Info) Description 04/07/2025 Travel Social History Tobacco Use Types Packs/Day Years [...] Orientation Straight 07/20/2023 10 :15 AM EDT documented as of this encounter Plan of Treatment Upcoming Encounters Date Type Department Care Team (Late st Contact Info) Description 07/28/2025 10:30 AM EDT Procedure Visit [facility] [address] [facility] [address] [place] [address] Ines Pollack, LIFE SKILLS INSTRUCTOR [address] [facility] [address] [id number] documented as of this encounter Visit Diagnoses Not on filedocumented in this encounter Care Teams Civil Engineering Manager Relationship Specialty Start Date End Date David Friedman MD [address] [place], [place] [address] PCP - General Family Medicine 05/14/24 documented as of this encounter
--- OUTSIDE RECORDS SUMMARY | 2025-04-20 14:29 | XMS_ITS | Clinical Summary ---
Author Organization [facility] Address [address] [place] [address] Care Team Providers Care Organic Extractions Technician Name Role Phone David Friedman MD Primary Care Provider [phone] Allergies Active Allergy Reactions Criticality Noted Date [...] a week 42.5 g 2 07/08/2024 Active topiramate (Topamax) 25 MG tabletIndicatio ns:Cervical dystonia Take 1 tablet (25 mg) by mouth at bedtime for 7 days, THEN 1 tablet (25 mg) 2 (two) times a day. 67 tablet 11 04/07/2025 Active Hospital, Clinic, or Other Facility Administered Medication Ordered Dose Route Frequency Start Date End Date Status onabotulinumtoxinA (Botox) injection 200 UnitsIndications:Cervical dystonia 200 Units IM Once 04/07/2025 04/07/2025 Ended onabotulinumtoxinA (Botox) injection 100 UnitsIndications:Cervical dystonia 100 Units IM Once 04/07/2025 04/07/2025 Ended Active Problems Problem Noted Date Diagnosed Date Weight loss counseling, encounter for 05/27/2024 Dystonic tremor 02/17/2024 Cervical dystonia 07/21/2023 Cervical paraspinal muscle spasm 07/21/2023 Encounters Date Type Department Care Team Description 04/11/2025 Telephone [facility] [address] [place] [address] Ines Pollack NP 04/07/2025 10:00 AM EDT Procedure Visit [facility] [address] [facility] [address] [place] [address] Ines Pollack NP Cervical dystonia (Primary Dx) 04/07/2025 Bamboo flowsheet [facility] [address] [place] [address] Ines Pollack NP 04/07/2025 Travel from Last 3 Months Immunizations Immunization Administration Dates Next Due ABRYSVO [...] [facility] [address] [facility] [address] [place] [address] Ines Pollack LOGISTICS OPERATIONS DIRECTOR [address] [facility] [address] [place] [address] Health Maintenance Due Date Last Done Comments CT Colonography 1950 FIT 1950 FOBT 1950 Sigmoidoscopy 1950 Mammogram 02/15/2023 02/15/2022, 040 06/2022, 04/01/2020, Additional history exists Influenza Vaccine [...] Narrative 02/15/2022 12:00 PM EDT PERFORMED AT [facility] LOCATION:[id number] Procedure Note CONVERSION, GENERIC - 05/16/2023 PERFORMED AT [facility] LOCATION:[id number] Pancho Estrada DO IMG BI PROCEDURES Final Resul t * Colonoscopy (02/19/2017 12:00 PM EDT) Anatomical Region Laterality Modality Endoscopy 02/19/2017 12:0 0 PM EDT Narrative 02/19/2017 12:00 PM EDT PERFORMED AT [facility] LOCATION:[id number] Procedure Note CONVERSION, GENERIC - 03/27/2023 PERFORMED AT [facility] LOCATION:[id number] Shivani Haider NP ENDOSCOPY PROCEDURE ORDERAB LES Final Result from Last 3 Months or Most Recently Relevant to Health Maintenance Insurance MEDICARE [facility] Care Teams Organic Extractions Technician Relationship Specialty Start Date End Date David Friedman MD [address] [place] [address] PCP - General Family Medicine 05/14/24
--- OUTSIDE RECORDS SUMMARY | 2025-04-20 14:29 | XMS_ITS | Encounter Summary ---
Author Organization [facility] Address [address] [facility] [place] [address] Care Team Providers Care Fitting Room Associate Name Role Phone David Friedman MD Primary Care Provider [phone] Encounter Details Date Type Department Care Team (Late Contact Info) Description 04/07/2025 Bamboo flowsheet [facility] [address] [place] [address] Ines Pollack CAFE SERVER [address] [place] [address] Social History Tobacco Use Types Packs/Day Years [...] Encounters Date Type Department Care Team (Late Contact Info) Description 07/28/2025 10:30 AM EDT Procedure Visit [facility] [address] [facility] [address] [place] [address] Ines Pollack CAFE SERVER [address], [place] [id number] documented as of this encounter Visit Diagnoses Not on filedocumented in this encounter Care Teams Fitting Room Associate Relationship Specialty Start Date End Date David Friedman MD [address] [place] [address] PCP - General Family Medicine 05/14/24 documented as of this encounter
--- OUTSIDE RECORDS SUMMARY | 2025-04-20 14:30 | XMS_ITS | Encounter Summary ---
Author Organization [facility] Address [address] [facility] [place] [address] Care Team Providers Care Software Test Automation Engineer Name Role Phone David Friedman MD Primary Care Provider [phone] Encounter Details Date Type Department Care Team (Late Contact Info) Description 04/11/2025 Telephone [facility] [address], [place] [address] Ines Pollack PUMP OPERATOR [employer] [address], [place] [address] Social History Tobacco Use Types Packs/Day Years [...] [facility] [address] [place] [address] Ines Pollack PUMP OPERATOR [employer] [address] [address] documented as of this encounter Visit Diagnoses Not on filedocumented in this encounter Care Teams Software Test Automation Engineer Relationship Specialty Start Date End Date David Friedman MD [address] [place] [address] PCP - General Family Medicine 05/14/24 documented as of this encounter
--- OUTSIDE RECORDS SUMMARY | 2025-04-20 14:30 | XMS_ITS | Encounter Summary ---
Author Organization [facility] Address [address] [place] [address] Care Team Providers Care Helper/Driver Name Role Phone Arlen Parrish MD Primary Care Provider [phone] Luis Enrique Wood DO Primary Care Provider [phone] Source Comments In the event this information is protected by the Federal Confidentiality of Alcohol and Drug AbusePatient Records regulations: The Federal rules restrict any use of the information to criminally investigate or prosecute any alcohol or drug abuse patient.[facility] Encounter Details Date Type Department Care Team (Late st Contact Info) Description 08/15/2015 Patient Msg Medical Records [address] [place] [address] Provider, [facility] Appointment Cancellation Request Social History [...] Estevez (Ma) (Hist) * Do you have difficulty [...] on filedocumented in this encounter Care Teams Helper/Driver Relationship Specialty Start Date End Date Arlen Parrish MD [address] [place] [address] PCP - General Family Medicine 02/24/15 05/05/18 Luis Enrique Wood DO [address] [facility] [address] [place] [address] PCP - General Family Medicine 05/06/18 documented as of this encounter
--- OUTSIDE RECORDS SUMMARY | 2025-04-20 14:30 | XMS_ITS | Patient Health Record ---
Author Organization [facility] in [place] Address [address] [place] [address] Care Team Providers Care Nike Athlete Name Role Phone Triny Friedman Primary Care Provider Salvador Goddard Unavailable [phone] Allergies Allergen (clinical drug ingredient) Drug/Non Drug Allergy documented on EMR Reaction Allergy Type Onset Date Status atorvastatin Lipitor muscle cramping Drug Allergy Active Compazine seizure Drug Allergy Active Results Component Value Reference Range Notes XR foot LT min 3V Reviewed date:09/29/2024 12:12:42 PM Interpretation: Performing Lab: Notes/Report: Source Facility: [place] [address] XRay Report Signed Patient: KERRI ACEVEDO MR#: [id number] : 1950 Acct:[id number] Age/Sex: 74 / F ADM Date: 04/29/24 Loc: EC Attending Dr: Salvador Goddard Ordering Physician: Salvador Goddard Date of Service: 04/29/24 Procedure(s): XR foot LT min 3V Accession Number(s): [id number] cc: TRINY FRIEDMAN ; Salvador Goddard [place] [address] Patient Name: KERRI ACEVEDO MRN: [id number] date: 1950 Sex: F Assigned Patient Location: EC Current Patient Location: Accession/Order Number: [id number] Exam Date: 04/29/2024 09:45 Report Date: 04/30/2024 [...] M.D. Signed By: 04/30/24603 DD/ 0 TD/TT: Emergency Department Clinician: [place] [address] XRay Report Signed Patient: ANTOLIN ACEVEDO RA MR#: [id number] : 1950 Acct:[id number] Age/Sex: 74 / F ADM Date: 04/29/24 Loc: EC Attending Dr: Alexandra Goddard Ordering Physician: Salvador Goddard Date of Service: 04/29/24 Procedure(s): XR linnette t LT min 3V Accession Number(s): [id number] cc: TRINY FRIEDMAN ; Salvador Goddard [place] [id number] Patient Name: KERRI ACEVEDO MRN: [id number] date: 1950 Sex: F Assigned Patient Location: Current Patient Location: Accession/Order Numb er: [id number] Exam Date: 04/29/2024 09:45 Report Date: 04/30/2024 [...] soft tissue swelling. EFFUSION:None visible. OTHER: Negative. X R/XR foot LT min 3V IMPRESSION: 1. Stable subacute 5 th proximal phalanx fracture. No significant callus formation at this time. 2. Tiny ossification adjacent second toe distal interphalangeal joint, most suggestive of sequel a of remote injury. Electronically authenticated by: KALI GROVE Date: 04/30/2024 06:01 Dictated By: Kali Grove M.D. Signed By: 04/30/2404 DD/ 0 TD/TT: Emergency Department Clinician: CBC AUTO DIFF Reviewed date:09/29/2024 12:12:42 PM Interpretation: Performing Lab: Notes/Report: [facility] , White Blood Count 5.4 4.0-11.0 10 [...] 0.00-0.03 10 3/uL Performing Lab: see note - [facility] GLYCOHEMOGLOBIN A1C Reviewed date:09/29/2024 12:12:42 PM Interpretation: Performing Lab: Notes/Report: [facility] , Glycohemoglobin A1C 5.7 4.5-6.2 % ADA RECOMMENDED LIMIT 4.0 - 6.0 ACTION SUGGESTED ADA THERAPEUTIC TARGET < 7.0 > 7.0 Estimated Average Glucose 117 Performing Lab: see note [facility] INSULIN Reviewed date:09/30/2024 10:17:58 AM Interpretation: Performing Lab: Notes/Report: [facility] , Insulin 16.0 2.6-24.9 uIU/mL Performed at: - [facility] [employer]er: Vignesh Monique PhD, Phone: [phone] [address], [place] [phone] Performing Lab: see note - [facility] LB XR abdomen 1V Reviewed date:03/31/2025 02:10:27 PM Interpretation: Performing Lab: Notes/Report: Source Facility: [place] [address] XRay Report Signed Patient: KERRI ACEVEDO MR#: [id number] : 1950 Acct:[id number] Age/Sex: 75 / F ADM Date: 03/31/25 Loc: RAD Attending Dr: TRINY FRIEDMAN Ordering Physician: TRINY FRIEDMAN Date of Service: 03/31/25 Procedure(s): XR abdomen 1V Accession Number(s): [id number] cc: TRINY FRIEDMAN [place] [address] Patient Name: KERRI ACEVEDO MRN: [id number] date: 1950 Sex: F Assigned Patient Location: RAD Current Patient Location: RAD Accession/Order Number: [id number] Exam Date: 03/31/2025 10:24 Report Date: 03/31/2025 10:26 At the request of: TRINY FRIEDMAN Procedure: XR abdomen 1V SINGLE VIEW ABDOMEN COMPARISON: None CLINICAL DATA: Left lower quadrant pain for the past few months. Supine views of the abdomen and pelvis were obtained. Patient has a bladder stimulator on the right. There is air within the stomach. There is air and stool along the colon. There is minimal small bowel air though no disproportionate distention. No soft tissue masses or suspect renal calculi are noted. There is levoscoliotic curvature as well as degenerative changes at the spine. XR/XR abdomen 1V IMPRESSION: NONSPECIFIC, NONOBSTRUCTIVE BOWEL GAS PATTERN. Impression dictated by: Celine Jones M.D. 03/31/2025 10:26 AM Dictation Location: [place] [address] Electronically authenticated by: [id number] Y Date: 03/31/2025 10:26 Dictated By: Celine Jones M.D. Signed By: 03/31/25 1029 DD/ 1026 TD/TT: Emergency Department Clinician: [address] [address] XRay Report Signed Patient: ANTOLIN ACEVEDO RA MR#: [id number] : 1950 Acct:[id number] Age/Sex: 75 / F ADM Date: 03/31/25 Loc: RAD Attending Dr: TRINY FRIEDMAN Ordering Physician: TRINY FRIEDMAN Date of Service: 03/31/25 Procedure(s): XR abd omen 1V Accession Number(s): [id number] cc: TRINY FRIEDMAN [address] [address] Patient Name: KERRI ACEVEDO MRN: [id number] date: 1950 Sex: F Assigned Patient Location: RAD Current Patient Location: RAD Accession/Order Numb er: [id number] Exam Date: 03/31/2025 10:24 Report Date: 03/31/2025 10:26 At the request of: TRINY FRIEDMAN Procedure: XR abdomen 1V SINGLE VIEW ABDOMEN COMPARISON: None CLINICAL DATA: Left lower quadrant pain for the past few months. Supine views of the abdomen and pelvis were obtained. Patient has a bladder stimulator on the [facility]. There is air within the stomach. There is air and stool along the colo n. There is minimal small bowel air though no disproportionate distention. No soft tissue masses or suspect renal calculi are noted. There is levoscoliotic curvature as well as degenerative changes at the spine. X R/XR abdomen 1V IMPRESSION: NONSPECIFIC, NONOBSTRUCTIVE BOWEL GAS PATTERN. Impression dictated by: Celine Jones M.D. 03/31/2025 10:26 AM Dictation Location: [place] [address] Electronically authenticated by: [id number] Y Date: 03/31/2025 10:26 Dictated By: Celine Jones M.D. Signed By: 03/31/25 1029 DD/ 1026 TD/TT: Emergency Department Clinician: XR Foot LT (3 views) * Reviewed date:08/05/2024 11:44:29 AM Interpretation: Performing Lab: Notes/Report: TSH Reviewed date:09/29/2024 12:12:42 PM Interpretation: Performing Lab: Notes/Report: [facility] , Thyroid Stimulating Hormone 3.176 0.358-3.740 uIU/mL Performing Lab: see note ML - [facility] LB T4 Reviewed date:09/29/2024 12:12:42 PM Interpretation: Performing Lab: Notes/Report: [facility] , T4 Thyroxine 7.50 4.80-13.90 ug/dL Performing Lab: see note - [facility] LB PROF 14(COMP METB) Reviewed date:09/29/2024 12:12:42 PM Interpretation: Performing Lab: Notes/Report: [facility] , Sodium 144 136-145 mmol/L Potassium 4.6 [...] 1.3 Performing Lab: see note ML - [facility] LIPID PROFILE Reviewed date:09/29/2024 12:12:42 PM Interpretation: Performing Lab: Notes/Report: [facility] , Triglycerides 92 <=150 mg/dL Cholesterol 225 [...] 11.0 MODERATE RISK Performing Lab: see note ML - [facility] FREE T3 Reviewed date:09/29/2024 12:12:42 PM Interpretation: Performing Lab: Notes/Report: [facility] , Free T3 2.47 2.18-3.98 pg/mL Performing Lab: see note ML - [facility] Reason For Referral No Information Medications Medication [...] Status W/U Status Risk Notes Problem Hyperlipidemia (34756098) Hyperlipidemia (E78.5) Active confirmed Problem Dyslipidemia (823540743) Dyslipidemia (E78.5) Active confirmed Problem Anxiety (91828170) Anxiety (F41.9) Active confirmed Problem Neck pain (60808628) Neck pain (M54.2) Active confirmed Problem Hyperglycemia (14592049) Hyperglycemia (R73.9) Active confirmed Problem Arthritis (3140845) Arthritis (M19.90) Active confirmed Problem Vitamin D deficiency (70706867) Vitamin D deficiency (E55.9) Active confirmed Problem Acute sinusitis (48706864) Acute sinusitis (J01.90) Active confirmed Problem Irritable bowel syndrome (91005682) Irritable bowel syndrome (K58.9) Active confirmed Problem Postmenopausal bleeding (83452386) Postmenopausal vaginal bleeding (N95.0) Active confirmed Problem Overweight (708657528) Over weight (E66.3) Active confirmed Problem Unable to concentrate (finding) (38684136) Difficulty concentrating (R41.840) Active confirmed Problem Annual wellness visit (626152366771800) Wellness examination (Z00.00) Active confirmed Problem Dystonic tremor (393070520) 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) Active confirmed Problem Elevated blood pressure (54571877) Elevated BP (I10) Active confirmed Vital Signs Heart Rate 54 /min 10/26/2024 Temperature 98.2 degrees Fahrenheit 04/29/2024 Blood pressure diastolic 78 mm Hg 03/31/2025 Oximetry 98 % 10/26/2024 Height 63 in 03/31/2025 Blood pressure systolic 138 mm Hg 03/31/2025 Weight 174.6 lbs 03/31/2025 BMI 30.93 kg/m2 03/31/2025 Encounters Encounter Location Date Provider Diagnosis [facility] [address] [place] [address] 03/31/2025 Triny Friedman [facility] [address] [place] [address] 03/31/2025 Triny Friedman [facility] [address] [place] [address] 07/28/2024 Triny Friedman [facility] [address] [facility] [place] [address] 09/22/2024 Triny Friedman [facility] [address] [facility] [place] [address] 09/24/2024 Triny Friedman [facility] [address] [facility] [place] [address] 09/29/2024 Triny Friedman [facility] [address] [facility] [place] [address] 11/29/2024 Triny Friedman [facility] [address] [facility] [place] [address] 03/31/2025 Triny Friedman LLQ pain R10.32 ; Difficulty concentrating R41.840 and Dystonic tremor G25.2 [facility] [address] [facility] [place] [address] 09/22/2024 Triny Friedman Hot flashes R23.2 ; Dyslipidemia E78.5 and Elevated BP I10 [facility] [address] [place] [address] 10/26/2024 Triny Friedman Anxiety F41.9 and Bronchitis J40 [facility] ([facility]) [address] [place] [address] [place] [address] 04/29/2024 Salvador Goddard Left foot pain M79.672 and Displaced fracture of proximal phalanx of left lesser toe(s), subsequent encounter for fracture with routine healing S92.512D Assessments Encounter Date Diagnosis (ICD Code) Assessment Notes Treatment Notes Treatment Clinical Notes Section Notes 04/29/2024 Left foot pain (ICD-10 - M79.672) [...] the most relief in symptoms.RICE therapy and nshj-gto-[id number] analgesia advised.Follow-up in 3 to 4 weeks, sooner if any issues arise. I would like weightbearing foot x-rays at follow-up. 09/22/2024 Hot flashes (ICD-10 - R23.2) discuss estrogen therapy with DR Tommie MORALES referral? [facility] 09/22/2024 Dyslipidemia (ICD-10 - E78.5) hx high chol may be willing to try rosuvastatin 10/26/2024 Anxiety (ICD-10 - F41.9) restart venlafaxine took in past fu one month 10/26/2024 Bronchitis (ICD-10 - J40) cough for 2 weeks fu if not improving 03/31/2025 LLQ pain (ICD-10 - R10.32) continue monitor UC report discussed furthur imaging if needed 03/31/2025 Difficulty concentrating (ICD-10 - R41.840) discussed adult ADHD sent home with adult self report scale patient asking about adderall on wellbutrin in past, didnt think helped 03/31/2025 Dystonic tremor (ICD-10 - G25.2) shots not helping from neuro wants to try neck, deep tissue massage, rx given 09/22/2024 Elevated BP (ICD-10 - I10) continue [...] End Date [place]IC[place] [address] [place] [address] [id number] Kerri Acevedo Self - patient is the insured [employer] [address] [place] [place] [id number] [phone] [id number] Kerri Acevedo Self - patient is the [...]
--- OUTSIDE RECORDS SUMMARY | 2025-04-20 14:30 | XMS_ITS | Encounter Summary ---
Author Organization [facility] Address [address] [place] [address] Phone Care Team Providers Care Development Disability Specialist Name Role Phone Generic Provider, No Assigned Pcp MD Primary Car e Provider Unavailable Reason for Visit * Reason Comments Med Change Request Encounter Details Date Type Department Care Team (Late st Contact Info) Description 09/09/[address] [place] [address] Argentina Murguia, STRATEGIC MARKETING MANAGER-[employer]ILL[employer] CREWMEMBER [address] [place] [address] [place], [place] [phone] Perforation of left tympanic membrane; Left chronic [...] documented as of this encounter Care Teams Development Disability Specialist Relationship Specialty Start Date End Date Generic Provider, No Assigned Pcp, [place] [address] PCP - General 01/19/24 documented as of this encounter
--- OUTSIDE RECORDS SUMMARY | 2025-04-20 14:30 | XMS_ITS | Clinical Summary ---
Author Organization [facility] Address [address] [place] [address] Care Team Providers Care Workers Compensation Claims Assistant Name Role Phone Luis Enrique Wood Primary Care Provider [phone] Allergies Active Allergy Reactions Criticality Noted Date [...] is lower risk 8 03/31/2023 Data from: https://www.neighborhoodatlas.medicine.[facility].edu/. Last address used for calculation [address] [...] - 1-dose 75+ series) 02/07/2027 Insurance MEDICARE [place] [id number] [employer] SUPPLEMENT Care Teams Workers Compensation Claims Assistant Relationship Specialty Start Date End Date Luis Enrique Wood DO [address] [facility] [address] [place] [address] PCP - General Family Medicine 05/06/18
--- OUTSIDE RECORDS SUMMARY | 2025-04-20 14:30 | XMS_ITS | Encounter Summary ---
Author Organization [facility] Address [address] [place] [address] Phone Care Team Providers Care Information Technology Technician Name Role Phone Generic Provider, No Assigned Pcp MD Primary Car e Provider Unavailable Encounter Details Date Type Department Care Team (Late st Contact Info) Description 11/12/2023 Scanned Document [facility] [address] [place] [address] Triny Friedman, SAFETY ASSOCIATE-[employer] BORER [address] [facility] [place], [place] [id number] Social History Tobacco Use Types Packs/Day Years [...] documented as of this encounter Care Teams Information Technology Technician Relationship Specialty Start Date End Date Generic Provider, No Assigned Pcp, [place] [address] PCP - General 01/19/24 documented as of this encounter
== END 2025-04-20 14:28 | disposition home or self-care (01) ==
LOC: MRI 14:27
PROVIDERS: PCP Nurse Practitioner Family; Visit Provider Nurse Practitioner Gerontology
DX: G24.3 Spasmodic torticollis (principal); M50.30 Other cervical disc degeneration, unspecified cervical region
CPT/HCPCS: 72141